=== PATIENT | male | born 1950 | race Caucasian/White ===

== ENCOUNTER → 2018-09-27 16:57 | Outpatient (CLI) | payer OTHER, MEDICARE, SELFPAY ==
--- NOTE | 2018-09-27 | DI.MRI.S_ITS ---
PROCEDURE: MR LUMBAR SPINE WO CON INDICATIONS: LOW BACK PAIN TECHNIQUE: Noncontrast sagittal T1 spin echo and T2 fast echo, sagittal STIR, axial T1 and T2 fast spin echo through the lumbar spine. In cases with scoliosis, additional coronal T2 fast spin echo may be performed. COMPARISON: [facility], CR, XR LUMBAR SPINE WITH OLBIQUES PLUS FLEXION EXTENSION, 07/25/2018, 13:30. FINDINGS: Image quality: Excellent. Alignment and Curvature: There is grade 2 anterolisthesis of L5 on S1. Bone Marrow: L4-L5-S1 are surgically fused. Marrow is of normal overall signal. No acute vertebral body compression fractures. Spinal Cord: Conus medullaris terminates at the T12-L1 level. Visualized cord demonstrates normal signal and size. Paraspinous Soft Tissues: No paravertebral masses. L1-L2: Mild loss of disc height and disc desiccation. There is diffuse posterior disc bulge. The central canal is is mildly narrowed. Mild bilateral foraminal stenosis. L2-L3: [id number] loss of disc height and disc desiccation. There is diffuse posterior disc bulge. Mild bilateral facet arthropathy. The central canal is [id number] narrowed. Moderate bilateral foraminal stenosis. L3-L4: ild-to-loss of disc height and disc desiccation. There is diffuse posterior disc bulge and disc osteophyte complex. Mild bilateral facet arthropathy. The central canal is is mildly narrowed. Severe bilateral foraminal stenosis. L4-L5: Surgically fused with posterior decompression. No central canal stenosis. Mild bilateral foraminal stenosis. L5-S1: Surgically fused with posterior decompression. No central canal stenosis. Moderate right and mild left foraminal stenosis. IMPRESSION: 1. Multilevel degenerative and postsurgical changes in the lumbar spine as described. 2. Lwjx-[id number]-fbdtszvu central canal stenosis at L2-L3. 3. Severe foraminal stenosis at L3-L4 bilaterally, and moderate foramina stenosis at L2-L3 bilaterally. 4. Grade 2 anterolisthesis of L5 on S1. Dictated by: Shaka Palma M.D. on 09/28/2018 at 8:19 Approved by: Shaka Palma M.D. on 09/28/2018 at 14:45
== END ==
PROVIDERS: Visit Provider Physical Medicine & Rehabilitation Pain Medicine
DX: M54.5 Low back pain (principal); M47.816 Spondylosis without myelopathy or radiculopathy, lumbar region; M48.061 Spinal stenosis, lumbar region without neurogenic claudication; M48.07 Spinal stenosis, lumbosacral region; M43.17 Spondylolisthesis, lumbosacral region; Z98.1 Arthrodesis status
CPT/HCPCS: 72148

== ENCOUNTER 2021-04-25 13:03 | Inpatient (IN) | payer OTHER, SELFPAY ==
[2021-04-25] VITALS (20 sets, daily range): BP systolic 120–150; BP diastolic 65–96; PULSE 95–122; RESP 18–42; TEMP 36.8–40; O2SAT 93–99; BMI 34.7
--- NOTE | 2021-04-25 13:22 | ED.GENADULT ---
HPI - General Adult General Chief complaint: Shortness of Breath/Dyspnea Stated complaint: ams Time Seen by Provider: 04/25/21 13:07 Source: patient Mode of arrival: EMS Limitations: no limitations History of Present Illness HPI narrative: 70-year-old gentleman lives at home with his , medics were called due to breathing abnormalities. Patient is tachypneic, tachycardic, confused and unable to answer many questions. His is not immediately available. Old records are not available at this time and patient does not know his past medical history. Medications listed in the medical record indicate depression, hyperlipidemia, chronic pain with opioid use. Related Data Home Medications Medication Instructions Recorded Confirmed gabapentin 300 mg capsule 300 mg PO TID #0 06/10/17 (Neurontin) omeprazole 20 mg capsule,delayed 20 mg PO QDAY #0 06/10/17 release prazosin 2 mg capsule (Minipress) 2 mg PO #0 06/10/17 quetiapine 400 mg tablet (Seroquel) 400 mg PO QDAY #0 06/10/17 sertraline 100 mg tablet 100 mg PO QDAY #0 06/10/17 simvastatin 20 mg tablet 20 mg PO QDAY #0 06/10/17 Previous Rx's Medication Instructions Recorded hydroxyzine pamoate 25 mg capsule 25 - 50 mg PO Q4HP PRN #60 cap 06/10/17 (Vistaril) oxycodone-acetaminophen 5 mg-325 1 - 2 tab PO Q4HP PRN #60 tab 06/10/17 mg tablet (Percocet) Allergies Allergy/AdvReac Type Severity Reaction Status Date / Time No Known Drug Allergies Allergy Verified 04/25/21 13:16 Review of Systems Review of Systems ROS Unobtainable: Unobtainable due to medical condition Exam Narrative Exam Narrative: General: Acutely ill-appearing, diaphoretic, very dry mucous membranes with confusion and distal mottling significant tachypnea HEENT: Very dry mucous membranes, normal sclera with reactive pupils, Neck: No JVD, supple Respiratory: Lungs with minor scattered wheezing but no rhonchi. Tachypneic with overall shallow air movement. No accessory muscle use Cardiac: Tachycardic with regular rhythm no murmurs no bruits Abdomen: Soft, obese, patient does complain of diffuse abdominal tenderness without rebound or guarding, hypoactive bowel tones no flank pain Skin: Pale, dry, mottling from mid thighs peripherally. Fingertips are cool. Neurologic: Confused with acute delirium and non focal findings Extremities: No trauma, no obvious cellulitis or other infection Psych: Acutely altered trying to be cooperative Initial Vital Signs Initial Vital Signs: Vital Signs Temperature 102.9 F H 04/25/21 13:00 Pulse Rate 122 H 04/25/21 13:00 Respiratory Rate 40 H 04/25/21 13:00 Blood Pressure 138/96 H 04/25/21 13:00 Pulse Oximetry 97 04/25/21 13:00 Course Orders Ordered: ED Orders 04/25/21 13:07 EKG-12 Lead Stat 04/25/21 13:10 Complete Blood Count AUTO DIFF Stat Comprehensive Metabolic Panel Stat Lactate (Lactic Acid) Stat Procalcitonin Stat Troponin & CK Cardiac Panel Stat 04/25/21 13:13 Respiratory Panel (Film Array) Stat 04/25/21 13:25 Blood Culture Stat 04/25/21 13:43 Urinalysis and Microscopic Stat Urine Culture Stat 04/25/21 14:03 XR chest 1V Stat 04/25/21 14:52 CT kidney ureter bladder (KUB) Stat 05/01/21 13:30 Vancomycin Trough Urgent Vancomycin HCl/Dextrose (Vancomycin) 2,000 mg in 400 mls @ 200 mls/hr IV Q48H SIMI Last Admin: 04/25/21 14:05 Dose: 200 mls/hr Documented by: NASREEN Lactated Ringer's (Lactated Ringers) 2,190 mls @ 730 mls/hr 30 ml/kg infuse over 3 hr (2190 ml) IV NOW ONE Stop: 04/25/21 17:01 Last Admin: 04/25/21 14:04 Dose: 730 mls/hr Documented by: NASREEN Discontinued Medications Acetaminophen (Acetaminophen 325 Mg Tablet) 975 mg PO NOW ONE Stop: 04/25/21 13:51 Last Admin: 04/25/21 13:59 Dose: Not Given Documented by: NASREEN Acetaminophen (Acetaminophen 650 Mg Supp) 650 mg MD NOW ONE Stop: 04/25/21 14:01 Last Admin: 04/25/21 14:04 Dose: 650 mg Documented by: NASREEN Acetaminophen (Acetaminophen 650 Mg Supp) 650 mg MD NOW ONE Stop: 04/25/21 14:01 Piperacillin Sod/Tazobactam (Sod 4.5 gm/ Sodium Chloride) 100 mls @ 200 mls/hr IV NOW ONE Stop: 04/25/21 13:08 Last Infusion: 04/25/21 13:59 Dose: 0 mls/hr Documented by: Admin: 04/25/21 13:26 Dose: 200 mls/hr Documented by: NASREEN Vancomycin HCl (Vancomycin Per Pharmacy) 1 request MISC NOW ONE Stop: 04/25/21 13:08 Last Admin: 04/25/21 14:13 Dose: Not Given Documented by: NASREEN Vital Signs Vital signs: Vital Signs - 8 hr 04/25/21 13:00 04/25/21 13:05 04/25/21 13:07 Temperature 102.9 F H Pulse Rate 122 H 121 H 120 H Respiratory Rate 40 H 39 H 37 H Blood Pressure 138/96 H 138/96 H Pulse Oximetry 97 97 97 04/25/21 13:15 04/25/21 13:30 04/25/21 13:45 Temperature 103.3 F H Pulse Rate 120 H 118 H 109 H Respiratory Rate 37 H 30 H 36 H Blood Pressure 150/86 H Pulse Oximetry 96 99 04/25/21 14:00 04/25/21 14:15 04/25/21 14:30 Temperature 103.8 F H 104.0 F H 103.8 F H Pulse Rate 107 H 106 H 109 H Respiratory Rate 32 H 33 H 42 H Blood Pressure 149/67 H 148/68 H Pulse Oximetry 98 99 98 04/25/21 14:31 04/25/21 14:45 04/25/21 15:11 Temperature 103.8 F H 102.9 F H 102.0 F H Pulse Rate 109 H 109 H Respiratory Rate 31 H 29 H Blood Pressure 123/67 135/73 Pulse Oximetry 99 98 04/25/21 15:13 04/25/21 15:15 Temperature 102.0 F H 101.8 F H Pulse Rate 101 H 102 H Respiratory Rate 18 34 H Blood Pressure 120/65 129/67 Pulse Oximetry 97 97 Medical Decision Making Lab Data Result diagrams: 04/25/21 13:10 04/25/21 13:10 Labs: Lab Results 04/25/21 04/25/21 04/25/21 Range/Units 13:10 13:10 13:10 WBC 18.4 H (4.5-11.0) X10^3/uL RBC 4.19 L (4.5-5.9) X10^6/uL Hgb 12.7 L (13.5-17.5) g/dL Hct 38.0 L (41-53) % MCV 90.8 (80-100) fL MCH 30.3 (26-34) PG MCHC 33.4 (30-36) % RDW 13.9 (11.6-14.8) % Plt Count 211 (150-400) X10^3/uL Neut % (Auto) 91.4 H (50-75) % Lymph % (Auto) 3.4 L (25-40) % Caswell % (Auto) 5.0 (3-14) % Eos % (Auto) 0.0 L (2-4) % Baso % (Auto) 0.2 (0-2) % Neut # (Auto) 23678 H (6022-3244) /uL Lymph # (Auto) 600 L (6131-5139) /uL [place] # (Auto) 900 (0-900) /uL Eos # (Auto) 0 (0-450) /uL Baso # (Auto) 0 (0-100) /uL Sodium 140 (137-145) mmol/L Potassium 3.7 (3.4-5.1) mmol/L Chloride 101 (98-107) mmol/L Carbon Dioxide 23 (22-32) mmol/L BUN 25 H (9-20) mg/dL Creatinine 2.25 H (0.66-1.25) mg/dL Estimated GFR 28.9 L (>60) mL/min BUN/Creatinine Ratio 11.1 (6-22) Glucose 200 H (80-110) mg/dL Lactate 3.1 H (0.7-2.1) mmol/L Calcium 8.7 (8.4-10.2) mg/dL Total Bilirubin 1.8 H (0.2-1.3) mg/dL AST 42 (17-59) IU/L ALT 28 (<50) IU/L Alkaline Phosphatase 101 (38-126) U/L Total Creatine Kinase 899 H (55-170) U/L CK-MB (CK-2) 1.70 (<2.37) ng/mL CK-MB (CK-2) Rel Index 0.2 L (1.5-5.0) % Troponin I < 0.012 (0.01-0.034) ng/mL Total Protein 8.0 (6.3-8.2) g/dL Albumin 4.3 (3.5-5.0) g/dL Globulin 3.7 (1.7-4.1) g/dL Albumin/Globulin Ratio 1.2 (1.0-2.8) Procalcitonin 8.09 H (<0.5) ng/mL Urine Color Urine Appearance Urine pH (4.5-8.0) Ur Specific Grover (1.000-1.035) Urine Protein (Negative) Urine Glucose (UA) (Negative) g/dL Urine Ketones (NEGATIVE) Urine Occult Blood (Negative) Urine Nitrate (Negative) Urine Bilirubin (NEGATIVE) Urine Urobilinogen (0.2) E.U./dL Ur Leukocyte Esterase (NEGATIVE) Urine RBC (0-5/HPF) Urine WBC (0-5/HPF) Ur Squamous Epith Cells (0-5/HPF) Ur Renal Epithelial Cell (0-1/HPF) Amorphous Sediment Urine Bacteria (None) Ur Culture Indicated? Chlamy pneumoniae PCR (Not Detect) Adenovirus (PCR) (Not Detect) B. pertussis DNA (PCR) (Not Detecte) B.parapertussis DNA PCR (Not Detecte) Coronavirus OC43 (PCR) (Not Detect) Coronavirus HKU1 (PCR) (Not Detect) Coronavirus 229E (PCR) (Not Detect) SARS-CoV-2 (PCR) (Not Detecte) Coronavirus NL63 (PCR) (Not Detect) Human Metapneumovir PCR (Not Detect) Influenza Type A (PCR) (Not Detect) Influenza Type B (PCR) (Not Detect) M. pneumoniae (PCR) (Not Detect) Parainfluenza 1 (PCR) (Not Detect) Parainfluenza 2 (PCR) (Not Detect) Parainfluenza 3 (PCR) (Not Detect) Parainfluenza 4 (PCR) (Not Detect) RSV (PCR) (Not Detect) Entero/Rhino (PCR) (Not Detect) 04/25/21 04/25/21 Range/Units 13:13 13:43 WBC (4.5-11.0) X10^3/uL RBC (4.5-5.9) X10^6/uL Hgb (13.5-17.5) g/dL Hct (41-53) % MCV (80-100) fL MCH (26-34) PG MCHC (30-36) % RDW (11.6-14.8) % Plt Count (150-400) X10^3/uL Neut % (Auto) (50-75) % Lymph % (Auto) (25-40) % Caswell % (Auto) (3-14) % Eos % (Auto) (2-4) % Baso % (Auto) (0-2) % Neut # (Auto) (1283-9290) /uL Lymph # (Auto) (9478-2668) /uL Caswell # (Auto) (0-900) /uL Eos # (Auto) (0-450) /uL Baso # (Auto) (0-100) /uL Sodium (137-145) mmol/L Potassium (3.4-5.1) mmol/L Chloride (98-107) mmol/L Carbon Dioxide (22-32) mmol/L BUN (9-20) mg/dL Creatinine (0.66-1.25) mg/dL Estimated GFR (>60) mL/min BUN/Creatinine Ratio (6-22) Glucose (80-110) mg/dL Lactate (0.7-2.1) mmol/L Calcium (8.4-10.2) mg/dL Total Bilirubin (0.2-1.3) mg/dL AST (17-59) IU/L ALT (<50) IU/L Alkaline Phosphatase (38-126) U/L Total Creatine Kinase (55-170) U/L CK-MB (CK-2) (<2.37) ng/mL CK-MB (CK-2) Rel Index (1.5-5.0) % Troponin I (0.01-0.034) ng/mL Total Protein (6.3-8.2) g/dL Albumin (3.5-5.0) g/dL Globulin (1.7-4.1) g/dL Albumin/Globulin Ratio (1.0-2.8) Procalcitonin (<0.5) ng/mL Urine Color Yellow Urine Appearance Cloudy Urine pH 6.0 (4.5-8.0) Ur Specific Grover 1.010 (1.000-1.035) Urine Protein 1+ H (Negative) Urine Glucose (UA) Negative (Negative) g/dL Urine Ketones Negative (NEGATIVE) Urine Occult Blood 2+ H (Negative) Urine Nitrate Positive H (Negative) Urine Bilirubin Negative (NEGATIVE) Urine Urobilinogen 0.2 (0.2) E.U./dL Ur Leukocyte Esterase 3+ H (NEGATIVE) Urine RBC 1-5/hpf (0-5/HPF) Urine WBC >100/hpf H (0-5/HPF) Ur Squamous Epith Cells 0-1 /hpf (0-5/HPF) Ur Renal Epithelial Cell 0-1/hpf (0-1/HPF) Amorphous Sediment 1+ Urine Bacteria Many (>30) H (None) Ur Culture Indicated? Specimen cultured Chlamy pneumoniae PCR Not detected (Not Detect) Adenovirus (PCR) Not detected (Not Detect) B. pertussis DNA (PCR) Not detected (Not Detecte) B.parapertussis DNA PCR Not detected (Not Detecte) Coronavirus OC43 (PCR) Not detected (Not Detect) Coronavirus HKU1 (PCR) Not detected (Not Detect) Coronavirus 229E (PCR) Not detected (Not Detect) SARS-CoV-2 (PCR) Not detected (Not Detecte) Coronavirus NL63 (PCR) Not detected (Not Detect) Human Metapneumovir PCR Not detected (Not Detect) Influenza Type A (PCR) Not detected (Not Detect) Influenza Type B (PCR) Not detected (Not Detect) M. pneumoniae (PCR) Not detected (Not Detect) Parainfluenza 1 (PCR) Not detected (Not Detect) Parainfluenza 2 (PCR) Not detected (Not Detect) Parainfluenza 3 (PCR) Not detected (Not Detect) Parainfluenza 4 (PCR) Not detected (Not Detect) RSV (PCR) Not detected (Not Detect) Entero/Rhino (PCR) Not detected (Not Detect) Imaging Data CT scan - abdomen/pelvis: Radiologist's Impression: IMPRESSION:? ? 1. Bilateral perinephric stranding is nonspecific and the differential includes pyelonephritis.? Evaluation is limited in the absence of intravenous contrast. ? 2. No nephrolithiasis or hydronephrosis.? No discrete perinephric fluid collections to suggest an abscess. ? 3. Mild fullness of the distal ureters bilaterally without a discrete obstructing stone. ? 4. Slightly hyperdense fluid within a partially distended urinary bladder.? Findings may reflect blood product or debris. ? 5. Colonic diverticulosis without acute diverticulitis.? ? ? Dictated by: Thomas Dyer M.D. on 04/25/2021 at 15:14? ?? Chest x-ray: Radiologist's Impression: FINDINGS:? ? Surgical changes and devices:? A surgical anchor projects over the right humeral head.? ? Lungs and pleura:? Low lung volumes with prominence of the bronchovascular markings.? Streaky bibasilar densities are seen.? No consolidation, pleural effusions or pneumothorax.? ? Mediastinum:? Prominence of the cardiomediastinal silhouette, partially is agitated by technique. ? Bones and chest wall:? No suspicious bony lesions.? Overlying soft tissues appear unremarkable.? ? IMPRESSION:? Streaky bibasilar densities, which may reflect atelectasis.? A superimposed infectious process cannot be excluded.? ? ? Dictated by: Elvis Leonard M.D. on 04/25/2021 at 14:16? ?? ECG Data Interpretation: Sinus tach at 118 Poor baseline Leftward axis No acute ischemic changes MDM Narrative Medical decision making narrative: 70-year-old gentleman brought from home with significant tachypnea, tachycardia, distal mottling, notes urinary incontinence over the last week. Internal temperature of a 102?. Currently acutely altered presumably due to his infection. No signs of stroke. Respiratory exam aside from the tachypnea is relatively benign. Significant leukocytosis significant urinary tract infection. Not currently hypotensive. Fluids at 30 ml/kg are initiated, Zosyn is started. At this time, based on clinical exam,I am not concerned for stroke. Probability of pulmonary or intra-abdominal source for infection are less likely. Labs and EKG do not suggest acute coronary syndrome. Temperature is increasing to 103 and Tylenol is administered rectum is his mouth is too dry to swallow pills After the 1 L of fluid and Zosyn heart rate is down to 103, oxygen saturations are 98% on room air. Respiratory rate is trending down he appears much more comfortable. Chest x-ray does not suggest pneumonia. Patient needs to be admitted for urinary tract infection with sepsis without evidence of significant hypotension. He is responding nicely to fluids. Antibiotics have been started cultures etc. have been obtained he is responding nicely to Tylenol in terms of temp. Initial reviewed with Dr. Waterman, he has requested abdominal imaging to make sure there isn't an acute urology intervention required prior to admission. CT scan of the abdomen is ordered. 330 CT of the abdomen does not have any specific findings that would alter plans for admission. Patient is safe for transfer to the floor Discharge Plan Departure Patient Disposition: Admitted As Inpatient Clinical Impression: Sepsis Qualifiers: Sepsis type: sepsis due to unspecified organism Sepsis acute organ dysfunction status: with acute organ dysfunction Severe sepsis acute organ dysfunction type: encephalopathy Severe sepsis shock status: without septic shock Qualified Code(s): A41.9 - Sepsis, unspecified organism Urinary tract infection Qualifiers: Urinary tract infection type: acute cystitis Hematuria presence: without hematuria Qualified Code(s): N30.00 - Acute cystitis without hematuria
[2021-04-25] MEDS: PIPERACILLIN/TAZO 4.5 GM in SODIUM CHLORIDE 0.9% 100 ML 200 ML IV (13:26)
[2021-04-25 13:28] LABS: Add Manual Diff / Slide Review NO; Basophils Absolute Auto 0 /uL (0-100); Basophils Percent Auto 0.2 % (0-2); Eosinophils Absolute Auto 0 /uL (0-450); Hemoglobin 12.7 g/dL (13.5-17.5); Lymphocytes Absolute Auto 600 /uL (1100-4500); Lymphocytes Percent Auto 3.4 % (25-40); Mean Corpuscular HGB Conc 33.4 % (30-36); Mean Corpuscular Hemoglobin 30.3 PG (26-34); Mean Corpuscular Volume 90.8 fL (80-100); Monocytes Absolute Auto 900 /uL (0-900); Neutrophils Absolute Auto 16800 /uL (1500-7000); Neutrophils Percent Auto 91.4 % (50-75); Platelet Count 211 X10^3/uL (150-400); Red Blood Cell Count 4.19 X10^6/uL (4.5-5.9); Red Cell Distribution Width 13.9 % (11.6-14.8); White Blood Cell Count 18.4 X10^3/uL (4.5-11.0)
[2021-04-25 13:42] LABS: Lactate (Lactic Acid) 3.1 mmol/L (0.7-2.1)
[2021-04-25 13:43] LABS: Alanine Aminotransferase 28 IU/L (<50); Albumin 4.3 g/dL (3.5-5.0); Albumin Globulin Ratio 1.2 (1.0-2.8); Alkaline Phosphatase 101 U/L (38-126); Aspartate Aminotransferase 42 IU/L (17-59); BUN Creatinine Ratio 11.1 (6-22); Bilirubin Total 1.8 mg/dL (0.2-1.3); Blood Urea Nitrogen 25 mg/dL (9-20); Calcium 8.7 mg/dL (8.4-10.2); Carbon Dioxide 23 mmol/L (22-32); Chloride 101 mmol/L (98-107); Creatine Kinase 899 U/L (55-170); Estimated Glomerular Filt Rate 28.9 mL/min (>60); Globulin 3.7 g/dL (1.7-4.1); Glucose 200 mg/dL (80-110); HEMOLYSIS < 15 (0-50); Potassium 3.7 mmol/L (3.4-5.1); Sodium 140 mmol/L (137-145)
[2021-04-25 13:52] LABS: Appearance Urine UA CLOUDY; Bilirubin Urine UA NEGATIVE (NEGATIVE); Color Urine UA YELLOW; Glucose Urine UA NEGATIVE (Negative); Ketones Urine UA NEGATIVE (NEGATIVE); Leukocyte Esterase Urine UA 3+ (NEGATIVE); Nitrite Urine UA POSITIVE (Negative); Occult Blood Urine UA 2+ (Negative); Protein Urine UA 1+ (Negative); Urobilinogen Urine UA 0.2 E.U./dL (0.2)
[2021-04-25 13:55] LABS: Troponin I < 0.012 ng/mL (0.01-0.034)
[2021-04-25 13:59] LABS: CKMB % Relative Index 0.2 % (1.5-5.0); Procalcitonin 8.09 ng/mL (<0.5)
[2021-04-25 14:01] LABS: Amorphous Sediment Urine 1+; Bacteria Urine Many (>30); RBC Urine 1-5/HPF (0-5/HPF); Renal Epithelial Cells Urine 0-1/HPF (0-1/HPF); Squamous Epithelial Cell Urine 0-1 /HPF (0-5/HPF); WBC Urine >100/HPF (0-5/HPF)
[2021-04-25 14:02] LABS: Culture Indicated Urine Specimen Cultured
--- NOTE | 2021-04-25 14:03 | DI.RAD.S_ITS ---
PROCEDURE: XR CHEST 1V INDICATIONS: Dyspnea TECHNIQUE: One view of the chest was acquired. COMPARISON: None. FINDINGS: Surgical changes and devices: A surgical anchor projects over the right humeral head. Lungs and pleura: Low lung volumes with prominence of the bronchovascular markings. Streaky bibasilar densities are seen. No consolidation, pleural effusions or pneumothorax. Mediastinum: Prominence of the cardiomediastinal silhouette, partially is agitated by technique. Bones and chest wall: No suspicious bony lesions. Overlying soft tissues appear unremarkable. IMPRESSION: Streaky bibasilar densities, which may reflect atelectasis. A superimposed infectious process cannot be excluded. Dictated by: Elvis Leonard M.D. on 04/25/2021 at 14:16 Approved by: Elvis Leonard M.D. on 04/25/2021 at 14:17
[2021-04-25] MEDS: ACETAMINOPHEN 650 MG SUPP PR (14:04)
[2021-04-25] MEDS: LACTATED RINGERS 2,190 ML 730 ML IV (14:04)
[2021-04-25] MEDS: VANCOMYCIN 2,000 MG/400 ML PIGGYBACK 200 MG IV (14:05)
[2021-04-25 14:41] LABS: Adenovirus Not Detected (Not Detect); B. parapertussis Not Detected (Not Detecte); Bordetella pertussis Not Detected (Not Detecte); Chlamydophila pneumoniae Not Detected (Not Detect); Coronavirus 229E Not Detected (Not Detect); Coronavirus HKU1 Not Detected (Not Detect); Coronavirus NL 63 Not Detected (Not Detect); Coronavirus OC43 Not Detected (Not Detect); Human Metapneumovirus Not Detected (Not Detect); Human Rhinovirus/Enterovirus Not Detected (Not Detect); Influenza A Not Detected (Not Detect); Influenza B Not Detected (Not Detect); Mycoplasma pneumoniae Not Detected (Not Detect); Parainfluenza Virus 1 Not Detected (Not Detect); Parainfluenza Virus 2 Not Detected (Not Detect); Parainfluenza Virus 3 Not Detected (Not Detect); Parainfluenza Virus 4 Not Detected (Not Detect); Respiratory Syncytial Virus Not Detected (Not Detect); SARS- CoV-2 Not Detected (Not Detecte)
--- NOTE | 2021-04-25 14:52 | DI.CT.S_ITS ---
PROCEDURE: CT KIDNEY URETER BLADDER (KUB) INDICATIONS: UTI, sepsis TECHNIQUE: Axial sections were acquired from the lung bases to the pubic symphysis. Coronal and sagittal reformats were performed. For radiation dose reduction, the following was used: automated exposure control, adjustment of mA and/or kV according to patient size. COMPARISON: None. FINDINGS: Image quality: There is motion artifact limiting evaluation. Metallic streak artifact is also present due to patient's surgical hardware in the lower lumbar spine. Lung bases: There is dependent atelectasis bilaterally. Heart: No significant findings. URINARY: Right Kidney: No stones or hydronephrosis. There is nonspecific perinephric stranding. Right Ureter: There is mild fullness of the mid and distal ureter without an obstructing stone visualized. Left Kidney: No stones or hydronephrosis. There is nonspecific perinephric stranding. Left Ureter: There is mild fullness of the distal ureter without an obstructing stone. Bladder: There is a Castillo catheter within a partially distended urinary bladder. There is slightly hyperdense fluid within the bladder lumen. ABDOMEN: Liver: Unremarkable. Gallbladder: No calcified gallstones. Evaluation is slightly limited by motion artifact. Biliary ducts: Unremarkable. Pancreas: Unremarkable. Spleen: Unremarkable. Adrenal Glands: Unremarkable. Stomach and Bowel: Stomach and small bowel loops are normal in caliber and wall thickness. No evidence of appendicitis. There is colonic diverticulosis without acute diverticulitis. Peritoneum: No abnormal intraperitoneal fluid. No free air. Ventral Wall: No hernia. Abdominal Nodes: No enlarged retroperitoneal or mesenteric lymph nodes. Vessels: Aorta and inferior vena cava are normal in size. PELVIS: Pelvic Organs: Unremarkable. Pelvic Nodes: Unremarkable. Miscellaneous: No inguinal hernias are seen. There is a penile prosthesis with a reservoir in the right inguinal region. Bones: Unremarkable. IMPRESSION: 1. Bilateral perinephric stranding is nonspecific and the differential includes pyelonephritis. Evaluation is limited in the absence of intravenous contrast. 2. No nephrolithiasis or hydronephrosis. No discrete perinephric fluid collections to suggest an abscess. 3. Mild fullness of the distal ureters bilaterally without a discrete obstructing stone. 4. Slightly hyperdense fluid within a partially distended urinary bladder. Findings may reflect blood product or debris. 5. Colonic diverticulosis without acute diverticulitis. Dictated by: Thomas Dyer M.D. on 04/25/2021 at 15:14 Approved by: Thomas Dyer M.D. on 04/25/2021 at 15:23
[2021-04-25 15:23] LABS: Reflexed Lactate in 2 Hours Y
[2021-04-25 15:49] LABS: Lactate 2HR (Lactic Acid Rflx) 1.6 mmol/L (0.7-2.1)
--- NOTE | 2021-04-25 17:04 | P.HP_ITS ---
History of Present Illness History of Present Illness Date Patient Seen: 04/25/21 Time Patient Seen: 17:17 Chief complaint: ams Narrative: This is a 70-year-old male with a past medical history of BPH, severe PTSD who to the emergency room today with confusion per his spouse. Patient is currently confused an has little history to offer at this time so much of the report is gained from his at bedside. Patient had a prostate biopsy approximately [address] [facility]. approximately 1 week ago he began to notice increasing urinary frequency, with the past couple of days developing abdominal and back pain and confusion today. He also endorses dysuria, and some testicular pain. Other than PTSD he has no known hypertension, heart disease, lung disease, or diabetes. Unable to obtain family history given patient's current mental status. In the emergency room the patient was febrile to 104, he was also tachycardic, tachypneic. His blood pressure did not fall below normal. He was saturating in the low to mid 90s on room air. Initial laboratory evaluation revealed leukocytosis with WBC of 18.4 with a left shift. Chemistries revealed a c reatinine of 2.25, with unknown baseline. His glucose was noted to be 200. Two bilirubin was elevated at 1.8 with no significant transaminase elevations. CK was mildly elevated at 899. Troponin was negative. Procalcitonin was elevated at 8.09. Urinalysis showed 2+ occult blood, positive nitrates and leuk esterase with greater than 100 cells per high-powered field. Specimen was sent for cult ure. Chest x-ray showed probable atelectasis but could not rule out possible infectious process. CT of his abdomen showed bilateral perinephric stranding consistent with bilateral pyelonephritis. Respiratory viral panel PCR was negative. Patient was admitted for further management of sepsis secondary to probable prostatitis after prostate biopsy. Patient History Medical History (Updated 04/25/21 @ 17:06 by Romero Waterman DO) BPH (benign prostatic hyperplasia) Post traumatic stress disorder (PTSD) Surgical History (Updated 04/25/21 @ 17:06 by Romero Waterman DO) H/O prostate biopsy H/O shoulder surgery History of lumbar fusion Family & Social History Social History: household members spouse Tobacco & Substance use: Smoking Status Former smoker alcohol intake former Substance Use Type occasional marijuana once per two weeks. Meds Home Medications and Allergies Home Medications Medication Instructions Recorded Confirmed Type gabapentin 300 mg capsule 300 mg PO TID #0 06/10/17 04/25/21 History (Neurontin) omeprazole 20 mg capsule,delayed 20 mg PO QDAY PRN #0 06/10/17 04/25/21 History release prazosin 2 mg capsule (Minipress) See Rx Instructions .ROUTE 06/10/17 04/25/21 History .COMPLEX #0 sertraline 100 mg tablet 100 mg PO QDAY #0 06/10/17 04/25/21 History aripiprazole 5 mg tablet 5 mg PO DAILY 04/25/21 04/25/21 History cholecalciferol (vitamin D3) 25 25 mcg PO DAILY 04/25/21 04/25/21 History mcg (1,000 unit) tablet (Vitamin D3) fluoxetine 40 mg capsule 40 mg PO DAILY 04/25/21 04/25/21 History tamsulosin 0.4 mg capsule 0.8 mg PO BEDTIME 04/25/21 04/25/21 History Allergies Allergy/AdvReac Type Severity Reaction Status Date / Time No Known Drug Allergies Allergy Verified 04/25/21 13:16 Review of Systems Review of Systems Narrative: All other systems reviewed with the patient and spouse and are negative unless otherwise stated. Exam Vital Signs (past 8 hours): - 04/25/21 13:00 04/25/21 13:05 04/25/21 13:07 Temperature 102.9 F H Pulse Rate 122 H 121 H 120 H Respiratory Rate 40 H 39 H 37 H Blood Pressure 138/96 H 138/96 H Pulse Oximetry 97 97 97 04/25/21 13:15 04/25/21 13:30 04/25/21 13:45 Temperature 103.3 F H Pulse Rate 120 H 118 H 109 H Respiratory Rate 37 H 30 H 36 H Blood Pressure 150/86 H Pulse Oximetry 96 99 04/25/21 14:00 04/25/21 14:15 04/25/21 14:30 Temperature 103.8 F H 104.0 F H 103.8 F H Pulse Rate 107 H 106 H 109 H Respiratory Rate 32 H 33 H 42 H Blood Pressure 149/67 H 148/68 H Pulse Oximetry 98 99 98 04/25/21 14:31 04/25/21 14:45 04/25/21 15:11 Temperature 103.8 F H 102.9 F H 102.0 F H Pulse Rate 109 H 109 H Respiratory Rate 31 H 29 H Blood Pressure 123/67 135/73 Pulse Oximetry 99 98 04/25/21 15:13 04/25/21 15:15 04/25/21 15:30 Temperature 102.0 F H 101.8 F H 101.3 F H Pulse Rate 101 H 102 H 101 H Respiratory Rate 18 34 H 37 H Blood Pressure 120/65 129/67 125/68 Pulse Oximetry 97 97 95 04/25/21 15:44 04/25/21 16:05 Temperature 100.9 F H 98.6 F Pulse Rate 95 H Respiratory Rate 20 Blood Pressure 122/76 Pulse Oximetry 93 Oxygen Delivery Method Room Air Oxygen Flow Rate 0 Narrative Exam Narrative: GENERAL APPEARANCE: Acutely ill-appearing elderly male, slightly tachypneic, appears uncomfortable. SKIN: Inspection of the skin reveals no rashes, ulcerations or petechiae. HEENT: Normocephalic atraumatic, extraocular muscles are intact, oropharynx is clear and mucous membranes are dry, neck is supple without adenopathy NECK: Supple and symmetric. There was no thyroid enlargement, and no tenderness, or masses were felt. CHEST: Normal AP diameter and normal contour without any kyphoscoliosis. LUNGS: Auscultation of the lungs revealed no wheezes, rhonchi, or rales. CARDIOVASCULAR: There was a regular rate and rhythm without any murmurs, gallops, rubs. Peripheral pulses were 2+ and symmetric. ABDOMEN: Soft, diffuse mild tenderness, bilateral CVA tenderness with right greater than left. : R testicular pain, difficult to fully examine given size, positioning. MUSCULOSKELETAL: There was no tenderness or effusions noted. Muscle strength and tone were normal. EXTREMITIES: No cyanosis, clubbing or edema. NEUROLOGIC: Alert and oriented currently to name only. Anxious. No focal deficits currently. Objective ECG Impression: Sinus tachycardia Minimal voltage criteria for LVH, may be normal variant ( R in aVL ) isolated non-specific ST / T wave changes. though there is significant artifact. Labs Result Diagrams: 04/25/21 13:10 04/25/21 13:10 Labs: Laboratory Results - last 24 hr 04/25/21 04/25/21 04/25/21 13:10 13:10 13:10 WBC 18.4 H RBC 4.19 L Hgb 12.7 L Hct 38.0 L MCV 90.8 MCH 30.3 MCHC 33.4 RDW 13.9 Plt Count 211 Neut % (Auto) 91.4 H Lymph % (Auto) 3.4 L [place] % (Auto) 5.0 Eos % (Auto) 0.0 L Baso % (Auto) 0.2 Neut # (Auto) 12767 H Lymph # (Auto) 600 L [place] # (Auto) 900 Eos # (Auto) 0 Baso # (Auto) 0 Sodium 140 Potassium 3.7 Chloride 101 Carbon Dioxide 23 BUN 25 H Creatinine 2.25 H Estimated GFR 28.9 L BUN/Creatinine Ratio 11.1 Glucose 200 H Lactate 3.1 H Calcium 8.7 Total Bilirubin 1.8 H AST 42 ALT 28 Alkaline Phosphatase 101 Total Creatine Kinase 899 H CK-MB (CK-2) 1.70 CK-MB (CK-2) Rel Index 0.2 L Troponin I < 0.012 Total Protein 8.0 Albumin 4.3 Globulin 3.7 Albumin/Globulin Ratio 1.2 Procalcitonin 8.09 H Urine Color Urine Appearance Urine pH Ur Specific [place] Urine Protein Urine Glucose (UA) Urine Ketones Urine Occult Blood Urine Nitrate Urine Bilirubin Urine Urobilinogen Ur Leukocyte Esterase Urine RBC Urine WBC Ur Squamous Epith Cells Ur Renal Epithelial Cell Amorphous Sediment Urine Bacteria Ur Culture Indicated? Chlamy pneumoniae PCR Adenovirus (PCR) B. pertussis DNA (PCR) B.parapertussis DNA PCR Coronavirus OC43 (PCR) Coronavirus HKU1 (PCR) Coronavirus 229E (PCR) SARS-CoV-2 (PCR) Coronavirus NL63 (PCR) Human Metapneumovir PCR Influenza Type A (PCR) Influenza Type B (PCR) M. pneumoniae (PCR) Parainfluenza 1 (PCR) Parainfluenza 2 (PCR) Parainfluenza 3 (PCR) Parainfluenza 4 (PCR) RSV (PCR) Entero/Rhino (PCR) 04/25/21 04/25/21 04/25/21 13:13 13:43 15:33 WBC RBC Hgb Hct MCV MCH MCHC RDW Plt Count Neut % (Auto) Lymph % (Auto) [place] % (Auto) Eos % (Auto) Baso % (Auto) Neut # (Auto) Lymph # (Auto) [place] # (Auto) Eos # (Auto) Baso # (Auto) Sodium Potassium Chloride Carbon Dioxide BUN Creatinine Estimated GFR BUN/Creatinine Ratio Glucose Lactate 1.6 Calcium Total Bilirubin AST ALT Alkaline Phosphatase Total Creatine Kinase CK-MB (CK-2) CK-MB (CK-2) Rel Index Troponin I Total Protein Albumin Globulin Albumin/Globulin Ratio Procalcitonin Urine Color Yellow Urine Appearance Cloudy Urine pH 6.0 Ur Specific [place] 1.010 Urine Protein 1+ H Urine Glucose (UA) Negative Urine Ketones Negative Urine Occult Blood 2+ H Urine Nitrate Positive H Urine Bilirubin Negative Urine Urobilinogen 0.2 Ur Leukocyte Esterase 3+ H Urine RBC 1-5/hpf Urine WBC >100/hpf H Ur Squamous Epith Cells 0-1 /hpf Ur Renal Epithelial Cell 0-1/hpf Amorphous Sediment 1+ Urine Bacteria Many (>30) H Ur Culture Indicated? Specimen cultured Chlamy pneumoniae PCR Not detected Adenovirus (PCR) Not detected B. pertussis DNA (PCR) Not detected B.parapertussis DNA PCR Not detected Coronavirus OC43 (PCR) Not detected Coronavirus HKU1 (PCR) Not detected Coronavirus 229E (PCR) Not detected SARS-CoV-2 (PCR) Not detected Coronavirus NL63 (PCR) Not detected Human Metapneumovir PCR Not detected Influenza Type A (PCR) Not detected Influenza Type B (PCR) Not detected M. pneumoniae (PCR) Not detected Parainfluenza 1 (PCR) Not detected Parainfluenza 2 (PCR) Not detected Parainfluenza 3 (PCR) Not detected Parainfluenza 4 (PCR) Not detected RSV (PCR) Not detected Entero/Rhino (PCR) Not detected Assessment & Plan Assessment & Plan narrative: 1. Sepsis without shock, acute, present on admission - source likely secondary to bilateral pyelonephritis, likely a complication of infection following prostate biopsy -given recent prostate biopsy concern for more drug resistant strains. Pending cultures will empirically treat broadly with meropenem and vancomycin. -sofa score is 4 - testicular pain on exam, not well seen on CT imaging. Check scrotal and renal ultrasound to evaluate for possible abscess. Consider urology consultation. - WBC 18.4, procalcitonin 8 on admission. Continue to follow. 2. Bilateral pyelonephritis, secondary to acute prostatitis as a complication of prostate biopsy - continue antibiotics as noted above. Once cultures return will narrow. Will likely need 6 weeks for prostatitis and follow up with his urologist at the [place]. 3. Acute renal failure more likely than chronic kidney disease - likely in setting of sepsis. Castillo placed in ER. Check ultrasound as noted above. - creatinine 2.25 on admission, unknown baseline. 4. Elevated glucose - glucose 200 on admission labs. Check A1c. Provide for sliding scale for now. 5. metabolic encephalopathy, acute - likely secondary to sepsis, continue treatment as in problem 1 above. No focal deficits on exam. GCS 14. 6. PTSD, chronic - continue home medications Code: Full as discussed with patient and surrogate decision maker, his spouse. Dispo: Admit as inpatient. DVT: Lovenox daily, renal dosing. I have utilized all available immediate resources to obtain, update, or review the patient's current medications. COVID-19 COVID-19 status: Negative Time Spent With Patient Critical Care time: I spent a total of [] minutes of critical care time on this patient's care today; this time is exclusive of procedural time. Scores GCS Deisy coma scale eye opening: Spontaneous Deisy coma scale verbal response: Confused Deisy coma scale motor response: Obey commands Deisy coma scale total score: 14 SOFA PaO2/FIO2: >=400 mmHg Platelets: >= 150 Bilirubin: 1.2-1.9 mg/dL Hypotension: MAP >= 70 mmHg Deisy Coma Scale: 13-14 Renal: Creatinine 2.0-3.4 mg/dL SOFA Score: 4
[2021-04-25] MEDS: MEROPENEM 1 GM in SODIUM CHLORIDE 0.9% 100 ML 200 ML IV (18:08)
[2021-04-25] MEDS: LACTATED RINGERS 1,000 ML 100 ML IV (18:13)
[2021-04-25] MEDS: PRAZOSIN 1 MG CAPSULE 4 MG PO (20:16)
[2021-04-25] MEDS: GABAPENTIN 300 MG CAPSULE PO (20:16)
[2021-04-25] MEDS: TAMSULOSIN 0.4 MG CAPSULE 0.8 MG PO (20:16)
[2021-04-25] MEDS: HYDROMORPHONE 1 MG INJ IV (20:17)
[2021-04-26] VITALS (11 sets, daily range): BP systolic 99–117; BP diastolic 43–68; PULSE 94–106; RESP 18–22; TEMP 36.3–36.9; O2SAT 92–99
[2021-04-26 01:54] LABS: Acinetobacter baumannii Not Detected (Not Detect); Candida albicans Not Detected (Not Detect); Candida glabrata Not Detected (Not Detect); Candida krusei Not Detected (Not Detect); Candida parapsilosis Not Detected (Not Detect); Candida tropicalis Not Detected (Not Detect); E. coli Detected (Not Detect); Enterobacter cloacae complex Not Detected (Not Detect); Enterobacteriaceae species Detected (Not Detect); Enterococcus species Not Detected (Not Detect); Haemophilus influenzae Not Detected (Not Detect); KPC (carbapenem-resist gene) Not Detected (Not Detect); Listeria monocytogenes Not Detected (Not Detect); Neisseria meningitidis Not Detected (Not Detect); Proteus species Not Detected (Not Detect); Pseudomonas aeruginosa Not Detected (Not Detect); Serratia marcescens Not Detected (Not Detect); Staphylococcus species Not Detected (Not Detect); Streptococcus agalactiae (Gr B Not Detected (Not Detect); Streptococcus pneumonia Not Detected (Not Detect); Streptococcus pyogenes (Gr A) Not Detected (Not Detect); Streptococcus species Not Detected (Not Detect)
[2021-04-26] MEDS: LACTATED RINGERS 1,000 ML 100 ML IV ×3 (03:59→22:49)
[2021-04-26] MEDS: HYDROMORPHONE 1 MG INJ IV (04:05)
[2021-04-26] MEDS: MEROPENEM 1 GM in SODIUM CHLORIDE 0.9% 100 ML 200 ML IV ×2 (05:22→17:38)
[2021-04-26 06:27] LABS: Add Manual Diff / Slide Review NO; Basophils Absolute Auto 0 /uL (0-100); Basophils Percent Auto 0.3 % (0-2); Eosinophils Absolute Auto 0 /uL (0-450); Eosinophils Percent Auto 0.1 % (2-4); Hematocrit 30.8 % (41-53); Hemoglobin 10.5 g/dL (13.5-17.5); Lymphocytes Absolute Auto 600 /uL (1100-4500); Lymphocytes Percent Auto 5.3 % (25-40); Mean Corpuscular Hemoglobin 30.9 PG (26-34); Monocytes Absolute Auto 600 /uL (0-900); Monocytes Percent Auto 5.1 % (3-14); Neutrophils Absolute Auto 9800 /uL (1500-7000); Neutrophils Percent Auto 89.2 % (50-75); Platelet Count 136 X10^3/uL (150-400); Red Blood Cell Count 3.38 X10^6/uL (4.5-5.9); White Blood Cell Count 10.9 X10^3/uL (4.5-11.0)
[2021-04-26 06:38] LABS: Alanine Aminotransferase 20 IU/L (<50); Albumin 3.1 g/dL (3.5-5.0); Alkaline Phosphatase 71 U/L (38-126); Aspartate Aminotransferase 34 IU/L (17-59); BUN Creatinine Ratio 12.8 (6-22); Bilirubin Total 0.8 mg/dL (0.2-1.3); Blood Urea Nitrogen 22 mg/dL (9-20); Calcium 7.7 mg/dL (8.4-10.2); Carbon Dioxide 26 mmol/L (22-32); Chloride 105 mmol/L (98-107); Estimated Glomerular Filt Rate 39.4 mL/min (>60); Glucose 111 mg/dL (80-110); HEMOLYSIS < 15 (0-50); Magnesium 1.7 mg/dL (1.6-2.3); Potassium 3.4 mmol/L (3.4-5.1); Sodium 138 mmol/L (137-145); Total Protein 6.1 g/dL (6.3-8.2)
[2021-04-26 06:56] LABS: Procalcitonin 11.5 ng/mL (<0.5)
[2021-04-26 07:12] LABS: Hemoglobin A1C% w Est Avg Glu 5.4 % (4.0-6.0)
--- NOTE | 2021-04-26 08:39 | PM.PN.1 ---
Subjective Subjective Date Patient Seen: 04/26/21 Time Patient Seen: 08:40 Interval history: Feels slightly improved, denies abdominal pain today. No back pain. States he is hungry and thirsty. Still confused but improved mentation compared to admission. Exam Vital Signs (past 8 hours): - 04/26/21 00:45 04/26/21 04:00 04/26/21 04:20 Temperature 98.5 F 98.5 F Pulse Rate 95 H 104 H Respiratory Rate 18 22 Blood Pressure 116/65 106/43 L Pulse Oximetry 94 95 95 04/26/21 08:00 Temperature 98.2 F Pulse Rate 98 H Respiratory Rate 21 Blood Pressure 113/60 Pulse Oximetry 92 Oxygen Delivery Method Nasal Cannula Oxygen Flow Rate 2 Narrative Exam Narrative: GENERAL APPEARANCE:? Acutely ill-appearing elderly male, wash cloth on forehead, but more comfortable appearing. SKIN: Inspection of the skin reveals no rashes, ulcerations or petechiae. HEENT:? Normocephalic atraumatic, extraocular muscles are intact, oropharynx is clear and mucous membranes are moist, neck is supple without adenopathy NECK: Supple and symmetric. There was no thyroid enlargement, and no tenderness, or masses were felt. CHEST: Normal AP diameter and normal contour without any kyphoscoliosis. LUNGS: Auscultation of the lungs revealed no wheezes, rhonchi, or rales. CARDIOVASCULAR: There was a regular rate and rhythm without any murmurs, gallops, rubs. Peripheral pulses were 2+ and symmetric. ABDOMEN:? Soft, NT, ND. MUSCULOSKELETAL: There was no tenderness or effusions noted. Muscle strength and tone were normal. EXTREMITIES: No cyanosis, clubbing or edema. NEUROLOGIC: Alert and oriented currently to name and hospital. Mildly Anxious. No focal deficits. Tremor more prominent on RUE, worse with movement. Objective Labs Result Diagrams: 04/26/21 06:07 04/26/21 06:07 Labs: Laboratory Results - last 24 hr 04/25/21 04/25/21 04/25/21 13:10 13:10 13:10 WBC 18.4 H RBC 4.19 L Hgb 12.7 L Hct 38.0 L MCV 90.8 MCH 30.3 MCHC 33.4 RDW 13.9 Plt Count 211 Neut % (Auto) 91.4 H Lymph % (Auto) 3.4 L [place] % (Auto) 5.0 Eos % (Auto) 0.0 L Baso % (Auto) 0.2 Neut # (Auto) 30375 H Lymph # (Auto) 600 L [place] # (Auto) 900 Eos # (Auto) 0 Baso # (Auto) 0 Sodium 140 Potassium 3.7 Chloride 101 Carbon Dioxide 23 BUN 25 H Creatinine 2.25 H Estimated GFR 28.9 L BUN/Creatinine Ratio 11.1 Glucose 200 H Hemoglobin A1c Lactate 3.1 H Calcium 8.7 Magnesium Total Bilirubin 1.8 H AST 42 ALT 28 Alkaline Phosphatase 101 Total Creatine Kinase 899 H CK-MB (CK-2) 1.70 CK-MB (CK-2) Rel Index 0.2 L Troponin I < 0.012 Total Protein 8.0 Albumin 4.3 Globulin 3.7 Albumin/Globulin Ratio 1.2 Procalcitonin 8.09 H Urine Color Urine Appearance Urine pH Ur Specific [place] Urine Protein Urine Glucose (UA) Urine Ketones Urine Occult Blood Urine Nitrate Urine Bilirubin Urine Urobilinogen Ur Leukocyte Esterase Urine RBC Urine WBC Ur Squamous Epith Cells Ur Renal Epithelial Cell Amorphous Sediment Urine Bacteria Ur Culture Indicated? A. baumannii (PCR) Chlamy pneumoniae PCR Adenovirus (PCR) B. pertussis DNA (PCR) B.parapertussis DNA PCR Jazmine albicans (PCR) C. glabrata (PCR) C. krusei (PCR) C. parapsilosis (PCR) C. tropicalis (PCR) Coronavirus OC43 (PCR) Coronavirus HKU1 (PCR) Coronavirus 229E (PCR) SARS-CoV-2 (PCR) Coronavirus NL63 (PCR) Enterobacteriac sp PCR E. cloacae complex PCR Enterococcus sp PCR E. coli (PCR) H. influenzae (PCR) Human Metapneumovir PCR Influenza Type A (PCR) Influenza Type B (PCR) Klebsiella oxytoca PCR Klebsiella pneumoniae List. monocytogenes PCR M. pneumoniae (PCR) N. meningitidis (PCR) Parainfluenza 1 (PCR) Parainfluenza 2 (PCR) Parainfluenza 3 (PCR) Parainfluenza 4 (PCR) Proteus species (PCR) RSV (PCR) Entero/Rhino (PCR) Serratia marcescens PCR Staphylococcus sp PCR Staph aureus (PCR) mecA-Methicil Res Gene Streptococcus sp PCR Group A Strep (PCR) Strep agalactiae (PCR) Strep pneumoniae (PCR) P. aeruginosa (PCR) Sue/B-Vanco Res Genes KPC-Carbap Res Gene PCR 04/25/21 04/25/21 04/25/21 13:13 13:43 15:33 WBC RBC Hgb Hct MCV MCH MCHC RDW Plt Count Neut % (Auto) Lymph % (Auto) [place] % (Auto) Eos % (Auto) Baso % (Auto) Neut # (Auto) Lymph # (Auto) [place] # (Auto) Eos # (Auto) Baso # (Auto) Sodium Potassium Chloride Carbon Dioxide BUN Creatinine Estimated GFR BUN/Creatinine Ratio Glucose Hemoglobin A1c Lactate 1.6 Calcium Magnesium Total Bilirubin AST ALT Alkaline Phosphatase Total Creatine Kinase CK-MB (CK-2) CK-MB (CK-2) Rel Index Troponin I Total Protein Albumin Globulin Albumin/Globulin Ratio Procalcitonin Urine Color Yellow Urine Appearance Cloudy Urine pH 6.0 Ur Specific [place] 1.010 Urine Protein 1+ H Urine Glucose (UA) Negative Urine Ketones Negative Urine Occult Blood 2+ H Urine Nitrate Positive H Urine Bilirubin Negative Urine Urobilinogen 0.2 Ur Leukocyte Esterase 3+ H Urine RBC 1-5/hpf Urine WBC >100/hpf H Ur Squamous Epith Cells 0-1 /hpf Ur Renal Epithelial Cell 0-1/hpf Amorphous Sediment 1+ Urine Bacteria Many (>30) H Ur Culture Indicated? Specimen cultured A. baumannii (PCR) Chlamy pneumoniae PCR Not detected Adenovirus (PCR) Not detected B. pertussis DNA (PCR) Not detected B.parapertussis DNA PCR Not detected Jazmine albicans (PCR) C. glabrata (PCR) C. krusei (PCR) C. parapsilosis (PCR) C. tropicalis (PCR) Coronavirus OC43 (PCR) Not detected Coronavirus HKU1 (PCR) Not detected Coronavirus 229E (PCR) Not detected SARS-CoV-2 (PCR) Not detected Coronavirus NL63 (PCR) Not detected Enterobacteriac sp PCR E. cloacae complex PCR Enterococcus sp PCR E. coli (PCR) H. influenzae (PCR) Human Metapneumovir PCR Not detected Influenza Type A (PCR) Not detected Influenza Type B (PCR) Not detected Klebsiella oxytoca PCR Klebsiella pneumoniae List. monocytogenes PCR M. pneumoniae (PCR) Not detected N. meningitidis (PCR) Parainfluenza 1 (PCR) Not detected Parainfluenza 2 (PCR) Not detected Parainfluenza 3 (PCR) Not detected Parainfluenza 4 (PCR) Not detected Proteus species (PCR) RSV (PCR) Not detected Entero/Rhino (PCR) Not detected Serratia marcescens PCR Staphylococcus sp PCR Staph aureus (PCR) mecA-Methicil Res Gene Streptococcus sp PCR Group A Strep (PCR) Strep agalactiae (PCR) Strep pneumoniae (PCR) P. aeruginosa (PCR) Sue/B-Vanco Res Genes KPC-Carbap Res Gene PCR 04/26/21 04/26/21 04/26/21 00:11 06:07 06:07 WBC 10.9 RBC 3.38 L Hgb 10.5 L Hct 30.8 L MCV 91.0 MCH 30.9 MCHC 34.0 RDW 14.0 Plt Count 136 L Neut % (Auto) 89.2 H Lymph % (Auto) 5.3 L [place] % (Auto) 5.1 Eos % (Auto) 0.1 L Baso % (Auto) 0.3 Neut # (Auto) 9800 H Lymph # (Auto) 600 L [place] # (Auto) 600 Eos # (Auto) 0 Baso # (Auto) 0 Sodium 138 Potassium 3.4 Chloride 105 Carbon Dioxide 26 BUN 22 H Creatinine 1.72 H Estimated GFR 39.4 L BUN/Creatinine Ratio 12.8 Glucose 111 H Hemoglobin A1c Lactate Calcium 7.7 L Magnesium 1.7 Total Bilirubin 0.8 AST 34 ALT 20 Alkaline Phosphatase 71 Total Creatine Kinase CK-MB (CK-2) CK-MB (CK-2) Rel Index Troponin I Total Protein 6.1 L Albumin 3.1 L Globulin 3.0 Albumin/Globulin Ratio 1.0 Procalcitonin 11.5 H Urine Color Urine Appearance Urine pH Ur Specific [place] Urine Protein Urine Glucose (UA) Urine Ketones Urine Occult Blood Urine Nitrate Urine Bilirubin Urine Urobilinogen Ur Leukocyte Esterase Urine RBC Urine WBC Ur Squamous Epith Cells Ur Renal Epithelial Cell Amorphous Sediment Urine Bacteria Ur Culture Indicated? A. baumannii (PCR) Not detected Chlamy pneumoniae PCR Adenovirus (PCR) B. pertussis DNA (PCR) B.parapertussis DNA PCR Jazmine albicans (PCR) Not detected C. glabrata (PCR) Not detected C. krusei (PCR) Not detected C. parapsilosis (PCR) Not detected C. tropicalis (PCR) Not detected Coronavirus OC43 (PCR) Coronavirus HKU1 (PCR) Coronavirus 229E (PCR) SARS-CoV-2 (PCR) Coronavirus NL63 (PCR) Enterobacteriac sp PCR Detected H E. cloacae complex PCR Not detected Enterococcus sp PCR Not detected E. coli (PCR) Detected H H. influenzae (PCR) Not detected Human Metapneumovir PCR Influenza Type A (PCR) Influenza Type B (PCR) Klebsiella oxytoca PCR Not detected Klebsiella pneumoniae Not detected List. monocytogenes PCR Not detected M. pneumoniae (PCR) N. meningitidis (PCR) Not detected Parainfluenza 1 (PCR) Parainfluenza 2 (PCR) Parainfluenza 3 (PCR) Parainfluenza 4 (PCR) Proteus species (PCR) Not detected RSV (PCR) Entero/Rhino (PCR) Serratia marcescens PCR Not detected Staphylococcus sp PCR Not detected Staph aureus (PCR) Not detected mecA-Methicil Res Gene Not Reportable Streptococcus sp PCR Not detected Group A Strep (PCR) Not detected Strep agalactiae (PCR) Not detected Strep pneumoniae (PCR) Not detected P. aeruginosa (PCR) Not detected Sue/B-Vanco Res Genes Not Reportable KPC-Carbap Res Gene PCR Not detected 04/26/21 06:07 WBC RBC Hgb Hct MCV MCH MCHC RDW Plt Count Neut % (Auto) Lymph % (Auto) [place] % (Auto) Eos % (Auto) Baso % (Auto) Neut # (Auto) Lymph # (Auto) [place] # (Auto) Eos # (Auto) Baso # (Auto) Sodium Potassium Chloride Carbon Dioxide BUN Creatinine Estimated GFR BUN/Creatinine Ratio Glucose Hemoglobin A1c 5.4 Lactate Calcium Magnesium Total Bilirubin AST ALT Alkaline Phosphatase Total Creatine Kinase CK-MB (CK-2) CK-MB (CK-2) Rel Index Troponin I Total Protein Albumin Globulin Albumin/Globulin Ratio Procalcitonin Urine Color Urine Appearance Urine pH Ur Specific [place] Urine Protein Urine Glucose (UA) Urine Ketones Urine Occult Blood Urine Nitrate Urine Bilirubin Urine Urobilinogen Ur Leukocyte Esterase Urine RBC Urine WBC Ur Squamous Epith Cells Ur Renal Epithelial Cell Amorphous Sediment Urine Bacteria Ur Culture Indicated? A. baumannii (PCR) Chlamy pneumoniae PCR Adenovirus (PCR) B. pertussis DNA (PCR) B.parapertussis DNA PCR Jazmine albicans (PCR) C. glabrata (PCR) C. krusei (PCR) C. parapsilosis (PCR) C. tropicalis (PCR) Coronavirus OC43 (PCR) Coronavirus HKU1 (PCR) Coronavirus 229E (PCR) SARS-CoV-2 (PCR) Coronavirus NL63 (PCR) Enterobacteriac sp PCR E. cloacae complex PCR Enterococcus sp PCR E. coli (PCR) H. influenzae (PCR) Human Metapneumovir PCR Influenza Type A (PCR) Influenza Type B (PCR) Klebsiella oxytoca PCR Klebsiella pneumoniae List. monocytogenes PCR M. pneumoniae (PCR) N. meningitidis (PCR) Parainfluenza 1 (PCR) Parainfluenza 2 (PCR) Parainfluenza 3 (PCR) Parainfluenza 4 (PCR) Proteus species (PCR) RSV (PCR) Entero/Rhino (PCR) Serratia marcescens PCR Staphylococcus sp PCR Staph aureus (PCR) mecA-Methicil Res Gene Streptococcus sp PCR Group A Strep (PCR) Strep agalactiae (PCR) Strep pneumoniae (PCR) P. aeruginosa (PCR) Sue/B-Vanco Res Genes KPC-Carbap Res Gene PCR [facility] Medical History (Updated 04/25/21 @ 17:06 by Romero Waterman DO) BPH (benign prostatic hyperplasia) Post traumatic stress disorder (PTSD) Surgical History (Updated 04/25/21 @ 17:06 by Romero Waterman DO) H/O prostate biopsy H/O shoulder surgery History of lumbar fusion Social History household members: spouse Smoking Status: Former smoker alcohol intake: former Assessment & Plan Assessment & Plan narrative: 1. Sepsis without shock, acute, present on admission, secondary to gram negative bacilli bacteremia ?- source likely secondary to bilateral pyelonephritis and corresponding bacteremia, likely a complication of infection following prostate biopsy ?-given recent prostate biopsy concern for more drug resistant strains.? Pending cultures will empirically treat broadly with meropenem and vancomycin. Currently with gram negative bacilli in the blood. Continue vanco until urine cultures result. ?-sofa score is 4 ?- testicular pain on exam, not well seen on CT imaging. Check scrotal and renal ultrasound to evaluate for possible abscess. Consider urology consultation. ?- WBC 18.4, procalcitonin 8 on admission. WBC improved to normal today but procalcitonin up to 11. Continue to follow. 2. Bilateral pyelonephritis, secondary to acute prostatitis as a complication of prostate biopsy ?- continue antibiotics as noted above. Once cultures return will narrow. Will likely need 6 weeks (oral if able based on sensitivities) for prostatitis and follow up with his urologist at the [facility]. 3. Acute renal failure ?- likely in setting of sepsis. Castillo placed in ER. Check ultrasound as noted above. ?- creatinine 2.25 on admission, unknown baseline. Improved to 1.72 today. 4. Elevated glucose, resolved ?- glucose 200 on admission labs. A1c 5.4%. No interventions needed, glucose improved on morning labs. 5. metabolic encephalopathy, acute ?- likely secondary to sepsis, continue treatment as in problem 1 above. No focal deficits on exam. GCS 14 on admission and still today. 6. PTSD, chronic ?- continue home medications Code: Full as discussed with patient and surrogate decision maker, his spouse. Dispo: Admit as inpatient. DVT: Lovenox daily, renal dosing. I have utilized all available immediate resources to obtain, update, or review the patient's current medications. Time Spent With Patient Critical Care time: I spent a total of [] minutes of critical care time on this patient's care today; this time is exclusive of procedural time.
[2021-04-26] MEDS: OXYCODONE IR 5 MG TABLET PO (09:05)
[2021-04-26] MEDS: FLUoxetine 20 MG CAPSULE 40 MG PO (09:06)
[2021-04-26] MEDS: ACETAMINOPHEN 325 MG TABLET 975 MG PO ×2 (09:06→17:25)
[2021-04-26] MEDS: SERTRALINE 50 MG TABLET 100 MG PO (09:07)
[2021-04-26] MEDS: GABAPENTIN 300 MG CAPSULE PO ×2 (09:07→21:09)
[2021-04-26] MEDS: PRAZOSIN 1 MG CAPSULE 2 MG PO (09:08)
[2021-04-26] MEDS: ENOXAPARIN 30 MG/0.3 ML SYRINGE SUBCUT (09:11)
[2021-04-26] MEDS: ARIPiprazole 10 MG TABLET 5 MG PO (09:11)
--- NOTE | 2021-04-26 11:00 | DI.US.S_ITS ---
PROCEDURE: US SCROTUM INDICATIONS: RIGHT TESTICLE PAIN. SEPESIS. RECENT PROSTATE BIOPSY. TECHNIQUE: Real-time scanning was performed of the scrotum and testicles, with image documentation. Color and pulse Doppler interrogation was performed of both testicles. COMPARISON: None. FINDINGS: Right: Testicle is normal in size at 4.8 x 3.4 x 1.7 cm, and homogenous in echotexture. Epididymis is normal in size with slight heterogeneous echotexture with slightly increased vasculature. Questionable septated cyst along the epididymal head measuring 0.6 x 0.5 x 0.3 cm. No hydrocele or varicoceles. Overlying scrotal skin is normal in thickness. Left: Testicle is normal in size at 4.3 x 2.0 x 2.3 cm, and homogeneous in echotexture. Epididymis is normal in size. There is heterogeneous echotexture with increased vascularity. Questionable septated cyst measuring 1.0 x 0.8 x 0.4 cm. Small hydrocele. No varicoceles. Overlying scrotal skin is normal in thickness. Doppler: Color and pulse Doppler demonstrate normal and symmetric arterial flow in both testicles. There is slightly increased color flow within the testicles and epididymis. IMPRESSION: Increased vascularity of the bilateral epididymi and testes may represent epididymal orchitis in the correct clinical setting. Septated epididymal head cysts. Small left-sided hydrocele. Dictated by: Jame Russell D.O. on 04/26/2021 at 11:40 Approved by: Jame Russell D.O. on 04/26/2021 at 11:45
--- NOTE | 2021-04-26 11:00 | DI.US.S_ITS ---
PROCEDURE: US RENAL COMPLETE INDICATIONS: ACUTE KIDNEY INJURY. RECENT PROSTATE BIOPSY. ASSESS PROSTATE. TECHNIQUE: Real-time scanning was performed of the kidneys and bladder, with image documentation. COMPARISON: [facility], CT, CT KIDNEY URETER BLADDER (KUB), 04/25/2021, 14:57. FINDINGS: Limited examination given patient body habitus and bowel gas. Kidneys: Kidneys are normal in size. Right kidney measures 10.4 cm long; left kidney measures 10.6 cm long. Right renal cortical thickness is 1.8 cm; left renal cortical thickness is 1.3 cm. Renal cortical echotexture is normal. No hydronephrosis or nephrolithiasis. No suspicious solid mass lesions. Bladder: Pre-void bladder volume is 49 mL partially decompressed by intraluminal Castillo. Pre-void images demonstrate no intraluminal masses or stones. On pre-void images, no ureteral jets are noted with color Doppler interrogation. (Of note, ureteral jets may not be detectable in up to 25% of cases due to insufficient differences in specific gravity between ureteral and bladder urine). Miscellaneous: No free pelvic fluid. Limited evaluation of the prostate demonstrates no focal abnormality. IMPRESSION: Unremarkable appearance of the kidneys without evidence of hydronephrosis. No focal abnormality of the prostate. Bladder partially decompressed by intraluminal Castillo. Dictated by: Jame Russell D.O. on 04/26/2021 at 11:36 Approved by: Jame Russell D.O. on 04/26/2021 at 11:40
[2021-04-26] MEDS: POTASSIUM CHLORIDE 20 MEQ TAB 40 MEQ PO (14:49)
[2021-04-26] MEDS: MAGNESIUM CHLORIDE 64 MG TABLET 128 MG PO (14:49)
--- NOTE | 2021-04-26 15:50 | CM.IDA ---
Initial DCP Assessment Note Pt is a 70 yo male, resident of [place], presents with 1. Sepsis without shock, acute, present on admission, secondary to gram negative bacilli bacteremia. Patient presents after recent prostate biopsy now w/bacteremia that has progressed. PCP: Not listed Payer: [facility] Reviewed chart, pt discussed w/ RN Jaqueline. Patient is a [place] vet w/PTSD. RN states patient is quite ill and has not been A+O. Attempted to contact spouse, had to LM. Needs unknown at this time. DCP team will follow closely and conduct assessment of need once patient more alert and/or contact can be made w/spouse Shraddha. CLAUDIO Lopes Discharge Planning/Care Management CM Discharge Assessment Start: 04/26/21 15:49 Freq: Status: Active Protocol: Document 04/26/21 15:49 PRAVEEN (Rec: 04/26/21 15:50 PRAVEEN [id number]) Discharge Planning Assessment Assigned Flight Radio Officer CLAUDIO Tovar DPOA/Assigned Designee Name Shraddha Ren spouse Contact Information [phone] Advance Directives? No History Provided By Medical Record Household Members spouse
[2021-04-26] MEDS: VANCOMYCIN 1,000 MG/200 ML PIGGYBACK 200 MG IV (16:20)
[2021-04-26] MEDS: ONDANSETRON 4 MG/2 ML INJ IV (17:33)
[2021-04-26] MEDS: TAMSULOSIN 0.4 MG CAPSULE 0.8 MG PO (21:09)
[2021-04-26] MEDS: PRAZOSIN 1 MG CAPSULE 4 MG PO (21:09)
[2021-04-27] VITALS (12 sets, daily range): BP systolic 113–138; BP diastolic 59–82; PULSE 80–115; RESP 18–20; TEMP 36.2–37.6; O2SAT 92–103
[2021-04-27] MEDS: MEROPENEM 1 GM in SODIUM CHLORIDE 0.9% 100 ML 200 ML IV (05:48)
[2021-04-27] MEDS: HYDROMORPHONE 1 MG INJ IV (05:51)
[2021-04-27 05:53] LABS: Add Manual Diff / Slide Review NO; Basophils Absolute Auto 0 /uL (0-100); Basophils Percent Auto 0.1 % (0-2); Eosinophils Absolute Auto 100 /uL (0-450); Eosinophils Percent Auto 1.3 % (2-4); Hematocrit 29.9 % (41-53); Lymphocytes Absolute Auto 700 /uL (1100-4500); Lymphocytes Percent Auto 8.7 % (25-40); Mean Corpuscular HGB Conc 33.5 % (30-36); Mean Corpuscular Hemoglobin 30.6 PG (26-34); Mean Corpuscular Volume 91.3 fL (80-100); Monocytes Absolute Auto 400 /uL (0-900); Monocytes Percent Auto 5.2 % (3-14); Neutrophils Absolute Auto 6500 /uL (1500-7000); Neutrophils Percent Auto 84.7 % (50-75); Platelet Count 122 X10^3/uL (150-400); Red Blood Cell Count 3.27 X10^6/uL (4.5-5.9); Red Cell Distribution Width 13.7 % (11.6-14.8); White Blood Cell Count 7.7 X10^3/uL (4.5-11.0)
[2021-04-27 06:04] LABS: Alanine Aminotransferase 28 IU/L (<50); Albumin Globulin Ratio 0.9 (1.0-2.8); Alkaline Phosphatase 84 U/L (38-126); Aspartate Aminotransferase 44 IU/L (17-59); BUN Creatinine Ratio 13.4 (6-22); Bilirubin Total 0.8 mg/dL (0.2-1.3); Blood Urea Nitrogen 21 mg/dL (9-20); Calcium 7.9 mg/dL (8.4-10.2); Carbon Dioxide 26 mmol/L (22-32); Chloride 103 mmol/L (98-107); Estimated Glomerular Filt Rate 43.8 mL/min (>60); Globulin 3.2 g/dL (1.7-4.1); Glucose 90 mg/dL (80-110); HEMOLYSIS < 15 (0-50); Magnesium 1.8 mg/dL (1.6-2.3); Potassium 3.5 mmol/L (3.4-5.1); Sodium 135 mmol/L (137-145); Total Protein 6.2 g/dL (6.3-8.2)
[2021-04-27 06:21] LABS: Procalcitonin 7.45 ng/mL (<0.5)
--- NOTE | 2021-04-27 08:40 | PC.NURSE ---
Assess- Patient is alert and oriented x3, he can be forgetful.. Patient states that he is feeling better this morning. He is aware that he is in [place] but forgot he was in the hospital. Denies pain, he is not shaky and eating some food. Yesterday all patient ate was 10 carrots, he states. He is pleasant and cooperative with care. Tolerating his antibiotics and ivf. IV patent. Eating breakfast now.
[2021-04-27] MEDS: FLUoxetine 20 MG CAPSULE 40 MG PO (09:01)
[2021-04-27] MEDS: ENOXAPARIN 40 MG/0.4 ML SYRINGE SUBCUT (09:01)
[2021-04-27] MEDS: PRAZOSIN 1 MG CAPSULE 2 MG PO (09:01)
[2021-04-27] MEDS: GABAPENTIN 300 MG CAPSULE PO ×2 (09:01→20:39)
[2021-04-27] MEDS: ARIPiprazole 10 MG TABLET 5 MG PO (09:01)
[2021-04-27] MEDS: SERTRALINE 50 MG TABLET 100 MG PO (09:02)
[2021-04-27] MEDS: LACTATED RINGERS 1,000 ML 100 ML IV ×2 (09:05→19:47)
--- NOTE | 2021-04-27 11:17 | CM.DPC ---
DCP Cont: Discussed patient during team rounds. He has bacteremia. He has not yet been up. Asked Dr. Waterman if P.T, and O.T. can be ordered, which he gave permission to order. Placed orders. Updated nurse, Jaqueline, that orders were placed. Patient resides in [place] with his spouse, Shraddha. According to [employer] note, patient is a [place] war , with history of PTSD. P: DCP to continue to follow. Will see how patient does with the therapy team. Ramila Mortensen RN/[employer]
[2021-04-27] MEDS: cefTRIAXone 2,000 MG in SODIUM CHLORIDE 0.9% 100 ML 200 ML IV (12:43)
--- NOTE | 2021-04-27 13:33 | PT.IIE ---
Current Diagnoses Sepsis, unspecified organism (04/25/21) Medical History (Last Updated 04/25/21 @ 17:06 by Romero Waterman DO) BPH (benign prostatic hyperplasia) Post traumatic stress disorder (PTSD) Physical Therapy Inpatient Evaluation/Re-Eval M1 PT/OT-IP Prior Functional Status Start: 04/27/21 11:22 Freq: NEEDED Status: Active Protocol: Document 04/27/21 13:33 AW (Rec: 04/27/21 14:22 AW [id number]) Medical Review Prior Functional Status Medical History Reviewed Yes Communication Pt is an effective verbal communicator. He is [place] and wears hearing aids but he does not have them here in the hospital. Mobility and Gait Pt states he is independent without assistive device and is able to supervise his dog while walking on his property. Pt denies falls in the last one year and his agrees. Activities of Daily Living and IADL's Independent. 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 He manages his own medications. Prior Functional Level (Other details) Pt had prostate biopsy within the past month. His states he has had worsening lethargy since that time and his mobility has decreased. Social History Household Members spouse Living Arrangements House Number of Floors (Floors) One Floor Number of Stairs To Enter/Railing? 2 steps to enter. No rail. Home Environment High Toilet,Tub/Shower Home Equipment Straight Cane,Hand Held Shower ,Hospital Monitor Employment Status Retired Additional Social History Comment Pt is a [place]-era vetaran with PTSD. He lives with his supportive spouse, Shraddha, in [place]. M2 PT-IP Current Condition Start: 04/27/21 11:22 Freq: NEEDED Status: Active Protocol: Document 04/27/21 13:33 AW (Rec: 04/27/21 14:22 AW [id number]) Physical Therapy Current Condition Current Condition Evaluation Date 04/27/21 Treatment Diagnosis sepsis, generalized weakness, impaired mobility. Onset Date 04/25/21 M3 PT-IP Subjective Start: 04/27/21 11:22 Freq: NEEDED Status: Active Protocol: Document 04/27/21 13:33 AW (Rec: 04/27/21 14:22 AW [id number]) Subjective Physical Therapy Visit Type Type Initial Evaluation Visit Start Time 12:56 Visit Stop Time 13:33 Total Visit Minutes 37 Notes Pt's spouse was present for history-taking and she did contribute. Number of TOPOGRAPHICAL DRAFTER Visits 0 Physical Therapy Visit Comments Patient Comments Pt is willing to participate with PT Therapy Pain Assessment Pain When Pain Assessed At Rest Pain Present Pain Present Pain Reported Location headache Intensity 7 Scale Used Numeric (0 - 10) Pain Behaviors Facial Grimacing Pain Management Techniques Apply Cold,Distraction M4 PT-IP Mobility and Gait Start: 04/27/21 11:22 Freq: NEEDED Status: Active Protocol: Document 04/27/21 13:33 AW (Rec: 04/27/21 14:22 AW [id number]) PT-Bed Mobility Assessment Supine to Sit Supine to Sit Standby Assistance Scooting Scooting to Edge of Bed Standby Assistance PT-Transfer Assessment Sit to and From Stand Sit to and from Stand Contact Guard Assistance,Use of Upper Extremities Equipment Transfer Assistive Device Gait Belt,Front Wheeled Walker Orthotic/Prosthetic Devices or Brace: No Transfers Transfer Destination Chair,Toilet Transfer Technique pt ambulated with FWW Transfer Ability Level of Assist Contact Guard Assistance,Use of Upper Extremities Comments Mobility Comments Pt was lying in bed as PT arrived. BP was 119/77 HR 100. He agreed to get up, sitting on left side EOB SBA. PT assisted with line management as pt used FWW to ambulate to the toilet, transferring CGA due to slight unsteadiness. Pt completed all pericare without assist and stood from the toilet CGA as he began to complain of dizziness. With FWW, he walked to the bedside chair CGA, stopping and closing his eyes along the way . PT instructed pt to sit down . BP was 113/82 HR 115. Pt had slight left-beating nystagmus and continued to report dizziness and nausea. Pt was provided with cool cloth and water sips. Reported pt's symptoms and VS to RN. Left pt in chair with call light in hand. Gait Assessment Gait Gait Assistance Required: Contact Guard Assist Distance (Feet) 15 Assistive Devices Assistive Device Gait Belt,Front Wheeled Walker Orthotic/Prosthetic Devices or Brace: No Gait Deviations General Gait Pattern Decreased Stride Length, Decreased Feet Clearance,Wide Based Gait Factors Limiting Gait Function Factors Limiting Gait Function Decreased Activity Tolerance, Decreased Strength,Poor Balance Comments Gait Comments Pt ambulated with FWW SBA/CGA due to mild unsteadiness and reported dizziness. Unable to assess gait without AD due to pt's symptoms. Stair Climbing Assessment Comments Stair Climbing Comments Not assessed. PT-Balance Assessment Sitting Balance and Reactions Static Sitting Balance Ability Normal Dynamic Sitting Balance Ability Normal Standing Balance and Reactions Static Standing Balance Ability Good Dynamic Standing Balance Ability Good Device Used FWW M5 PT-IP Objective Assessments Start: 04/27/21 11:22 Freq: NEEDED Status: Active Protocol: Document 04/27/21 13:33 AW (Rec: 04/27/21 14:22 AW [id number]) Orientation Orientation/Cognition Level of Alertness Confusional State Orientation Name,Place,Situation Language Function Ability Hard of Hearing Safety Awareness Decreased Safety Awareness Comments Pt is oriented but confused. Gross Range of Motion Upper Extremity ROM Assessment Within Functional Limits Lower Extremity ROM Assessment Within Functional Limits Strength Lower Extremity Strength Assessment Bilaterally Impaired Hip 4-/5 Knee 4/5 Sensation Assessment Sensation Gross Sensation WNL Muscle Tone Muscle Tone WNL Yes Other Assessments Other Other Assessments Pt noted to have mild left- beating nystagmus during reported dizziness but was not associated with change in position. VS were stable. M6 PT-IP Treatment Start: 04/27/21 11:22 Freq: NEEDED Status: Active Protocol: Document 04/27/21 13:33 AW (Rec: 04/27/21 14:22 AW [id number]) Physical Therapy Treatment Education Education Provided Safety M7 PT-IP Assessment and Plan Start: 04/27/21 11:22 Freq: NEEDED Status: Active Protocol: Document 04/27/21 13:33 AW (Rec: 04/27/21 14:22 AW [id number]) PT Summary Assessment and Plan Potential Rehabilitation Potential Good Status of Condition at Evaluation Evolving Summary Impairments Pain,Strength,Balance, Transfers,Gait,Activity Tolerance Assessment Summary Gordon is a 70 yo man seen for PT evaluation with admitting diagnosis of sepsis. He had prostate biopsy within the last month and worsening lethargy over the past few weeks. He is independent in all regards at baseline. He presents with decreased lower extremity strength, dizziness, and nausea which are affecting his mobility independence. PT anticipates he will improve during his hospital stay and ultimately be safe to discharge home with spouse assist and home health services. Will continue to assess for safe discharge plan . Goals Bed Mobility Goal Independent Transfer Goal Independent,Cane,Front Wheeled Walker Gait Goal Independent,Cane,Front Wheel Walker Gait Distance 200 Other Goals - up/down 2 steps without railing SBA - improve transfers and gait to independent without AD Days to Meet Goals 8 Frequency of Treatment Frequency Of Treatment Once a Day Treatment Plan Physical Therapy Treatment Plan Bed Mobility Training,Transfer Training,Gait Training, Therapeutic Exercise,Balance Retraining,Discharge Planning, Hot or Cold Pack Other Recommendations and Next Treatment monitor VS; assess gait with Focus FWW vs SPC; stairs when able Recommendations To Nursing Amount of Assist Needed 1 Person Assist Discharge Recommendations PT Discharge Recommendations Home with Assistance,Home Health Equipment Needed for Home Before FWW if unsafe with SPC Discharge Transportation Needs at Discharge Private Vehicle
--- NOTE | 2021-04-27 14:07 | P.PN_ITS ---
Subjective Subjective Date Patient Seen: 04/27/21 Time Patient Seen: 14:07 Interval history: Feels slightly improved, denies abdominal pain today. No back pain. States he is hungry and thirsty. Still confused but improved mentation compared to admission. Exam Vital Signs (past 8 hours): - 04/27/21 06:40 04/27/21 08:45 04/27/21 13:50 Temperature 97.9 F 98 F Pulse Rate 103 H 115 H Respiratory Rate 20 20 Blood Pressure 118/59 L 113/82 Pulse Oximetry 92 103 H 95 Oxygen Delivery Method Room Air Oxygen Flow Rate 2 Narrative Exam Narrative: GENERAL APPEARANCE:? Acutely ill-appearing elderly male, comfortable appearing. SKIN: Inspection of the skin reveals no rashes, ulcerations or petechiae. HEENT:? Normocephalic atraumatic, extraocular muscles are intact, oropharynx is clear and mucous membranes are moist, neck is supple without adenopathy NECK: Supple and symmetric. There was no thyroid enlargement, and no tenderness, or masses were felt. CHEST: Normal AP diameter and normal contour without any kyphoscoliosis. LUNGS: Auscultation of the lungs revealed no wheezes, rhonchi, or rales. CARDIOVASCULAR: There was a regular rate and rhythm without any murmurs, gallops, rubs. Peripheral pulses were 2+ and symmetric. ABDOMEN:? Soft, NT, ND. MUSCULOSKELETAL: There was no tenderness or effusions noted. Muscle strength and tone were normal. EXTREMITIES: No cyanosis, clubbing or edema. NEUROLOGIC: Alert and oriented currently to name and hospital. Mildly Anxious. No focal deficits. Tremor more prominent on RUE, worse with movement. Objective Labs Result Diagrams: 04/27/21 05:41 04/27/21 05:41 Labs: Laboratory Results - last 24 hr 04/27/21 04/27/21 04/27/21 05:41 05:41 05:41 WBC 7.7 RBC 3.27 L Hgb 10.0 L Hct 29.9 L MCV 91.3 MCH 30.6 MCHC 33.5 RDW 13.7 Plt Count 122 L Neut % (Auto) 84.7 H Lymph % (Auto) 8.7 L [place] % (Auto) 5.2 Eos % (Auto) 1.3 L Baso % (Auto) 0.1 Neut # (Auto) 6500 Lymph # (Auto) 700 L [place] # (Auto) 400 Eos # (Auto) 100 Baso # (Auto) 0 Sodium 135 L Potassium 3.5 Chloride 103 Carbon Dioxide 26 BUN 21 H Creatinine 1.57 H Estimated GFR 43.8 L BUN/Creatinine Ratio 13.4 Glucose 90 Calcium 7.9 L Magnesium 1.8 Total Bilirubin 0.8 AST 44 ALT 28 Alkaline Phosphatase 84 Total Protein 6.2 L Albumin 3.0 L Globulin 3.2 Albumin/Globulin Ratio 0.9 L Procalcitonin 7.45 H [facility] Medical History (Updated 04/25/21 @ 17:06 by Romero Waterman DO) BPH (benign prostatic hyperplasia) Post traumatic stress disorder (PTSD) Surgical History (Updated 04/25/21 @ 17:06 by Romero Waterman DO) H/O prostate biopsy H/O shoulder surgery History of lumbar fusion Social History household members: spouse Smoking Status: Former smoker alcohol intake: former Assessment & Plan Assessment & Plan narrative: 1. Sepsis without shock, acute, present on admission, secondary to E. coli bacteremia ?- source likely secondary to bilateral pyelonephritis and corresponding bacteremia, likely a complication of infection following prostate biopsy ?-given recent prostate biopsy concern for more drug resistant strains. Initially on rosalee and vanco. Discontinued vanco on HD#1, will narrow today as cultures with mckeon sensitive E. coli to ceftriaxone. Likely discharge on fluoroquinolone for acute prostatitis. ?-sofa score is 4 on admission ?- Ultrasound with orchitis and epididymitis without evidence of abscess. ?- WBC 18.4, procalcitonin 8 on admission. WBC improved to normal, procalcitonin now improving. 2. Bilateral pyelonephritis, secondary to acute prostatitis as a complication of prostate biopsy ?- continue antibiotics as noted above. Plan for 4 weeks of fluoroquinolone at follow up with his urologist [facility] the [facility]. 3. Acute renal failure ?- likely in setting of sepsis. Castillo placed in ER. Check ultrasound as noted above. ?- creatinine 2.25 on admission, unknown baseline. Improved to 1.57 today. 4. Elevated glucose, resolved ?- glucose 200 on admission labs. A1c 5.4%. No interventions needed, glucose improved on morning labs. 5. metabolic encephalopathy, acute, improving ?- likely secondary to sepsis, continue treatment as in problem 1 above. No focal deficits on exam. 6. PTSD, chronic ?- continue home medications Code: Full as discussed with patient and surrogate decision maker, his spouse. Dispo: Admit as inpatient. Discharge home in 1-2 days most likely, pending PT/OT. DVT: Lovenox daily, renal dosing. I have utilized all available immediate resources to obtain, update, or review the patient's current medications. Time Spent With Patient Critical Care time: I spent a total of [] minutes of critical care time on this patient's care today; this time is exclusive of procedural time.
[2021-04-27] MEDS: ACETAMINOPHEN 325 MG TABLET 975 MG PO (15:35)
[2021-04-27] MEDS: TAMSULOSIN 0.4 MG CAPSULE 0.8 MG PO (20:39)
[2021-04-27] MEDS: PRAZOSIN 1 MG CAPSULE 4 MG PO (20:40)
[2021-04-28] VITALS (9 sets, daily range): BP systolic 133–141; BP diastolic 68–87; PULSE 80–110; RESP 16; TEMP 36.3–37.3; O2SAT 94–97
[2021-04-28] MEDS: LACTATED RINGERS 1,000 ML 100 ML IV (05:26)
[2021-04-28 06:07] LABS: Add Manual Diff / Slide Review NO; Basophils Absolute Auto 0 /uL (0-100); Basophils Percent Auto 0.2 % (0-2); Eosinophils Absolute Auto 100 /uL (0-450); Eosinophils Percent Auto 1.3 % (2-4); Hematocrit 30.9 % (41-53); Hemoglobin 10.3 g/dL (13.5-17.5); Lymphocytes Absolute Auto 600 /uL (1100-4500); Lymphocytes Percent Auto 8.1 % (25-40); Mean Corpuscular HGB Conc 33.3 % (30-36); Mean Corpuscular Hemoglobin 30.2 PG (26-34); Mean Corpuscular Volume 90.7 fL (80-100); Monocytes Absolute Auto 400 /uL (0-900); Monocytes Percent Auto 5.7 % (3-14); Neutrophils Absolute Auto 5900 /uL (1500-7000); Neutrophils Percent Auto 84.7 % (50-75); Platelet Count 141 X10^3/uL (150-400); Red Blood Cell Count 3.41 X10^6/uL (4.5-5.9); Red Cell Distribution Width 13.8 % (11.6-14.8)
[2021-04-28 06:20] LABS: Alanine Aminotransferase 48 IU/L (<50); Albumin 3.1 g/dL (3.5-5.0); Alkaline Phosphatase 98 U/L (38-126); Aspartate Aminotransferase 58 IU/L (17-59); BUN Creatinine Ratio 13.4 (6-22); Bilirubin Total 0.6 mg/dL (0.2-1.3); Blood Urea Nitrogen 16 mg/dL (9-20); Calcium 8.2 mg/dL (8.4-10.2); Carbon Dioxide 30 mmol/L (22-32); Chloride 102 mmol/L (98-107); Estimated Glomerular Filt Rate > 60.0 mL/min (>60); Globulin 3.2 g/dL (1.7-4.1); Glucose 94 mg/dL (80-110); HEMOLYSIS < 15 (0-50); Magnesium 1.7 mg/dL (1.6-2.3); Sodium 138 mmol/L (137-145); Total Protein 6.3 g/dL (6.3-8.2)
[2021-04-28] MEDS: ACETAMINOPHEN 325 MG TABLET 975 MG PO (06:47)
[2021-04-28] MEDS: FLUoxetine 20 MG CAPSULE 40 MG PO (08:05)
[2021-04-28] MEDS: SERTRALINE 50 MG TABLET 100 MG PO (08:05)
[2021-04-28] MEDS: GABAPENTIN 300 MG CAPSULE PO (08:05)
[2021-04-28] MEDS: ARIPiprazole 10 MG TABLET 5 MG PO (08:06)
[2021-04-28] MEDS: PRAZOSIN 1 MG CAPSULE 2 MG PO (08:06)
[2021-04-28] MEDS: ENOXAPARIN 40 MG/0.4 ML SYRINGE SUBCUT (08:07)
--- NOTE | 2021-04-28 08:25 | P.DS_ITS ---
History of Present Illness History of Present Illness Date Patient Seen: 04/28/21 Time Patient Seen: 08:25 Chief complaint: ams Narrative: This is a 70-year-old male with a past medical history of BPH, severe PTSD who to the emergency room today with confusion per his spouse. Patient is currently confused an has little history to offer at this time so much of the report is gained from his at bedside. Patient had a prostate biopsy approximately 2 weeks ago at the [facility]. approximately 1 week ago he began to notice increasing urinary frequency, with the past couple of days developing abdominal and back pain and confusion today. He also endorses dysuria, and some testicular pain. Other than PTSD he has no known hypertension, heart disease, lung disease, or diabetes. Unable to obtain family history given patient's current mental status. In the emergency room the patient was febrile to 104, he was also tachycardic, tachypneic. His blood pressure did not fall below normal. He was saturating in the low to mid 90s on room air. Initial laboratory evaluation revealed leukocytosis with WBC of 18.4 with a left shift. Chemistries revealed a c reatinine of 2.25, with unknown baseline. His glucose was noted to be 200. Two bilirubin was elevated at 1.8 with no significant transaminase elevations. CK was mildly elevated at 899. Troponin was negative. Procalcitonin was elevated at 8.09. Urinalysis showed 2+ occult blood, positive nitrates and leuk esterase with greater than 100 cells per high-powered field. Specimen was sent for cult ure. Chest x-ray showed probable atelectasis but could not rule out possible infectious process. CT of his abdomen showed bilateral perinephric stranding consistent with bilateral pyelonephritis. Respiratory viral panel PCR was negative. Patient was admitted for further management of sepsis secondary to probable prostatitis after prostate biopsy. Discharge Providers Provider Date of admission: 04/25/21 15:42 Discharge Date: 04/28/21 Consults: 04/27/21 10:37 Consult to Occupational Therapy Evaluate & Treat Comment: Physician Instructions: Evaluate and treat Consult to Physical Therapy Evaluate & Treat Comment: Physician Instructions: Evaluate and Treat Discharge provider: Romero Waterman DO Summary Hospital Course Discharge Diagnosis: Please see hospital course by problem list noted below Hospital Course: 1. Sepsis without shock, acute, present on admission, secondary to E. coli bacteremia due to acute cystitis, orchitis, epididymitis, bilateral pyelonephritis, and probable prostatitis. ?- source likely secondary to bilateral pyelonephritis and corresponding bacteremia, likely a complication of infection following prostate biopsy ?-given recent prostate biopsy concern for more drug resistant strains. Initially on rosalee and vanco. Discontinued vanco on HD#1, narrowed further on HD# 2 as cultures with mckeon sensitive E. coli to ceftriaxone. Discharged on oral fluoroquinolone given susceptibilities and plan for 4 weeks treatment as outpatient for presumed prostatitis given recent biopsy. ?-sofa score is 4 on admission ?- Ultrasound with orchitis and epididymitis without evidence of abscess. ?- WBC 18.4, procalcitonin 8 on admission. WBC improved to normal, procalcitonin improved as well. 2. Bilateral pyelonephritis, secondary to acute prostatitis as a complication of prostate biopsy ?- continued antibiotics as noted above. Plan for 4 weeks of fluoroquinolone at follow up with his urologist [facility] the [facility]. 3. Acute renal failure ?- likely in setting of sepsis. Castillo placed in ER and discontinued on day of discharge. ?- creatinine 2.25 on admission, unknown baseline. Improved to normal at 1.19 on day of discharge. 4. Elevated glucose, resolved ?- glucose 200 on admission labs. A1c 5.4%. No interventions needed, glucose improved on morning labs. 5. metabolic encephalopathy, acute, improving ?- likely secondary to sepsis, continue treatment as in problem 1 above. No foc al deficits on exam. 6. PTSD, chronic ?- continued home medications Status at Discharge Cognitive/behavioral status at discharge: oriented Functional status at discharge: independent ambulation Overall status at discharge: patient is progressing back to baseline Time Spent with Patient Time spent: Greater than 30 minutes Exam Vital Signs (past 8 hours): - 04/28/21 00:31 04/28/21 04:00 04/28/21 05:00 Temperature 97.4 F L 99.2 F Pulse Rate 80 110 H Respiratory Rate 16 16 Blood Pressure 133/68 141/87 H Pulse Oximetry 97 96 96 Oxygen Delivery Method Nasal Cannula Oxygen Flow Rate 1.5 Narrative Exam Narrative: GENERAL APPEARANCE:? elderly male, comfortable appearing. no acute distress. SKIN: Inspection of the skin reveals no rashes, ulcerations or petechiae. HEENT:? Normocephalic atraumatic, extraocular muscles are intact, oropharynx is clear and mucous membranes are moist, neck is supple without adenopathy NECK: Supple and symmetric. There was no thyroid enlargement, and no tenderness, or masses were felt. CHEST: Normal AP diameter and normal contour without any kyphoscoliosis. LUNGS: Auscultation of the lungs revealed no wheezes, rhonchi, or rales. CARDIOVASCULAR: There was a regular rate and rhythm without any murmurs, gallops, rubs. Peripheral pulses were 2+ and symmetric. ABDOMEN:? Soft, NT, ND. MUSCULOSKELETAL: There was no tenderness or effusions noted. Muscle strength and tone were normal. EXTREMITIES: No cyanosis, clubbing or edema. NEUROLOGIC: Alert and oriented x3. No focal deficits. Tremor more prominent on RUE, worse with movement. Objective Labs Result Diagrams: 04/28/21 05:52 04/28/21 05:52 Labs: Laboratory Results - last 24 hr 04/28/21 04/28/21 05:52 05:52 WBC 7.0 RBC 3.41 L Hgb 10.3 L Hct 30.9 L MCV 90.7 MCH 30.2 MCHC 33.3 RDW 13.8 Plt Count 141 L Neut % (Auto) 84.7 H Lymph % (Auto) 8.1 L [place] % (Auto) 5.7 Eos % (Auto) 1.3 L Baso % (Auto) 0.2 Neut # (Auto) 5900 Lymph # (Auto) 600 L [place] # (Auto) 400 Eos # (Auto) 100 Baso # (Auto) 0 Sodium 138 Potassium 4.0 Chloride 102 Carbon Dioxide 30 BUN 16 Creatinine 1.19 Estimated GFR > 60.0 BUN/Creatinine Ratio 13.4 Glucose 94 Calcium 8.2 L Magnesium 1.7 Total Bilirubin 0.6 AST 58 ALT 48 Alkaline Phosphatase 98 Total Protein 6.3 Albumin 3.1 L Globulin 3.2 Albumin/Globulin Ratio 1.0 [facility] Medical History (Updated 04/25/21 @ 17:06 by Romero Waterman DO) BPH (benign prostatic hyperplasia) Post traumatic stress disorder (PTSD) Surgical History (Updated 04/25/21 @ 17:06 by Romero Waterman DO) H/O prostate biopsy H/O shoulder surgery History of lumbar fusion Social History household members: spouse Smoking Status: Former smoker alcohol intake: former Discharge Plan Discharge Plan Patient Disposition: Home Provider Discharge Comment: You were admitted to the hospital with a bacterial infection in your urine and blood stream. This is likely a result of your prostate biopsy. Treatment is with 4 weeks of antibiotics. Please follow up with your PCP in the next 1-2 weeks and your urologist if able. No other medication changes are recommended. Discharge orders & Medications Prescriptions: New ciprofloxacin HCl 500 mg tablet 500 mg PO BID 28 Days Qty: 56 RF: 0 Continued gabapentin [Neurontin] 300 MG capsule 300 mg PO TID Qty: 0 RF: 0 omeprazole 20 MG capsule,delayed release(DR/EC) 20 mg PO QDAY PRN (Reason: Acid Reflux) Qty: 0 RF: 0 prazosin [Minipress] 2 MG capsule See Rx Instructions .ROUTE .COMPLEX Qty: 0 RF: 0 sertraline 100 MG tablet 100 mg PO QDAY Qty: 0 RF: 0 fluoxetine 40 mg Capsule 40 mg PO DAILY RF: 0 tamsulosin 0.4 mg Capsule 0.8 mg PO BEDTIME RF: 0 aripiprazole 5 mg Tablet 5 mg PO DAILY RF: 0 cholecalciferol (vitamin D3) [Vitamin D3] 25 mcg (1,000 unit) Tablet 25 mcg PO DAILY RF: 0 Medication counseling provided by Pharmacist: Yes Diet/Activity/Treatments Diet: Diet as Tolerated Activity: As tolerated Visit Report/Discharge Packet Instructions: Sepsis, How to Prevent Falls, DI for Sepsis -- Adult, Encephalopathy, Ciprofloxacin
[2021-04-28] MEDS: CIPROFLOXACIN 250 MG TABLET 500 MG PO (08:53)
--- NOTE | 2021-04-28 09:08 | OT.IP.EVAL ---
Current Diagnoses Sepsis, unspecified organism (04/25/21) Past Medical History (Last Updated 04/25/21 @ 17:06 by Romero Waterman DO) BPH (benign prostatic hyperplasia) H/O prostate biopsy H/O shoulder surgery History of lumbar fusion Post traumatic stress disorder (PTSD) Surgical History (Last Updated 04/25/21 @ 17:06 by Romero Waterman DO) H/O prostate biopsy H/O shoulder surgery History of lumbar fusion Occupational Therapy Inpatient Evaluation/Re-Eval M1 PT/OT-IP Prior Functional Status Start: 04/27/21 11:22 Freq: NEEDED Status: Active Protocol: Document 04/28/21 08:30 [facility] (Rec: 04/28/21 10:31 [facility] [id number]) Medical Review Prior Functional Status Medical History Reviewed Yes Communication Pt is an effective verbal communicator. He is [place] and wears hearing aids but he does not have them here in the hospital. Mobility and Gait Pt states he is independent without assistive device and is able to supervise his dog while walking on his property. Pt denies falls in the last one year and his agrees. Activities of Daily Living and IADL's Independent. 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 He manages his own medications, during OT eval pt states his does all the bills and medications for him. Prior Functional Level (Other details) Pt had prostate biopsy within the past month. His states he has had worsening lethargy since that time and his mobility has decreased. Social History Household Members spouse Living Arrangements House Number of Floors (Floors) One Floor Number of Stairs To Enter/Railing? 2 steps to enter. No rail. Home Environment High Toilet,Tub/Shower Home Equipment Straight Cane,Hand Held Shower ,Leather Tooler Employment Status Retired Additional Social History Comment Pt is a [place]-era vetaran with PTSD. He lives with his supportive spouse, Shraddha, in [place]. M2 OT-IP Current Condition Start: 04/28/21 10:11 Freq: Status: Active Protocol: Document 04/28/21 08:30 [facility] (Rec: 04/28/21 10:31 [facility] [id number]) Occupational Therapy Current Condition Current Condition Evaluation Date 04/28/21 Treatment Diagnosis Sepsis Diagnosis Onset Date 04/25/21 M3 OT- IP Subjective and Pain Start: 04/28/21 10:11 Freq: Status: Active Protocol: Document 04/28/21 08:30 [facility] (Rec: 04/28/21 10:31 [facility] [id number]) OT- Subjective Occupational Therapy Visit Type Type Initial Evaluation Visit Start Time 08:30 Visit Stop Time 09:08 Total Visit Minutes 38 Occupational Therapy Visit Comments Patient Comments Pt agreed to work with OT. Patient/Caregiver Goals TO go home. OT Pain Assessment Pain When Pain Assessed At Rest Pain Present Pain Present Denied Pain M4 OT- IP ADL's Start: 04/28/21 10:11 Freq: Status: Active Protocol: Document 04/28/21 08:30 [facility] (Rec: 04/28/21 10:31 [facility] [id number]) OT PUR-[id number] General Evaluation Self-Feeding Ability Independent OT ADL-Grooming General Evaluation Grooming Ability Independent Areas Needing Assistance Retrieving/Set-up of Grooming Items Comments OT Grooming Comments Able to instrument sterilizer front of the sink for grooming needs. OT ADL-Oral Care General Eval Oral Care Ability Independent OT ADL-Dressing General Eval Lower Body Dressing Ability Standby Assistance Comments OT Dressing Comments Pt able to travis/doff socks with increased time while seated. OT ADL-Toileting Comments OT Toileting Comments Castillo just taken out. OT ADL-Bathing Comments OT Bathing Comments Pt wanting to shower at home. Suggested pt to have a shower chair in case he gets dizzy while showering and to have a place to sit if needed, in addition for his to provide supervision initially. M5 OT- IP IADL's Start: 04/28/21 10:11 Freq: Status: Active Protocol: Document 04/28/21 08:30 [facility] (Rec: 04/28/21 10:31 [facility] [id number]) OT-Instrumental Activities of Daily Living Home Safety Awareness Awareness of Need for Assistance at Home Decreased Awareness Home Safety Comments Pt a little forgetful, feels dizzy, and has blurred vision when up and would be best to have his provide supervision as needed for especially ADL needs. Medication Management Medication Management Caregiver Administers Money Management Money Management Caregiver Provides Assistance Meal Preparation Meal Preparation Caregiver Provides Assist Youth Director Youth Director Caregiver Provides Assist Driving Driving Concerns Identified Regarding Safety Driving Comments Pt complaining of blurred vision at time and has been waiting to get an eye appointment from the [place] for the past year without any success. M6 OT- IP Functional Cognition Start: 10/18/21 10:11 Freq: Status: Active Protocol: Document 04/28/21 08:30 [facility] (Rec: 04/28/21 10:31 [facility] [id number]) Cognitive Factors Limiting Selfcare Function Cognitive Ability Level of Alertness Alert Patient Orientation Name,Age,Birthday,Month,Date, Year,Day of Week,Place, Situation Attention Span Ability Capable of Focused Attention, Capable of Sustained Attention Ability to Follow Commands Able to Follow One Step Commands Memory Description Short Term Impaired Safety Awareness No Deficits Noted Cognitive Tests SLUMS Pt scored 25/30 which implies mild neurocognitive disorders and main issues are decreased short term memory, able to recall 1/5 objects after time passed and unable to state 4 digit number backwards. Pt states at home has to write things down often. Cognitive Comments Cognitive Assessment Comments Pt has good awareness that he will not be driving due to his blurred vision. OT- Vision and Hearing OT- Hearing Assessment OT- Hearing Assessment Hearing Impaired,Use of Hearing Aids OT- Vision Assessment Vision Assessment Comments Hearing aids not present in the hospital. Pt states has reading and other glasses but needs a new prescription but [facility] Pt states his vision is blurry off and on. M7 OT- IP Mobility and Balance Start: 04/28/21 10:11 Freq: Status: Active Protocol: Document 04/28/21 08:30 [facility] (Rec: 04/28/21 10:31 [facility] [id number]) OT-Transfer Assessment Sit to and From Stand Sit to and from Stand Standby Assistance Transfers Transfer Ability Standby Assistance Technique Transfer Destination Bed,Chair Transfer Technique Stand Step Pivot Devices Transfer Assistive Devices None,Gait Belt Comments Mobility Comments SBA and pt able to ambulate in the room on his own with steady balance. Pt aware to take his time. OT- Gait Assessment Comments Gait Ability Comments SBA with level surfaces. OT- Balance Assessment Sitting Balance and Reactions Static Sitting Balance Ability Normal Dynamic Sitting Balance Ability Normal Standing Balance and Reactions Static Standing Balance Ability Normal Dynamic Standing Balance Ability Good M8 OT- IP Objective Assessments Start: 04/28/21 10:11 Freq: Status: Active Protocol: Document 04/28/21 08:30 [facility] (Rec: 04/28/21 10:31 [facility] [id number]) OT Gross Range of Motion Upper Extremity Range of Motion Assessment Within Functional Limits OT Strength Upper Extremity Strength Assessment Within Functional Limits OT-Muscle Tone Assessment Muscle Tone WNL Yes M9 OT- IP Assessment and Plan Start: 04/28/21 10:11 Freq: Status: Active Protocol: Document 04/28/21 08:30 [facility] (Rec: 04/28/21 10:31 [facility] [id number]) OT Summary Assessment and Plan Potential Rehabilitation Potential Excellent Analytic Complexity at Evaluation Low Summary OT Impairments Functional Cognition,Bathing, Shower Transfers Progress Towards Goals Progressing Toward Goals Assessment Summary Pt here due to sepsis and main barriers are steps, decreased dynamic balance, blurred vision, and decreased short term memory however per pt has has had issues with his memory and just writes things down. Pt feel he is close to his baseline and wanting to go home. Pt to go home with to assist when medically stable. Goals Toileting Goal Independent Bathing Goal Independent Shower Transfer Goal Independent Days to Meet Goals 1 Frequency of Treatment Frequency Of Treatment Once a Day Treatment Plan OT Treatment Plan ADL Training,Functional Mobility,Patient/Family Education,Discharge Planning Other Treatment Recommendations and Next Showr if still here. Treatment Focus Discharge Recommendations OT Discharge Recommendations Home with Assistance Home Equipment Needs Shower chair Transportation Needs at Discharge Private Vehicle
[2021-04-28] MEDS: OXYCODONE IR 5 MG TABLET PO (11:09)
--- NOTE | 2021-04-28 11:18 | PT.IPTN ---
Current Diagnoses Sepsis, unspecified organism (04/25/21) Physical Therapy Treatment Note M2 PT-IP Current Condition Start: 04/27/21 11:22 Freq: NEEDED Status: Active Protocol: Document 04/27/21 13:33 [facility] (Rec: 04/27/21 14:22 [facility] [id number]) Physical Therapy Current Condition Current Condition Evaluation Date 04/27/21 Treatment Diagnosis sepsis, generalized weakness, impaired mobility. Onset Date 04/25/21 M3 PT-IP Subjective Start: 04/27/21 11:22 Freq: NEEDED Status: Active Protocol: Document 04/28/21 10:54 [facility] (Rec: 04/28/21 12:17 [facility] [id number]) Subjective Physical Therapy Visit Type Type Treatment Note Visit Start Time 10:54 Visit Stop Time 11:18 Total Visit Minutes 24 Number of INFORMATION ASSOC Visits 1 Physical Therapy Visit Comments Patient Comments Pt is willing to participate with PT Therapy Pain Assessment Pain When Pain Assessed At Rest Pain Present Pain Present Pain Reported Location headache Intensity 6 Scale Used Numeric (0 - 10) Pain Behaviors Facial Grimacing Pain Management Techniques Distraction,Timing of Activity with Medications M4 PT-IP Mobility and Gait Start: 04/27/21 11:22 Freq: NEEDED Status: Active Protocol: Document 04/28/21 10:54 [facility] (Rec: 04/28/21 12:17 [facility] [id number]) PT-Bed Mobility Assessment Supine to Sit Supine to Sit Standby Assistance Sit to Supine Sit to Supine Standby Assistance Scooting Scooting to Edge of Bed Standby Assistance PT-Transfer Assessment Sit to and From Stand Sit to and from Stand Contact Guard Assistance,Use of Upper Extremities Equipment Transfer Assistive Device Gait Belt,Front Wheeled Walker Orthotic/Prosthetic Devices or Brace: No Transfers Transfer Destination Chair Transfer Technique pt ambulated w/o AD Transfer Ability Level of Assist Contact Guard Assistance,Use of Upper Extremities Comments Mobility Comments Pt in bed upon arrival from therapy and agreeable to stair training. Pt SBA for sup<>sit and scooting to EOB. Pts BP in sitting 113/71, pt c/o headache and slight dizziness. Pt CGA for sit<>stand w/ FWW. Pts BP in standing 105/64, no increase in dizziness. Pt then ambulated ~25 ft to hallway w/o AD and CGA. Pt then ascended/descended 1 platform x2 w/ CGA, no cues necessary and ambulated addtional ~25 ft back to room and bed. SBA for stand<>sit and sit<>sup. Discussed safety at home w/ pt who says he does not usually use a AD, but will use cane if feeling unstable. Encouraged pt to wait and assess dizziness following change in position. Pt states he feels safe to return home w/ wifes support as needed. Gait Assessment Gait Gait Assistance Required: Contact Guard Assist Distance (Feet) 50 Assistive Devices Assistive Device Gait Belt,Front Wheeled Walker Orthotic/Prosthetic Devices or Brace: No Gait Deviations General Gait Pattern Decreased Stride Length, Decreased Feet Clearance,Wide Based Gait Factors Limiting Gait Function Factors Limiting Gait Function Decreased Activity Tolerance, Decreased Strength,Poor Balance Comments Gait Comments Pt ambulated ~50 ft total w/ FWW and CGA w/o AD. Decreased stride and foot clearance, however no instability noticed . Stair Climbing Assessment Evaluation Level of Assist On Stairs Contact Guard Assistance,1 Person Assistance Devices Stair Climbing Assistive Devices None Technique/Endurance Stair Climbing Direction Ascend and Descend Stair Climbing Technique Step to Step Number of Steps Climbed 1 Stair Climbing Set # Repetitions (reps) 2 Comments Stair Climbing Comments Pt ascended/descended 1 platform step x2 w/ CGA and no AD. Pt completed safely w/o need for cues. Pt states he feels safe to complete 2 platform steps to enter home. PT-Balance Assessment Sitting Balance and Reactions Static Sitting Balance Ability Normal Dynamic Sitting Balance Ability Normal Standing Balance and Reactions Static Standing Balance Ability Good Dynamic Standing Balance Ability Fair Device Used none M5 PT-IP Objective Assessments Start: 04/27/21 11:22 Freq: NEEDED Status: Active Protocol: Document 04/27/21 13:33 [facility] (Rec: 04/27/21 14:22 [facility] [id number]) Orientation Orientation/Cognition Level of Alertness Confusional State Orientation Name,Place,Situation Language Function Ability Hard of Hearing Safety Awareness Decreased Safety Awareness Comments Pt is oriented but confused. Gross Range of Motion Upper Extremity ROM Assessment Within Functional Limits Lower Extremity ROM Assessment Within Functional Limits Strength Lower Extremity Strength Assessment Bilaterally Impaired Hip 4-/5 Knee 4/5 Sensation Assessment Sensation Gross Sensation WNL Muscle Tone Muscle Tone WNL Yes Other Assessments Other Other Assessments Pt noted to have mild left- beating nystagmus during reported dizziness but was not associated with change in position. VS were stable. M6 PT-IP Treatment Start: 04/27/21 11:22 Freq: NEEDED Status: Active Protocol: Document 04/28/21 10:54 [facility] (Rec: 04/28/21 12:17 [facility] [id number]) Physical Therapy Treatment Education Education Provided Safety M7 PT-IP Assessment and Plan Start: 04/27/21 11:22 Freq: NEEDED Status: Active Protocol: Document 04/28/21 10:54 [facility] (Rec: 04/28/21 12:17 [facility] [id number]) PT Summary Assessment and Plan Potential Rehabilitation Potential Good Status of Condition at Evaluation Evolving Summary Impairments Pain,Strength,Balance, Transfers,Gait,Activity Tolerance Assessment Summary Pt is SBA for all bed mobility , CGA for transfers, ambulation, and stair training . Pts BP stable, 113/71 sitting and 105/64 standing. Pt reports slight dizziness and headache. Able to ambulate ~50 ft CGA w/o AD and ascend/ descend 2x platform steps CGA no cues safely w/o LOB. Encouraged pt to self assess dizziness when changing positions at home to avoid falls, pt stated will use cane if feeling off balance but does not typically require AD. Pt will benefit from HH to improve balance, strength, and tolerance for acitivity. Goals Bed Mobility Goal Independent Transfer Goal Independent,Cane,Front Wheeled Walker Gait Goal Independent,Cane,Front Wheel Walker Gait Distance 200 Other Goals - up/down 2 steps without railing SBA - increase gait distance SBA no AD Days to Meet Goals 8 Frequency of Treatment Frequency Of Treatment Once a Day Treatment Plan Physical Therapy Treatment Plan Bed Mobility Training,Transfer Training,Gait Training, Therapeutic Exercise,Balance Retraining,Discharge Planning, Hot or Cold Pack Other Recommendations and Next Treatment monitor VS; assess gait and Focus stairs with SPC, increase gait distance Recommendations To Nursing Amount of Assist Needed 1 Person Assist Discharge Recommendations PT Discharge Recommendations Home with Assistance,Home Health Equipment Needed for Home Before FWW if unsafe with SPC Discharge Transportation Needs at Discharge Private Vehicle
--- NOTE | 2021-04-28 11:18 | PT.IPTN ---
Current Diagnoses Sepsis, unspecified organism (04/25/21) Physical Therapy Treatment Note M2 PT-IP Current Condition Start: 04/27/21 11:22 Freq: NEEDED Status: Active Protocol: Document 04/27/21 13:33 [facility] (Rec: 04/27/21 14:22 AW [id number]) Physical Therapy Current Condition Current Condition Evaluation Date 04/27/21 Treatment Diagnosis sepsis, generalized weakness, impaired mobility. Onset Date 04/25/21 M3 PT-IP Subjective Start: 04/27/21 11:22 Freq: NEEDED Status: Active Protocol: Document 04/28/21 10:54 [facility] (Rec: 04/28/21 12:17 [facility] [id number]) Subjective Physical Therapy Visit Type Type Treatment Note Visit Start Time 10:54 Visit Stop Time 11:18 Total Visit Minutes 24 Number of SUBSTATION OPERATOR APPRENTICE Visits 1 Physical Therapy Visit Comments Patient Comments Pt is willing to participate with PT Therapy Pain Assessment Pain When Pain Assessed At Rest Pain Present Pain Present Pain Reported Location headache Intensity 6 Scale Used Numeric (0 - 10) Pain Behaviors Facial Grimacing Pain Management Techniques Distraction,Timing of Activity with Medications M4 PT-IP Mobility and Gait Start: 04/27/21 11:22 Freq: NEEDED Status: Active Protocol: Document 04/28/21 10:54 [facility] (Rec: 04/28/21 12:17 [facility] [id number]) PT-Bed Mobility Assessment Supine to Sit Supine to Sit Standby Assistance Sit to Supine Sit to Supine Standby Assistance Scooting Scooting to Edge of Bed Standby Assistance PT-Transfer Assessment Sit to and From Stand Sit to and from Stand Contact Guard Assistance,Use of Upper Extremities Equipment Transfer Assistive Device Gait Belt,Front Wheeled Walker Orthotic/Prosthetic Devices or Brace: No Transfers Transfer Destination Chair Transfer Technique pt ambulated w/o AD Transfer Ability Level of Assist Contact Guard Assistance,Use of Upper Extremities Comments Mobility Comments Pt in bed upon arrival from therapy and agreeable to stair training. Pt SBA for sup<>sit and scooting to EOB. Pts BP in sitting 113/71, pt c/o headache and slight dizziness. Pt CGA for sit<>stand w/ FWW. Pts BP in standing 105/64, no increase in dizziness. Pt then ambulated ~25 ft to hallway w/o AD and CGA. Pt then ascended/descended 1 platform x2 w/ CGA, no cues necessary and ambulated additional ~25 ft back to room and bed. SBA for stand<>sit and sit<>sup. Discussed safety at home w/ pt who says he does not usually use a AD, but will use cane if feeling unstable. Encouraged pt to wait and assess dizziness following change in position. Pt states he feels safe to return home w/ wifes support as needed. Gait Assessment Gait Gait Assistance Required: Contact Guard Assist Distance (Feet) 50 Assistive Devices Assistive Device Gait Belt,Front Wheeled Walker Orthotic/Prosthetic Devices or Brace: No Gait Deviations General Gait Pattern Decreased Stride Length, Decreased Feet Clearance,Wide Based Gait Factors Limiting Gait Function Factors Limiting Gait Function Decreased Activity Tolerance, Decreased Strength,Poor Balance Comments Gait Comments Pt ambulated ~50 ft total w/ FWW and CGA w/o AD. Decreased stride and foot clearance, however no instability noticed . Stair Climbing Assessment Evaluation Level of Assist On Stairs Contact Guard Assistance,1 Person Assistance Devices Stair Climbing Assistive Devices None Technique/Endurance Stair Climbing Direction Ascend and Descend Stair Climbing Technique Step to Step Number of Steps Climbed 1 Stair Climbing Set # Repetitions (reps) 2 Comments Stair Climbing Comments Pt ascended/descended 1 platform step x2 w/ CGA and no AD. Pt completed safely w/o need for cues. Pt states he feels safe to complete 2 platform steps to enter home. PT-Balance Assessment Sitting Balance and Reactions Static Sitting Balance Ability Normal Dynamic Sitting Balance Ability Normal Standing Balance and Reactions Static Standing Balance Ability Good Dynamic Standing Balance Ability Fair Device Used none M5 PT-IP Objective Assessments Start: 04/27/21 11:22 Freq: NEEDED Status: Active Protocol: Document 04/27/21 13:33 [facility] (Rec: 04/27/21 14:22 [facility] [id number]) Orientation Orientation/Cognition Level of Alertness Confusional State Orientation Name,Place,Situation Language Function Ability Hard of Hearing Safety Awareness Decreased Safety Awareness Comments Pt is oriented but confused. Gross Range of Motion Upper Extremity ROM Assessment Within Functional Limits Lower Extremity ROM Assessment Within Functional Limits Strength Lower Extremity Strength Assessment Bilaterally Impaired Hip 4-/5 Knee 4/5 Sensation Assessment Sensation Gross Sensation WNL Muscle Tone Muscle Tone WNL Yes Other Assessments Other Other Assessments Pt noted to have mild left- beating nystagmus during reported dizziness but was not associated with change in position. VS were stable. M6 PT-IP Treatment Start: 04/27/21 11:22 Freq: NEEDED Status: Active Protocol: Document 04/28/21 10:54 [facility] (Rec: 04/28/21 12:17 [facility] [id number]) Physical Therapy Treatment Education Education Provided Safety M7 PT-IP Assessment and Plan Start: 04/27/21 11:22 Freq: NEEDED Status: Active Protocol: Document 04/28/21 10:54 [facility] (Rec: 04/28/21 12:17 [facility] [id number]) PT Summary Assessment and Plan Potential Rehabilitation Potential Good Status of Condition at Evaluation Evolving Summary Impairments Pain,Strength,Balance, Transfers,Gait,Activity Tolerance Assessment Summary Pt is SBA for all bed mobility , CGA for transfers, ambulation, and stair training . Pts BP stable, 113/71 sitting and 105/64 standing. Pt reports slight dizziness and headache. Able to ambulate ~50 ft CGA w/o AD and ascend/ descend 2x platform steps CGA no cues safely w/o LOB. Encouraged pt to self assess dizziness when changing positions at home to avoid falls, pt stated will use cane if feeling off balance but does not typically require AD. Pt will benefit from HH to improve balance, strength, and tolerance for activity. Goals Bed Mobility Goal Independent Transfer Goal Independent,Cane,Front Wheeled Walker Gait Goal Independent,Cane,Front Wheel Walker Gait Distance 200 Other Goals - up/down 2 steps without railing SBA - increase gait distance SBA no AD Days to Meet Goals 8 Frequency of Treatment Frequency Of Treatment Once a Day Treatment Plan Physical Therapy Treatment Plan Bed Mobility Training,Transfer Training,Gait Training, Therapeutic Exercise,Balance Retraining,Discharge Planning, Hot or Cold Pack Other Recommendations and Next Treatment monitor VS; assess gait and Focus stairs with SPC, increase gait distance Recommendations To Nursing Amount of Assist Needed 1 Person Assist Discharge Recommendations PT Discharge Recommendations Home with Assistance,Home Health Equipment Needed for Home Before FWW if unsafe with SPC Discharge Transportation Needs at Discharge Private Vehicle
--- NOTE | 2021-04-28 13:15 | PC.NURSE ---
Day shift: Paperwork signed and all questions answered. Pt has all personal belongings. MD scripts sent electronic to Pt's pharmacy. Pt encouraged to take all of his antibiotics until they are gone. Also encouraged to make f/u with his MD and Urologist grady. HE remains A&Ox4. No pain. Castillo d/c'd this AM and Pt has not voided yet but he did use the BR and stated that he thinks he voided. Taken to car in by MAYKEL Marin. Pt's spouse was in room for d/c teachings and Pt wanted her to sign d/c paperwork. The spouse is also driving the Pt home today.
== END 2021-04-28 13:20 | disposition home or self-care (01) | DRG 862 ==
LOC: ED 14:26 → AC 15:43
PROVIDERS: Admitting Provider Internal Medicine; Emergency Provider Emergency Medicine; Referring Provider Emergency Medicine; Visit Provider Internal Medicine
DX: T81.40XA Infection following a procedure, unspecified, initial encounter (principal); A41.51 Sepsis due to Escherichia coli [E. coli]; G93.41 Metabolic encephalopathy; R65.20 Severe sepsis without septic shock; N10 Acute pyelonephritis; N41.0 Acute prostatitis; N17.9 Acute kidney failure, unspecified; T81.44XA Sepsis following a procedure, initial encounter; F43.10 Post-traumatic stress disorder, unspecified; N40.1 Benign prostatic hyperplasia with lower urinary tract symptoms; R35.0 Frequency of micturition; Z87.891 Personal history of nicotine dependence; Z20.822 Contact with and (suspected) exposure to COVID-19
CPT/HCPCS: 36415; 71045; 74176; 76770; 76870; 80053; 81001; 82550; 82553; 83036; 83605; 83735; 84145; 84484; 85025; 87040; 87077; 87086; 87150; 87186; 87205; 87633; 93005; 93010; 94760; 96365; 96366; 96367; 97116; 97162; 97165; 97530; 97535; 99285; 99291; 99292; J0696; J1170; J1650; J2185; J2405; J2543

== ENCOUNTER → 2021-08-11 07:31 | Outpatient (CLI) | payer OTHER, SELFPAY ==
[2021-04-25 16:16] VITALS: BMI 34.7
--- NOTE | 2021-08-11 | DI.NM.S_ITS ---
PROCEDURE: NM BONE SCAN WHOLE BODY RADIOPHARMACEUTICAL: 21.4 mCi Tc-99m MDP IV. INDICATIONS: Unilateral primary osteoarthritis, right hip TECHNIQUE: Delayed whole-body scintigrams were obtained approximately 3-4 hours after intravenous injection of radiotracer. Anterior and posterior views were acquired from vertex to feet. Additional left and right oblique views of the pelvis and hips were obtained. COMPARISON: [facility], CR, XR CHEST 1 VIEW, 05/08/2021, 15:01. [facility], CR, XR PELVIS WITH BILATERAL LATERAL HIPS, 06/04/2021, 13:39. FINDINGS: There is bilateral periarticular uptake along the hips within the acetabulum as well as the femoral heads. Findings are consistent with sequela severe osteoarthritic changes as seen on the prior x-ray. There is also bilateral uptake along the sternoclavicular joints and at the costosternal junctions of the 1st ribs, right greater than left. Findings also suggest sequelae of degenerative changes. There is bilateral mild periarticular uptake around the shoulders, knees, and left foot also compatible with degenerative changes. IMPRESSION: 1. Periarticular uptake around the hips bilaterally consistent with sequela severe osteoarthritic changes as seen on the prior x-ray. 2. Bilateral uptake along the sternoclavicular and 1st costosternal articulations also consistent with sequelae of degenerative changes. Dictated by: Thomas Dyer M.D. on 08/11/2021 at 17:03 Approved by: Thomas Dyer M.D. on 08/11/2021 at 17:06
== END ==
PROVIDERS: PCP Nurse Practitioner; Referring Provider Orthopaedic Surgery; Visit Provider Orthopaedic Surgery
DX: M16.11 Unilateral primary osteoarthritis, right hip (principal)
CPT/HCPCS: 78306; A9503

== ENCOUNTER 2021-09-09 12:00 | Emergency (ER) | payer OTHER, SELFPAY ==
[2021-04-25 16:16] VITALS: BMI 34.7
[2021-09-09 12:49] VITALS: BP 138/65; PULSE 85; RESP 20; TEMP 36.6; O2SAT 97; BMI 34.5
[2021-09-09 13:17] LABS: Appearance Urine UA CLOUDY; Bilirubin Urine UA NEGATIVE (NEGATIVE); Color Urine UA YELLOW; Glucose Urine UA NEGATIVE (Negative); Ketones Urine UA NEGATIVE (NEGATIVE); Leukocyte Esterase Urine UA 2+ (NEGATIVE); Nitrite Urine UA POSITIVE (Negative); Occult Blood Urine UA 3+ (Negative); Protein Urine UA TRACE (Negative); Specific Gravity Urine UA 1.015 (1.000-1.035); Urobilinogen Urine UA 0.2 E.U./dL (0.2)
[2021-09-09 13:37] LABS: Bacteria Urine Many (>30); Culture Indicated Urine Specimen Cultured; RBC Urine 5-10/HPF (0-5/HPF); WBC Urine >100/HPF (0-5/HPF)
--- NOTE | 2021-09-09 14:15 | ED_ITS ---
HPI - Male Genitourinary <Jalil Mixon PA-C - Last Filed: 09/09/21 15:16> General Chief complaint: Urogenital-Male Stated complaint: catheter plugged Time Seen by Provider: 09/09/21 13:17 Source: patient Mode of arrival: Ambulatory History of Present Illness HPI Narrative: 70-year-old male with past medical history prostate cancer, indwelling catheter presents to the ED for a blocked urinary catheter. Patient states that he has had an indwelling catheter that gets changed out every month since April 2021 after he had a UTI and sepsis. Patient states he is unsure of the exact reason that he has to have an indwelling catheter other than the fact that he has prostate cancer. Patient states that this morning he noticed that his catheter was blocked and his bag was not draining. He also noted suprapubic pressure in his bladder. Patient denies any hematuria or cloudy urine. Patient denies fever, chills, nausea, vomiting, flank pain. Patient denies chest pain, abdominal pain, shortness of breath, lightheadedness, dizziness, syncope. Related Data Home Medications Medication Instructions Recorded Confirmed gabapentin 300 mg capsule 300 mg PO TID #0 06/10/17 04/25/21 (Neurontin) omeprazole 20 mg capsule,delayed 20 mg PO QDAY PRN #0 06/10/17 04/25/21 release prazosin 2 mg capsule (Minipress) See Rx Instructions .ROUTE 06/10/17 04/25/21 .COMPLEX #0 sertraline 100 mg tablet 100 mg PO QDAY #0 06/10/17 04/25/21 aripiprazole 5 mg tablet 5 mg PO DAILY 04/25/21 04/25/21 cholecalciferol (vitamin D3) 25 25 mcg PO DAILY 04/25/21 04/25/21 mcg (1,000 unit) tablet (Vitamin D3) fluoxetine 40 mg capsule 40 mg PO DAILY 04/25/21 04/25/21 tamsulosin 0.4 mg capsule 0.8 mg PO BEDTIME 04/25/21 04/25/21 Previous Rx's Medication Instructions Recorded ciprofloxacin HCl 500 mg tablet 500 mg PO BID 10 Days #20 tab 09/09/21 Allergies Allergy/AdvReac Type Severity Reaction Status Date / Time No Known Drug Allergies Allergy Verified 09/09/21 12:52 Review of Systems <Jalil Mixon PA-C - Last Filed: 09/09/21 15:16> Review of Systems ROS Unobtainable: All systems reviewed & are unremarkable except as noted in HPI and below Constitutional Constitutional: Denies chills, Denies fatigue, Denies fever(s), Denies frequent falls, Denies lethargy and Denies weakness Eyes Eyes: Denies change in vision, Denies eye discharge, Denies irritation and Denies loss of vision ENT Ears, Nose, Mouth, and Throat: Denies change in voice, Denies dizziness, Denies neck pain, Denies sore throat and Denies throat swelling Cardiovascular Cardiovascular: Denies chest pain, Denies irregular heart rhythm, Denies lightheadedness, Denies palpitations, Denies dyspnea, Denies dyspnea on exertion and Denies orthopnea Respiratory Respiratory: Denies cough, Denies dyspnea, Denies dyspnea on exertion and Denies wheezing Gastrointestinal Gastrointestinal: Denies abdominal pain, Denies change in bowel habits, Denies diarrhea, Denies nausea and Denies vomiting Genitourinary Genitourinary: Denies hematuria, Denies flank pain, Denies urinary incontinence and Denies urinary urgency Comments: Blocked urinary catheter, bag not draining any urine. Suprapubic pressure. Musculoskeletal Musculoskeletal: Denies back pain, Denies muscle weakness, Denies neck pain, Denies numbness and Denies tingling Integumentary/Breasts Skin/Breast: Denies pruritus, Denies erythema, Denies rash and Denies wounds Neurologic Neurologic: Denies behavioral changes, Denies confusion, Denies dizziness, Denies frequent falls, Denies loss of vision, Denies numbness, Denies tingling and Denies weakness Psychiatric Psychiatric: Denies anxiety, Denies behavioral changes, Denies confusion, Denies depression, Denies homicidal ideation and Denies suicidal ideation Endocrine Endocrine: Denies fatigue, Denies flushing and Denies palpitations Hematologic/Lymphatic Hematologic/Lymphatic: Denies easy bruising Allergic/Immunologic Allergic/Immunologic: Denies urticaria, Denies throat swelling and Denies wheezing Patient History <Jalil Mixon PA-C - Last Filed: 09/09/21 15:16> Medical History BPH (benign prostatic hyperplasia) Post traumatic stress disorder (PTSD) Surgical History H/O prostate biopsy H/O shoulder surgery History of lumbar fusion Social History household members: spouse Smoking Status: Former smoker alcohol intake: former Smoking Status: Former smoker alcohol intake frequency: other Substance Use Type: does not use Exam <Jalil Mixon PA-C - Last Filed: 09/09/21 15:16> Initial Vital Signs Initial Vital Signs: Vital Signs Temperature 97.9 F 09/09/21 12:49 Pulse Rate 85 09/09/21 12:49 Respiratory Rate 20 09/09/21 12:49 Blood Pressure 138/65 09/09/21 12:49 Pulse Oximetry 97 09/09/21 12:49 Const General: cooperative, healthy appearing and comfortable HENMT Head: normal to inspection Eyes General: appearance normal, both eyes and all related structures Neck Neck: normal visual inspection Chest Chest: normal inspection of the chest Resp Effort & Inspection: normal respiratory effort Auscultation: clear to auscultation bilaterally Cardio Rate: regular rate Rhythm: regular rhythm GI Other: Abdomen is soft, nondistended, nontender to palpation. No CVA tenderness. General: No CVA tenderness Skin General: no rashes or lesions noted Neuro General: patient alert, patient awake and patient oriented x3 Psych Appearance: grossly normal Mental Status: mental status grossly normal <Katiana Cole DO - Last Filed: 09/10/21 07:31> Initial Vital Signs Initial Vital Signs: Vital Signs Temperature 97.9 F 09/09/21 12:49 Pulse Rate 85 09/09/21 12:49 Respiratory Rate 20 09/09/21 12:49 Blood Pressure 138/65 09/09/21 12:49 Pulse Oximetry 97 09/09/21 12:49 Course <Jalil Mixon PA-C - Last Filed: 09/09/21 15:16> Orders Ordered: Discontinued Medications Ceftriaxone Sodium 1,000 mg/ (Sodium Chloride) 100 mls @ 200 mls/hr IV NOW ONE Stop: 09/09/21 14:58 Last Infusion: 09/09/21 15:29 Dose: 0 mls/hr Documented by: Admin: 09/09/21 15:03 Dose: 200 mls/hr Documented by: NAFISA Vital Signs Vital signs: Vital Signs - 8 hr 09/09/21 12:49 Temperature 97.9 F Pulse Rate 85 Respiratory Rate 20 Blood Pressure 138/65 Pulse Oximetry 97 <Katiana Cole DO - Last Filed: 09/10/21 07:31> Orders Ordered: Discontinued Medications Ceftriaxone Sodium 1,000 mg/ (Sodium Chloride) 100 mls @ 200 mls/hr IV NOW ONE Stop: 09/09/21 14:58 Last Infusion: 09/09/21 15:29 Dose: 0 mls/hr Documented by: Admin: 09/09/21 15:03 Dose: 200 mls/hr Documented by: NAFISA Vital Signs Vital signs: Vital Signs - 8 hr 09/09/21 12:49 Temperature 97.9 F Pulse Rate 85 Respiratory Rate 20 Blood Pressure 138/65 Pulse Oximetry 97 MDM - Male Genitourinary <Jalil Mixon PA-C - Last Filed: 09/09/21 15:16> Lab Data Lab results narrative: UA positive for UTI. Result diagrams: 09/09/21 14:20 09/09/21 14:20 Labs: Lab Results 09/09/21 09/09/21 09/09/21 Range/Units 13:07 14:20 14:20 WBC 4.9 (4.5-11.0) X10^3/uL RBC 4.15 L (4.5-5.9) X10^6/uL Hgb 12.7 L (13.5-17.5) g/dL Hct 37.6 L (41-53) % MCV 90.6 (80-100) fL MCH 30.7 (26-34) PG MCHC 33.9 (30-36) % RDW 13.5 (11.6-14.8) % Plt Count 202 (150-400) X10^3/uL Neut % (Auto) 56.4 (50-75) % Lymph % (Auto) 33.6 (25-40) % [place] % (Auto) 5.7 (3-14) % Eos % (Auto) 3.5 (2-4) % Baso % (Auto) 0.8 (0-2) % Neut # (Auto) 2800 (6312-1477) /uL Lymph # (Auto) 1600 (0762-1694) /uL [place] # (Auto) 300 (0-900) /uL Eos # (Auto) 200 (0-450) /uL Baso # (Auto) 0 (0-100) /uL Sodium 139 (137-145) mmol/L Potassium 4.4 (3.4-5.1) mmol/L Chloride 108 H (98-107) mmol/L Carbon Dioxide 24 (22-32) mmol/L BUN 13 (9-20) mg/dL Creatinine 1.08 (0.66-1.25) mg/dL Estimated GFR > 60.0 (>60) mL/min BUN/Creatinine Ratio 12.0 (6-22) Glucose 98 (80-110) mg/dL Lactate (0.7-2.1) mmol/L Calcium 8.5 (8.4-10.2) mg/dL Total Bilirubin 0.4 (0.2-1.3) mg/dL AST 26 (17-59) IU/L ALT 21 (<50) IU/L Alkaline Phosphatase 91 (38-126) U/L Total Protein 7.5 (6.3-8.2) g/dL Albumin 4.1 (3.5-5.0) g/dL Globulin 3.4 (1.7-4.1) g/dL Albumin/Globulin Ratio 1.2 (1.0-2.8) Lipase 64 (23-300) U/L Urine Color Yellow Urine Appearance Cloudy Urine pH 7.0 (4.5-8.0) Ur Specific [place] 1.015 (1.000-1.035) Urine Protein Trace H (Negative) Urine Glucose (UA) Negative (Negative) g/dL Urine Ketones Negative (NEGATIVE) Urine Occult Blood 3+ H (Negative) Urine Nitrate Positive H (Negative) Urine Bilirubin Negative (NEGATIVE) Urine Urobilinogen 0.2 (0.2) E.U./dL Ur Leukocyte Esterase 2+ H (NEGATIVE) Urine RBC 5-10/hpf H (0-5/HPF) Urine WBC >100/hpf H (0-5/HPF) Urine Bacteria Many (>30) H (None) Ur Culture Indicated? Specimen cultured 09/09/21 Range/Units 14:20 WBC (4.5-11.0) X10^3/uL RBC (4.5-5.9) X10^6/uL Hgb (13.5-17.5) g/dL Hct (41-53) % MCV (80-100) fL MCH (26-34) PG MCHC (30-36) % RDW (11.6-14.8) % Plt Count (150-400) X10^3/uL Neut % (Auto) (50-75) % Lymph % (Auto) (25-40) % [place] % (Auto) (3-14) % Eos % (Auto) (2-4) % Baso % (Auto) (0-2) % Neut # (Auto) (3843-7046) /uL Lymph # (Auto) (8498-5386) /uL [place] # (Auto) (0-900) /uL Eos # (Auto) (0-450) /uL Baso # (Auto) (0-100) /uL Sodium (137-145) mmol/L Potassium (3.4-5.1) mmol/L Chloride (98-107) mmol/L Carbon Dioxide (22-32) mmol/L BUN (9-20) mg/dL Creatinine (0.66-1.25) mg/dL Estimated GFR (>60) mL/min BUN/Creatinine Ratio (6-22) Glucose (80-110) mg/dL Lactate 1.2 (0.7-2.1) mmol/L Calcium (8.4-10.2) mg/dL Total Bilirubin (0.2-1.3) mg/dL AST (17-59) IU/L ALT (<50) IU/L Alkaline Phosphatase (38-126) U/L Total Protein (6.3-8.2) g/dL Albumin (3.5-5.0) g/dL Globulin (1.7-4.1) g/dL Albumin/Globulin Ratio (1.0-2.8) Lipase (23-300) U/L Urine Color Urine Appearance Urine pH (4.5-8.0) Ur Specific [place] (1.000-1.035) Urine Protein (Negative) Urine Glucose (UA) (Negative) g/dL Urine Ketones (NEGATIVE) Urine Occult Blood (Negative) Urine Nitrate (Negative) Urine Bilirubin (NEGATIVE) Urine Urobilinogen (0.2) E.U./dL Ur Leukocyte Esterase (NEGATIVE) Urine RBC (0-5/HPF) Urine WBC (0-5/HPF) Urine Bacteria (None) Ur Culture Indicated? MDM Narrative Medical decision making narrative: 70-year-old male with past medical history prostate cancer, indwelling catheter presents to the ED for a blocked urinary catheter. Concern for UTI versus pyelonephritis versus sepsis versus urinary retention. Will order labs, UA, lactate. Urinary catheter was changed out, following which the bag is draining well. Will reassess. UA positive for UTI. Ceftriaxone 1 g IV given. Patient discharged home with prescription for ciprofloxacin. ED return precautions discussed. Patient verbalized understanding. <Katiana Cole, - Last Filed: 09/10/21 07:31> Lab Data Labs: Lab Results 09/09/21 09/09/21 09/09/21 Range/Units 13:07 14:20 14:20 WBC 4.9 (4.5-11.0) X10^3/uL RBC 4.15 L (4.5-5.9) X10^6/uL Hgb 12.7 L (13.5-17.5) g/dL Hct 37.6 L (41-53) % MCV 90.6 (80-100) fL MCH 30.7 (26-34) PG MCHC 33.9 (30-36) % RDW 13.5 (11.6-14.8) % Plt Count 202 (150-400) X10^3/uL Neut % (Auto) 56.4 (50-75) % Lymph % (Auto) 33.6 (25-40) % [place] % (Auto) 5.7 (3-14) % Eos % (Auto) 3.5 (2-4) % Baso % (Auto) 0.8 (0-2) % Neut # (Auto) 2800 (1496-7409) /uL Lymph # (Auto) 1600 (7954-9074) /uL [place] # (Auto) 300 (0-900) /uL Eos # (Auto) 200 (0-450) /uL Baso # (Auto) 0 (0-100) /uL Sodium 139 (137-145) mmol/L Potassium 4.4 (3.4-5.1) mmol/L Chloride 108 H (98-107) mmol/L Carbon Dioxide 24 (22-32) mmol/L BUN 13 (9-20) mg/dL Creatinine 1.08 (0.66-1.25) mg/dL Estimated GFR > 60.0 (>60) mL/min BUN/Creatinine Ratio 12.0 (6-22) Glucose 98 (80-110) mg/dL Lactate (0.7-2.1) mmol/L Calcium 8.5 (8.4-10.2) mg/dL Total Bilirubin 0.4 (0.2-1.3) mg/dL AST 26 (17-59) IU/L ALT 21 (<50) IU/L Alkaline Phosphatase 91 (38-126) U/L Total Protein 7.5 (6.3-8.2) g/dL Albumin 4.1 (3.5-5.0) g/dL Globulin 3.4 (1.7-4.1) g/dL Albumin/Globulin Ratio 1.2 (1.0-2.8) Lipase 64 (23-300) U/L Urine Color Yellow Urine Appearance Cloudy Urine pH 7.0 (4.5-8.0) Ur Specific [place] 1.015 (1.000-1.035) Urine Protein Trace H (Negative) Urine Glucose (UA) Negative (Negative) g/dL Urine Ketones Negative (NEGATIVE) Urine Occult Blood 3+ H (Negative) Urine Nitrate Positive H (Negative) Urine Bilirubin Negative (NEGATIVE) Urine Urobilinogen 0.2 (0.2) E.U./dL Ur Leukocyte Esterase 2+ H (NEGATIVE) Urine RBC 5-10/hpf H (0-5/HPF) Urine WBC >100/hpf H (0-5/HPF) Urine Bacteria Many (>30) H (None) Ur Culture Indicated? Specimen cultured 09/09/21 Range/Units 14:20 WBC (4.5-11.0) X10^3/uL RBC (4.5-5.9) X10^6/uL Hgb (13.5-17.5) g/dL Hct (41-53) % MCV (80-100) fL MCH (26-34) PG MCHC (30-36) % RDW (11.6-14.8) % Plt Count (150-400) X10^3/uL Neut % (Auto) (50-75) % Lymph % (Auto) (25-40) % [place] % (Auto) (3-14) % Eos % (Auto) (2-4) % Baso % (Auto) (0-2) % Neut # (Auto) (2222-3399) /uL Lymph # (Auto) (0413-0864) /uL [place] # (Auto) (0-900) /uL Eos # (Auto) (0-450) /uL Baso # (Auto) (0-100) /uL Sodium (137-145) mmol/L Potassium (3.4-5.1) mmol/L Chloride (98-107) mmol/L Carbon Dioxide (22-32) mmol/L BUN (9-20) mg/dL Creatinine (0.66-1.25) mg/dL Estimated GFR (>60) mL/min BUN/Creatinine Ratio (6-22) Glucose (80-110) mg/dL Lactate 1.2 (0.7-2.1) mmol/L Calcium (8.4-10.2) mg/dL Total Bilirubin (0.2-1.3) mg/dL AST (17-59) IU/L ALT (<50) IU/L Alkaline Phosphatase (38-126) U/L Total Protein (6.3-8.2) g/dL Albumin (3.5-5.0) g/dL Globulin (1.7-4.1) g/dL Albumin/Globulin Ratio (1.0-2.8) Lipase (23-300) U/L Urine Color Urine Appearance Urine pH (4.5-8.0) Ur Specific [place] (1.000-1.035) Urine Protein (Negative) Urine Glucose (UA) (Negative) g/dL Urine Ketones (NEGATIVE) Urine Occult Blood (Negative) Urine Nitrate (Negative) Urine Bilirubin (NEGATIVE) Urine Urobilinogen (0.2) E.U./dL Ur Leukocyte Esterase (NEGATIVE) Urine RBC (0-5/HPF) Urine WBC (0-5/HPF) Urine Bacteria (None) Ur Culture Indicated? Discharge Plan Departure Patient Disposition: Home Clinical Impression: Urinary tract infection Instructions: DI for Urinary Tract Infection (UTI) Activity Restrictions/Additional Instructions: You were evaluated in the ED today for a blocked urinary catheter. Your catheter was changed out after which the bag was draining normally. Your urine did show a urinary tract infection. You were given a 1st dose of antibiotics in the ED. you are being sent home with a prescription for antibiotics. Please complete the full dose of antibiotics. Return to the ED if you have worsening symptoms, flank pain, fever, chills, nausea, vomiting, problems with the urinary catheter. Prescriptions: New ciprofloxacin HCl 500 mg tablet 500 mg PO BID 10 Days Qty: 20 0RF No Action gabapentin [Neurontin] 300 MG capsule 300 mg PO TID Qty: 0 0RF omeprazole 20 MG capsule,delayed release(DR/EC) 20 mg PO QDAY PRN (Reason: Acid Reflux) Qty: 0 0RF prazosin [Minipress] 2 MG capsule See Rx Instructions .ROUTE .COMPLEX Qty: 0 0RF Rx Instructions: Take one capsule in the morning and 2 capsules at night. sertraline 100 MG tablet 100 mg PO QDAY Qty: 0 0RF fluoxetine 40 mg Capsule 40 mg PO DAILY 0RF tamsulosin 0.4 mg Capsule 0.8 mg PO BEDTIME 0RF aripiprazole 5 mg Tablet 5 mg PO DAILY 0RF cholecalciferol (vitamin D3) [Vitamin D3] 25 mcg (1,000 unit) Tablet 25 mcg PO DAILY 0RF Referrals: Meggan Garcia ARNP [Primary Care Provider] - <Katiana Cole DO - Last Filed: 09/10/21 07:31> Cosign ED Attending Macoature Attestation: I was immediately available in the department for consultation. Documentation has been reviewed. I agree with assessment and plan.
[2021-09-09 14:30] LABS: Add Manual Diff / Slide Review NO; Basophils Absolute Auto 0 /uL (0-100); Basophils Percent Auto 0.8 % (0-2); Eosinophils Absolute Auto 200 /uL (0-450); Eosinophils Percent Auto 3.5 % (2-4); Hematocrit 37.6 % (41-53); Hemoglobin 12.7 g/dL (13.5-17.5); Lymphocytes Absolute Auto 1600 /uL (1100-4500); Lymphocytes Percent Auto 33.6 % (25-40); Mean Corpuscular HGB Conc 33.9 % (30-36); Mean Corpuscular Hemoglobin 30.7 PG (26-34); Mean Corpuscular Volume 90.6 fL (80-100); Monocytes Absolute Auto 300 /uL (0-900); Monocytes Percent Auto 5.7 % (3-14); Neutrophils Absolute Auto 2800 /uL (1500-7000); Neutrophils Percent Auto 56.4 % (50-75); Platelet Count 202 X10^3/uL (150-400); Red Blood Cell Count 4.15 X10^6/uL (4.5-5.9); Red Cell Distribution Width 13.5 % (11.6-14.8); White Blood Cell Count 4.9 X10^3/uL (4.5-11.0)
[2021-09-09 14:45] LABS: Lactate (Lactic Acid) 1.2 mmol/L (0.7-2.1)
[2021-09-09 14:53] LABS: Alanine Aminotransferase 21 IU/L (<50); Albumin 4.1 g/dL (3.5-5.0); Albumin Globulin Ratio 1.2 (1.0-2.8); Alkaline Phosphatase 91 U/L (38-126); Aspartate Aminotransferase 26 IU/L (17-59); Bilirubin Total 0.4 mg/dL (0.2-1.3); Blood Urea Nitrogen 13 mg/dL (9-20); Calcium 8.5 mg/dL (8.4-10.2); Carbon Dioxide 24 mmol/L (22-32); Chloride 108 mmol/L (98-107); Estimated Glomerular Filt Rate > 60.0 mL/min (>60); Globulin 3.4 g/dL (1.7-4.1); Glucose 98 mg/dL (80-110); HEMOLYSIS < 15 (0-50); Lipase 64 U/L (23-300); Potassium 4.4 mmol/L (3.4-5.1); Sodium 139 mmol/L (137-145); Total Protein 7.5 g/dL (6.3-8.2)
[2021-09-09] MEDS: cefTRIAXone 1,000 MG in SODIUM CHLORIDE 0.9% 100 ML 200 ML IV (15:03)
[2021-09-09 15:27] VITALS: BP 141/87; PULSE 92; O2SAT 95
== END 2021-09-09 15:30 | disposition home or self-care (01) ==
PROVIDERS: Emergency Medicine; Emergency Provider Student in an Organized Health Care Education/Training Program; PCP Nurse Practitioner
DX: T83.098A Other mechanical complication of other urinary catheter, initial encounter (principal); N39.0 Urinary tract infection, site not specified
CPT/HCPCS: 36415; 51702; 80053; 81001; 83605; 83690; 85025; 87077; 87086; 87186; 96365; 99284; J0696

== ENCOUNTER → 2022-02-09 10:40 | Outpatient (CLI) | payer OTHER, SELFPAY ==
[2021-04-25 16:16] VITALS: BMI 34.7
[2022-02-09 12:10] LABS: COVID19 -Nasal RAPID Negative (Negative)
== END ==
PROVIDERS: PCP Nurse Practitioner; Referring Provider Orthopaedic Surgery; Visit Provider Orthopaedic Surgery
DX: Z20.822 Contact with and (suspected) exposure to COVID-19 (principal)
CPT/HCPCS: 87635; C9803

== ENCOUNTER 2022-02-10 06:06 | Day surgery (SDC) | payer OTHER, SELFPAY ==
[2021-04-25 16:16] VITALS: BMI 34.7
[2022-01-23 09:47] VITALS: BMI 34.2
[2022-02-10] VITALS (14 sets, daily range): BP systolic 96–149; BP diastolic 60–83; PULSE 67–82; RESP 14–18; TEMP 35.6–36.4; O2SAT 92–98; BMI 34.2; BMI 32.9
--- NOTE | 2022-02-10 07:38 | PM.PREOP ---
Pre-operative Note COVID-19 COVID-19 status: Negative Interval Note History & Physical reviewed/Exam performed by Physician: Yes Changes to H&P: No
--- NOTE | 2022-02-10 07:41 | DI.RAD.S_ITS ---
PROCEDURE: XR HIP W PEL IF DONE RT 2V INDICATIONS: hip surgery TECHNIQUE: AP pelvis with lateral view(s) of the right hip(s). COMPARISON: [facility], CR, XR PELVIS WITH BILATERAL LATERAL HIPS, 01/14/2022, 14:32. [facility], CR, XR PELVIS 1-2V, 02/10/2022, 9:18. FINDINGS: Postoperative changes reflecting right hip arthroplasty are present. Hardware is intact without evidence of hardware fracture or periprosthetic loosening. Severe arthritic narrowing is present within the left hip. Periarticular osteophytes are present. No erosions. Partially visualized lower lumbar/sacral fixation screws are present. IMPRESSION: Postsurgical changes as above. Dictated by: Yessica Dave M.D. on 02/10/2022 at 17:47 Approved by: Yessica Dave M.D. on 02/10/2022 at 17:48
[2022-02-10] MEDS: CELECOXIB 200 MG CAPSULE PO (07:42)
[2022-02-10] MEDS: ACETAMINOPHEN 325 MG TABLET 975 MG PO (07:42)
[2022-02-10] MEDS: LACTATED RINGERS 1,000 ML 42 ML IV ×2 (07:42→10:29)
[2022-02-10] MEDS: VANCOMYCIN 1,000 MG/200 ML PIGGYBACK 200 MG IV (07:47)
[2022-02-10] MEDS: CEFAZOLIN 2 GM IN 0.9 % NACL 100 ML IV ×2 (07:56→15:23)
[2022-02-10] MEDS: TRANEXAMIC ACID 1,000 MG VIAL 2000 MG INJ ×2 (08:23→10:10)
--- NOTE | 2022-02-10 08:48 | SUR.OPER ---
Lateral on padded OR bed. Gel axillary roll. Arms secured on padded armboard with pillow supporting top arm. Padded hip positioner braces x4 - anterior and posterior chest and pelvis. Additional gel pad used anterior pelvis. Gel pad under bottom leg from knee to foot and secured with tape over sheet.
[2022-02-10] MEDS: SODIUM CHLORIDE IRRIG SOLUTION 250 ML, EPINEPHrine 1 MG IRR (09:06)
[2022-02-10] MEDS: SODIUM CHLORIDE IRRIG SOLUTION 250 ML, POVIDONE-IODINE SPONGE STICKS 1 APPLIC IRR (09:50)
[2022-02-10] MEDS: BUPIVACAINE 0.5% W/ EPI (PF) 30 ML VIAL INJ (09:58)
[2022-02-10] MEDS: BUPIVACAINE LIPOSOME 266 MG/20 ML VIAL INJ (09:59)
--- NOTE | 2022-02-10 10:44 | P.OP_ITS ---
Operative Date/Time/Diagnoses Date of procedure: 02/10/22 Time of procedure: 11:20 Pre-op diagnosis: Severe right hip osteoarthritis Post-op diagnosis: same Procedure & Clinicians Procedure: Right total hip arthroplasty posterior approach Same procedure as scheduled: Yes Indications: The patient has had progressively worsening right hip pain with radiographic changes consistent with arthritis. Non-operative management has failed and the patient has requested total hip replacement. The risks, benefits and alternatives to surgery were discussed with the patient prior to proceeding. Risks discussed included, but were not limited to, failure to relieve pain, leg length discrepancy, dislocation, stiffness, infection, nerve damage, deep venous thrombosis, pulmonary embolism, stroke, coma, heart attack, permanent paralysis and , as well as the potential need for eventual revision of the prosthetic. Surgeon: Marli Trevizo [employer] Camera Person: Arielle Rodriguez Anesthesia Type: General Operative Notes Findings: Severe right hip osteoarthritis, good stability, adequate bone Closure Type: primary Specimen(s): none sent Prosthetic devices, grafts, tissues, transplants, or devices: Trevizo [employer]hew high offset anthology size 11, 60 mm R3 cup, neutral 40 mm liner, 40 +4 cobalt chrome head,one 6.5 mm screw Estimated Blood Loss (mL): 250 Blood products transfused: none Procedure in detail: The patient was seen in the pre-operative area, where the patient identified the right hip as the operative site and this was marked with my initials. The patient received pre-operative antibiotics and was taken to the operating room and placed on the operative table in the left lateral decubitus position after satisfactory anesthesia. A director multimedia out was performed. The right leg was prepared from the ankle to the iliac crest with ChloroPrep in the usual fashion and draped through sterile drapes. The hip was approached through an approximately 20 cm incision centered over the greater trochanter and curving gently posteriorly as it went proximally. This was carried sharply to the fascia nuzhat, which was divided and retracted with a self retaining retractor. The trochanteric bursa was excised with care being taken to avoid the sciatic nerve, which was identified and protected throughout the case. The short external rotators were incised and the capsulomuscular flap was raised and tagged for later repair. The hip was dislocated, and a femoral neck osteotomy performed approximately 15 mm above the lesser trochanter. Retractors were placed around the femur. The canal was opened with a box cutt ing osteotome, followed by a T handled reamer and a lateralizing reamer. The chili pepper broach was then used, followed by sequential broaching until there was good stability of the broach in the femur. Retractors were placed to expose the acetabulum. The labrum and central soft tissues were removed. Reaming was performed initially going up in 2 mm increments, then 1 mm increments until good bite was obtained with an odd sized reamer. The cup 1 mm larger than the last reamer was then inserted using the appropriate anteversion guides. It was further stabilized with a single screw. A trial neutral liner was placed. The broach was placed in the canal. A trial head and neck were then placed and the hip relocated and checked for leg length and stability. An intraoperative film confirmed the component position and no evidence of fracture. The patient was stable in the position of sleep, of squatting, and could be put through a range of motion with 45 degrees internal rotation without dislocation. At 90 degrees flexion, internal rotation to 70 ? was possible before dislocation. This was felt to be satisfactory and the appropriate components were opened, and the trials were removed. The acetabular liner was impacted into position. The final stem was then impacted into the prepared femoral canal. A brief Betadine soak was performed while trialing with head options. The hip was meticulously irrigated with normal saline. Finally the femoral head was impacted onto the stem. The acetabulum was cleared of all material and the hip relocated one final time. The capsulomuscular flap was then repaired to the greater trochanter though an awl hole using the tag sutures. The short external rotators were repaired with a nonabsorbable suture. The fascia nuzhat was closed with Vicryl. The subcutaneous layer was closed with barbed sutures and SteriStrips. An Aquacel Ag dressing was applied and the patient was taken to recovery having tolerated the procedure well. Complications: none Post-operative Condition: stable Disposition: Acute Care Plan for aftercare: The patient will be maintained on a standard total hip replacement protocol with weight bearing as tolerated and posterior hip precautions. The patient will receive Aspirin and sequential compression devices for DVT prophylaxis. The patient will be discharged home when safe for the home environment.
--- NOTE | 2022-02-10 10:59 | SUR.PHASEI ---
1039: Pt arrived to PACU A&Ox4, moving all extremities, denies any pain. 1043: Called Xray 1045: Verified with Dr. Trevizo does not want post op lab draws. 1100: Xray complete, pt denies pain.
--- NOTE | 2022-02-10 11:18 | SUR.PHASEI ---
Pt A&Ox4, denies any distress, dressing C/D/I, and ready to transfer to room. Report given to MAYKEL Thapa using SBAR with time allowed for questions. Pt to transfer to room 218.
[2022-02-10] MEDS: ACETAMINOPHEN 325 MG TABLET 650 MG PO ×2 (12:00→17:29)
[2022-02-10] MEDS: OXYCODONE IR 10 MG TABLET PO ×3 (12:01→21:30)
[2022-02-10] MEDS: IBUPROFEN 400 MG TABLET PO ×2 (12:04→17:29)
[2022-02-10] MEDS: LACTATED RINGERS 1,000 ML 125 ML IV ×2 (12:04→21:35)
[2022-02-10] MEDS: PRAZOSIN 1 MG CAPSULE PO (12:12)
[2022-02-10] MEDS: HYDROMORPHONE 2 MG TABLET PO ×2 (12:52→17:29)
--- NOTE | 2022-02-10 14:00 | DI.RAD.S_ITS ---
PROCEDURE: XR PELVIS 1-2V INDICATIONS: INNER OP RIGHT HIP TECHNIQUE: Intra-operative view of the pelvis and hip acquired. COMPARISON: None. FINDINGS: Bones: Intraoperative devices prior to placement of arthroplasty prostheses are in expected positions. No fractures or suspicious bony lesions. Soft tissues: Overlying surgical retractors are present, along with other intraoperative changes. IMPRESSION: Expected intraoperative changes for right hip arthroplasty. Dictated by: Sofía Palacio MD, PhD on 02/10/2022 at 14:28 Approved by: Sofía Palacio MD, PhD on 02/10/2022 at 14:28
--- NOTE | 2022-02-10 14:10 | PT.IIE ---
Current Diagnoses Unilateral primary osteoarthritis, right hip (02/10/22) Surgery Performed Operation Date: 02/10/22 07:45 Actual Procedures p Total Hip Arthroplasty(Right) - Marli Trevizo MD Surgical History (Last Updated 02/10/22 @ 07:13 by Carly Montoya, RN) H/O brain surgery H/O prostate biopsy H/O shoulder surgery History of bilateral carpal tunnel release History of lumbar fusion History of surgery Hx of brain surgery (2011) Hx of elbow surgery (2004) Hx of foot surgery Hx of foot surgery Hx of prostatectomy (~12/25/21) Medical History (Last Updated 02/10/22 @ 07:13 by Carly Montoya, MAYKEL) Anxiety BCC (basal cell carcinoma) (2020) BPH (benign prostatic hyperplasia) Brain tumor Depression GERD (gastroesophageal reflux disease) Hearing impaired DIONI on CPAP Osteoarthritis Post traumatic stress disorder (PTSD) Prostate cancer Physical Therapy Inpatient Evaluation/Re-Eval M1 PT/OT-IP Prior Functional Status Start: 02/10/22 15:44 Freq: NEEDED Status: Active Protocol: Document 02/10/22 14:10 AB (Rec: 02/10/22 15:56 [facility] Medical Review Prior Functional Status Medical History Reviewed Yes Communication able to make needs known Mobility and Gait pt stated that he is independent with all mobilities and ambulation without AD Social History Household Members spouse Living Arrangements House Number of Floors (Floors) One Floor Number of Stairs To Enter/Railing? 2 steps without rails Home Environment High Toilet,Tub/Shower Home Equipment Front Wheel Walker,Straight Cane,Shower Seat with Backrest ,Hand Held Shower,Grab Bars In Shower M2 PT-IP Current Condition Start: 02/10/22 15:44 Freq: NEEDED Status: Active Protocol: Document 02/10/22 14:10 AB (Rec: 02/10/22 15:56 AB [id number]) Physical Therapy Current Condition Current Condition Evaluation Date 02/10/22 Treatment Diagnosis s/p R SHAQUILLE posterior approach; difficulty in walking Onset Date 02/10/22 M3 PT-IP Subjective Start: 02/10/22 15:44 Freq: NEEDED Status: Active Protocol: Document 02/10/22 14:10 AB (Rec: 02/10/22 15:56 AB [email or web address]) Subjective Physical Therapy Visit Type Type Initial Evaluation Visit Start Time 14:10 Visit Stop Time 15:00 Total Visit Minutes 50 Number of MERCHANDISE PRESENTATION MANAGER Visits 0 Physical Therapy Visit Comments Patient Comments pt is agreeable to do PT M4 PT-IP Mobility and Gait Start: 02/10/22 15:44 Freq: NEEDED Status: Active Protocol: Document 02/10/22 14:10 AB (Rec: 02/10/22 15:56 AB [email or web address]) PT-Bed Mobility Assessment Supine to Sit Supine to Sit Standby Assistance Sit to Supine Sit to Supine Standby Assistance PT-Transfer Assessment Sit to and From Stand Sit to and from Stand Contact Guard Assistance,1 Person Assistance,Use of Upper Extremities Equipment Transfer Assistive Device Front Wheeled Walker Orthotic/Prosthetic Devices or Brace: No Comments Mobility Comments educated pt on posterior hip precautions and requires cues to recall. BP in supine: 106/ 68. completed supine to sit SBA. able to sit on EOB SBA. c/o dizziness, nausea, lightheadedness. BP checked: 126/70. continues to c/o lightheadedness but agreed to stand and position closer to HOB. completed sit to stand CGA and cues for hip precautions. able to take side steps towards HOB ~ 2 ft CGA. completed sit to supine SBA. positioned in bed. call light and table placed within reach. Bp checked: 117/80. set up caregiver training and pt will call his spouse : 9 am tomorrow. Gait Assessment Gait Gait Assistance Required: Contact Guard Assist Distance (Feet) 2 Able to Maintain Weight Bearing Status Yes During Gait Assistive Devices Assistive Device Gait Belt,Front Wheeled Walker Orthotic/Prosthetic Devices or Brace: No Gait Deviations General Gait Pattern Antalgic,Decreased Stride Length,Decreased Feet Clearance Factors Limiting Gait Function Factors Limiting Gait Function Decreased Activity Tolerance, Decreased Strength,Limited Range of Motion,Pain,Poor Balance,Poor Safety Awareness PT-Balance Assessment Sitting Balance and Reactions Static Sitting Balance Ability Good Dynamic Sitting Balance Ability Good Standing Balance and Reactions Static Standing Balance Ability Fair Dynamic Standing Balance Ability Fair Device Used FWW M5 PT-IP Objective Assessments Start: 02/10/22 15:44 Freq: NEEDED Status: Active Protocol: Document 02/10/22 14:10 AB (Rec: 02/10/22 15:56 AB [id number]) Orientation Orientation/Cognition Level of Alertness Alert Orientation Name,Place,Situation Language Function Ability No Deficits Noted Safety Awareness Decreased Safety Awareness Memory Description Short Term Impaired Gross Range of Motion Lower Extremity ROM Assessment Within Functional Limits Strength Lower Extremity Strength Hip 4-/5 Knee 4-/5 Ankle 4-/5 Coordination Assessment Gross Coordination Gross Coordination WNL Sensation Assessment Sensation Gross Sensation WNL Muscle Tone Muscle Tone WNL Yes M6 PT-IP Treatment Start: 02/10/22 15:44 Freq: NEEDED Status: Active Protocol: Document 02/10/22 14:10 AB (Rec: 02/10/22 15:56 AB [email or web address]) Physical Therapy Treatment Education Education Provided Precautions,Weight Bearing Status,Post-Op Packet,Safety M7 PT-IP Assessment and Plan Start: 02/10/22 15:44 Freq: NEEDED Status: Active Protocol: Document 02/10/22 14:10 AB (Rec: 02/10/22 15:56 AB [email or web address]) PT Summary Assessment and Plan Potential Rehabilitation Potential Fair Status of Condition at Evaluation Evolving Summary Impairments Pain,ROM,Strength,Balance, Coordination,Sensation,Tone, Cognition,Bed Mobility, Transfers,Gait,Activity Tolerance Assessment Summary pt requiring CGA with mobility but unable to tolerate much activity with c/o dizziness/ lightheaded/nausea. pt just had surgery this morning and will likely progress with mobility during hospital stay. pt plans to go home and spouse to assist and caregiver training set up for tomorrow at 9 am. pt also needs to complete stair climbing training prior to d/c. will continue to assess progress. Goals Bed Mobility Goal Independent Transfer Goal Independent,Front Wheeled Walker Gait Goal Independent,Front Wheel Walker Gait Distance 250 Other Goals up/down 2 steps using SPC/DOUGH MAKER CGA Days to Meet Goals 5 Frequency of Treatment Frequency Of Treatment Twice a Day Treatment Plan Physical Therapy Treatment Plan Bed Mobility Training,Transfer Training,Gait Training, Therapeutic Exercise,Balance Retraining,Post Op Education, Discharge Planning,Hot or Cold Pack,Neuromuscular Re-ed, Coordination Retraining,Manual Therapy Precautions Posterior Hip Precautions No Hip Flexion > 90 degrees,No Hip Internal Rotation,No Hip Adduction Weight Bearing Status Weight Bearing Status Weight Bear as Tolerated Allowed Weight Bearing Amount (enter % RLE WBAT or #) (%) Recommendations To Nursing Amount of Assist Needed 1 Person Assist Discharge Recommendations PT Discharge Recommendations Home with Assistance, Outpatient PT Transportation Needs at Discharge Private Vehicle
[2022-02-10] MEDS: DOCUSATE 100 MG CAPSULE PO (21:29)
[2022-02-10] MEDS: ASPIRIN EC 81 MG TABLET PO (21:29)
[2022-02-10] MEDS: PRAZOSIN 1 MG CAPSULE 2 MG PO (21:29)
[2022-02-11] VITALS: BP 107/64; PULSE 69; RESP 14; TEMP 36.1; O2SAT 92
[2022-02-11] MEDS: ACETAMINOPHEN 325 MG TABLET 650 MG PO ×3 (00:05→11:14)
[2022-02-11] MEDS: IBUPROFEN 400 MG TABLET PO ×3 (00:06→11:14)
[2022-02-11] MEDS: CEFAZOLIN 2 GM IN 0.9 % NACL 100 ML IV (00:07)
[2022-02-11 04:07] VITALS: BP 100/60; PULSE 65; RESP 12; TEMP 36.1; O2SAT 94
[2022-02-11] MEDS: OXYCODONE IR 10 MG TABLET PO ×4 (04:11→14:12)
[2022-02-11] MEDS: LACTATED RINGERS 1,000 ML 125 ML IV (05:34)
[2022-02-11 05:35] LABS: Hematocrit 30.1 % (41-53); Hemoglobin 10.3 g/dL (13.5-17.5)
[2022-02-11 07:45] VITALS: BP 102/57; PULSE 61; RESP 17; TEMP 36.3; O2SAT 95
[2022-02-11] MEDS: CHOLECALCIFEROL (VITAMIN D3) 1,000 UNIT TABLET 1000 UNIT PO (08:23)
[2022-02-11] MEDS: ARIPiprazole 10 MG TABLET 5 MG PO (08:23)
[2022-02-11] MEDS: DOCUSATE 100 MG CAPSULE PO (08:23)
[2022-02-11] MEDS: FLUoxetine 20 MG CAPSULE 40 MG PO (08:24)
[2022-02-11] MEDS: ASPIRIN EC 81 MG TABLET PO (08:24)
--- NOTE | 2022-02-11 09:21 | PT.IPTN ---
Current Diagnoses Unilateral primary osteoarthritis, right hip (02/10/22) Surgery Performed Operation Date: 02/10/22 07:45 Actual Procedures p Total Hip Arthroplasty(Right) - Marli Trevizo MD Physical Therapy Treatment Note M2 PT-IP Current Condition Start: 02/10/22 15:44 Freq: NEEDED Status: Active Protocol: Document 02/10/22 14:10 AB (Rec: 02/10/22 15:56 AB [id number]) Physical Therapy Current Condition Current Condition Evaluation Date 02/10/22 Treatment Diagnosis s/p R SHAQUILLE posterior approach; difficulty in walking Onset Date 02/10/22 M3 PT-IP Subjective Start: 02/10/22 15:44 Freq: NEEDED Status: Active Protocol: Document 02/11/22 09:00 KS (Rec: 02/11/22 11:11 KS [id number]) Subjective Physical Therapy Visit Type Type Treatment Note Visit Start Time 09:00 Visit Stop Time 09:21 Total Visit Minutes 21 Number of TECHNOLOGY EDUCATION INSTRUCTOR Visits 1 Physical Therapy Visit Comments Patient Comments pt is agreeable to do PT, present for caregiver training. M4 PT-IP Mobility and Gait Start: 02/10/22 15:44 Freq: NEEDED Status: Active Protocol: Document 02/11/22 09:00 KS (Rec: 02/11/22 11:11 KS [id number]) PT-Transfer Assessment Sit to and From Stand Sit to and from Stand Contact Guard Assistance,1 Person Assistance,Use of Upper Extremities Equipment Transfer Assistive Device Front Wheeled Walker Orthotic/Prosthetic Devices or Brace: No Transfers Transfer Destination Chair Transfer Technique sit<>stand Transfer Ability Level of Assist Contact Guard Assistance,Use of Upper Extremities Comments Mobility Comments Pt in chair w/ in room upon arrival. BP 107/67 sitting. Demonstrated gait belt application to pts and reviewed hip precautions. Pt sit<>stand w/ FWW CGA and performed ~[address] and reported increased dizziness. Pts BP 89 /61 w/ dizziness and slight nausea. Pt sat back down and BP 104/65. Reveiwed ther ex and left pt in chair w/ all needs in reach. Gait Assessment Comments Gait Comments Unable to assess d/t low BP and dizziness. Stair Climbing Assessment Comments Stair Climbing Comments Unable to assess d/t low BP and dizziness. Pt has 2 platform steps to enter home that he will need to perform prior to d/c home. PT-Balance Assessment Sitting Balance and Reactions Static Sitting Balance Ability Good Dynamic Sitting Balance Ability Good Standing Balance and Reactions Static Standing Balance Ability Good Dynamic Standing Balance Ability Fair Device Used FWW M5 PT-IP Objective Assessments Start: 02/10/22 15:44 Freq: NEEDED Status: Active Protocol: Document 02/10/22 14:10 AB (Rec: 02/10/22 15:56 AB [email or web address]) Orientation Orientation/Cognition Level of Alertness Alert Orientation Name,Place,Situation Language Function Ability No Deficits Noted Safety Awareness Decreased Safety Awareness Memory Description Short Term Impaired Gross Range of Motion Lower Extremity ROM Assessment Within Functional Limits Strength Lower Extremity Strength Hip 4-/5 Knee 4-/5 Ankle 4-/5 Coordination Assessment Gross Coordination Gross Coordination WNL Sensation Assessment Sensation Gross Sensation WNL Muscle Tone Muscle Tone WNL Yes M6 PT-IP Treatment Start: 02/10/22 15:44 Freq: NEEDED Status: Active Protocol: Document 02/11/22 09:00 KS (Rec: 02/11/22 11:11 KS [id number]) Physical Therapy Treatment Exercises Exercises Ankle Pumps,Gluteal Sets,Quad Sets,Heel Slides,Supine Hip Abduction Education Education Provided Precautions,Weight Bearing Status,Post-Op Packet,Safety M7 PT-IP Assessment and Plan Start: 02/10/22 15:44 Freq: NEEDED Status: Active Protocol: Document 02/11/22 09:00 KS (Rec: 02/11/22 11:11 KS [id number]) PT Summary Assessment and Plan Potential Rehabilitation Potential Fair Status of Condition at Evaluation Evolving Summary Impairments Pain,ROM,Strength,Balance, Coordination,Sensation,Tone, Cognition,Bed Mobility, Transfers,Gait,Activity Tolerance Assessment Summary Pt limited by symptomatic low BP, 89/61 standing w/ dizziness and nausea. CGA for sit<>stand. Will need to complete stair training and caregiver training prior to d/ c home. Will continue to assess progress. Goals Bed Mobility Goal Independent Transfer Goal Independent,Front Wheeled Walker Gait Goal Independent,Front Wheel Walker Gait Distance 250 Other Goals up/down 2 steps using SPC/RUBBER CHEMIST CGA Days to Meet Goals 5 Frequency of Treatment Frequency Of Treatment Twice a Day Treatment Plan Physical Therapy Treatment Plan Bed Mobility Training,Transfer Training,Gait Training, Therapeutic Exercise,Balance Retraining,Post Op Education, Discharge Planning,Hot or Cold Pack,Neuromuscular Re-ed, Coordination Retraining,Manual Therapy Precautions Posterior Hip Precautions No Hip Flexion > 90 degrees,No Hip Internal Rotation,No Hip Adduction Weight Bearing Status Weight Bearing Status Weight Bear as Tolerated Allowed Weight Bearing Amount (enter % RLE WBAT or #) (%) Recommendations To Nursing Amount of Assist Needed 1 Person Assist Discharge Recommendations PT Discharge Recommendations Home with Assistance, Outpatient PT Transportation Needs at Discharge Private Vehicle
--- NOTE | 2022-02-11 10:34 | PM.DS.1 ---
History of Present Illness History of Present Illness Date Patient Seen: 02/11/22 Time Patient Seen: 10:35 Chief complaint: Hip pain Narrative: Patient's pain is mild this morning. Denies fever chills. No nausea vomiting. Patient states he has assistance at home. Discharge Providers Provider Discharge Date: 02/11/22 Primary care physician: BETH Crockett Consults: 02/10/22 07:39 Consult to Discharge Planning Routine Comment: Consult to Physical Therapy Evaluate & Treat Comment: Physician Instructions: post op SHAQUILLE protocol Consult to Respiratory Therapy Evaluate & Treat Comment: Physician Instructions: Evaluate and treat 02/10/22 07:40 Consult to Anesthesiology Routine Comment: Consulting Provider: Anesthesiologist Reason for consultation: Regional block for post operative pain control 02/10/22 11:49 Consult to Discharge Planning Routine Comment: Consult to Physical Therapy Evaluate & Treat Comment: Physician Instructions: post op SHAQUILLE protocol Consult to Respiratory Therapy Evaluate & Treat Comment: Physician Instructions: Evaluate and treat Discharge provider: Gordon Ledezma PA-C Summary Hospital Course Discharge Diagnosis: Severe right hip osteoarthritis Hospital Course: Right total hip arthroplasty posterior approach Same procedure as scheduled: Yes Indications: The patient has had progressively worsening right hip pain with radiographic changes consistent with arthritis. Non-operative management has failed and the patient has requested total hip replacement. The risks, benefits and alternatives to surgery were discussed with the patient prior to proceeding. Risks discussed included, but were not limited to, failure to relieve pain, leg length discrepancy, dislocation, stiffness, infection, nerve damage, deep venous thrombosis, pulmonary embolism, stroke, coma, heart attack, permanent paralysis and , as well as the potential need for eventual revision of the prosthetic. Surgeon: Marli Trevizo It Security Architect: Arielle Rodriguez Anesthesia Type: General Operative Notes Findings: Severe right hip osteoarthritis, good stability, adequate bone Closure Type: primary Specimen(s): none sent Prosthetic devices, grafts, tissues, transplants, or devices: Trevizo and Nephew high offset anthology size 11, 60 mm R3 cup, neutral 40 mm liner, 40 +4 cobalt chrome head,one 6.5 mm screw Estimated Blood Loss (mL): 250 Blood products transfused: none Patient admitted to the hospital for right total hip arthroplasty, posterior approach. Patient underwent surgery on February 10, 2022. Patient back in his room recovering well as in stable condition. Patient will be discharged home after physical therapy if safe for home environment. Status at Discharge Cognitive/behavioral status at discharge: at baseline, oriented Functional status at discharge: uses cane/walker Overall status at discharge: patient is progressing back to baseline Exam Vital Signs (past 8 hours): - 02/11/22 04:07 02/11/22 07:45 Temperature 96.9 F L 97.4 F L Pulse Rate 65 61 Respiratory Rate 12 17 Blood Pressure 100/60 102/57 L Pulse Oximetry 94 95 Oxygen Flow Rate 0 0 Oxygen Delivery Method Nasal Cannula Oxygen Flow Rate 0 Narrative Exam Narrative: 71-year-old male resting comfortably in bedside chair no apparent distress. Nayeli dressing is on and functioning. Motor functions intact bilateral lower extremities. Sensation grossly intact to light touch bilateral lower extremities. Const General: cooperative and comfortable Orientation: alert Chest Chest: normal inspection of the chest Resp Effort & Inspection: normal respiratory effort and able to speak in complete sentences Objective Labs Result Diagrams: 02/11/22 05:15 Labs: Laboratory Results - last 24 hr 02/11/22 05:15 Hgb 10.3 L Hct 30.1 L PFSH Medical History Anxiety BCC (basal cell carcinoma) (2020) BPH (benign prostatic hyperplasia) Brain tumor Depression GERD (gastroesophageal reflux disease) Hearing impaired DIONI on CPAP Osteoarthritis Post traumatic stress disorder (PTSD) Prostate cancer Surgical History H/O brain surgery H/O prostate biopsy H/O shoulder surgery History of bilateral carpal tunnel release History of lumbar fusion History of surgery Hx of brain surgery (2011) Hx of elbow surgery (2004) Hx of foot surgery Hx of foot surgery Hx of prostatectomy (~12/25/21) Social History household members: spouse Smoking Status: Former smoker alcohol intake: current Discharge Assessment & Plan Assessment and Plan Assessment: Patient progressing as expected status post right total hip arthroplasty, posterior approach Plan of Treatment: Mobilize with physical therapy, weight-bearing as tolerated, posterior hip precautions Multimodal pain management Aspirin for DVT prophylaxis Disposition, discharge home after physical therapy if safe for home environment Discharge Plan Discharge Plan Patient Disposition: Home Discharge orders & Medications Discharge Orders: Discharge (Order); Ordered 02/11/22 Ordered By: Gordon Ledezma Prescriptions: New acetaminophen 325 mg Tablet 650 mg PO Q6HR Qty: 60 0RF polyethylene glycol 3350 17 gram Powder In Packet 17 gm PO DAILY PRN (Reason: Constipation) Qty: 20 0RF aspirin 81 mg Tablet,Delayed Release (Dr/Ec) 81 mg PO BID Qty: 60 0RF ibuprofen 400 mg Tablet 400 mg PO Q6HR Qty: 60 0RF oxycodone 5 mg Tablet 5 mg PO Q3HR PRN (Reason: Pain, Moderate (4-6)) Qty: 60 0RF Continued gabapentin [Neurontin] 300 MG capsule 300 mg PO SEEINSTR Qty: 0 Rx Instructions: 600mg qam, 300mg qnoon, 600mg bedtime omeprazole 20 MG capsule,delayed release(DR/EC) 20 mg PO QDAY PRN (Reason: Acid Reflux) Qty: 0 prazosin [Minipress] 2 MG capsule See Rx Instructions .ROUTE .COMPLEX Qty: 0 Label Comments: Pt states he takes 2 in am, 1 at noon, 2 at bedtime Rx Instructions: Take one capsule in the morning and 2 capsules at night. fluoxetine 40 mg Capsule 40 mg PO DAILY aripiprazole 5 mg Tablet 5 mg PO DAILY Rx Instructions: depression cholecalciferol (vitamin D3) [Vitamin D3] 25 mcg (1,000 unit) Tablet 25 mcg PO DAILY Follow up/Referrals: Meggan Garcia ARNP [Primary Care Provider] - Marli Trevizo MD [Physician] - (Two weeks) Diet/Activity/Treatments Diet: Diet as Tolerated Activity: Weight-bearing as tolerated, posterior hip precautions Cold/Heat Therapy: Apply ice as needed Skin/Wound/Dressing Care Report to your healthcare provider any signs of infection, such as:: chills, fever, increased pain, unusual drainage and unusual redness Dressing: Keep dressing clean and dry, refer to nayeli dressing instructions Visit Report/Discharge Packet Instructions: DI for Hip Replacement Stand Alone Forms: Surgery Discharge Discharge Data Primary Care Provider: Meggan Garcia Attending Provider: Marli Trevizo Quality VTE Deep Vein Thrombosis/Pulmonary Embolism Present on Admission: No
[2022-02-11 11:00] VITALS: BP 100/60; PULSE 67; RESP 18; TEMP 36.1; O2SAT 95
--- NOTE | 2022-02-11 12:36 | PT.IPTN ---
Current Diagnoses Unilateral primary osteoarthritis, right hip (02/10/22) Surgery Performed Operation Date: 02/10/22 07:45 Actual Procedures p Total Hip Arthroplasty(Right) - Marli Trevizo MD Physical Therapy Treatment Note M2 PT-IP Current Condition Start: 02/10/22 15:44 Freq: NEEDED Status: Active Protocol: Document 02/10/22 14:10 AB (Rec: 02/10/22 15:56 AB [id number]) Physical Therapy Current Condition Current Condition Evaluation Date 02/10/22 Treatment Diagnosis s/p R SHAQUILLE posterior approach; difficulty in walking Onset Date 02/10/22 M3 PT-IP Subjective Start: 02/10/22 15:44 Freq: NEEDED Status: Active Protocol: Document 02/11/22 12:10 KS (Rec: 02/11/22 12:57 KS [id number]) Subjective Physical Therapy Visit Type Type Treatment Note Visit Start Time 12:10 Visit Stop Time 12:36 Total Visit Minutes 26 Number of ACCOUNT DEVELOPMENT ASSOCIATE Visits 2 Physical Therapy Visit Comments Patient Comments pt is agreeable to do PT, present for caregiver training. M4 PT-IP Mobility and Gait Start: 02/10/22 15:44 Freq: NEEDED Status: Active Protocol: Document 02/11/22 12:10 KS (Rec: 02/11/22 12:57 KS [id number]) PT-Bed Mobility Assessment Supine to Sit Supine to Sit Standby Assistance Sit to Supine Sit to Supine Standby Assistance Scooting Scooting to Edge of Bed Standby Assistance PT-Transfer Assessment Sit to and From Stand Sit to and from Stand Standby Assistance,1 Person Assistance,Use of Upper Extremities Equipment Transfer Assistive Device Front Wheeled Walker Orthotic/Prosthetic Devices or Brace: No Transfers Transfer Destination Bed Transfer Technique pt ambulated w/ FWW Transfer Ability Level of Assist Contact Guard Assistance,Use of Upper Extremities Comments Mobility Comments Pt in bed upon arrival w/ in room. Pts BP: 118/71 supine. Pt SBA for sup<>sit and scooting EOB. Pt reports slight dizziness upon sittinf upright but states this is his baseline and it subsides. BP: 103/68 sitting EOB. Pt sit<> Stand w/ FWW SBA and BP 111/65 following 2 min standing. Pt cont to report slight dizziness but was able to ambulate ~80 ft and ascend/ descend 2 platform steps w/ FWW CGA and cues provided by his . Pt returned to bed and BP 96/61. Reveiwed ther ex and at home safety and pt left in bed w/ all needs in reach. Gait Assessment Gait Gait Assistance Required: Contact Guard Assist,1 Person Assist Distance (Feet) 80 Able to Maintain Weight Bearing Status Yes During Gait Assistive Devices Assistive Device Gait Belt,Front Wheeled Walker Orthotic/Prosthetic Devices or Brace: No Gait Deviations General Gait Pattern Antalgic,Decreased Stride Length,Decreased Feet Clearance Factors Limiting Gait Function Factors Limiting Gait Function Decreased Activity Tolerance, Decreased Strength,Limited Range of Motion,Pain Comments Gait Comments Pt able to ambulate safely w/ FWW CGA provided by . Decreased stride and foot clearance. Stair Climbing Assessment Evaluation Level of Assist On Stairs Contact Guard Assistance,1 Person Assistance Devices Stair Climbing Assistive Devices Front Wheel Walker Technique/Endurance Stair Climbing Direction Ascend and Descend Stair Climbing Technique Step to Step Number of Steps Climbed 1 Stair Climbing Set # Repetitions (reps) 2 Comments Stair Climbing Comments Pt ascended/descended pltofrm step twice w/ FWW and CGA by pts w/ cues for step sequencing. Pt and feel safe to complete steps at home . PT-Balance Assessment Sitting Balance and Reactions Static Sitting Balance Ability Good Dynamic Sitting Balance Ability Good Standing Balance and Reactions Static Standing Balance Ability Good Dynamic Standing Balance Ability Good Device Used FWW M5 PT-IP Objective Assessments Start: 02/10/22 15:44 Freq: NEEDED Status: Active Protocol: Document 02/10/22 14:10 AB (Rec: 02/10/22 15:56 AB [id number]) Orientation Orientation/Cognition Level of Alertness Alert Orientation Name,Place,Situation Language Function Ability No Deficits Noted Safety Awareness Decreased Safety Awareness Memory Description Short Term Impaired Gross Range of Motion Lower Extremity ROM Assessment Within Functional Limits Strength Lower Extremity Strength Hip 4-/5 Knee 4-/5 Ankle 4-/5 Coordination Assessment Gross Coordination Gross Coordination WNL Sensation Assessment Sensation Gross Sensation WNL Muscle Tone Muscle Tone WNL Yes M6 PT-IP Treatment Start: 02/10/22 15:44 Freq: NEEDED Status: Active Protocol: Document 02/11/22 12:10 KS (Rec: 02/11/22 12:57 KS [id number]) Physical Therapy Treatment Exercises Exercises Ankle Pumps,Gluteal Sets,Quad Sets,Heel Slides,Supine Hip Abduction Education Education Provided Precautions,Weight Bearing Status,Post-Op Packet,Safety M7 PT-IP Assessment and Plan Start: 02/10/22 15:44 Freq: NEEDED Status: Active Protocol: Document 02/11/22 12:10 KS (Rec: 02/11/22 12:57 KS [id number]) PT Summary Assessment and Plan Potential Rehabilitation Potential Fair Status of Condition at Evaluation Evolving Summary Impairments Pain,ROM,Strength,Balance, Coordination,Sensation,Tone, Cognition,Bed Mobility, Transfers,Gait,Activity Tolerance Assessment Summary Pt continues to have slight dizziness w/ positional changes but reports this is normal for him prior to surgery. He requires SBA to CGA throughout treatment and was able to successfully complete caregvier training w/ his who provided appropriate cues and assist for gait belt, transfers, precaution adherence, ambulation, and stairs. Pt will benefit from OPPT to improve strength, stability, ROM, and gait. Goals Bed Mobility Goal Independent Transfer Goal Independent,Front Wheeled Walker Gait Goal Independent,Front Wheel Walker Gait Distance 250 Other Goals up/down 2 steps using SPC/TIRE MAINTENANCE TECHNICIAN CGA Days to Meet Goals 5 Treatment Plan Physical Therapy Treatment Plan Bed Mobility Training,Transfer Training,Gait Training, Therapeutic Exercise,Balance Retraining,Post Op Education, Discharge Planning,Hot or Cold Pack,Neuromuscular Re-ed, Coordination Retraining,Manual Therapy Precautions Posterior Hip Precautions No Hip Flexion > 90 degrees,No Hip Internal Rotation,No Hip Adduction Weight Bearing Status Weight Bearing Status Weight Bear as Tolerated Allowed Weight Bearing Amount (enter % RLE WBAT or #) (%) Recommendations To Nursing Amount of Assist Needed 1 Person Assist Discharge Recommendations PT Discharge Recommendations Home with Assistance, Outpatient PT Transportation Needs at Discharge Private Vehicle
--- NOTE | 2022-02-11 12:39 | CM.DPNOTE ---
Discharge Planning Note: Patient worked with PT early afternoon, BP stabilized and he is safe to return home to care of . Spouse to transport. Seen by ortho PA and discharge summary written. Gloria Burnett RN/DCP
== END 2022-02-11 14:31 | disposition home or self-care (01) ==
LOC: OR 06:08 → AC 06:08
PROVIDERS: PCP Nurse Practitioner; Referring Provider Nurse Practitioner; Visit Provider Orthopaedic Surgery
PROC: 0SR90JZ Replacement of Right Hip Joint with Synthetic Substitute, Open Approach (ICD-10-PCS; CPT 27130; principal; 2022-02-10 07:45)
DX: M16.11 Unilateral primary osteoarthritis, right hip (principal); G47.33 Obstructive sleep apnea (adult) (pediatric); K21.9 Gastro-esophageal reflux disease without esophagitis; F43.10 Post-traumatic stress disorder, unspecified; F41.9 Anxiety disorder, unspecified; F32.A Depression, unspecified
CPT/HCPCS: 27130; 36415; 72170; 73502; 85014; 85018; 97116; 97162; 97530; C1776; C9290; J0171; J0690; J1100; J2250; J2405; J2704; J3010

== ENCOUNTER 2022-02-16 13:54 | Emergency (ER) | payer OTHER, SELFPAY ==
[2022-02-10 11:49] VITALS: BMI 32.9
[2022-02-16] VITALS (8 sets, daily range): BP systolic 101–122; BP diastolic 50–61; PULSE 60–109; RESP 16–22; TEMP 36.1; O2SAT 94–98
--- NOTE | 2022-02-16 14:02 | DI.RAD.S_ITS ---
PROCEDURE: XR CHEST 1V INDICATIONS: suspected sepsis TECHNIQUE: One view of the chest was acquired. COMPARISON: [facility], CR, XR CHEST 1V, 04/25/2021, 14:11. FINDINGS: Surgical changes and devices: None. Lungs and pleura: Lungs are clear. No pleural effusions or pneumothorax. Mediastinum: Mediastinal contours appear normal. Heart size is normal. Bones and chest wall: No suspicious bony lesions. Overlying soft tissues appear unremarkable. IMPRESSION: No acute cardiopulmonary findings. Dictated by: Tata De La Paz M.D. on 02/16/2022 at 14:46 Approved by: Tata De La Paz M.D. on 02/16/2022 at 14:46
[2022-02-16] MEDS: SODIUM CHLORIDE 0.9% 1,000 ML 1000 ML IV (14:20)
--- NOTE | 2022-02-16 14:36 | DI.CT.S_ITS ---
PROCEDURE: CT ANGIO CHEST PE PROTOCOL INDICATIONS: hip sx, sob, low 2 TECHNIQUE: After the administration of intravenous contrast, 2 mm thick sections acquired from the pulmonary apices to the posterior costophrenic angles. 3-dimensional maximum intensity projection (MIP) coronal and sagittal reformats were then acquired through the thorax. For radiation dose reduction, the following was used: automated exposure control, adjustment of mA and/or kV according to patient size. COMPARISON: None. FINDINGS: Image quality: Excellent. Pulmonary arteries: Pulmonary arteries are normal in size, and demonstrate no intraluminal filling defects to suggest central pulmonary embolism. Lungs and pleura: Lung volumes are low. There are trace bilateral low-density pleural effusions and compressive atelectasis. There is mild interlobular septal thickening suggesting mild edema. A 1.8 cm in diameter focus of ground-glass radiopacities are present at the right apex. No pneumothorax. Mediastinum: Heart size is enlarged, without pericardial effusion. No mediastinal or hilar adenopathy. The ascending thoracic aorta measures 1.3 cm in diameter. The descending thoracic aorta is unremarkable. Esophagus is normal in caliber, without hiatal hernia. Bones and chest wall: No suspicious bony lesions. Ribs and thoracic spine appear intact throughout. Thyroid gland is unremarkable. No axillary or supraclavicular adenopathy. Abdomen: Visualized upper abdominal solid organs appear normal in the early arterial phase of enhancement. IMPRESSION: 1. No acute pulmonary embolus. 2. Annuloaortic ectasia. Annual surveillance recommended. 3. Small pleural effusions and compressive atelectasis, and interlobular septal thickening suggesting mild fluid overload. 4. 1.8 cm ground-glass nodule at the right apex. Please see follow-up guidelines below. Follow-up CT in 3-6 months recommended. Fleischner Society criteria for SOLID lung nodule followup. Nodule size (mm)Low-risk patientHigh-risk patient<6 (single or multiple)No routine followup.Optional CT at 12 months. 6-8 (single or multiple)CT at 6-12 months, then optional CT at 18-24 mo.CT at 6-12 months, then CT at 18-24 months. >8 (single)CT at 3 months, PET-CT, or biopsy. Same as for low-risk pts. >8 (multiple)CT at 3-6 months, then optional CT at 18-24 mo.CT at 3-6 months, then CT at 18-24 months. Fleischner Society criteria for SUB-SOLID lung nodule followup. Solitary pure ground-glass nodules<6 mm (ground glass or part solid)No followup needed. 6 mm or larger (ground glass)CT at 6-12 months to confirm persistence, then CT every 2 years until 5 years.6 mm or larger (part solid)CT at 3-6 months to confirm persistence, then annual CT until 5 years if unchanged and solid component remains <6 mm. Multiple sub-solid nodules<6 mmCT at 3-6 months, then CT consider at 2 & 4 years for high risk patients. [address] at 3-6 months. Subsequent management based on most suspicious lesions. Recommendations do not apply to lung cancer screening, patients with immunosuppression, or patients with known primary cancer. Dictated by: Tata De La Paz M.D. on 02/16/2022 at 15:24 Approved by: Tata De La Paz M.D. on 02/16/2022 at 15:34
--- NOTE | 2022-02-16 14:38 | ED.CHESTPAIN ---
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 Patient presents with some chest pain yesterday, some shortness of breath in the last 24 hours, patient had unprovoked diaphoresis starting today. No syncope, patient denies any nausea or vomiting, no diarrhea constipation. States he has been stooling regularly since surgery. No abdominal, back or flank pain. Patient does not appreciate increasing pain, redness or discomfort in his lower extremity. No new numbness or tingling. He is on 2 tablets 81 mg aspirin daily post surgically but no daily anticoagulants normally. Patient's denies cardiac, hypertension, dyslipidemia or diabetes. Patient states he is had prior prostatectomy, also states surgical excision remotely for a large tumor intracranial. Patient states he did not have any deficits afterwards. No known drug allergies. No regular tobacco, alcohol, does use THC but no other illicit. Related Data Home Medications Medication Instructions Recorded Confirmed gabapentin 300 mg capsule 300 mg PO SEEINSTR ##0 06/10/17 02/10/22 (Neurontin) omeprazole 20 mg capsule,delayed 20 mg PO QDAY PRN Acid Reflux ##0 06/10/17 02/10/22 release prazosin 2 mg capsule (Minipress) See Rx Instructions .Route 06/10/17 02/10/22 .COMPLEX ##0 aripiprazole 5 mg tablet 5 mg PO DAILY 04/25/21 02/10/22 cholecalciferol (vitamin D3) 25 25 mcg PO DAILY 04/25/21 02/10/22 mcg (1,000 unit) tablet (Vitamin D3) fluoxetine 40 mg capsule 40 mg PO DAILY 04/25/21 02/10/22 Previous Rx's Medication Instructions Recorded acetaminophen 325 mg tablet 650 mg PO Q6HR #60 tabs 02/11/22 aspirin 81 mg tablet,delayed 81 mg PO BID #60 tabs 02/11/22 release ibuprofen 400 mg tablet 400 mg PO Q6HR #60 tabs 02/11/22 oxycodone 5 mg tablet 5 mg PO Q3HR PRN Pain, Moderate 02/11/22 (4-6) #60 tabs polyethylene glycol 3350 17 gram 17 gm PO DAILY PRN Constipation 02/11/22 oral powder packet #20 ea furosemide 40 mg tablet (Lasix) 40 mg PO DAILY #5 tabs 02/16/22 Allergies Allergy/AdvReac Type Severity Reaction Status Date / Time No Known Drug Allergies Allergy Verified 02/10/22 07:15 Review of Systems Review of Systems ROS Unobtainable: All systems reviewed & are unremarkable except as noted in HPI and below Patient History Medical History Anxiety BCC (basal cell carcinoma) (2020) BPH (benign prostatic hyperplasia) Brain tumor Depression GERD (gastroesophageal reflux disease) Hearing impaired DIONI on CPAP Osteoarthritis Post traumatic stress disorder (PTSD) Prostate cancer Surgical History H/O brain surgery H/O prostate biopsy H/O shoulder surgery History of bilateral carpal tunnel release History of lumbar fusion History of surgery Hx of brain surgery (2011) Hx of elbow surgery (2004) Hx of foot surgery Hx of foot surgery Hx of prostatectomy (~12/25/21) Family History (Updated 02/16/22 @ 20:05 by Romero Waterman DO) Mother No pertinent past medical history Father No pertinent past medical history Social History household members: spouse Smoking Status: Former smoker alcohol intake: current Smoking Status: Former smoker alcohol intake frequency: holidays/special occasions only Substance Use Type: does not use Exam Narrative Exam Narrative: GENERAL: Alert and oriented x three, mild distress. Patient is slightly diaphoretic. HEENT: Head normocephalic, atraumatic, EOMI, pupils reactive, face symmetric, moist mucous membranes NECK: Supple, full range of motion CARDIOVASCULAR: Slightly tachycardic but Regular rate and rhythm without murmurs, rubs or gallops. No JVD trace edema bilateral lower extremities. RESPIRATORY: Breath sounds equal bilaterally, no wheezes rales or rhonchi. No tachypnea or accessory muscle use. ABDOMEN: Soft, nontender. Normoactive bowel sounds all 4 quadrants. No guarding or rebound, rigidity, no mass : No CVA tenderness EXTREMITIES: Normal range of motion, no clubbing or edema. Neurovascularly intact. Patient's incision is clean dry and intact without any erythema, drainage and does not tender. 2+ pulses bilateral lower extremities. NEUROLOGICAL: Cranial nerves II through XII grossly intact. Moving all extremities SKIN: Warm, dry, no petechiae, no rashes or lesions. Initial Vital Signs Initial Vital Signs: Vital Signs Temperature 96.9 F L 02/16/22 14:00 Pulse Rate 109 H 02/16/22 14:00 Respiratory Rate 22 02/16/22 14:00 Blood Pressure 104/57 L 02/16/22 14:00 Pulse Oximetry 95 02/16/22 14:00 Oxygen Delivery Method 02/16/22 14:00 Course Orders Ordered: ED Orders 02/16/22 14:02 XR chest 1V Stat RT Consult Eval and Treat NOW 02/16/22 14:17 BNP [NT-proBNP (BNP-Adult 18+)] Stat Complete Blood Count AUTO DIFF Stat Comprehensive Metabolic Panel Stat Lactate (Lactic Acid) Stat Lipase Stat Procalcitonin Stat Troponin & CK Cardiac Panel Stat 02/16/22 14:25 Blood Culture Stat EKG-12 Lead Stat 02/16/22 14:36 CT angio chest PE protocol Stat 02/16/22 16:37 ABG [Arterial Blood Gas] Stat 02/16/22 16:49 COVID19 -Nasal RAPID/Pre-Proc Stat Discontinued Medications Sodium Chloride (Normal Saline 0.9%) 1,000 mls @ 1,000 mls/hr IV BOLUS ONE Stop: 02/16/22 15:01 Last Infusion: 02/16/22 16:05 Dose: 0 mls/hr Documented By: Admin: 02/16/22 14:20 Dose: 1,000 mls/hr Documented By: DONNIE Sodium Chloride (Normal Saline 0.9%) 3,265.86 mls @ 1,088.62 mls/hr 30 ml/kg infuse over 3 hr (3265.86 ml) IV NOW ONE Stop: 02/16/22 18:20 Last Infusion: 02/16/22 16:18 Dose: 0 mls/hr Documented By: Admin: 02/16/22 15:37 Dose: 1,088.62 mls/hr Documented By: SHELLIE Piperacillin Sod/Tazobactam (Sod 4.5 gm/ Sodium Chloride) 100 mls @ 200 mls/hr IV NOW ONE Stop: 02/16/22 15:22 Last Infusion: 02/16/22 16:05 Dose: 0 mls/hr Documented By: Admin: 02/16/22 15:25 Dose: 200 mls/hr Documented By: DONNIE Consultations Consultation #1: Dr. Waterman, hospitalist discussed patient had hypoxic initially with good +but only did sound intermittently, his CT angio does not show pulmonary emboli, does show some pulmonary atelectasis possible pulmonary edema although labs are not a supportive of CHF. Patient been afebrile, he was hypotensive and tachycardic which improved with fluids did not seem to worsen his oxygenation but labs also did not reflect a clear infectious cause. Dr. Waterman saw and evaluated patient here in the department suspect some of this may be related to narcotic use in his use of CPAP. Patient did have an ABG on room air which does not show any decrease in PA O2 and is otherwise normal. Plan to decrease narcotics and discharge home which patient is quite comfortable with. Vital Signs Vital signs: Vital Signs - 8 hr 02/16/22 14:00 02/16/22 15:14 02/16/22 15:30 Temperature 96.9 F L Pulse Rate 109 H 75 Respiratory Rate 22 Blood Pressure 104/57 L 102/53 L Pulse Oximetry 95 97 Oxygen Delivery Method Room Air 02/16/22 15:30 02/16/22 16:00 02/16/22 16:00 Temperature Pulse Rate 76 60 Respiratory Rate Blood Pressure 115/53 L Pulse Oximetry 96 96 Oxygen Delivery Method 02/16/22 16:30 02/16/22 16:30 02/16/22 17:00 Temperature Pulse Rate 70 Respiratory Rate Blood Pressure 106/61 122/58 L Pulse Oximetry 94 Oxygen Delivery Method 02/16/22 17:00 02/16/22 17:30 02/16/22 17:31 Temperature Pulse Rate 78 65 67 Respiratory Rate Blood Pressure Pulse Oximetry 98 95 96 Oxygen Delivery Method 02/16/22 17:31 Temperature Pulse Rate Respiratory Rate 16 Blood Pressure 101/50 L Pulse Oximetry Oxygen Delivery Method MDM - Chest Pain Lab Data Result diagrams: 02/16/22 14:17 02/16/22 14:17 Labs: Lab Results 02/16/22 02/16/22 02/16/22 Range/Units 14:17 14:17 14:17 WBC 5.9 (4.5-11.0) X10^3/uL RBC 3.57 L (4.5-5.9) X10^6/uL Hgb 11.3 L (13.5-17.5) g/dL Hct 33.0 L (41-53) % MCV 92.3 (80-100) fL MCH 31.7 (26-34) PG MCHC 34.4 (30-36) % RDW 15.0 H (11.6-14.8) % Plt Count 272 (150-400) X10^3/uL Neut % (Auto) 63.0 (50-75) % Lymph % (Auto) 24.9 L (25-40) % Overton % (Auto) 4.4 (3-14) % Eos % (Auto) 6.9 H (2-4) % Baso % (Auto) 0.8 (0-2) % Neut # (Auto) 3700 (1429-7471) /uL Lymph # (Auto) 1500 (2216-6903) /uL Overton # (Auto) 300 (0-900) /uL Eos # (Auto) 400 (0-450) /uL Baso # (Auto) 0 (0-100) /uL ABG pH (7.35-7.45) ABG pCO2 (35-45) mmHg ABG pO2 (80-100) mmHg ABG HCO3 (22-26) mmol/L ABG Total CO2 (21-31) mmol/L ABG O2 Saturation (95-100) % ABG Base Excess (-2-2) mmol/L FiO2 Sodium 137 (137-145) mmol/L Potassium 4.0 (3.4-5.1) mmol/L Chloride 103 (98-107) mmol/L Carbon Dioxide 26 (22-32) mmol/L BUN 14 (9-20) mg/dL Creatinine 1.14 (0.66-1.25) mg/dL Estimated GFR > 60 (>60) mL/min BUN/Creatinine Ratio 12.3 (6-22) Glucose 123 H (80-110) mg/dL Lactate 1.8 (0.7-2.1) mmol/L Calcium 8.7 (8.4-10.2) mg/dL Total Bilirubin 0.6 (0.2-1.3) mg/dL AST 31 (17-59) IU/L ALT 19 (<50) IU/L Alkaline Phosphatase 118 (38-126) U/L Total Creatine Kinase (55-170) U/L CK-MB (CK-2) (<2.37) ng/mL CK-MB (CK-2) Rel Index (1.5-5.0) % Troponin I (0.01-0.034) ng/mL NT-Pro-B Natriuret Pep (<125) pg/mL Total Protein 7.6 (6.3-8.2) g/dL Albumin 3.9 (3.5-5.0) g/dL Globulin 3.7 (1.7-4.1) g/dL Albumin/Globulin Ratio 1.1 (1.0-2.8) Lipase 46 (23-300) U/L Procalcitonin 0.06 (<0.5) ng/mL SARS-CoV-2 (PCR) (Negative) 02/16/22 02/16/22 02/16/22 Range/Units 14:17 16:37 16:49 WBC (4.5-11.0) X10^3/uL RBC (4.5-5.9) X10^6/uL Hgb (13.5-17.5) g/dL Hct (41-53) % MCV (80-100) fL MCH (26-34) PG MCHC (30-36) % RDW (11.6-14.8) % Plt Count (150-400) X10^3/uL Neut % (Auto) (50-75) % Lymph % (Auto) (25-40) % Overton % (Auto) (3-14) % Eos % (Auto) (2-4) % Baso % (Auto) (0-2) % Neut # (Auto) (1146-0290) /uL Lymph # (Auto) (8293-7224) /uL Overton # (Auto) (0-900) /uL Eos # (Auto) (0-450) /uL Baso # (Auto) (0-100) /uL ABG pH 7.37 (7.35-7.45) ABG pCO2 41.8 (35-45) mmHg ABG pO2 68 L (80-100) mmHg ABG HCO3 24 (22-26) mmol/L ABG Total CO2 25 (21-31) mmol/L ABG O2 Saturation 93 L (95-100) % ABG Base Excess -1.0 (-2-2) mmol/L FiO2 28 Sodium (137-145) mmol/L Potassium (3.4-5.1) mmol/L Chloride (98-107) mmol/L Carbon Dioxide (22-32) mmol/L BUN (9-20) mg/dL Creatinine (0.66-1.25) mg/dL Estimated GFR (>60) mL/min BUN/Creatinine Ratio (6-22) Glucose (80-110) mg/dL Lactate (0.7-2.1) mmol/L Calcium (8.4-10.2) mg/dL Total Bilirubin (0.2-1.3) mg/dL AST (17-59) IU/L ALT (<50) IU/L Alkaline Phosphatase (38-126) U/L Total Creatine Kinase 109 (55-170) U/L CK-MB (CK-2) 0.58 (<2.37) ng/mL CK-MB (CK-2) Rel Index 0.5 L (1.5-5.0) % Troponin I < 0.012 (0.01-0.034) ng/mL NT-Pro-B Natriuret Pep 162 H (<125) pg/mL Total Protein (6.3-8.2) g/dL Albumin (3.5-5.0) g/dL Globulin (1.7-4.1) g/dL Albumin/Globulin Ratio (1.0-2.8) Lipase (23-300) U/L Procalcitonin (<0.5) ng/mL SARS-CoV-2 (PCR) Negative (Negative) Imaging Data CT scan - chest: Radiologist's Impression: Gordon Ren??71??M??1950 ? Allergy/Adv: No Known Drug Allergies Close Chest CTA (Signed) Tata De La Paz - 02/16/22 Chest X-Ray (Signed) Tata De La Paz - 02/16/22 Pelvis X-Ray (Signed) Sofía Palacio - 02/10/22 Hip X-Ray (Signed) Yessica Dave - 02/10/22 Outside EKG 09/25/21 Bone Scan Nuclear Medicine (Signed) Thomas Dyer - 08/11/21 Scrotum Ultrasound (Signed) Russell,Jame - 04/26/21 Renal Ultrasound (Signed) Russell,Jame - 04/26/21 Renal Ultrasound (Cancelled) 04/25/21 Scrotum Ultrasound (Cancelled) 04/25/21 Telemetry Strips 04/25/21 Abdomen/Pelvis CT (Signed) Thomas Dyer - 04/25/21 Chest X-Ray (Signed) HoracioJack hutsonddie - 04/25/21 Lumbar Spine MRI (Signed) Charlie Palma - 09/27/18 [place] [address] CT Scan Report Signed Patient: Gordon Ren MR#: [id number] : 1950 Acct:[id number] Age/Sex: 71 / M Date of Service: 02/16/22 Loc: ED Accession Number: [id number] ?? Procedure: CT angio chest PE protocol Ordering Provider: Bertha Richardson D.O. PROCEDURE:? CT ANGIO CHEST PE PROTOCOL ? INDICATIONS:? hip sx, sob, low 2 ? TECHNIQUE:? After the administration of intravenous contrast, 2 mm thick sections acquired from the pulmonary apices to the posterior costophrenic angles.? 3-dimensional maximum intensity projection (MIP) coronal and sagittal reformats were then acquired through the thorax.? For radiation dose reduction, the following was used:? automated exposure control, adjustment of mA and/or kV according to patient size.? ? COMPARISON:? None. ? FINDINGS:? Image quality:? Excellent.? ? Pulmonary arteries:? Pulmonary arteries are normal in size, and demonstrate no intraluminal filling defects to suggest central pulmonary embolism.? ? Lungs and pleura:? Lung volumes are low.? There are trace bilateral low-density pleural effusions and compressive atelectasis.? There is mild interlobular septal thickening suggesting mild edema.? A 1.8 cm in diameter focus of ground-glass radiopacities are present at the right apex.? No pneumothorax. ? Mediastinum:? Heart size is enlarged, without pericardial effusion.? No mediastinal or hilar adenopathy.? The ascending thoracic aorta measures 1.3 cm in diameter.? The descending thoracic aorta is unremarkable.? Esophagus is normal in caliber, without hiatal hernia.? ? Bones and chest wall:? No suspicious bony lesions.? Ribs and thoracic spine appear intact throughout.? Thyroid gland is unremarkable.? No axillary or supraclavicular adenopathy.? ? Abdomen:? Visualized upper abdominal solid organs appear normal in the early arterial phase of enhancement.? ? IMPRESSION:? ? 1. No acute pulmonary embolus. ? 2. Annuloaortic ectasia.? Annual surveillance recommended. ? 3. Small pleural effusions and compressive atelectasis, and interlobular septal thickening suggesting mild fluid overload.? ? 4. 1.8 cm ground-glass nodule at the right apex.? Please see follow-up guidelines below.? Follow-up CT in 3-6 months recommended. ? Fleischner Society criteria for SOLID lung nodule followup.? Nodule size (mm)Low-risk patientHigh-risk patient<6 (single or multiple)No routine followup.Optional CT at 12 months. 6-8 (single or multiple)CT at 6-12 months, then optional CT at 18-24 mo.CT at 6-12 months, then CT at 18-24 months.? >8 (single)CT at 3 months, PET-CT, or biopsy. Same as for low-risk pts.? >8 (multiple)CT at 3-6 months, then optional CT at 18-24 mo.CT at 3-6 months, then CT at 18-24 months.? Fleischner Society criteria for SUB-SOLID lung nodule followup.? Solitary pure ground-glass nodules<6 mm (ground glass or part solid)No followup needed.? 6 mm or larger (ground glass)CT at 6-12 months to confirm persistence, then CT every 2 years until 5 years.6 mm or larger (part solid)CT at 3-6 months to confirm persistence, then annual CT until 5 years if unchanged and solid component remains <6 mm.? Multiple sub-solid nodules<6 mmCT at 3-6 months, then CT consider at 2 & 4 years for high risk patients. 6 [address] or [address].? [address] at 3-6 months. Subsequent management based on most suspicious lesions. Recommendations do not apply to lung cancer screening, patients with immunosuppression, or patients with known primary cancer. ? Dictated by: Tata De La Paz M.D. on 02/16/2022 at 15:24 ? ? Approved by: Tata De La Paz M.D. on 02/16/2022 at 15:34?? ECG Data Attestation: I personally reviewed and interpreted this ECG as follows: Interpretation: Sinus rhythm premature atrial complex, rate 83 ND 186 QRS is 76 and QTC 498. No acute ST depression or elevation. Patient has prior from 04/25/2021 which appears similar. MDM Narrative Medical decision making narrative: This is a 71-year-old male who presents with tachycardia, hypotension, patient is 95% initially on room air but does intermittently dipped down to the upper 80s as low as 87 while I am in the room. With patient's recent hospitalization for hip replacement pulmonary emboli, pull effusion, pneumonia, sepsis are all part of the differential. Patient's heart rate and blood pressure improved fluids, his labs do not show clear infectious, cardiac pulmonary cause and CT angio was obtained to rule out pulmonary emboli which is negative, shows some changes consistent with pulmonary edema although patient's labs and findings otherwise do not really reflect this and patient feels improved with fluids and not any worse. Hospitalist was consulted for possible observation a ask for ABG which was obtained and is normal on room air. They did come down and see and evaluate the patient and at this time suspected to be a combination of patient's struck to sleep apnea, narcotic use secondary to his recent surgery and plan to decrease his narcotic usage which patient is comfortable with. Discussed will give a short course of Lasix patient is to continue to monitor and return as needed. Patient does have follow-up tomorrow with his orthopedic surgeon. 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 Discharge Plan Departure Patient Disposition: Home Clinical Impression: Atelectasis, Annuloaortic ectasia, Pleural effusion, Pulmonary nodule Activity Restrictions/Additional Instructions: Follow-up with Dr. Trevizo tomorrow at your scheduled appointment. Some of your symptoms may be related to the narcotics or taking postoperatively. You can continue your Tylenol as needed but try using your narcotics less frequently as you continue to heal. Make sure to use your CPAP at home. You do have an enlarged aorta, continue with annual surveillance. You have some small pleural effusions continue to use her incentive spirometer and a short course of Lasix is included. Prescription sent to [facility] in [place]. You do have some nodules on imaging the largest being 1.8 cm on the right, please follow-up for repeat CT at 3 months. Share this information with your oncologist. Please return for new or worsening symptoms increasing chest pain, shortness of breath, lightheadedness or passing out or other new or concerning symptoms. Prescriptions: New furosemide [Lasix] 40 mg tablet 40 mg PO DAILY Qty: 5 0RF No Action gabapentin [Neurontin] 300 MG capsule 300 mg PO SEEINSTR Qty: 0 Rx Instructions: 600mg qam, 300mg qnoon, 600mg bedtime omeprazole 20 MG capsule,delayed release(DR/EC) 20 mg PO QDAY PRN (Reason: Acid Reflux) Qty: 0 prazosin [Minipress] 2 MG capsule See Rx Instructions .ROUTE .COMPLEX Qty: 0 Label Comments: Pt states he takes 2 in am, 1 at noon, 2 at bedtime Rx Instructions: Take one capsule in the morning and 2 capsules at night. acetaminophen 325 mg Tablet 650 mg PO Q6HR Qty: 60 0RF polyethylene glycol 3350 17 gram Powder In Packet 17 gm PO DAILY PRN (Reason: Constipation) Qty: 20 0RF aspirin 81 mg Tablet,Delayed Release (Dr/Ec) 81 mg PO BID Qty: 60 0RF ibuprofen 400 mg Tablet 400 mg PO Q6HR Qty: 60 0RF oxycodone 5 mg Tablet 5 mg PO Q3HR PRN (Reason: Pain, Moderate (4-6)) Qty: 60 0RF fluoxetine 40 mg Capsule 40 mg PO DAILY aripiprazole 5 mg Tablet 5 mg PO DAILY Rx Instructions: depression cholecalciferol (vitamin D3) [Vitamin D3] 25 mcg (1,000 unit) Tablet 25 mcg PO DAILY Referrals: Meggan Garcia ARNP [Primary Care Provider] - Visit Report Forms: Patient Portal/API
[2022-02-16 14:46] LABS: Add Manual Diff / Slide Review NO; Basophils Absolute Auto 0 /uL (0-100); Basophils Percent Auto 0.8 % (0-2); Eosinophils Absolute Auto 400 /uL (0-450); Eosinophils Percent Auto 6.9 % (2-4); Hemoglobin 11.3 g/dL (13.5-17.5); Lymphocytes Absolute Auto 1500 /uL (1100-4500); Lymphocytes Percent Auto 24.9 % (25-40); Mean Corpuscular HGB Conc 34.4 % (30-36); Mean Corpuscular Hemoglobin 31.7 PG (26-34); Mean Corpuscular Volume 92.3 fL (80-100); Monocytes Absolute Auto 300 /uL (0-900); Monocytes Percent Auto 4.4 % (3-14); Neutrophils Absolute Auto 3700 /uL (1500-7000); Platelet Count 272 X10^3/uL (150-400); Red Blood Cell Count 3.57 X10^6/uL (4.5-5.9); White Blood Cell Count 5.9 X10^3/uL (4.5-11.0)
[2022-02-16 14:56] LABS: Creatine Kinase 109 U/L (55-170); Lactate (Lactic Acid) 1.8 mmol/L (0.7-2.1)
[2022-02-16 14:58] LABS: Alanine Aminotransferase 19 IU/L (<50); Albumin 3.9 g/dL (3.5-5.0); Albumin Globulin Ratio 1.1 (1.0-2.8); Alkaline Phosphatase 118 U/L (38-126); Aspartate Aminotransferase 31 IU/L (17-59); BUN Creatinine Ratio 12.3 (6-22); Bilirubin Total 0.6 mg/dL (0.2-1.3); Blood Urea Nitrogen 14 mg/dL (9-20); Calcium 8.7 mg/dL (8.4-10.2); Carbon Dioxide 26 mmol/L (22-32); Chloride 103 mmol/L (98-107); Estimated Glomerular Filt Rate > 60 mL/min (>60); Globulin 3.7 g/dL (1.7-4.1); Glucose 123 mg/dL (80-110); HEMOLYSIS < 15 (0-50); Lipase 46 U/L (23-300); Sodium 137 mmol/L (137-145); Total Protein 7.6 g/dL (6.3-8.2)
[2022-02-16 15:08] LABS: NT-proBNP (BNP-Adult 18+) 162 pg/mL (<125); Troponin I < 0.012 ng/mL (0.01-0.034)
[2022-02-16 15:12] LABS: CKMB % Relative Index 0.5 % (1.5-5.0); Creatine Kinase MB 0.58 ng/mL (<2.37)
[2022-02-16 15:14] LABS: Procalcitonin 0.06 ng/mL (<0.5)
[2022-02-16] MEDS: PIPERACILLIN/TAZO 4.5 GM in SODIUM CHLORIDE 0.9% 100 ML IV (15:25)
[2022-02-16] MEDS: SODIUM CHLORIDE 0.9% 3,265.86 ML 1088.62 ML IV (15:37)
[2022-02-16 16:45] LABS: HCO3 ABG 24 mmol/L (22-26); PCO2 ABG 41.8 mmHg (35-45); PO2 ABG 68 mmHg (80-100); TCO2 ABG 25 mmol/L (21-31); pH ABG 7.37 (7.35-7.45)
[2022-02-16 16:46] LABS: Fractionated Inspired Oxygen 28; Oxygen Saturation ABG 93 % (95-100)
--- NOTE | 2022-02-16 17:11 | P.CONS_ITS ---
History of Present Illness Consult details Date Patient Seen: 02/16/22 Time Patient Seen: 17:11 Chief complaint: Low BP 83/59, Temp 73.5 Narrative: This is a 70-year-old male with a past medical history of BPH, severe PTSD, recent SHAQUILLE 6 days ago who to the emergency room today with low blood pressure, chills, and mild shortness of breath. Episode started around 2 pm, when he began to feel slightly dizzy and mildly short of breath. He denied any chest pain, nausea, vomiting, palpitations, lower extremity swelling, or abdominal pain. He has been taking oxycodone at home for pain relief. He has DIONI and does not use his CPAP machine. He denied any fever but did feel some mild chills. In the emergency room, he was never documented as hypoxic but the ER provider reported that he dropped to the upper 80s on room air. After some time the patient improved, and upon my evaluation he was in the mid mid 90s on room air and able to ambulate with his oxygen saturation in the mid to upper 90s. ABG was performed which showed no hypercarbia with a pCO2 of 41. Laboratory evaluation was unremarkable except for a chronic stable anemia. CTA of his chest was performed which showed small pleural effusions and atelectasis, there were no definitive infiltrates. Medicine was asked to evaluate for possible admission, but given the clinical scenario this likely represents atelectasis and opiate use in the setting of known DIONI without CPAP use. Patient was able to maintain oxygen saturations later on in the emergency room, patient was counseled on opiate use and its effects on respiratory drive as well as the need for continued CPAP use at home, especially with need for opiates after his recent hip fracture. Discussed risks and benefits of admission vs discharge home, questions were answered, and the patient elected for discharge home after discussion. Meds Home Medications and Allergies Home Medications Medication Instructions Recorded Confirmed Type gabapentin 300 mg capsule 300 mg PO SEEINSTR ##0 06/10/17 02/10/22 History (Neurontin) omeprazole 20 mg capsule,delayed 20 mg PO QDAY PRN Acid Reflux ##0 06/10/17 02/10/22 History release prazosin 2 mg capsule (Minipress) See Rx Instructions .Route 06/10/17 02/10/22 History .COMPLEX ##0 aripiprazole 5 mg tablet 5 mg PO DAILY 04/25/21 02/10/22 History cholecalciferol (vitamin D3) 25 25 mcg PO DAILY 04/25/21 02/10/22 History mcg (1,000 unit) tablet (Vitamin D3) fluoxetine 40 mg capsule 40 mg PO DAILY 04/25/21 02/10/22 History acetaminophen 325 mg tablet 650 mg PO Q6HR #60 tabs 02/11/22 Rx aspirin 81 mg tablet,delayed 81 mg PO BID #60 tabs 02/11/22 Rx release ibuprofen 400 mg tablet 400 mg PO Q6HR #60 tabs 02/11/22 Rx oxycodone 5 mg tablet 5 mg PO Q3HR PRN Pain, Moderate 02/11/22 Rx (4-6) #60 tabs polyethylene glycol 3350 17 gram 17 gm PO DAILY PRN Constipation 02/11/22 Rx oral powder packet #20 ea furosemide 40 mg tablet (Lasix) 40 mg PO DAILY #5 tabs 02/16/22 Rx Allergies Allergy/AdvReac Type Severity Reaction Status Date / Time No Known Drug Allergies Allergy Verified 02/10/22 07:15 Review of Systems Review of Systems Narrative: All other systems reviewed with the patient and are negative unless otherwise stated. Exam Vital Signs (past 8 hours): - 02/16/22 14:00 02/16/22 15:14 02/16/22 15:30 Temperature 96.9 F L Pulse Rate 109 H 75 Respiratory Rate 22 Blood Pressure 104/57 L 102/53 L Pulse Oximetry 95 97 Oxygen Delivery Method Room Air 02/16/22 15:30 02/16/22 16:00 02/16/22 16:00 Temperature Pulse Rate 76 60 Respiratory Rate Blood Pressure 115/53 L Pulse Oximetry 96 96 Oxygen Delivery Method 02/16/22 16:30 02/16/22 16:30 Temperature Pulse Rate 70 Respiratory Rate Blood Pressure 106/61 Pulse Oximetry 94 Oxygen Delivery Method Oxygen Delivery Method Room Air Narrative Exam Narrative: General:? Patient is well developed and well nourished, in no distress at this time. HEENT:? Normocephalic, atraumatic, extraocular muscles intact, oral pharynx is clear and mucous membranes are moist. Neck: supple and symmetric, trachea is midline, no cervical adenopathy. Negative for JVD Chest:? Normal AP diameter and contour without kyphoscoliosis, no tachypnea, equal chest rise bilaterally. Lungs:? CTA b/l no wheezing rhonchi or rales. Cardio:?RRR no m/r/g. Abdomen: S NT ND. No CVA tenderness. Musculoskeletal:? Muscle strength and tone are equal within normal limits, no deformity. Extremities: No edema or joint effusions. No cyanosis or clubbing. Skin:? Pale,? Warm to touch,dry and intact without rashes, ulcerations or petechiae.? Neuro:? Alert and orientated x3,? sensation to touch intact in all extremities, no gross deficits noted of cranial nerves. Psych:? Patient has a well-kept appearance, appropriate affect, mental status at titude thought context and judgment are appropriate for age. Objective ECG Impression: Sinus rhythm with premature atrial complexes in a pattern of bigeminy and premature ventricular complexes or fusion complexes Minimal voltage criteria for LVH, may be normal variant ( R in aVL ) as interpreted by me. Labs Result Diagrams: 02/16/22 14:17 02/16/22 14:17 Labs: Laboratory Results - last 24 hr 02/16/22 02/16/22 02/16/22 14:17 14:17 14:17 WBC 5.9 RBC 3.57 L Hgb 11.3 L Hct 33.0 L MCV 92.3 MCH 31.7 MCHC 34.4 RDW 15.0 H Plt Count 272 Neut % (Auto) 63.0 Lymph % (Auto) 24.9 L [place] % (Auto) 4.4 Eos % (Auto) 6.9 H Baso % (Auto) 0.8 Neut # (Auto) 3700 Lymph # (Auto) 1500 [place] # (Auto) 300 Eos # (Auto) 400 Baso # (Auto) 0 ABG pH ABG pCO2 ABG pO2 ABG HCO3 ABG Total CO2 ABG O2 Saturation ABG Base Excess FiO2 Sodium 137 Potassium 4.0 Chloride 103 Carbon Dioxide 26 BUN 14 Creatinine 1.14 Estimated GFR > 60 BUN/Creatinine Ratio 12.3 Glucose 123 H Lactate 1.8 Calcium 8.7 Total Bilirubin 0.6 AST 31 ALT 19 Alkaline Phosphatase 118 Total Creatine Kinase CK-MB (CK-2) CK-MB (CK-2) Rel Index Troponin I NT-Pro-B Natriuret Pep Total Protein 7.6 Albumin 3.9 Globulin 3.7 Albumin/Globulin Ratio 1.1 Lipase 46 Procalcitonin 0.06 02/16/22 02/16/22 14:17 16:37 WBC RBC Hgb Hct MCV MCH MCHC RDW Plt Count Neut % (Auto) Lymph % (Auto) [place] % (Auto) Eos % (Auto) Baso % (Auto) Neut # (Auto) Lymph # (Auto) [place] # (Auto) Eos # (Auto) Baso # (Auto) ABG pH 7.37 ABG pCO2 41.8 ABG pO2 68 L ABG HCO3 24 ABG Total CO2 25 ABG O2 Saturation 93 L ABG Base Excess -1.0 FiO2 28 Sodium Potassium Chloride Carbon Dioxide BUN Creatinine Estimated GFR BUN/Creatinine Ratio Glucose Lactate Calcium Total Bilirubin AST ALT Alkaline Phosphatase Total Creatine Kinase 109 CK-MB (CK-2) 0.58 CK-MB (CK-2) Rel Index 0.5 L Troponin I < 0.012 NT-Pro-B Natriuret Pep 162 H Total Protein Albumin Globulin Albumin/Globulin Ratio Lipase Procalcitonin PFSH Medical History Anxiety BCC (basal cell carcinoma) (2020) BPH (benign prostatic hyperplasia) Brain tumor Depression GERD (gastroesophageal reflux disease) Hearing impaired DIONI on CPAP Osteoarthritis Post traumatic stress disorder (PTSD) Prostate cancer Surgical History H/O brain surgery H/O prostate biopsy H/O shoulder surgery History of bilateral carpal tunnel release History of lumbar fusion History of surgery Hx of brain surgery (2011) Hx of elbow surgery (2004) Hx of foot surgery Hx of foot surgery Hx of prostatectomy (~12/25/21) Family History (Updated 02/16/22 @ 20:05 by Romero Waterman DO) Mother No pertinent past medical history Father No pertinent past medical history Social History household members: spouse Tobacco & Substance Use Smoking Status: Former smoker alcohol intake: current Assessment & Plan Assessment & Plan narrative: Problem list 1. Acute respiratory failure with hypoxia, resolved 2. DIONI, chronic not using CPAP therapy 3. S/p SHAQUILLE 4. BPH I suspect the patient has atelectasis from opiate use in the setting of known DIONI without CPAP use at home. Discussed that he will try and cut down on opiate use. He has no evidence for pneumonia or other infectious process at this time and his respiratory failure was resolved by my evaluation. CTA was further negative for PE. Discussed risks and benefits of admission vs discharge home with the patient. Patient elected for discharge home. Return precautions were provided. Discussed recommendation for discharge home with ER provider. I have utilized all available immediate resources to obtain, update, or review the patient's current medications. Code: Full, surrogate decision maker is his spouse. Time Spent With Patient Critical Care time: I spent a total of [] minutes of critical care time on this patient's care today; this time is exclusive of procedural time.
[2022-02-16 17:17] LABS: COVID19 -Nasal RAPID Negative (Negative)
== END 2022-02-16 17:59 | disposition home or self-care (01) ==
PROVIDERS: Emergency Provider Emergency Medicine; PCP Nurse Practitioner
DX: J98.11 Atelectasis (principal); I35.8 Other nonrheumatic aortic valve disorders; J90 Pleural effusion, not elsewhere classified; R91.1 Solitary pulmonary nodule; Z20.822 Contact with and (suspected) exposure to COVID-19
CPT/HCPCS: 36415; 36600; 71045; 71275; 80053; 82550; 82553; 82805; 83605; 83690; 83880; 84145; 84484; 85025; 87040; 87635; 93005; 93010; 96365; 99284; C9803; J2543; Q9967

== ENCOUNTER → 2022-06-01 08:45 | Outpatient (CLI) | payer OTHER, SELFPAY ==
[2022-02-10 11:49] VITALS: BMI 32.9
--- NOTE | 2022-06-01 | DI.CT.S_ITS ---
PROCEDURE: CT CHEST WO CON INDICATIONS: SOLITARY PULMONARY NODULE TECHNIQUE: Noncontrast 2.0-2.5 mm thick sections acquired from the pulmonary apices to the posterior costophrenic angles. 7 mm thick axial MIP and 5 mm coronal and sagittal reformats were then acquired. A low radiation dose technique was utilized. COMPARISON: [facility], CT, CT ANGIO CHEST PE PROTOCOL, 02/16/2022, 14:54. FINDINGS: Image quality: Diagnostic, given the low radiation dose technique. Lungs and pleura: There is mild centrilobular emphysema with an apical predominance. The previously visualized ground-glass nodule at the right apex on the comparison CT dated February 16, 2022 has resolved. No acute airspace opacities. No pulmonary nodules. No pleural effusion or pneumothorax. Mediastinum: Heart size is normal. No pericardial effusion. No mediastinal adenopathy by size criteria. Thoracic aorta and central pulmonary arteries are normal in size. Esophagus is normal in caliber. No hiatal hernia. Bones and chest wall: No suspicious bony lesions. No vertebral body compression fractures. No axillary or supraclavicular adenopathy by size criteria. Thyroid gland is unremarkable . Abdomen: Visualized upper abdomen solid organs and bowel loops appear normal in the absence of contrast. IMPRESSION: 1. Resolution of the ground-glass right upper lobe nodule when compared with the prior study. No acute airspace opacities, pulmonary nodules, or suspicious lesions. Fleischner Society criteria for SOLID lung nodule followup. Nodule size (mm)Low-risk patientHigh-risk patient<6 (single or multiple)No routine followup.Optional CT at 12 months. 6-8 (single or multiple)CT at 6-12 months, then optional CT at 18-24 mo.CT at 6-12 months, then CT at 18-24 months. >8 (single)CT at 3 months, PET-CT, or biopsy. Same as for low-risk pts. >8 (multiple)CT at 3-6 months, then optional CT at 18-24 mo.CT at 3-6 months, then CT at 18-24 months. Fleischner Society criteria for SUB-SOLID lung nodule followup. Solitary pure ground-glass nodules<6 mm (ground glass or part solid)No followup needed. 6 mm or larger (ground glass)CT at 6-12 months to confirm persistence, then CT every 2 years until 5 years.6 mm or larger (part solid)CT at 3-6 months to confirm persistence, then annual CT until 5 years if unchanged and solid component remains <6 mm. Multiple sub-solid nodules<6 mmCT at 3-6 months, then CT consider at 2 & 4 years for high risk patients. [address] at 3-6 months. Subsequent management based on most suspicious lesions. Recommendations do not apply to lung cancer screening, patients with immunosuppression, or patients with known primary cancer. Dictated by: Tata De La Paz M.D. on 06/01/2022 at 9:59 Approved by: Tata De La Paz M.D. on 06/01/2022 at 10:02
== END ==
PROVIDERS: PCP Nurse Practitioner; Referring Provider Physician Assistant; Visit Provider Physician Assistant
DX: R91.1 Solitary pulmonary nodule (principal)
CPT/HCPCS: 71250

== ENCOUNTER 2022-08-13 09:08 | Day surgery (SDC) | payer OTHER, SELFPAY ==
[2022-02-10 11:49] VITALS: BMI 32.9
[2022-08-04 13:28] VITALS: BMI 32.5
[2022-08-13] VITALS (15 sets, daily range): BP systolic 103–145; BP diastolic 48–79; PULSE 73–97; RESP 11–20; TEMP 36.1–36.4; O2SAT 80–98; BMI 32.5; BMI 33.2
--- NOTE | 2022-08-13 06:00 | DI.RAD.S_ITS ---
PROCEDURE: XR PELVIS 1-2V INDICATIONS: SHAQUILLE TECHNIQUE: Intra-operative view of the pelvis and hip acquired. COMPARISON: [facility], CR, XR PELVIS WITH LATERAL HIP LEFT, 07/31/2022, 11:30. [facility], CR, XR PELVIS 1-2V, 02/10/2022, 9:18. FINDINGS: Bones: Intraoperative devices prior to placement of arthroplasty prostheses are in expected positions. No fractures or suspicious bony lesions. Soft tissues: Overlying surgical retractors are present, along with other intraoperative changes. IMPRESSION: Left hip intraoperative devices prior to placement of arthroplasty in expected positions. Dictated by: Titi ROSENTHAL Interpreted: Omero Christine MD on 08/13/2022 at 13:37 Transcribed by: MODESTA on 08/13/2022 at 13:38 Approved by: Omero Christine M.D. on 08/14/2022 at 8:44
[2022-08-13] MEDS: VANCOMYCIN 1,000 MG/200 ML PIGGYBACK 200 MG IV (09:56)
[2022-08-13] MEDS: LACTATED RINGERS 1,000 ML 42 ML IV ×3 (09:57→13:45)
[2022-08-13] MEDS: ACETAMINOPHEN 325 MG TABLET 975 MG PO (09:57)
[2022-08-13] MEDS: CELECOXIB 200 MG CAPSULE PO (09:57)
--- NOTE | 2022-08-13 10:10 | PM.PREOP ---
Pre-operative Note COVID-19 COVID-19 status: Negative Interval Note History & Physical reviewed/Exam performed by Physician: Yes Changes to H&P: No
--- NOTE | 2022-08-13 10:10 | PM.OP.1 ---
Operative Date/Time/Diagnoses Date of procedure: 08/13/22 Time of procedure: 11:10 Pre-op diagnosis: left hip OA Post-op diagnosis: same Procedure & Clinicians Procedure: Left total hip arthroplasty posterior approach Same procedure as scheduled: Yes Indications: The patient has had progressively worsening left hip pain with radiographic changes consistent with arthritis. Non-operative management has failed and the patient has requested total hip replacement. The risks, benefits and alternatives to surgery were discussed with the patient prior to proceeding. Risks discussed included, but were not limited to, failure to relieve pain, leg length discrepancy, dislocation, stiffness, infection, nerve damage, deep venous thrombosis, pulmonary embolism, stroke, coma, heart attack, permanent paralysis and , as well as the potential need for eventual revision of the prosthetic. Surgeon: Marli Trevizo Underground Production Foreperson: Gordon Ledezma Anesthesia Type: General Operative Notes Findings: Severe left hip osteoarthritis, adequate stability, soft bone Closure Type: primary Specimen(s): none sent Prosthetic devices, grafts, tissues, transplants, or devices: Left hip size 11 high offset anthology, 58 mm R3 cup, neutral poly liner, size 40 +4 cobalt chrome head Estimated Blood Loss (mL): 250 Blood products transfused: none Procedure in detail: The patient was seen in the pre-operative area, where the patient identified the left hip as the operative site and this was marked with my initials. The patient received pre-operative antibiotics and was taken to the operating room and placed on the operative table in the right lateral decubitus position after satisfactory anesthesia. A maritime pilot out was performed. The left leg was prepared from the ankle to the iliac crest with ChloroPrep in the usual fashion and draped through sterile drapes. The hip was approached through an approximately 20 cm incision centered over the greater trochanter and curving gently posteriorly as it went proximally. This was carried sharply to the fascia nuzhat, which was divided and retracted with a self retaining retractor. The trochanteric bursa was excised with care being taken to avoid the sciatic nerve, which was identified and protected throughout the case. The short external rotators were incised and the capsulomuscular flap was raised and tagged for later repair. The hip was dislocated, and a femoral neck osteotomy performed approximately 15 mm above the lesser trochanter. Retractors were placed around the femur. The canal was opened with a box cutting osteotome, followed by a T handled reamer and a lateralizing reamer. The chili pepper broach was then used, followed by sequential broaching until there was good stability of the broach in the femur. Retractors were placed to expose the acetabulum. The labrum and central soft tissues were removed. Reaming was performed initially going up in 2 mm increments, then 1 mm increments until good bite was obtained with an odd sized reamer. The cup 1 mm larger than the last reamer was then inserted using the appropriate anteversion guides. A trial neutral liner was placed. The broach was placed in the canal. A trial head and neck were then placed and the hip relocated and checked for leg length and stability. An intraoperative film confirmed the component position and no evidence of fracture. The patient was stable in the position of sleep, of squatting, and could be put through a range of motion with 45 degrees internal rotation without dislocation. At 90 degrees flexion, internal rotation to 70 ? was possible before dislocation. This was felt to be satisfactory and the appropriate components were opened, and the trials were removed. The acetabular liner was impacted into position. The final stem was then impacted into the prepared femoral canal. A brief Betadine soak was performed while trialing with head options. The hip was meticulously irrigated with normal saline. Finally the femoral head was impacted onto the stem. The acetabulum was cleared of all material and the hip relocated one final time. The capsulomuscular flap was then repaired to the greater trochanter though an awl hole using the tag sutures. The short external rotators were repaired with a nonabsorbable suture. A deep drain was placed and brought out anteriorly. The fascia nuzhat was closed with Vicryl. The subcutaneous layer was closed with barbed sutures and SteriStrips. An Aquacel Ag dressing was applied and the patient was taken to recovery having tolerated the procedure well. Complications: none Post-operative Condition: stable Disposition: Acute Care Plan for aftercare: The patient will be maintained on a standard total hip replacement protocol with weight bearing as tolerated and posterior hip precautions. The patient will receive Aspirin and sequential compression devices for DVT prophylaxis. The patient will be discharged home when safe for the home environment.
[2022-08-13 10:46] LABS: COVID19 -Nasal RAPID Negative (Negative)
[2022-08-13] MEDS: CEFAZOLIN 2 GM/100 ML PREMIX 100 ML IV ×2 (11:00→18:13)
[2022-08-13] MEDS: TRANEXAMIC ACID 1,000 MG VIAL 2000 MG INJ ×2 (11:11→12:42)
[2022-08-13] MEDS: BUPIVACAINE 0.5% W/ EPI (PF) 30 ML VIAL INJ (11:40)
[2022-08-13] MEDS: BUPIVACAINE LIPOSOME 266 MG/20 ML VIAL INJ (11:41)
[2022-08-13] MEDS: BUPIVACAINE 0.25% (PF) 60 ML, EPINEPHrine 0.3 MG INJ (11:43)
--- NOTE | 2022-08-13 13:30 | DI.RAD.S_ITS ---
PROCEDURE: XR HIP W PEL IF DONE LT 2V INDICATIONS: LEFT TOTAL HIP TECHNIQUE: AP pelvis with lateral view(s) of the left hip(s). COMPARISON: [facility], CR, XR PELVIS 1-2V, 08/13/2022, 12:09. [facility], CR, XR HIP W PEL IF DONE RT 2V, 02/10/2022, 10:47. FINDINGS: Bones: Expected appearance of the left total hip arthroplasty. No periprosthetic lucency to suggest loosening or infection. No fractures or dislocations. Pelvic ring appears intact. No suspicious bony lesions. Stable right hip arthroplasty. Lumbar spine pedicle screw fixation. Soft tissues: The visualized bowel gas pattern is normal. No suspicious soft tissue calcifications. Penile prosthesis. IMPRESSION: Expected appearance of the left total hip arthroplasty. Dictated by: Misha Anna M.D. on 08/13/2022 at 14:47 Approved by: Misha Anna M.D. on 08/13/2022 at 14:51
[2022-08-13] MEDS: HYDROMORPHONE 2 MG INJ IV ×2 (13:37→13:59)
--- NOTE | 2022-08-13 14:26 | SUR.PHASEI ---
to 217 with belongings and his CPAP. Pain tolerable. verbilizes understanding the surgery will be painful w/o spinal. good spirits, informed of room #
[2022-08-13] MEDS: LACTATED RINGERS 1,000 ML 125 ML IV (14:47)
[2022-08-13] MEDS: OXYCODONE IR 5 MG TABLET PO (15:00)
[2022-08-13] MEDS: ACETAMINOPHEN 325 MG TABLET 650 MG PO ×2 (17:12→23:56)
[2022-08-13] MEDS: IBUPROFEN 400 MG TABLET PO ×2 (17:13→23:56)
[2022-08-13] MEDS: OXYCODONE IR 10 MG TABLET PO ×3 (17:18→23:56)
[2022-08-13] MEDS: DOCUSATE 100 MG CAPSULE PO (20:47)
[2022-08-13] MEDS: GABAPENTIN 300 MG CAPSULE 600 MG PO (20:47)
[2022-08-13] MEDS: ASPIRIN EC 81 MG TABLET PO (20:47)
[2022-08-13] MEDS: hydrOXYzine pamoate 25 MG CAPSULE PO (23:56)
[2022-08-14] VITALS: BP 128/60; PULSE 83; RESP 18; TEMP 36.3; O2SAT 96
[2022-08-14] MEDS: CEFAZOLIN 2 GM/100 ML PREMIX 100 ML IV (03:01)
[2022-08-14] MEDS: OXYCODONE IR 10 MG TABLET PO ×2 (03:02→05:51)
[2022-08-14] MEDS: LACTATED RINGERS 1,000 ML 125 ML IV (03:02)
[2022-08-14 03:30] VITALS: BP 108/67; PULSE 84; RESP 19; TEMP 36.7; O2SAT 95
[2022-08-14] MEDS: IBUPROFEN 400 MG TABLET PO ×2 (05:50→12:03)
[2022-08-14] MEDS: PANTOPRAZOLE DR 20 MG TABLET PO (05:51)
[2022-08-14] MEDS: ACETAMINOPHEN 325 MG TABLET 650 MG PO ×2 (05:51→12:02)
[2022-08-14 05:55] LABS: Hematocrit 29.5 % (41-53)
--- NOTE | 2022-08-14 08:25 | CM.DANOTE ---
Initial DCP Assessment Note Pt is a 71 yo male, resident of [place], now POD#1 from left hip surgery by Dr Trevizo PCP: Meggan Garcia Payer: [facility] Reviewed chart, pt has planned for DC home with family today, awaiting therapy recommendations No barriers identified from chart review to patient's safe discharge home w/family to assist; likely close outpatient f/u recommended. 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 Yes Advance Directives on File No History Provided By Patient,Medical Record Prior Living Arrangements House Household Members spouse Type of transporation used prior to Drives own vehicle admit Independent with ADL's Yes: Poor activity tolerance Is patient alert and oriented? Yes Barriers to Discharge No Comment No barriers identified from chart review Discharge Plan Home Transportation Arrangement Family Referrals Initiated None needed Additional Comment CM team will plan to follow closely for any DC needs that may arise
[2022-08-14] MEDS: FLUoxetine 20 MG CAPSULE 40 MG PO (09:31)
[2022-08-14] MEDS: ASPIRIN EC 81 MG TABLET PO (09:32)
[2022-08-14] MEDS: CHOLECALCIFEROL (VITAMIN D3) 1,000 UNIT TABLET 1000 UNIT PO (09:33)
[2022-08-14] MEDS: DOCUSATE 100 MG CAPSULE PO (09:33)
[2022-08-14] MEDS: GABAPENTIN 300 MG CAPSULE 600 MG PO (09:34)
[2022-08-14] MEDS: ARIPiprazole 10 MG TABLET PO (09:35)
[2022-08-14] MEDS: HYDROMORPHONE 2 MG TABLET PO ×2 (09:47→12:17)
[2022-08-14] MEDS: hydrOXYzine pamoate 25 MG CAPSULE PO (09:48)
--- NOTE | 2022-08-14 10:45 | P.DS_ITS ---
History of Present Illness History of Present Illness Date Patient Seen: 08/14/22 Time Patient Seen: 10:46 Chief complaint: Left SHAQUILLE posterior approach Narrative: Patient is up walking with physical therapy this morning. He states he is feeling well, though oxycodone has not been working well for him. He was just given Dilaudid to see how the change in medication works for his pain. He plans to discharge home with his when able, and is hoping that will be today as long as physical therapy goes well. Discharge Providers Provider Discharge Date: 08/14/22 Primary care physician: BETH Crockett Consults: 08/13/22 06:00 Consult to Anesthesiology Routine Comment: Consulting Provider: Anesthesiologist Reason for consultation: Regional block for post operative pain control 08/13/22 14:11 Consult to Discharge Planning Routine Comment: Consult to Physical Therapy Evaluate & Treat Comment: Physician Instructions: post op SHAQUILLE protocol Discharge provider: Chiquita Humphries PA-C Summary Hospital Course Discharge Diagnosis: Left total hip arthroplasty, posterior approach Hospital Course: Operative Date/Time/Diagnoses Date of procedure: 08/13/22 Time of procedure: 11:10 Pre-op diagnosis: left hip OA Post-op diagnosis: same Procedure & Clinicians Procedure: Left total hip arthroplasty posterior approach Same procedure as scheduled: Yes Indications: The patient has had progressively worsening left hip pain with radiographic changes consistent with arthritis. Non-operative management has failed and the patient has requested total hip replacement. The risks, benefits and alternatives to surgery were discussed with the patient prior to proceeding. Risks discussed included, but were not limited to, failure to relieve pain, leg length discrepancy, dislocation, stiffness, infection, nerve damage, deep venous thrombosis, pulmonary embolism, stroke, coma, heart attack, permanent paralysis and , as well as the potential need for eventual revision of the prosthetic. Surgeon: Marli Trevizo Otolaryngology Surgeon: Gordon Ledezma Anesthesia Type: General Operative Notes Findings: Severe left hip osteoarthritis, adequate stability, soft bone Closure Type: primary Specimen(s): none sent Prosthetic devices, grafts, tissues, transplants, or devices: Left hip size 11 high offset anthology, 58 mm R3 cup, neutral poly liner, size 40 +4 cobalt chrome head Estimated Blood Loss (mL): 250 Blood products transfused: none Status at Discharge Cognitive/behavioral status at discharge: oriented Functional status at discharge: uses cane/walker Overall status at discharge: patient is progressing back to baseline Exam Vital Signs (past 8 hours): - 08/14/22 03:30 Temperature 98.1 F Pulse Rate 84 Respiratory Rate 19 Blood Pressure 108/67 Pulse Oximetry 95 Oxygen Flow Rate 0 Oxygen Delivery Method Room Air Oxygen Flow Rate 0 Narrative Exam Narrative: Patient up walking with physical therapy using a walker. Intraoperative dressing clean, dry, and intact. No significant swelling or bruising noted. Slight numbness to left great toe, all other strength and sensation to bilateral lower extremities intact. Bilateral calves soft, compressible, nontender with no palpable cords or masses. Objective Labs 08/14/22 05:26 Labs: Laboratory Results - last 24 hr 08/13/22 08/14/22 09:05 05:26 Hgb 10.0 L Hct 29.5 L SARS-CoV-2 (PCR) Negative PFSH Medical History Anxiety BCC (basal cell carcinoma) (2020) BPH (benign prostatic hyperplasia) Brain tumor Depression GERD (gastroesophageal reflux disease) Hearing impaired DIONI on CPAP Osteoarthritis Post traumatic stress disorder (PTSD) Prostate cancer Surgical History H/O brain surgery H/O prostate biopsy H/O shoulder surgery History of bilateral carpal tunnel release History of lumbar fusion History of surgery History of total right hip replacement (02/10/22) Hx of brain surgery (2011) Hx of elbow surgery (2004) Hx of foot surgery Hx of foot surgery Hx of prostatectomy (~12/25/21) Family History Mother No pertinent past medical history Father No pertinent past medical history Social History household members: spouse Smoking Status: Former smoker alcohol intake: current Discharge Assessment & Plan Assessment and Plan Assessment: Patient is progressing well after left total hip arthroplasty, posterior approach. Plan of Treatment: Discharge when safe and cleared by physical therapy. Patient will continue with physical therapy as outpatient. We will dispense narcotic pain medication for him at discharge. Follow-up as scheduled with Orthopedics 2 weeks postop. Continue with posterior hip precautions. Keep Aquacel bandage clean, dry, and intact until follow-up. Discharge Plan Discharge Plan Patient Disposition: Home Provider Discharge Comment: Discharge when safe and cleared by Physical therapy Discharge orders & Medications Discharge Orders: Discharge (Order); Ordered 08/14/22 Ordered By: Chiquita Humphries Prescriptions: New oxycodone 5 mg Tablet 5 mg PO Q4-6H PRN (Reason: Pain, Moderate (4-6)) Qty: 40 0RF Continued gabapentin [Neurontin] 300 MG capsule 300 mg PO SEEINSTR Qty: 0 Rx Instructions: 600mg qam, 300mg qnoon, 600mg bedtime omeprazole 20 MG capsule,delayed release(DR/EC) 20 mg PO QDAY Qty: 0 prazosin [Minipress] 2 MG capsule See Rx Instructions .ROUTE .COMPLEX Qty: 0 Label Comments: Pt states he takes 2 in am, 1 at noon, 2 at bedtime Rx Instructions: Take one capsule in the morning and 2 capsules at night. naproxen sodium 220 mg Tablet 440 mg PO BID PRN (Reason: Pain) acetaminophen 325 mg tablet 650 mg PO Q6HR PRN (Reason: Pain) ibuprofen 400 mg tablet 400 mg PO Q6HR PRN (Reason: Pain) fluoxetine 40 mg Capsule 40 mg PO DAILY aripiprazole 5 mg Tablet 10 mg PO DAILY Rx Instructions: depression cholecalciferol (vitamin D3) [Vitamin D3] 25 mcg (1,000 unit) Tablet 25 mcg PO DAILY Follow up/Referrals: Meggan Garcia ARNP [Primary Care Provider] - Marli Trevizo MD [Physician] - As previously scheduled (Follow up w/ Dr Trevizo on 08/28/2022 @ 1:30 pm at [facility] office in [place].) Diet/Activity/Treatments Diet: Diet as Tolerated Activity: Weight bearing as tolerated to left leg. Posterior hip precautions. Cold/Heat Therapy: Ice to hip as needed for pain. Skin/Wound/Dressing Care Report to your healthcare provider any signs of infection, such as:: chills, fever, night sweats, unusual drainage and unusual redness Visit Report/Discharge Packet Instructions: DI for Hip Replacement Stand Alone Forms: Patient Portal/API, Stroke Signs & Symptoms, Surgery Discharge Discharge Data Primary Care Provider: Meggan Garcia Attending Provider: Marli Trevizo Quality VTE Deep Vein Thrombosis/Pulmonary Embolism Present on Admission: No
--- NOTE | 2022-08-14 10:57 | PT.IIE ---
Current Diagnoses Unilateral primary osteoarthritis, left hip (08/13/22) Surgery Performed Operation Date: 08/13/22 11:15 Actual Procedures p Total Hip Arthroplasty(Left) - Marli Trevizo MD Surgical History (Last Reviewed 08/14/22 @ 10:51 by Chiquita Humphries PA-C) H/O brain surgery H/O prostate biopsy H/O shoulder surgery History of bilateral carpal tunnel release History of lumbar fusion History of surgery History of total right hip replacement (02/10/22) Hx of brain surgery (2011) Hx of elbow surgery (2004) Hx of foot surgery Hx of foot surgery Hx of prostatectomy (~12/25/21) Medical History (Last Reviewed 08/14/22 @ 10:51 by Chiquita Humphries PA-C) Anxiety BCC (basal cell carcinoma) (2020) BPH (benign prostatic hyperplasia) Brain tumor Depression GERD (gastroesophageal reflux disease) Hearing impaired DIONI on CPAP Osteoarthritis Post traumatic stress disorder (PTSD) Prostate cancer Physical Therapy Inpatient Evaluation/Re-Eval M1 PT/OT-IP Prior Functional Status Start: 08/14/22 10:37 Freq: Status: Active Protocol: Document 08/14/22 10:38 BC (Rec: 08/14/22 10:56 [id number]) Medical Review Prior Functional Status Medical History Reviewed Yes Communication WNL Mobility and Gait Ambulated Independently. Walks his dog. Does not use assistive device Activities of Daily Living and IADL's Independent with self care ADLs. Resides in an [facility]. Assist for meals/medication. Prior Functional Level (Other details) Pt and dtr report he was independent and active prior to patellar fx on 08/04/22. After this fracture he was using a FWW and knee immobilizer at his [facility]. He did sustain another fall on . Social History Household Members spouse Living Arrangements House Number of Floors (Floors) One Floor Number of Stairs To Enter/Railing? 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 Pt recently lost his spouse. M2 PT-IP Current Condition Start: 08/14/22 10:37 Freq: Status: Active Protocol: Document 08/14/22 10:38 BC (Rec: 08/14/22 10:56 [id number]) Physical Therapy Current Condition Current Condition Evaluation Date 08/14/22 Treatment Diagnosis L patellar fx s/p ORIF, Difficulty with ambulation Onset Date 08/13/22 M3 PT-IP Subjective Start: 08/14/22 10:37 Freq: Status: Active Protocol: Document 08/14/22 10:38 BC (Rec: 08/14/22 10:56 [id number]) Subjective Physical Therapy Visit Type Type Initial Evaluation Visit Start Time 09:00 Visit Stop Time 09:45 Total Visit Minutes 39 Physical Therapy Visit Comments Patient Comments Pt and dtr reporting concerns about pain medication mgmt and overall care provided during scene shifter. They wish to speak with charge nurse. Patient Goals To determine safest discharge plan Therapy Pain Assessment Pain When Pain Assessed During Mobility Pain Present Pain Present Pain Reported Location Left Hip Intensity 6 Scale Used Numeric (0 - 10) Description Sharp Pain Behaviors Facial Grimacing Pain Management Techniques Re-positioning M4 PT-IP Mobility and Gait Start: 08/14/22 10:37 Freq: Status: Active Protocol: Document 08/14/22 10:38 BC (Rec: 08/14/22 10:56 [id number]) PT-Bed Mobility Assessment Supine to Sit Supine to Sit Minimal Assistance Sit to Supine Sit to Supine Minimal Assistance Scooting Scooting to Edge of Bed Standby Assistance Scooting Up and Down in Bed Standby Assistance PT-Transfer Assessment Sit to and From Stand Sit to and from Stand Contact Guard Assistance Equipment Transfer Assistive Device Gait Belt,Standard Walker Transfers Transfer Destination Bed Transfer Technique Stand Pivot Transfer Ability Level of Assist Contact Guard Assistance Comments Mobility Comments Pt receptive to demonstration and education on NWB transfers . He completed sit<>stand and stand pivot with 1 episode of touch down on LLE which he immediately corrected. CGA for balance and safety. Cues for proper walker distance. Gait Assessment Gait Gait Assistance Required: Minimum Assistance Distance (Feet) 10 Able to Maintain Weight Bearing Status Yes During Gait Assistive Devices Assistive Device Gait Belt,Standard Walker Orthotic/Prosthetic Devices or Brace: Yes Gait Deviations General Gait Pattern Decreased Stride Length,Flexed Trunk Factors Limiting Gait Function Factors Limiting Gait Function Decreased Strength,Limited Range of Motion,Pain,Poor Balance Comments Gait Comments Swing to gait pattern with cues for smaller steps due to pushing too far forward on standard walker. Use of standard walker vs FWW due to Pt falling with FWW several days ago (pre-surgery) and now with NWB feeling more secure with walker without wheels. Gait is slow and labored while maintaining NWB. One near LOB needing min A to prevent fall . Pt maintained NWB. Stair Climbing Assessment Comments Stair Climbing Comments Not required PT-Balance Assessment Sitting Balance and Reactions Static Sitting Balance Ability Normal Dynamic Sitting Balance Ability Normal Standing Balance and Reactions Static Standing Balance Ability Fair Dynamic Standing Balance Ability Poor Device Used Standard Walker M5 PT-IP Objective Assessments Start: 08/14/22 10:37 Freq: Status: Active Protocol: Document 08/14/22 10:38 (Rec: 08/14/22 10:56 [id number]) Orientation Orientation/Cognition Level of Alertness Alert Orientation Name,Date,Place,Situation Language Function Ability No Deficits Noted Safety Awareness Understands Safety Issues Memory Description No Deficits Noted Gross Range of Motion Upper Extremity ROM Assessment Within Functional Limits Lower Extremity ROM Assessment Left Impaired Impairments L knee in immobilizer. All other joints on LLE appear WFL during mobility assessment. Strength Upper Extremity Strength Assessment Within Functional Limits Lower Extremity Strength Assessment Within Functional Limits Comments Strength Comments Hx of R shoulder pain that was exacerbated with this recent fall on 08/04/22. Imaging in ED completed and no acute processes. Pt states the pain has subsided and he is back to his baseline. Coordination Assessment Gross Coordination Gross Coordination WNL M6 PT-IP Treatment Start: 08/14/22 10:37 Freq: Status: Active Protocol: Document 08/14/22 10:38 BC (Rec: 08/14/22 10:56 [id number]) Physical Therapy Treatment Education Education Provided Precautions,Weight Bearing Status,Safety M7 PT-IP Assessment and Plan Start: 08/14/22 10:37 Freq: Status: Active Protocol: Document 08/14/22 10:38 BC (Rec: 08/14/22 10:56 [id number]) PT Summary Assessment and Plan Potential Rehabilitation Potential Excellent Status of Condition at Evaluation Stable Summary Impairments Pain,ROM,Strength,Balance,Bed Mobility,Transfers,Gait, Activity Tolerance Progress Towards Goals Progressing Toward Goals Assessment Summary Pt admitted following surgery for LLE patellar fx that occurred on 08/04/22. Pt is s/p ORIF and is to be NWB for 2 weeks on LLE. He went home from ED following initial fx with knee immobilizer and a FWW. Surgery was performed later due to anticoagulation treatment. During his time back at his [facility] apartment his dtr reports he did sustain another fall. Pt's PLOF is typically fully indpenedent with ADLs, self cath, gait and caring for his dog. CLOF: Pt is requiring min to CGA for bed mobility, sit to stand transfer and ambulation of ~10 '. He was unable to walk further due to fatigue reported in BUEs and increasing LLE pain. He is requiring additional assistance for basic mobility. He has multiple fall risk factors. Recommending SNF for daily therapy to progress independence with transfers, ambulation, don/doff knee immobilizer, and self care ADLs. Goals Bed Mobility Goal Independent Transfer Goal Standby Assistance Gait Goal Standby Assistance Gait Distance 30 Other Goals Pt will don/doff knee immobilizer with min A and ability to verbalize directions to caregivers at [facility]. Days to Meet Goals 4 Frequency of Treatment Frequency Of Treatment Once a Day Treatment Plan Physical Therapy Treatment Plan Bed Mobility Training,Transfer Training,Gait Training, Therapeutic Exercise,Balance Retraining,Post Op Education, Neuromuscular Re-ed Precautions Brace LLE knee immobilizer Weight Bearing Status Weight Bearing Status Non-Weight Bearing Recommendations To Nursing Amount of Assist Needed 1 Person Assist Discharge Recommendations PT Discharge Recommendations SNF Rehab Transportation Needs at Discharge Wheelchair/Cabulance
--- NOTE | 2022-08-14 11:57 | PT.IIE ---
Current Diagnoses Unilateral primary osteoarthritis, left hip (08/13/22) Surgery Performed Operation Date: 08/13/22 11:15 Actual Procedures p Total Hip Arthroplasty(Left) - Marli Trevizo MD Surgical History (Last Reviewed 08/14/22 @ 10:51 by Chiquita Humphries PA-C) H/O brain surgery H/O prostate biopsy H/O shoulder surgery History of bilateral carpal tunnel release History of lumbar fusion History of surgery History of total right hip replacement (02/10/22) Hx of brain surgery (2011) Hx of elbow surgery (2004) Hx of foot surgery Hx of foot surgery Hx of prostatectomy (~12/25/21) Medical History (Last Reviewed 08/14/22 @ 10:51 by Chiquita Humphries PA-C) Anxiety BCC (basal cell carcinoma) (2020) BPH (benign prostatic hyperplasia) Brain tumor Depression GERD (gastroesophageal reflux disease) Hearing impaired DIONI on CPAP Osteoarthritis Post traumatic stress disorder (PTSD) Prostate cancer Physical Therapy Inpatient Evaluation/Re-Eval M1 PT/OT-IP Prior Functional Status Start: 08/14/22 10:37 Freq: Status: Active Protocol: Document 08/14/22 11:47 BC (Rec: 08/14/22 11:57 BC [id number]) Medical Review Prior Functional Status Medical History Reviewed Yes Communication WNL Mobility and Gait Ambulated Independently. Does not use assistive device Activities of Daily Living and IADL's Independent with self care ADLs. Prior Functional Level (Other details) Enjoys carving wood canes to donate to [place]. Social History Household Members spouse Living Arrangements House Number of Floors (Floors) One Floor Number of Stairs To Enter/Railing? 3 steps to enter with bilateral railing Home Environment High Toilet,Walk in Shower Home Equipment Front Wheel Walker,Grab Bars Near Toilet,Grab Bars In Shower Employment Status Retired Additional Social History Comment Lives with spouse. Has 2 dogs. M2 PT-IP Current Condition Start: 08/14/22 10:37 Freq: Status: Active Protocol: Document 08/14/22 11:47 BC (Rec: 08/14/22 11:57 BC [id number]) Physical Therapy Current Condition Current Condition Evaluation Date 08/14/22 Treatment Diagnosis L SHAQUILLE; difficulty with ambulation Onset Date 08/13/22 M3 PT-IP Subjective Start: 08/14/22 10:37 Freq: Status: Active Protocol: Document 08/14/22 11:47 BC (Rec: 08/14/22 11:57 BC [id number]) Subjective Physical Therapy Visit Type Type Initial Evaluation Visit Start Time 09:50 Visit Stop Time 10:30 Total Visit Minutes 400 Physical Therapy Visit Comments Patient Comments Pt eager to discharge home. States he had his R hip completed a few months ago. Patient Goals Discharge home today. Therapy Pain Assessment Pain When Pain Assessed During Mobility Location Left Hip Intensity 3 Description Acute M4 PT-IP Mobility and Gait Start: 08/14/22 10:37 Freq: Status: Active Protocol: Document 08/14/22 11:47 BC (Rec: 08/14/22 11:57 BC [id number]) PT-Bed Mobility Assessment Supine to Sit Supine to Sit Independent Sit to Supine Sit to Supine Independent Scooting Scooting to Edge of Bed Independent Scooting Up and Down in Bed Independent PT-Transfer Assessment Sit to and From Stand Sit to and from Stand Independent Equipment Transfer Assistive Device Gait Belt,Front Wheeled Walker Transfers Transfer Destination Bed,Chair Transfer Technique Stand Pivot Transfer Ability Level of Assist Independent Comments Mobility Comments Use of FWW for all transfers. Pt compliant with posterior THPs during transfers. Gait Assessment Gait Gait Assistance Required: Independent Distance (Feet) 250 Assistive Devices Assistive Device Gait Belt,Front Wheeled Walker Gait Deviations General Gait Pattern Antalgic,Decreased Stride Length Factors Limiting Gait Function Factors Limiting Gait Function Limited Range of Motion,Pain Comments Gait Comments Initially with a slightly antalgic gait but after ~50' his gait was equal stride and weight bearing. Stair Climbing Assessment Evaluation Level of Assist On Stairs Standby Assistance Devices Stair Climbing Assistive Devices Left Railing,Right Railing Technique/Endurance Stair Climbing Direction Ascend and Descend Stair Climbing Technique Step to Step Number of Steps Climbed 3 Query Text: Comments Stair Climbing Comments Pt verbally recalled proper technique before he completed steps. SBA just for safety. No overt LOB or difficulty PT-Balance Assessment Sitting Balance and Reactions Static Sitting Balance Ability Normal Dynamic Sitting Balance Ability Normal Standing Balance and Reactions Static Standing Balance Ability Good Dynamic Standing Balance Ability Good Device Used FWW M5 PT-IP Objective Assessments Start: 08/14/22 10:37 Freq: Status: Active Protocol: Document 08/14/22 11:47 BC (Rec: 08/14/22 11:57 [id number]) Orientation Orientation/Cognition Level of Alertness Alert Orientation Name,Date,Place,Situation Language Function Ability No Deficits Noted Safety Awareness Understands Safety Issues Gross Range of Motion Upper Extremity ROM Assessment Within Functional Limits Lower Extremity ROM Assessment Right Impaired Impairments R THPs Strength Upper Extremity Strength Assessment Within Functional Limits Lower Extremity Strength Assessment Right Impaired Hip grossly 3+ due to hip precautions and pain Knee 5/5 Ankle 5/5 Coordination Assessment Gross Coordination Gross Coordination WNL Sensation Assessment Sensation Gross Sensation Right LE Impaired Light Touch Impaired Comments Sensation Comments Reduced sensation R great toe. Muscle Tone Muscle Tone WNL Yes M6 PT-IP Treatment Start: 08/14/22 10:37 Freq: Status: Active Protocol: Document 08/14/22 11:47 BC (Rec: 08/14/22 11:57 [id number]) Physical Therapy Treatment Exercises Exercises Ankle Pumps,Gluteal Sets,Quad Sets Education Education Provided Weight Bearing Status,Post-Op Packet,Safety M7 PT-IP Assessment and Plan Start: 08/14/22 10:37 Freq: Status: Active Protocol: Document 08/14/22 11:47 BC (Rec: 08/14/22 11:57 [id number]) PT Summary Assessment and Plan Potential Rehabilitation Potential Excellent Status of Condition at Evaluation Stable Summary Impairments Sensation Progress Towards Goals Safe For Discharge,Goals Met Assessment Summary Pt admitted for R posterior SHAQUILLE due to OA. He recently underwent L SHAQUILLE several months ago. Pt has all needed DME still from his first SHAQUILLE. Both surgeries were posterior approach. Prior to PT education packet he was able to recall hip precautions and stair mgmt. Pt's BP seated 111 /74 and standing (after gait) 124/75. Pt was able to demonstrate modif Ind level of mobility and transfers with FWW. He was able to safely navigate 3 steps to enter his home. He is transferring with adequate awareness of THPs from various height surfaces. Recommend d/c home when medically appropriate. No further skilled PT needs. Frequency of Treatment Frequency Of Treatment Discharge Precautions Posterior Hip Precautions No Hip Flexion > 90 degrees,No Hip Internal Rotation,No Hip Adduction Weight Bearing Status Weight Bearing Status Weight Bear as Tolerated Recommendations To Nursing Amount of Assist Needed Independent,Standby Assistance Discharge Recommendations PT Discharge Recommendations Home Transportation Needs at Discharge Private Vehicle
[2022-08-14] MEDS: GABAPENTIN 300 MG CAPSULE PO (12:04)
--- NOTE | 2022-08-14 12:26 | PC.NURSE ---
Pt is A&OX3, VSS, afebrile on RA. He tolerates breakfast well and denies n/v. IVF saline locked, and he is able to participate with therapy. Aquacmaru to L hip c/d/i. He verbalizes pain controlled with prn oxycodone po and dilaudid this a.m. as well as scheduled tylenol and ibuprofen. He is cleared for discharge home this a.m. after therapy. He verbalizes understanding of hip precautions, site care, s/sx of complications and actions, as well as medications and follow up appointment. MD Trevizo confirmed baby aspirin BID upon discharge today. Clarified to take naproxen or ibuprofen and not both. He is escorted via w/ch to private vehicle at entrance by PACKAGING MACHINE OPERATOR with all belongings at approximately 12:20 pm.
== END 2022-08-14 12:20 | disposition home or self-care (01) ==
LOC: OR 09:09 → AC 09:09
PROVIDERS: Anesthesiology; PCP Nurse Practitioner; Referring Provider Orthopaedic Surgery; Visit Provider Orthopaedic Surgery
PROC: 0SRB0JZ Replacement of Left Hip Joint with Synthetic Substitute, Open Approach (ICD-10-PCS; CPT 27130; principal; 2022-08-13 11:15)
DX: M16.12 Unilateral primary osteoarthritis, left hip (principal); Z20.822 Contact with and (suspected) exposure to COVID-19
CPT/HCPCS: 27130; 36415; 72170; 73502; 85014; 85018; 87635; 97161; 97162; 97530; C1776; C9803; C9290; J0171; J0690; J1100; J1170; J2250; J2405; J2704; J3010

== ENCOUNTER 2022-08-30 22:32 | Inpatient (IN) | payer OTHER, SELFPAY ==
[2022-08-13 14:35] VITALS: BMI 33.2
--- NOTE | 2022-08-30 22:59 | DI.RAD.S_ITS ---
PROCEDURE: XR CHEST 1V INDICATIONS: chest pain TECHNIQUE: One view of the chest was acquired. COMPARISON: [facility], CR, XR CHEST 1V, 02/16/2022, 14:09. [facility], CR, XR CHEST 1V, 04/25/2021, 14:11. FINDINGS: Surgical changes and devices: None. Lungs and pleura: Lungs are clear. No pleural effusions or pneumothorax. Mediastinum: Mediastinal contours appear normal. Heart size is normal. Bones and chest wall: No suspicious bony lesions. Overlying soft tissues appear unremarkable. IMPRESSION: Reduced inspiratory volume bilaterally, mild left lung base atelectasis or mild pneumonia just above the diaphragm. Dictated by: Abdirizak St M.D. on 08/30/2022 at 23:35 Approved by: Abdirizak St M.D. on 08/30/2022 at 23:36
[2022-08-30 23:10] VITALS: PULSE 104; O2SAT 100
[2022-08-30 23:13] VITALS: BP 111/56; PULSE 109; RESP 12; O2SAT 99
[2022-08-30 23:18] VITALS: BP 95/47; PULSE 123; RESP 27; TEMP 36.2; O2SAT 97; BMI 32.5
[2022-08-30 23:25] LABS: INR 1.1 (0.9-1.3); Prothrombin Time 12.8 SECONDS (10.1-12.7)
[2022-08-30] MEDS: fentaNYL 100 MCG/2 ML INJ 50 MCG IV (23:25)
[2022-08-30 23:27] LABS: PTT Partial Thromboplastin Tim 30 SECONDS (26-36)
[2022-08-30 23:28] LABS: Add Manual Diff / Slide Review NO; Basophils Absolute Auto 100 /uL (0-100); Basophils Percent Auto 0.6 % (0-2); Eosinophils Absolute Auto 100 /uL (0-450); Eosinophils Percent Auto 1.5 % (2-4); Hematocrit 37.3 % (41-53); Hemoglobin 12.5 g/dL (13.5-17.5); Lymphocytes Absolute Auto 1300 /uL (1100-4500); Lymphocytes Percent Auto 13.3 % (25-40); Mean Corpuscular HGB Conc 33.5 % (30-36); Mean Corpuscular Hemoglobin 29.2 PG (26-34); Monocytes Absolute Auto 400 /uL (0-900); Monocytes Percent Auto 4.2 % (3-14); Neutrophils Absolute Auto 8000 /uL (1500-7000); Neutrophils Percent Auto 80.4 % (50-75); Platelet Count 373 X10^3/uL (150-400); Red Blood Cell Count 4.29 X10^6/uL (4.5-5.9); Red Cell Distribution Width 15.6 % (11.6-14.8)
[2022-08-30 23:29] LABS: Alanine Aminotransferase 23 IU/L (<50); Albumin 4.5 g/dL (3.5-5.0); Albumin Globulin Ratio 1.1 (1.0-2.8); Alkaline Phosphatase 160 U/L (38-126); Aspartate Aminotransferase 24 IU/L (17-59); BUN Creatinine Ratio 11.5 (6-22); Bilirubin Total 0.6 mg/dL (0.2-1.3); Blood Urea Nitrogen 18 mg/dL (9-20); Calcium 9.5 mg/dL (8.4-10.2); Carbon Dioxide 20 mmol/L (22-32); Chloride 105 mmol/L (98-107); Creatine Kinase 72 U/L (55-170); Estimated Glomerular Filt Rate 47 mL/min (>60); Glucose 120 mg/dL (80-110); HEMOLYSIS < 15 (0-50); Lipase 80 U/L (23-300); Magnesium 1.9 mg/dL (1.6-2.3); Sodium 142 mmol/L (137-145); Total Protein 8.5 g/dL (6.3-8.2)
[2022-08-30 23:30] VITALS: BP 116/60; PULSE 100; RESP 39; O2SAT 99
--- NOTE | 2022-08-30 23:33 | DI.CT.S_ITS ---
PROCEDURE: CT ANGIO CHEST ABDOMEN PELVIS INDICATIONS: pe vs dissection, chest/abd pain, hx hip repalcement TECHNIQUE: Precontrast 5 mm thick sections acquired from the lung apices to the iliac crests. After the administration of intravenous contrast, 2.5 mm thick sections again acquired from the lung apices to the iliac crests. Maximum intensity projection (MIP) oblique sagittal and coronal reformats were then acquired. For radiation dose reduction, the following was used: automated exposure control. COMPARISON: [facility], CR, XR CHEST 1V, 08/30/2022, 23:04. FINDINGS: Image quality: Excellent. AORTA: Intramural hematoma: Absent Maximum hematoma thickness: Not applicable Focal contrast enhancement: Intramural blood pool (< 2 mm neck or imperceptible communication with aortic lumen): Absent . Ulcer-like projection (broad communication with aortic lumen > 3 mm): Absent . Dissection: Absent [place] classification: Not applicable Maximum aortic diameter: The aortic caliber is normal throughout, without evidence of aneurysm. Periaortic hematoma: Absent . CHEST: Lungs and pleura: No acute airspace opacities. No pleural effusions or pneumothorax. Central and peripheral airways are patent and normal in caliber. Mediastinum: Heart size is normal. No pericardial effusion. No mediastinal or hilar adenopathy by size criteria. Central pulmonary arteries are normal in size. Esophagus is normal in caliber. No hiatal hernias. Bones and chest wall: No axillary adenopathy by size criteria. Thyroid gland appears normal where well seen . No suspicious bony lesions. No vertebral body compression fractures. ABDOMEN: Vasculature: Celiac trunk and mesenteric arteries are patent. Renal arteries are also patent. Solid organs: Liver is normal in size and enhancement. Gallbladder normal . Biliary system is non dilated. Pancreas enhances normally. Spleen is normal in size and enhancement. No adrenal nodules. Both kidneys are normal in size and enhancement, without hydronephrosis. Peritoneum and bowel: No free fluid or air. Bowel loops are normal in caliber and wall thickness. Nodes and vessels: No retroperitoneal or mesenteric adenopathy by size criteria. Inferior vena cava is normal in morphology. Miscellaneous: No ventral hernias. PELVIS: Genitourinary: Bladder wall thickness is normal. Miscellaneous: No inguinal hernias or adenopathy. No ventral hernias. Bones: No suspicious bony lesions. No vertebral body compression fractures. IMPRESSION: No sign of aneurysm or dissection. Source of current symptoms is not found. No acute disease. Dictated by: Abdirizak St M.D. on 08/31/2022 at 0:23 Approved by: Abdirizak St M.D. on 08/31/2022 at 0:26
--- NOTE | 2022-08-30 23:34 | ED_ITS ---
HPI - SOB/Dyspnea General Chief Complaint: Shortness of Breath/Dyspnea Stated Complaint: trouble breathing Time Seen by Provider: 08/30/22 23:22 Source: patient and family Mode of arrival: Wheelchair Limitations: no limitations History of Present Illness HPI Narrative: This is a 71-year-old male who comes with complaint of gradual onset and increasing chest pain and shortness of breath today he describes it as [place]amilla bsternal, epigastric upper abdomen. Been increasing he has been coming increasingly short of breath feels lightheaded feel like he might pass out. No fevers. He is had nausea no vomiting. No radiation to his back. Pain does not radiate down towards his legs. Patient has not had any constipation. He is had some loose stools today but no black or bloody stools. No urinary changes. He states that his left leg has felt a little bit more swollen today. Patient had a left hip surgery on August 12, patient did have an episode of acute hypoxic respiratory failure thought to be secondary for atelectasis and opiate use in February of 2022. Patient takes medication for PTSD, GERD, and mood. Patient does not have any history of hypertension, dyslipidemia, cholesterol, no prior MIs or strokes. No chronic kidney disease. He had prostate removed for prostate cancer remotely. He would left hip surgery a month ago. No tobacco, no alcohol, no illicit. No known drug allergies. Dr. Marli Trevizo performed his hip surgery. Patient did have annual [address] angio 02/16/2022. Related Data Home Medications Medication Instructions Recorded Confirmed gabapentin 300 mg capsule 300 mg PO SEEINSTR ##0 06/10/17 08/13/22 (Neurontin) omeprazole 20 mg capsule,delayed 20 mg PO QDAY ##0 06/10/17 08/13/22 release prazosin 2 mg capsule (Minipress) See Rx Instructions .Route 06/10/17 08/13/22 .COMPLEX ##0 aripiprazole 5 mg tablet 10 mg PO DAILY 04/25/21 08/13/22 cholecalciferol (vitamin D3) 25 25 mcg PO DAILY 04/25/21 08/13/22 mcg (1,000 unit) tablet (Vitamin D3) fluoxetine 40 mg capsule 40 mg PO DAILY 04/25/21 08/13/22 acetaminophen 325 mg tablet 650 mg PO Q6HR PRN Pain 08/04/22 08/13/22 ibuprofen 400 mg tablet 400 mg PO Q6HR PRN Pain 08/04/22 08/13/22 naproxen sodium 220 mg tablet 440 mg PO BID PRN Pain 08/04/22 08/13/22 Previous Rx's Medication Instructions Recorded oxycodone 5 mg tablet 5 mg PO Q4-6H PRN Pain, Moderate 08/14/22 (4-6) #40 tabs Allergies Allergy/AdvReac Type Severity Reaction Status Date / Time No Known Drug Allergies Allergy Verified 02/10/22 07:15 Review of Systems Review of Systems ROS Unobtainable: All systems reviewed & are unremarkable except as noted in HPI and below Patient History Medical History Anxiety BCC (basal cell carcinoma) (2020) BPH (benign prostatic hyperplasia) Brain tumor Depression GERD (gastroesophageal reflux disease) Hearing impaired DIONI on CPAP Osteoarthritis Post traumatic stress disorder (PTSD) Prostate cancer Surgical History H/O brain surgery H/O prostate biopsy H/O shoulder surgery History of bilateral carpal tunnel release History of lumbar fusion History of surgery History of total right hip replacement (02/10/22) Hx of brain surgery (2011) Hx of elbow surgery (2004) Hx of foot surgery Hx of foot surgery Hx of prostatectomy (~12/25/21) Family History Mother Pancreatic cancer Father No pertinent past medical history Social History household members: spouse Smoking Status: Former smoker alcohol intake: former Smoking Status: Former smoker alcohol intake frequency: holidays/special occasions only Substance Use Type: marijuana Exam Narrative Exam Narrative: GENERAL: Alert and oriented x three, elderly male in moderate distress. Patient appears quite uncomfortable HEENT: Head normocephalic, atraumatic, EOMI, pupils reactive, face symmetric, moist mucous membranes NECK: Supple, full range of motion CARDIOVASCULAR: Tachycardic Regular rate and rhythm without murmurs, rubs or gallops. Mild JVD. No swelling bilateral lower extremities. Not significantly left compared to right on exam. Pulses present bilaterally. RESPIRATORY: Breath sounds equal bilaterally, no wheezes rales or rhonchi. Positive tachypnea. No accessory muscle use. ABDOMEN: Soft, nontender. Normoactive bowel sounds all 4 quadrants. No guarding or rebound, rigidity, no mass, no bruit or pulsatile mass : No CVA tenderness EXTREMITIES: Normal range of motion, no clubbing or edema. Neurovascularly intact NEUROLOGICAL: Cranial nerves II through XII grossly intact. Moving all extremities SKIN: Warm, dry, no petechiae, no rashes or lesions. Initial Vital Signs Initial Vital Signs: Vital Signs Pulse Rate 104 H 08/30/22 23:10 Pulse Oximetry 100 08/30/22 23:10 Course Orders Ordered: ED Orders 08/31/22 01:00 Procalcitonin Stat Trop I [Troponin I] Stat 08/31/22 03:11 Education, smoking cessation ONGOING 08/31/22 03:25 Lactate (Lactic Acid) Stat 08/31/22 03:30 Blood Culture Stat 08/31/22 11:30 Partial Thromboplastin Time Q6H 08/31/22 17:30 Partial Thromboplastin Time Q6H Acetaminophen (Acetaminophen 325 Mg Tablet) 650 mg PO Q6H PRN PRN Reason: Fever/Mild Pain (1-3) Last Admin: 08/31/22 08:45 Dose: 650 mg Documented By: ROSINA Aripiprazole (Aripiprazole 10 Mg Tablet) 10 mg PO DAILY [facility] Last Admin: 08/31/22 08:29 Dose: 10 mg Documented By: ROSINA Aspirin (Aspirin Ec 81 Mg Tablet) 81 mg PO DAILY [facility] Last Admin: 08/31/22 08:29 Dose: 81 mg Documented By: ROSINA Fentanyl (Fentanyl 100 Mcg/2 Ml Inj) 50 mcg IV Q1H PRN PRN Reason: Pain, Severe (7-10) Last Admin: 08/31/22 03:30 Dose: 50 mcg Documented By: Admin: 08/31/22 00:22 Dose: 50 mcg Documented By: MINA Fluoxetine HCl (Fluoxetine 20 Mg Capsule) 40 mg PO DAILY [facility] Last Admin: 08/31/22 08:29 Dose: 40 mg Documented By: ROSINA Heparin Sodium (Porcine) (Heparin 5,000 Unit/Ml Vial) 5,000 unit SUBCUT BID [facility] Last Admin: 08/31/22 08:29 Dose: 5,000 unit Documented By: ROSINA Hydromorphone HCl (Hydromorphone 0.5 Mg Inj) 0.5 mg IV Q2H PRN PRN Reason: Pain, Moderate (4-6) Last Admin: 08/31/22 06:50 Dose: 0.5 mg Documented By: Admin: 08/31/22 05:16 Dose: 0.5 mg Documented By: AM Hydromorphone HCl (Hydromorphone 1 Mg Inj) 1 mg IV Q3H PRN PRN Reason: Pain, Severe (7-10) Sodium Chloride (Normal Saline 0.9%) 1,000 mls @ 100 mls/hr IV CONT [facility] Last Admin: 08/31/22 05:20 Dose: 100 mls/hr Documented By: AM Doxycycline Hyclate 100 mg/ (Sodium Chloride) 100 mls @ 100 mls/hr IV Q12H [facility] Last Admin: 08/31/22 06:13 Dose: 100 mls/hr Documented By: AM Morphine Sulfate (Morphine 2 Mg/Ml Inj) 2 mg IV Q5MIN PRN PRN Reason: Chest Pain Last Admin: 08/31/22 03:10 Dose: 2 mg Documented By: BS Naloxone HCl (Naloxone 0.4 Mg/Ml Vial) 0.2 mg IV Q2MIN PRN PRN Reason: Opiate Reversal Nitroglycerin (Nitroglycerin 0.4 Mg Sl Tab) 0.4 mg SL [id number] PRN PRN Reason: Chest Pain Ondansetron HCl (Ondansetron 4 Mg/2 Ml Inj) 4 mg IV Q6HR PRN PRN Reason: Nausea And Vomiting Prazosin HCl (Prazosin 1 Mg Capsule) 1 mg PO DAILY [facility] Last Admin: 08/31/22 08:29 Dose: 1 mg Documented By: CLL Prazosin HCl (Prazosin 1 Mg Capsule) 2 mg PO BEDTIME [facility] Discontinued Medications Aspirin (Aspirin 81 Mg Chew Tab) 324 mg PO NOW ONE Stop: 08/30/22 23:00 Last Admin: 08/30/22 23:54 Dose: 324 mg Documented By: MADELINE Fentanyl (Fentanyl 100 Mcg/2 Ml Inj) 50 mcg IV NOW ONE Stop: 08/30/22 23:25 Last Admin: 08/30/22 23:25 Dose: 50 mcg Documented By: BS Heparin Sodium (Porcine) (Heparin 5,000 Unit/Ml Vial) 7,500 unit IV NOW ONE Stop: 08/30/22 23:29 Last Admin: 08/30/22 23:44 Dose: 7,500 unit Documented By: MADELINE Hydromorphone HCl (Hydromorphone 0.5 Mg Inj) 0.5 mg IV Q4H PRN PRN Reason: Pain, Severe (7-10) Hydromorphone HCl (Hydromorphone 1 Mg Inj) 1 mg IV Q4H PRN PRN Reason: Breakthrough Pain Heparin Sodium/Dextrose (Heparin Drip) 25,000 unit in 500 mls @ 20 mls/hr IV CONT SIMI; Protocol Last Titration: 08/31/22 00:31 Dose: 1,000 units/hr, 20 mls/hr Documented By: Titration: 08/31/22 00:28 Dose: 0 units/hr, 0 mls/hr Documented By: Admin: 08/30/22 23:45 Dose: 1,000 units/hr, 20 mls/hr Documented By: MADELINE Sodium Chloride (Normal Saline 0.9%) 1,000 mls @ 150 mls/hr IV CONT SIMI Last Admin: 08/31/22 06:18 Dose: Not Given Documented By: AM Sodium Chloride (Normal Saline 0.9%) 1,000 mls @ 100 mls/hr IV CONT SIMI Last Admin: 08/31/22 06:22 Dose: Not Given Documented By: AM Morphine Sulfate (Morphine 4 Mg/Ml Inj) 4 mg IV NOW ONE Stop: 08/31/22 00:27 Last Admin: 08/31/22 00:33 Dose: 4 mg Documented By: MINA Ondansetron HCl (Ondansetron 4 Mg/2 Ml Inj) 4 mg IV NOW ONE Stop: 08/30/22 23:29 Last Admin: 08/30/22 23:50 Dose: 4 mg Documented By: MADELINE Vital Signs Vital signs: Vital Signs - 8 hr 08/31/22 01:15 08/31/22 01:15 08/31/22 01:30 Pulse Rate 104 H Respiratory Rate 22 Blood Pressure 130/80 141/85 H Pulse Oximetry 95 08/31/22 01:30 08/31/22 01:46 08/31/22 01:46 Pulse Rate 109 H 109 H Respiratory Rate 14 15 Blood Pressure 175/86 H Pulse Oximetry 95 94 08/31/22 02:00 08/31/22 02:00 08/31/22 02:15 Pulse Rate 128 H 109 H Respiratory Rate 25 H 20 Blood Pressure 143/70 H Pulse Oximetry 94 97 08/31/22 02:15 08/31/22 02:30 08/31/22 02:30 Pulse Rate 116 H Respiratory Rate Blood Pressure 143/65 H 135/71 Pulse Oximetry 96 08/31/22 02:45 08/31/22 02:45 08/31/22 03:00 Pulse Rate 107 H Respiratory Rate Blood Pressure 135/81 129/80 Pulse Oximetry 96 08/31/22 03:00 08/31/22 03:16 08/31/22 03:16 Pulse Rate 101 H 108 H Respiratory Rate 42 H Blood Pressure 128/86 Pulse Oximetry 96 99 MDM - SOB/Dyspnea Lab Data 08/30/22 23:02 08/30/22 23:02 Labs: Lab Results 08/30/22 08/30/22 08/30/22 Range/Units 23:02 23:02 23:02 WBC 10.0 (4.5-11.0) X10^3/uL RBC 4.29 L (4.5-5.9) X10^6/uL Hgb 12.5 L (13.5-17.5) g/dL Hct 37.3 L (41-53) % MCV 87.0 (80-100) fL MCH 29.2 (26-34) PG MCHC 33.5 (30-36) % RDW 15.6 H (11.6-14.8) % Plt Count 373 (150-400) X10^3/uL Neut % (Auto) 80.4 H (50-75) % Lymph % (Auto) 13.3 L (25-40) % [place] % (Auto) 4.2 (3-14) % Eos % (Auto) 1.5 L (2-4) % Baso % (Auto) 0.6 (0-2) % Neut # (Auto) 8000 H (1589-6167) /uL Lymph # (Auto) 1300 (4056-6679) /uL [place] # (Auto) 400 (0-900) /uL Eos # (Auto) 100 (0-450) /uL Baso # (Auto) 100 (0-100) /uL PT 12.8 H (10.1-12.7) SECONDS INR 1.1 (0.9-1.3) APTT 30 (26-36) SECONDS Sodium 142 (137-145) mmol/L Potassium 4.0 (3.4-5.1) mmol/L Chloride 105 (98-107) mmol/L Carbon Dioxide 20 L (22-32) mmol/L BUN 18 (9-20) mg/dL Creatinine 1.57 H (0.66-1.25) mg/dL Estimated GFR 47 L (>60) mL/min BUN/Creatinine Ratio 11.5 (6-22) Glucose 120 H (80-110) mg/dL Calcium 9.5 (8.4-10.2) mg/dL Magnesium 1.9 (1.6-2.3) mg/dL Total Bilirubin 0.6 (0.2-1.3) mg/dL AST 24 (17-59) IU/L ALT 23 (<50) IU/L Alkaline Phosphatase 160 H (38-126) U/L Total Creatine Kinase 72 (55-170) U/L CK-MB (CK-2) TNP CK-MB (CK-2) Rel Index TNP Troponin I < 0.012 (0.01-0.034) ng/mL NT-Pro-B Natriuret Pep (<125) pg/mL Total Protein 8.5 H (6.3-8.2) g/dL Albumin 4.5 (3.5-5.0) g/dL Globulin 4.0 (1.7-4.1) g/dL Albumin/Globulin Ratio 1.1 (1.0-2.8) Lipase 80 (23-300) U/L Procalcitonin (<0.5) ng/mL SARS-CoV-2 (PCR) (Negative) 08/30/22 08/30/22 08/31/22 Range/Units 23:02 23:02 01:00 WBC (4.5-11.0) X10^3/uL RBC (4.5-5.9) X10^6/uL Hgb (13.5-17.5) g/dL Hct (41-53) % MCV (80-100) fL MCH (26-34) PG MCHC (30-36) % RDW (11.6-14.8) % Plt Count (150-400) X10^3/uL Neut % (Auto) (50-75) % Lymph % (Auto) (25-40) % [place] % (Auto) (3-14) % Eos % (Auto) (2-4) % Baso % (Auto) (0-2) % Neut # (Auto) (4539-5109) /uL Lymph # (Auto) (8789-7952) /uL [place] # (Auto) (0-900) /uL Eos # (Auto) (0-450) /uL Baso # (Auto) (0-100) /uL PT (10.1-12.7) SECONDS INR (0.9-1.3) APTT (26-36) SECONDS Sodium (137-145) mmol/L Potassium (3.4-5.1) mmol/L Chloride (98-107) mmol/L Carbon Dioxide (22-32) mmol/L BUN (9-20) mg/dL Creatinine (0.66-1.25) mg/dL Estimated GFR (>60) mL/min BUN/Creatinine Ratio (6-22) Glucose (80-110) mg/dL Calcium (8.4-10.2) mg/dL Magnesium (1.6-2.3) mg/dL Total Bilirubin (0.2-1.3) mg/dL AST (17-59) IU/L ALT (<50) IU/L Alkaline Phosphatase (38-126) U/L Total Creatine Kinase (55-170) U/L CK-MB (CK-2) CK-MB (CK-2) Rel Index Troponin I < 0.012 (0.01-0.034) ng/mL NT-Pro-B Natriuret Pep 77 (<125) pg/mL Total Protein (6.3-8.2) g/dL Albumin (3.5-5.0) g/dL Globulin (1.7-4.1) g/dL Albumin/Globulin Ratio (1.0-2.8) Lipase (23-300) U/L Procalcitonin (<0.5) ng/mL SARS-CoV-2 (PCR) Negative (Negative) 08/31/22 Range/Units 01:00 WBC (4.5-11.0) X10^3/uL RBC (4.5-5.9) X10^6/uL Hgb (13.5-17.5) g/dL Hct (41-53) % MCV (80-100) fL MCH (26-34) PG MCHC (30-36) % RDW (11.6-14.8) % Plt Count (150-400) X10^3/uL Neut % (Auto) (50-75) % Lymph % (Auto) (25-40) % [place] % (Auto) (3-14) % Eos % (Auto) (2-4) % Baso % (Auto) (0-2) % Neut # (Auto) (4152-1252) /uL Lymph # (Auto) (8485-4724) /uL [place] # (Auto) (0-900) /uL Eos # (Auto) (0-450) /uL Baso # (Auto) (0-100) /uL PT (10.1-12.7) SECONDS INR (0.9-1.3) APTT (26-36) SECONDS Sodium (137-145) mmol/L Potassium (3.4-5.1) mmol/L Chloride (98-107) mmol/L Carbon Dioxide (22-32) mmol/L BUN (9-20) mg/dL Creatinine (0.66-1.25) mg/dL Estimated GFR (>60) mL/min BUN/Creatinine Ratio (6-22) Glucose (80-110) mg/dL Calcium (8.4-10.2) mg/dL Magnesium (1.6-2.3) mg/dL Total Bilirubin (0.2-1.3) mg/dL AST (17-59) IU/L ALT (<50) IU/L Alkaline Phosphatase (38-126) U/L Total Creatine Kinase (55-170) U/L CK-MB (CK-2) CK-MB (CK-2) Rel Index Troponin I (0.01-0.034) ng/mL NT-Pro-B Natriuret Pep (<125) pg/mL Total Protein (6.3-8.2) g/dL Albumin (3.5-5.0) g/dL Globulin (1.7-4.1) g/dL Albumin/Globulin Ratio (1.0-2.8) Lipase (23-300) U/L Procalcitonin 0.06 (<0.5) ng/mL SARS-CoV-2 (PCR) (Negative) Imaging Data Chest x-ray: Radiologist's Impression: [address] [address] XRay Report Signed Patient: Gordon Ren MR#: [id number] : 1950 Acct:[id number] Age/Sex: 71 / M Date of Service: 08/30/22 Loc: ED Accession Number: [id number] ?? Procedure: XR chest 1V Ordering Provider: Bertha Richardson D.O. PROCEDURE:? XR CHEST 1V ? INDICATIONS:? chest pain ? TECHNIQUE:? One view of the chest was acquired.? ? COMPARISON:? [facility], CR, XR CHEST 1V, 02/16/2022, 14:09.? [facility], CR, XR CHEST 1V, 04/25/2021, 14:11. ? FINDINGS:? ? Surgical changes and devices:? None.? ? Lungs and pleura:? Lungs are clear.? No pleural effusions or pneumothorax.? ? Mediastinum:? Mediastinal contours appear normal.? Heart size is normal.? ? Bones and chest wall:? No suspicious bony lesions.? Overlying soft tissues appear unremarkable.? ? IMPRESSION:? Reduced inspiratory volume bilaterally, mild left lung base atelectasis or mild pneumonia just above the diaphragm. ? ? Dictated by: Abdirizak St M.D. on 08/30/2022 at 23:35 ? ? Approved by: Abdirizak St M.D. on 08/30/2022 at 23:36?? ECG Data Attestation: I personally reviewed and interpreted this ECG as follows: Prior ECG tracings: available for review Interpretation: Sinus tachycardia rate of 109 appears 172 QRS is 74 QTC of 471. No acute ST elevation noted. Patient has prior from 02/16/2022 does not appear sig nificantly changes in terms of STs EKG 2., sinus tachycardia 104 NM 184 QRS is 78 QTC [address]. No acute ST elevation or depression noted. Patient's EKG does appear similar to prior there is a little bit of motion artifact. I do not appreciate new ST elevation compared to prior today or 02/16/2022. No new depression. MDM Narrative Medical decision making narrative: 71-year-old male presents with complaint of chest pain/abdominal pain. Patient has had gradual onset today with increasing shortness of breath and dizziness. A month ago patient had hip surgery. He is not on any thinners. He is tachycardic was hypotensive initially on arrival has improved somewhat in terms of his pressure. He is quite uncomfortable in the room. Lungs are clear on examination, chest x-ray shows possible pneumonia. Concern for pulmonary emboli is high in my differential, no obvious STEMI, labs show baseline anemia that is stable. Creatinine is 1.57 bumped up from prior in February, CO2 is 20, electrolytes otherwise normal, troponins negative. BNP 77, initial troponin is negative. 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 So [address] dissection protocol was obtained as he complained of abdominal and chest pain. This is negative on read with no other clear cause of his pain today. I did speak with Dr. Kamara in the radiologist as they did not comment on pulmonary emboli. He states he did look for any pulmonary emboli he does not see any on the imaging he does not recommend sending patient back for CT angio PE protocol. Patient had several doses of pain medication in his much more comfortable he is still very slightly tachycardic. Heparin had been initiated as there was concern with his tachycardia, hypotension and recent hip surgery a month ago this is being held after initial imaging is negative. Repeat troponin showed is negative. No acute changes. Patient pain was improved after pain medications. Discussed with BETH Desai who accepts for observation for chest pain. Discharge Plan Departure Patient Disposition: Admitted As Inpatient Clinical Impression: Chest pain Admit Date/Time: 08/31/22 03:19 Admit Provider: Nika Desai
[2022-08-30 23:38] LABS: COVID19 -Nasal RAPID Negative (Negative)
[2022-08-30 23:40] LABS: Troponin I < 0.012 ng/mL (0.01-0.034)
[2022-08-30] MEDS: HEPARIN 5,000 UNIT/ML VIAL 7500 UNIT IV (23:44)
[2022-08-30] MEDS: HEPARIN DRIP 25,000 UNIT/500 ML IV.SOLN 20 UNIT IV (23:45)
[2022-08-30] MEDS: ONDANSETRON 4 MG/2 ML INJ IV (23:50)
[2022-08-30] MEDS: ASPIRIN 81 MG CHEW TAB 324 MG PO (23:54)
[2022-08-31] VITALS (22 sets, daily range): BP systolic 107–175; BP diastolic 61–87; PULSE 68–128; RESP 14–48; TEMP 36–36.9; O2SAT 94–100; BMI 32.5
--- NOTE | 2022-08-31 | DI.ECHO.S_ITS ---
[facility] +---------+ : : [address] : [address] : : : : [id number] : : : : Phone: [phone]+ Echocardiogram Report + + :Name: LYSSA HAIR Study Date: 08/31/2022 Height: 72 in : :[facility] ReadingLocation: Weight: 240 lb : : Gender: Male BSA: 2.3 m2 : :: 1950 Age: 71 yrs BP: 144/87 mmHg: :Reason For Study: CHEST PAIN : :Ordering Physician: Marisel SARAVIAformed By: Colleen Moreno : :Referring: LONNIE SARAVIA : + + Interpretation Summary 1) Normal left ventricular size, wall motion, and systolic function (EF 55- 60%). 2) Normal right ventricular size and function. 3) No significant valvular abnormalities. 4) The ascending aorta is mild-moderately enlarged at 4.4cm. 5) No prior Echo available for comparison. Procedure: A two-dimensional transthoracic echocardiogram with color flow and Doppler was performed. The study quality was technically adequate. There is no prior echocardiogram noted for this patient. The patient was in sinus rhythm with heart rates between 83-89 bpm during the exam. Left Ventricle: The left ventricle is normal in size. There is mild concentric left ventricular hypertrophy. The ejection fraction is estimated to be 55-60%. Left ventricular systolic function appears normal without focal wall motion abnormalities. Diastolic parameters suggest a relaxation abnormality of the left ventricle, consistent with probable normal filling pressures. Right Ventricle: The right ventricle is normal in size and function. Atria: The left atrial size is normal. Right atrial size is normal. There is no Doppler evidence for an interatrial shunt. Mitral Valve: The mitral valve leaflets are mildly calcified. There is mild mitral annular calcification. There is no mitral regurgitation noted. Aortic Valve: The aortic valve is trileaflet. The aortic valve opens well. The aortic valve is slightly calcified. There is no aortic valve stenosis. There is trace aortic regurgitation. Tricuspid Valve: The tricuspid valve is normal in structure and function. There is trace tricuspid regurgitation. Right ventricular systolic pressure is estimated to be 21 mmHg plus the clinically estimated CVP which cannot be estimated on this exam. Pulmonic Valve: The pulmonic valve is not well seen, but is grossly normal. There is a trace or physiologic amount of pulmonic regurgitation. Great Vessels: The aortic root is normal size. The ascending aorta is mild- moderately enlarged. The inferior vena cava was not visualized. Pericardium/ Pleura There is no pericardial effusion. There is no pleural effusion. MMode/2D Measurements & Calculations LVIDd: 5.1 cm LVOT diam: 2.2 cm LVIDs: 3.2 cm Ao root diam: 3.0 cm FS: 37.3 % asc Aorta Diam: 4.4 cm IVSd: 1.1 cm Ao Arch Diam (Prox Trans): 4.0 cm LVPWd: 1.1 cm LV dhillon. diameter/BSA (cm/m^2): 2.2 LV sys. diameter/BSA (cm/m^2): 1.4 LA A2 area: 18.7 cm2 RA long axis: 4.7 cm LA A4 area: 18.1 cm2 RA area: 16.1 cm2 LA length (vol): 5.4 cm RA vol: 47.0 ml LA vol: 53.2 ml RA : 20.4 ml/m2 LA vol index: 23.1 ml/m2 RVD1 (basal): 3.0 cm RVD2 (mid): 2.4 cm TAPSE: 2.5 cm Doppler Measurements & Calculations Ao V2 max: 176.7 cm/sec LVOT Max Dwight: 102.4 cm/sec Ao V2 mean: 130.2 cm/sec LV V1 max P.2 mmHg Ao max P.5 mmHg LV V1 VTI: 21.1 cm Ao mean P.4 mmHg KENNEDI(I,D): 2.3 cm2 Ao V2 VTI: 34.6 cm KENNEDI(V,D): 2.2 cm2 sev ratio: 0.61 KENNEDI indexed to BSA (cm^2/m^2): 1.0 MV E max dwight: 61.2 cm/sec TR max dwight: 237.6 cm/sec MV A max dwight: 106.9 cm/sec TR max P.6 mmHg MV E/A: 0.57 PA V2 max: 236.8 cm/sec Med Peak E' Dwight: 8.8 cm/sec PA V2 mean: 164.4 cm/sec E/E' med: 6.9 PA mean P.3 mmHg Lat Peak E' Dwight: 12.7 cm/sec E/E' lat: 4.8 E/e' average: 5.9 MV dec time: 0.28 sec SVLVOT): 80.2 ml Reading Physician:03:16 PM
[2022-08-31 00:09] LABS: NT-proBNP (BNP-Adult 18+) 77 pg/mL (<125)
[2022-08-31] MEDS: fentaNYL 100 MCG/2 ML INJ 50 MCG IV ×2 (00:22→03:30)
[2022-08-31] MEDS: MORPHINE 4 MG/ML INJ IV (00:33)
[2022-08-31 01:28] LABS: Troponin I < 0.012 ng/mL (0.01-0.034)
[2022-08-31] MEDS: MORPHINE 2 MG/ML INJ IV ×2 (03:10→19:46)
--- NOTE | 2022-08-31 03:26 | DI.NM.S_ITS ---
PROCEDURE: NM ROX PERF SPECT R&S PHARM Rest and pharmacological stress myocardial perfusion SPECT with gated imaging and ejection fraction RADIOPHARMACEUTICAL: 27.5 mCi Tc-99m tetrafosmin IV at rest and 27.1 mCi Tc-99m tetrafosmin IV at peak effect of pharmacological stress. [id number] was performed. INDICATIONS: Chest pain TECHNIQUE: Radiopharmaceutical was injected at peak stress test, and also at rest. SPECT images were obtained. SPECT myocardial perfusion images were displayed in short axis, horizontal long axis, and vertical long axis views. Gated images were reviewed using Kimbia software. COMPARISON: None. CARDIAC STRESS: A pharmacologic stress test was performed under the supervision of an attending staff, using an infusion of regadenoson 0.4 mg IV. Hemodynamic data: There is normal blood pressure and heart rate response to pharmacologic stress. Symptoms: The patient denied anginal chest pain. EKG: No diagnostic changes of ischemia; no ectopy. FINDINGS: Raw data: There is good myocardial uptake of radiotracer. No significant motion artifacts. Qgzi-[id number] ratio is 0.46 (normal is less than 0.38 for tetrafosmin tracer). Left ventricle function: Gated images demonstrate hypokinesis of the basal to mid inferior wall. No segmental wall motion abnormalities. No transient ischemic dilation; TID is 0.71 (normal less than 1.3). Left ventricle resting end diastolic volume is 104 mL. Left ventricle stress ejection fraction is 74%; normal range is above 45%. Myocardial perfusion: There is a medium size, mild to moderate intensity basal to mid inferior wall defect that is mostly reversible. SDS 4. IMPRESSION: Abnormal study. The basal to mid inferior wall defect is mostly reversible and has associated hypokinesis on gated imaging making this most concerning for inducible ischemia. Overall normal LV ejection fraction. Result discussed with Dr. Kinsey. Dictated by: Juliana Leavitt D.O. on 09/01/2022 at 16:19 Approved by: Juliana Leavitt D.O. on 09/01/2022 at 16:24
[2022-08-31 03:36] LABS: Procalcitonin 0.06 ng/mL (<0.5)
[2022-08-31 03:54] LABS: Lactate (Lactic Acid) 2.6 mmol/L (0.7-2.1)
--- NOTE | 2022-08-31 04:43 | P.HP_ITS ---
History of Present Illness History of Present Illness Date Patient Seen: 08/31/22 Time Patient Seen: 04:44 Chief complaint: Chest and abdominal pain, rule out cardiac cause Narrative: Gordon Ren is a 71-year-old male with multiple orthopedic surgeries, PTSD/bipo lar, and surgery last week to replace his left hip presented complaint of feeling crummy, gradual onset and worsening chest and upper abdominal pain and shortness of breath today. Been increasingly short of breath, feels lightheaded feel like he might pass out.? Denies fevers but states he is always hot to the point his sleeps separately.? He does endorse nausea without vomiting.? No radiation to his neck, back or shoulder.? Pain does not radiate down towards his legs.? He continues to have postoperative left hip pain. Patient has not had any diarrhea or constipation.? He is had some soft stools today but no black or bloody stools.? No dysurea, but recently had his prostate removed due to prostate cancer.? He states that his left leg has felt a little bit more swollen today.?Patient does not have any history of hypertension, dyslipidemia, cholesterol, no prior MIs or strokes.? No chronic kidney disease.? Patient states he is had approximately 40 lb intentional weight loss over the past few months. He has persistent upper and lower extremity peripheral neuropathy for which he takes gabapentin. He had left hip surgery a month ago by Dr. Marli Trevizo.? Denies tobacco, no alcohol, no illicit.? No known drug allergies.?CT angio 02/16/2022 reported annualoaortic ectasia.?Today's chest xray suggests mild pneumonia superior to the diaphragm. Chest abdomen and pelvis CTA reported negative for PE or aortic dissection. Patient is afebrile, blood pressure 127/76 heart rate 88 respiratory rate 25 oxygen saturation of 96% on room air he weighs 108 kg with a BMI of 33.2. He is mildly anemic with a hemoglobin and hematocrit of 12.5 and 37.3 white count is within normal limits but he does have a mild left shift creatinine is 1.57 with an EGFR 47 which is not his normal baseline glucose is 120 lactate 2.6 alk-phos is 160 troponin x2 are both negative proBNP is within normal limits lipase is within normal limits and procalcitonin was negative COVID-19 PCR is negative. Patient History Medical History Anxiety BCC (basal cell carcinoma) (2020) BPH (benign prostatic hyperplasia) Brain tumor Depression GERD (gastroesophageal reflux disease) Hearing impaired DIONI on CPAP Osteoarthritis Post traumatic stress disorder (PTSD) Prostate cancer Surgical History H/O brain surgery H/O prostate biopsy H/O shoulder surgery History of bilateral carpal tunnel release History of lumbar fusion History of surgery History of total right hip replacement (02/10/22) Hx of brain surgery (2011) Hx of elbow surgery (2004) Hx of foot surgery Hx of foot surgery Hx of prostatectomy (~12/25/21) Family & Social History Family History Mother Pancreatic cancer Father No pertinent past medical history Social History: household members spouse Safety & Behavioral: Feels Safe in Current Yes Environment Tobacco & Substance use: Tobacco type cigarettes Smoking Status Former smoker alcohol intake current alcohol intake frequency holiday/special occasion Substance Use Type marijuana Meds Home Medications and Allergies Home Medications Medication Instructions Recorded Confirmed Type gabapentin 300 mg capsule 300 mg PO SEEINSTR ##0 06/10/17 08/13/22 History (Neurontin) omeprazole 20 mg capsule,delayed 20 mg PO QDAY ##0 06/10/17 08/13/22 History release prazosin 2 mg capsule (Minipress) See Rx Instructions .Route 06/10/17 08/13/22 History .COMPLEX ##0 aripiprazole 5 mg tablet 10 mg PO DAILY 04/25/21 08/13/22 History cholecalciferol (vitamin D3) 25 25 mcg PO DAILY 04/25/21 08/13/22 History mcg (1,000 unit) tablet (Vitamin D3) fluoxetine 40 mg capsule 40 mg PO DAILY 04/25/21 08/13/22 History acetaminophen 325 mg tablet 650 mg PO Q6HR PRN Pain 08/04/22 08/13/22 History ibuprofen 400 mg tablet 400 mg PO Q6HR PRN Pain 08/04/22 08/13/22 History naproxen sodium 220 mg tablet 440 mg PO BID PRN Pain 08/04/22 08/13/22 History oxycodone 5 mg tablet 5 mg PO Q4-6H PRN Pain, Moderate 08/14/22 Rx (4-6) #40 tabs Allergies Allergy/AdvReac Type Severity Reaction Status Date / Time No Known Drug Allergies Allergy Verified 02/10/22 07:15 Review of Systems Review of Systems ROS: Yes All systems reviewed with the patient and are negative except as otherwise documented Exam Vital Signs (past 8 hours): - 08/30/22 23:18 08/30/22 23:10 08/30/22 23:13 Temperature 97.2 F L Pulse Rate 123 H 104 H 109 H Respiratory Rate 27 H 12 Blood Pressure 95/47 L Pulse Oximetry 97 100 99 Oxygen Delivery Method Room Air 08/30/22 23:13 08/30/22 23:30 08/30/22 23:30 Temperature Pulse Rate 100 H Respiratory Rate 39 H Blood Pressure 111/56 L 116/60 Pulse Oximetry 99 Oxygen Delivery Method 08/31/22 00:00 08/31/22 00:28 08/31/22 00:28 Temperature Pulse Rate 104 H 103 H Respiratory Rate 44 H 18 Blood Pressure 107/82 Pulse Oximetry 100 100 Oxygen Delivery Method 08/31/22 00:30 08/31/22 00:30 08/31/22 00:46 Temperature Pulse Rate 100 H 108 H Respiratory Rate 20 21 Blood Pressure 113/76 Pulse Oximetry 99 98 Oxygen Delivery Method 08/31/22 00:46 08/31/22 01:00 08/31/22 01:00 Temperature Pulse Rate 103 H Respiratory Rate 16 Blood Pressure 144/86 H 130/75 Pulse Oximetry 94 Oxygen Delivery Method 08/31/22 01:15 08/31/22 01:15 08/31/22 01:30 Temperature Pulse Rate 104 H Respiratory Rate 22 Blood Pressure 130/80 141/85 H Pulse Oximetry 95 Oxygen Delivery Method 08/31/22 01:30 08/31/22 01:46 08/31/22 01:46 Temperature Pulse Rate 109 H 109 H Respiratory Rate 14 15 Blood Pressure 175/86 H Pulse Oximetry 95 94 Oxygen Delivery Method 08/31/22 02:00 08/31/22 02:00 08/31/22 02:15 Temperature Pulse Rate 128 H 109 H Respiratory Rate 25 H 20 Blood Pressure 143/70 H Pulse Oximetry 94 97 Oxygen Delivery Method 08/31/22 02:15 08/31/22 02:30 08/31/22 02:30 Temperature Pulse Rate 116 H Respiratory Rate Blood Pressure 143/65 H 135/71 Pulse Oximetry 96 Oxygen Delivery Method 08/31/22 02:45 08/31/22 02:45 08/31/22 03:00 Temperature Pulse Rate 107 H Respiratory Rate Blood Pressure 135/81 129/80 Pulse Oximetry 96 Oxygen Delivery Method 08/31/22 03:00 08/31/22 03:16 08/31/22 03:16 Temperature Pulse Rate 101 H 108 H Respiratory Rate 42 H Blood Pressure 128/86 Pulse Oximetry 96 99 Oxygen Delivery Method 08/31/22 03:30 08/31/22 03:30 08/31/22 03:45 Temperature Pulse Rate 104 H Respiratory Rate 35 H Blood Pressure 123/62 112/61 Pulse Oximetry 99 Oxygen Delivery Method 08/31/22 03:45 08/31/22 04:00 08/31/22 04:00 Temperature Pulse Rate 99 H 88 Respiratory Rate 48 H 25 H Blood Pressure 127/76 Pulse Oximetry 98 96 Oxygen Delivery Method Oxygen Delivery Method Room Air Narrative Exam Narrative: Gen: Alert, oriented, overweight 71 y.o. male, pale and appears uncomfortable HEENT: normocephalic, atraumatic, conjunctiva clear, sclera non-icteric, oral mucosa pink and moist Neck: supple, full ROM, no JVD, trachea is midline Resp: Lungs CTA, non-labored breathing CV: RRR, no murmur or rubs Abd: soft, diffusely tender, normoactive BTs Skin: no lesions or rashes, dry and intact Neuro: Alert and oriented X 4 w/no focal deficits. Speech clear and coherent. Extremities: moves all 4 extremities, is ambulatory, negative Lacie?s sign Psyche: normal mood and affect. Objective Labs 08/30/22 23:02 08/30/22 23:02 Labs: Laboratory Results - last 24 hr 08/30/22 08/30/22 08/30/22 23:02 23:02 23:02 WBC 10.0 RBC 4.29 L Hgb 12.5 L Hct 37.3 L MCV 87.0 MCH 29.2 MCHC 33.5 RDW 15.6 H Plt Count 373 Neut % (Auto) 80.4 H Lymph % (Auto) 13.3 L Freestone % (Auto) 4.2 Eos % (Auto) 1.5 L Baso % (Auto) 0.6 Neut # (Auto) 8000 H Lymph # (Auto) 1300 Freestone # (Auto) 400 Eos # (Auto) 100 Baso # (Auto) 100 PT 12.8 H INR 1.1 APTT 30 Sodium 142 Potassium 4.0 Chloride 105 Carbon Dioxide 20 L BUN 18 Creatinine 1.57 H Estimated GFR 47 L BUN/Creatinine Ratio 11.5 Glucose 120 H Lactate Calcium 9.5 Magnesium 1.9 Total Bilirubin 0.6 AST 24 ALT 23 Alkaline Phosphatase 160 H Total Creatine Kinase 72 CK-MB (CK-2) TNP CK-MB (CK-2) Rel Index TNP Troponin I < 0.012 NT-Pro-B Natriuret Pep Total Protein 8.5 H Albumin 4.5 Globulin 4.0 Albumin/Globulin Ratio 1.1 Lipase 80 Procalcitonin SARS-CoV-2 (PCR) 08/30/22 08/30/22 08/31/22 23:02 23:02 01:00 WBC RBC Hgb Hct MCV MCH MCHC RDW Plt Count Neut % (Auto) Lymph % (Auto) Freestone % (Auto) Eos % (Auto) Baso % (Auto) Neut # (Auto) Lymph # (Auto) Freestone # (Auto) Eos # (Auto) Baso # (Auto) PT INR APTT Sodium Potassium Chloride Carbon Dioxide BUN Creatinine Estimated GFR BUN/Creatinine Ratio Glucose Lactate Calcium Magnesium Total Bilirubin AST ALT Alkaline Phosphatase Total Creatine Kinase CK-MB (CK-2) CK-MB (CK-2) Rel Index Troponin I < 0.012 NT-Pro-B Natriuret Pep 77 Total Protein Albumin Globulin Albumin/Globulin Ratio Lipase Procalcitonin SARS-CoV-2 (PCR) Negative 08/31/22 08/31/22 01:00 03:25 WBC RBC Hgb Hct MCV MCH MCHC RDW Plt Count Neut % (Auto) Lymph % (Auto) Freestone % (Auto) Eos % (Auto) Baso % (Auto) Neut # (Auto) Lymph # (Auto) Freestone # (Auto) Eos # (Auto) Baso # (Auto) PT INR APTT Sodium Potassium Chloride Carbon Dioxide BUN Creatinine Estimated GFR BUN/Creatinine Ratio Glucose Lactate 2.6 H Calcium Magnesium Total Bilirubin AST ALT Alkaline Phosphatase Total Creatine Kinase CK-MB (CK-2) CK-MB (CK-2) Rel Index Troponin I NT-Pro-B Natriuret Pep Total Protein Albumin Globulin Albumin/Globulin Ratio Lipase Procalcitonin 0.06 SARS-CoV-2 (PCR) Assessment & Plan Assessment & Plan narrative: Gordon Ren is placed into observation further evaluation and workup of chest pain Chest pain r/o ACS, acute, present on admission ? Echo in am ? Pharmacological stress test ? Start ASA 81 mg ? Received fentanyl and morphine in the ED ? EKG shows no ischemic changes ? Trend troponin X 1 at 0700 BP trend ? Patient has ranged from hypotensive since presenting to the ED to normotensive, with peaks, likely due to pain HLD ? Lipid panel, pending ? Start/continue atorvastatin 40 mg po at bedtime Risk stratification ? Fasting lipid panel scheduled for 0500 labs ? A1c pending Upper abdominal pain, appears to be acute ? Lipase is normal, have requested a stool culture and H. Pylori test Other independent historians: None Discussion of results, plan of care with independent HCP/other: ED provider Reviewed outside records: Ortho records VTE Prophylaxis: Wells risk score 10, though CTA negative for a PE Heparin 5000 units subQ twice daily Bilateral SCDs Patient is placed into observation as his stay is not expected to exceed 2 midnights. FEN: IV fluids: NS at 100 ml/hour, diet: NPO until stressed, then heart healthy, labs: CBC, C/BMP, liver enzymes, Mag, PT/INR Consultants None Social determinants of health: unknown Dispo: probable d/c to home Code status: Full code as discussed with the patient who identifies his as his surrogate and POA. [X] I have utilized all available immediate resources to obtain, update, or review of the patient's current medications VTE Deep Vein Thrombosis/Pulmonary Embolism Present on Admission: No MIPS - Admit I confirm the patient?s Advance Care Plan is present, Code status is documented, Surrogate decision maker is in patient?s record: Yes MIPS - DC The patient has current or prior documentation of left ventricular ejection fraction (LVEF) less than 40%, or moderate or severely depressed left ventricular systolic function.: No COVID-19 COVID-19 status: Negative Result date/Date tested (Pos, Neg/Pending): 08/31/22 Scores Wells' Criteria for PE Clinical signs and symptoms of DVT: Yes PE is #1 Dx or equally likely: Yes Heart rate > 100: Yes Immobilization at least 3 days or surg in previous 4 weeks: Yes History of PE or DVT: No Hemoptysis: No Malignancy w/Treatment within 6 months or palliative: Yes Wells' PE Score total: 10.0
[2022-08-31] MEDS: HYDROMORPHONE 0.5 MG INJ IV ×2 (05:16→06:50)
[2022-08-31] MEDS: SODIUM CHLORIDE 0.9% 1,000 ML 100 ML IV ×2 (05:20→16:58)
[2022-08-31 05:40] LABS: Reflexed Lactate in 2 Hours Y
[2022-08-31] MEDS: DOXYCYCLINE 100 MG in SODIUM CHLORIDE 0.9% 100 ML IV ×2 (06:13→18:06)
[2022-08-31 06:48] LABS: Lactate 2HR (Lactic Acid Rflx) 0.9 mmol/L (0.7-2.1)
[2022-08-31 07:17] LABS: Alanine Aminotransferase 18 IU/L (<50); Albumin Globulin Ratio 1.1 (1.0-2.8); Alkaline Phosphatase 135 U/L (38-126); Aspartate Aminotransferase 39 IU/L (17-59); BUN Creatinine Ratio 14.2 (6-22); Bilirubin Total 0.6 mg/dL (0.2-1.3); Blood Urea Nitrogen 20 mg/dL (9-20); Calcium 8.8 mg/dL (8.4-10.2); Carbon Dioxide 23 mmol/L (22-32); Chloride 105 mmol/L (98-107); Cholesterol 200 mg/dL (140-199); Estimated Glomerular Filt Rate 53 mL/min (>60); Globulin 3.5 g/dL (1.7-4.1); Glucose 109 mg/dL (80-110); HDL Cholesterol 42 mg/dL (40-60); HEMOLYSIS < 15 (0-50); LDL Cholesterol Calculated 129 mg/dL (<100); Potassium 3.9 mmol/L (3.4-5.1); Sodium 140 mmol/L (137-145); Total Protein 7.5 g/dL (6.3-8.2); Triglycerides 143 mg/dL (35-150)
[2022-08-31 07:25] LABS: NT-proBNP (BNP-Adult 18+) 66 pg/mL (<125)
[2022-08-31 07:30] LABS: Troponin I < 0.012 ng/mL (0.01-0.034)
[2022-08-31 08:04] LABS: Hemoglobin A1C% w Est Avg Glu 5.4 % (4.0-6.0)
--- NOTE | 2022-08-31 08:19 | PC.NURSE ---
Addendum entered by Jaqueline Lund R.N. 08/31/22 12:31: Patient back from stress test. He complains of being nauseous, patient asked for water. He is sipping it slowly, if his nausea worsens will give him something for this. Original Note: Assess- Patient is a pleasant man who was admitted for chest pain. He states that he does have slight chest pain but it is better. His main complaint is that he has a headache. Will give patient some tylenol. His breath sounds are wnl, and vital signs. Patient is up with a one person assist, he will have a stress test today at 1100. He is to remain NPO, expect for water.
[2022-08-31] MEDS: PRAZOSIN 1 MG CAPSULE PO (08:29)
[2022-08-31] MEDS: ASPIRIN EC 81 MG TABLET PO (08:29)
[2022-08-31] MEDS: HEPARIN 5,000 UNIT/ML VIAL 5000 UNIT SUBCUT ×2 (08:29→20:21)
[2022-08-31] MEDS: ARIPiprazole 10 MG TABLET PO (08:29)
[2022-08-31] MEDS: FLUoxetine 20 MG CAPSULE 40 MG PO (08:29)
[2022-08-31 08:45] LABS: Add Manual Diff / Slide Review NO; Basophils Absolute Auto 0 /uL (0-100); Basophils Percent Auto 0.6 % (0-2); Eosinophils Absolute Auto 100 /uL (0-450); Eosinophils Percent Auto 1.3 % (2-4); Hematocrit 34.4 % (41-53); Hemoglobin 11.4 g/dL (13.5-17.5); Lymphocytes Absolute Auto 1700 /uL (1100-4500); Lymphocytes Percent Auto 21.5 % (25-40); Mean Corpuscular HGB Conc 33.3 % (30-36); Mean Corpuscular Hemoglobin 29.1 PG (26-34); Mean Corpuscular Volume 87.5 fL (80-100); Monocytes Absolute Auto 500 /uL (0-900); Monocytes Percent Auto 6.7 % (3-14); Neutrophils Absolute Auto 5300 /uL (1500-7000); Neutrophils Percent Auto 69.9 % (50-75); Platelet Count 327 X10^3/uL (150-400); Red Blood Cell Count 3.93 X10^6/uL (4.5-5.9); Red Cell Distribution Width 15.2 % (11.6-14.8); White Blood Cell Count 7.7 X10^3/uL (4.5-11.0)
[2022-08-31] MEDS: ACETAMINOPHEN 325 MG TABLET 650 MG PO ×2 (08:45→14:43)
[2022-08-31 12:47] LABS: PTT Partial Thromboplastin Tim 28 SECONDS (26-36)
--- NOTE | 2022-08-31 13:01 | CM.DANOTE ---
Patient is a 71 yo male who was admitted on 08/31/22 today for Chest Pain r/o. Pt has [place] [employer] for insurance and his PCP is Meggan Garcia. EMR was reviewed. Per , pt with a recent hip replacement a couple weeks ago and now admitted with SOB and chest pain and to have stress test to determine if pt stable for d/c home and possible pneumonia. SW met bedside with pt and explained role and he confirms that he still lives in [place] with his and is independent with ADL's at baseline and denies any hx of HH or SNF. Pt states he was cleared by PT after hip replacement to d/c home with spouse assist and outpt PT. Pt has walker at home from his other hip surgery 6 months ago. Pt hopeful to have stress test completed soon as he has been NPO since last night and he is really thirsty. Pt does not anticipate any needs at d/c and hopeful for d/c to home via spouse POV when medically stable. Plan: SW to follow for stress test results towards confirming safe d/c plan home with spouse and any further identified discharge planning needs. CLAUDIO Wilson Discharge Planning/Care Management CM Discharge Assessment Start: 08/31/22 12:57 Freq: Status: Active Protocol: Document 08/31/22 12:57 BF (Rec: 08/31/22 13:01 [id number]) Discharge Planning Assessment Assigned Clinical Scientist CLAUDIO Javier DPOA/Assigned Designee Name spouse Shraddha Contact Information [phone] Advance Directives? Yes Advance Directives on File No History Provided By Patient,Medical Record Has Patient been admitted in last 30 Yes days? Comment last admitted Aug 14, 2022 for hip replacement and discharged home Prior Living Arrangements House Household Members spouse Type of transporation used prior to Drives own vehicle admit Independent with ADL's Yes Is patient alert and oriented? Yes Caregiver for Another No DME Already Rented / Owned FWW / Walker Comment R/O possible HH needs Barriers to Discharge No Comment No barriers identified from chart review Discharge Plan Home Transportation Arrangement Family Referrals Initiated None needed Additional Comment CM team will plan to follow closely for any DC needs that may arise Whiteboard Updated in Patient Room with Yes name and ext. # of Clinical Scientist Review Status In Process Please Provide Date Initial DC 08/31/22 Assessment Was Performed Next Review Type Continued Stay Review
--- NOTE | 2022-08-31 17:02 | P.PN_ITS ---
Subjective Subjective Date Patient Seen: 08/31/22 Interval history: Gordon Ren is a 71-year-old male with multiple orthopedic surgeries, PTSD/bipolar, and surgery last week to replace his left hip presented complaint of feeling crummy, gradual onset and worsening chest and upper abdominal pain and shortness of breath today. Been increasingly short of breath, feels lightheaded feel like he might pass out.? Denies fevers but states he is always hot to the point his sleeps separately.? He does endorse nausea without vomiting.? No radiation to his neck, back or shoulder.? Pain does not radiate down towards his legs.? He continues to have postoperative left hip pain. Patient has not had any diarrhea or constipation.? He is had some soft stools today but no black or bloody stools.? No dysurea, but recently had his prostate removed due to prostate cancer.? He states that his left leg has felt a little bit more swollen today.?Patient does not have any history of hypertension, dyslipidemia, cholesterol, no prior MIs or strokes.? No chronic kidney disease.? Patient states he is had approximately 40 lb intentional weight loss over the past few months.? He has persistent upper and lower extremity peripheral neuropathy for which he takes gabapentin. Currently not feeling chest pain, just tired due to lack of sleep last night. Has had Echo. Exam Vital Signs (past 8 hours): - 08/31/22 09:28 08/31/22 14:00 08/31/22 17:01 Temperature 98.4 F 97.4 F L 96.8 F L Pulse Rate 68 96 H 94 H Respiratory Rate 16 18 18 Blood Pressure 115/70 144/66 H 154/78 H Pulse Oximetry 98 94 97 Oxygen Flow Rate 0 0 0 Oxygen Delivery Method Room Air Oxygen Flow Rate 0 Narrative Exam Narrative: Gen: Alert, oriented, overweight male, pale and appears comfortable HEENT: normocephalic, atraumatic, conjunctiva clear, sclera non-icteric, oral mucosa pink and moist Neck: supple, full ROM, no JVD, trachea is midline Resp: Lungs CTA, non-labored breathing CV: RRR, no murmur or rubs Abd: soft, diffusely tender, normoactive BTs Skin: no lesions or rashes, dry and intact Neuro: Alert and oriented X 4 w/no focal deficits. Speech clear and coherent. Extremities: moves all 4 extremities, is ambulatory, negative Lacie?s sign Psyche: normal mood and affect. Objective Labs 08/31/22 06:17 08/31/22 06:17 Labs: Laboratory Results - last 24 hr 08/30/22 08/30/22 08/30/22 23:02 23:02 23:02 WBC 10.0 RBC 4.29 L Hgb 12.5 L Hct 37.3 L MCV 87.0 MCH 29.2 MCHC 33.5 RDW 15.6 H Plt Count 373 Neut % (Auto) 80.4 H Lymph % (Auto) 13.3 L [place] % (Auto) 4.2 Eos % (Auto) 1.5 L Baso % (Auto) 0.6 Neut # (Auto) 8000 H Lymph # (Auto) 1300 [place] # (Auto) 400 Eos # (Auto) 100 Baso # (Auto) 100 PT 12.8 H INR 1.1 APTT 30 Sodium 142 Potassium 4.0 Chloride 105 Carbon Dioxide 20 L BUN 18 Creatinine 1.57 H Estimated GFR 47 L BUN/Creatinine Ratio 11.5 Glucose 120 H Hemoglobin A1c Lactate Calcium 9.5 Magnesium 1.9 Total Bilirubin 0.6 AST 24 ALT 23 Alkaline Phosphatase 160 H Total Creatine Kinase 72 CK-MB (CK-2) TNP CK-MB (CK-2) Rel Index TNP Troponin I < 0.012 NT-Pro-B Natriuret Pep Total Protein 8.5 H Albumin 4.5 Globulin 4.0 Albumin/Globulin Ratio 1.1 Triglycerides Cholesterol LDL Cholesterol, Calc HDL Cholesterol Lipase 80 Procalcitonin SARS-CoV-2 (PCR) 08/30/22 08/30/22 08/31/22 23:02 23:02 01:00 WBC RBC Hgb Hct MCV MCH MCHC RDW Plt Count Neut % (Auto) Lymph % (Auto) [place] % (Auto) Eos % (Auto) Baso % (Auto) Neut # (Auto) Lymph # (Auto) [place] # (Auto) Eos # (Auto) Baso # (Auto) PT INR APTT Sodium Potassium Chloride Carbon Dioxide BUN Creatinine Estimated GFR BUN/Creatinine Ratio Glucose Hemoglobin A1c Lactate Calcium Magnesium Total Bilirubin AST ALT Alkaline Phosphatase Total Creatine Kinase CK-MB (CK-2) CK-MB (CK-2) Rel Index Troponin I < 0.012 NT-Pro-B Natriuret Pep 77 Total Protein Albumin Globulin Albumin/Globulin Ratio Triglycerides Cholesterol LDL Cholesterol, Calc HDL Cholesterol Lipase Procalcitonin SARS-CoV-2 (PCR) Negative 08/31/22 08/31/22 08/31/22 01:00 03:25 06:17 WBC RBC Hgb Hct MCV MCH MCHC RDW Plt Count Neut % (Auto) Lymph % (Auto) [place] % (Auto) Eos % (Auto) Baso % (Auto) Neut # (Auto) Lymph # (Auto) [place] # (Auto) Eos # (Auto) Baso # (Auto) PT INR APTT Sodium Potassium Chloride Carbon Dioxide BUN Creatinine Estimated GFR BUN/Creatinine Ratio Glucose Hemoglobin A1c Lactate 2.6 H Calcium Magnesium Total Bilirubin AST ALT Alkaline Phosphatase Total Creatine Kinase CK-MB (CK-2) CK-MB (CK-2) Rel Index Troponin I NT-Pro-B Natriuret Pep 66 Total Protein Albumin Globulin Albumin/Globulin Ratio Triglycerides Cholesterol LDL Cholesterol, Calc HDL Cholesterol Lipase Procalcitonin 0.06 SARS-CoV-2 (PCR) 08/31/22 08/31/22 08/31/22 06:17 06:17 06:17 WBC 7.7 RBC 3.93 L Hgb 11.4 L Hct 34.4 L MCV 87.5 MCH 29.1 MCHC 33.3 RDW 15.2 H Plt Count 327 Neut % (Auto) 69.9 Lymph % (Auto) 21.5 L [place] % (Auto) 6.7 Eos % (Auto) 1.3 L Baso % (Auto) 0.6 Neut # (Auto) 5300 Lymph # (Auto) 1700 [place] # (Auto) 500 Eos # (Auto) 100 Baso # (Auto) 0 PT INR APTT Sodium 140 Potassium 3.9 Chloride 105 Carbon Dioxide 23 BUN 20 Creatinine 1.41 H Estimated GFR 53 L BUN/Creatinine Ratio 14.2 Glucose 109 Hemoglobin A1c Lactate Calcium 8.8 Magnesium 2.0 Total Bilirubin 0.6 AST 39 ALT 18 Alkaline Phosphatase 135 H Total Creatine Kinase CK-MB (CK-2) CK-MB (CK-2) Rel Index Troponin I < 0.012 NT-Pro-B Natriuret Pep Total Protein 7.5 Albumin 4.0 Globulin 3.5 Albumin/Globulin Ratio 1.1 Triglycerides 143 Cholesterol 200 H LDL Cholesterol, Calc 129 H HDL Cholesterol 42 Lipase Procalcitonin SARS-CoV-2 (PCR) 08/31/22 08/31/22 08/31/22 06:17 06:17 12:25 WBC RBC Hgb Hct MCV MCH MCHC RDW Plt Count Neut % (Auto) Lymph % (Auto) [place] % (Auto) Eos % (Auto) Baso % (Auto) Neut # (Auto) Lymph # (Auto) [place] # (Auto) Eos # (Auto) Baso # (Auto) PT INR APTT 28 Sodium Potassium Chloride Carbon Dioxide BUN Creatinine Estimated GFR BUN/Creatinine Ratio Glucose Hemoglobin A1c 5.4 Lactate 0.9 Calcium Magnesium Total Bilirubin AST ALT Alkaline Phosphatase Total Creatine Kinase CK-MB (CK-2) CK-MB (CK-2) Rel Index Troponin I NT-Pro-B Natriuret Pep Total Protein Albumin Globulin Albumin/Globulin Ratio Triglycerides Cholesterol LDL Cholesterol, Calc HDL Cholesterol Lipase Procalcitonin SARS-CoV-2 (PCR) PFSH Medical History Anxiety BCC (basal cell carcinoma) (2020) BPH (benign prostatic hyperplasia) Brain tumor Depression GERD (gastroesophageal reflux disease) Hearing impaired DIONI on CPAP Osteoarthritis Post traumatic stress disorder (PTSD) Prostate cancer Surgical History H/O brain surgery H/O prostate biopsy H/O shoulder surgery History of bilateral carpal tunnel release History of lumbar fusion History of surgery History of total right hip replacement (02/10/22) Hx of brain surgery (2011) Hx of elbow surgery (2004) Hx of foot surgery Hx of foot surgery Hx of prostatectomy (~12/25/21) Family History Mother Pancreatic cancer Father No pertinent past medical history Social History household members: spouse Smoking Status: Former smoker alcohol intake: former Assessment & Plan Assessment & Plan narrative: 1. Chest pain r/o ACS, acute, present on admission ? Echo shows 55-60% EF and moderately enlarge ascending arota of 4.4 cm ? Pharmacological stress test - pending results ? Start ASA 81 mg ? Received fentanyl and morphine in the ED ? EKG shows no ischemic changes ? Trend troponin X 1 at 0700 remains less than 0.012 2. BP trend ? Patient has ranged from hypotensive since presenting to the ED to normotensive, with peaks, likely due to pain. Now elevated need to consider med ication 3. HLD ? Lipid panel, total cholesterol 200 with current treatment ? Start/continue atorvastatin 40 mg po at bedtime 4. Risk stratification ? Fasting lipid panel scheduled for 0500 labs ? A1c - need to order 5. Upper abdominal pain, appears to be acute ? Lipase is normal, a stool culture and H. Pylori test pending VTE Prophylaxis: Wells risk score? 10, though CTA negative for a PE? Heparin 5000 units subQ twice daily? Bilateral SCDs Dispo: probable d/c to home Code status: Full code as previous provider discussed with the patient who identifies his as? his surrogate and POA. VTE Deep Vein Thrombosis/Pulmonary Embolism Present on Admission: No MIPS - Admit Advance Care Plan is present, Code status is documented, Surrogate decision maker is in patient?s record: Yes MIPS - DC The patient has current or prior documentation of left ventricular ejection fraction (LVEF) less than 40%, or moderate or severely depressed left ventricular systolic function.: No COVID-19 COVID-19 status: Negative Result date/Date tested (Pos, Neg/Pending): 08/31/22 Time Spent With Patient Critical Care time: I spent a total of [] minutes of critical care time on this patient's care today; this time is exclusive of procedural time.
[2022-08-31] MEDS: PRAZOSIN 1 MG CAPSULE 2 MG PO (20:11)
[2022-08-31] MEDS: QUETIAPINE 25 MG TABLET PO (20:11)
[2022-08-31] MEDS: MELATONIN 3 MG TABLET 6 MG PO (21:10)
[2022-09-01] VITALS: BP 135/72; PULSE 94; RESP 21; TEMP 36.1; O2SAT 97
[2022-09-01] MEDS: QUETIAPINE 25 MG TABLET PO (00:31)
[2022-09-01 00:37] LABS: Acinetobacter baumannii Not Detected (Not Detect); Candida albicans Not Detected (Not Detect); Candida glabrata Not Detected (Not Detect); Candida krusei Not Detected (Not Detect); Candida parapsilosis Not Detected (Not Detect); Candida tropicalis Not Detected (Not Detect); E. coli Not Detected (Not Detect); Enterobacter cloacae complex Not Detected (Not Detect); Enterobacteriaceae species Not Detected (Not Detect); Enterococcus species Not Detected (Not Detect); Haemophilus influenzae Not Detected (Not Detect); Listeria monocytogenes Not Detected (Not Detect); Methicillin-resistant gene Detected (Not Detect); Neisseria meningitidis Not Detected (Not Detect); Proteus species Not Detected (Not Detect); Pseudomonas aeruginosa Not Detected (Not Detect); Serratia marcescens Not Detected (Not Detect); Staphylococcus species Detected (Not Detect); Streptococcus agalactiae (Gr B Not Detected (Not Detect); Streptococcus pneumonia Not Detected (Not Detect); Streptococcus pyogenes (Gr A) Not Detected (Not Detect); Streptococcus species Not Detected (Not Detect)
[2022-09-01] MEDS: VANCOMYCIN 2,000 MG/400 ML PIGGYBACK 200 MG IV (02:50)
[2022-09-01] MEDS: ACETAMINOPHEN 325 MG TABLET 650 MG PO (03:12)
[2022-09-01] MEDS: LORazepam 1 MG TABLET PO (04:28)
[2022-09-01 04:35] LABS: Add Manual Diff / Slide Review NO; Basophils Absolute Auto 0 /uL (0-100); Basophils Percent Auto 0.5 % (0-2); Eosinophils Absolute Auto 100 /uL (0-450); Hematocrit 30.7 % (41-53); Hemoglobin 10.5 g/dL (13.5-17.5); Lymphocytes Absolute Auto 1300 /uL (1100-4500); Lymphocytes Percent Auto 28.3 % (25-40); Mean Corpuscular HGB Conc 34.2 % (30-36); Mean Corpuscular Hemoglobin 29.6 PG (26-34); Mean Corpuscular Volume 86.5 fL (80-100); Monocytes Absolute Auto 300 /uL (0-900); Monocytes Percent Auto 6.7 % (3-14); Neutrophils Absolute Auto 2800 /uL (1500-7000); Neutrophils Percent Auto 61.5 % (50-75); Platelet Count 265 X10^3/uL (150-400); Red Blood Cell Count 3.55 X10^6/uL (4.5-5.9); Red Cell Distribution Width 15.3 % (11.6-14.8); White Blood Cell Count 4.6 X10^3/uL (4.5-11.0)
[2022-09-01] MEDS: DOXYCYCLINE 100 MG in SODIUM CHLORIDE 0.9% 100 ML IV ×2 (04:36→17:24)
[2022-09-01 04:44] LABS: Alanine Aminotransferase 16 IU/L (<50); Albumin 3.7 g/dL (3.5-5.0); Albumin Globulin Ratio 1.2 (1.0-2.8); Alkaline Phosphatase 130 U/L (38-126); Aspartate Aminotransferase 21 IU/L (17-59); BUN Creatinine Ratio 12.5 (6-22); Bilirubin Total 0.5 mg/dL (0.2-1.3); Blood Urea Nitrogen 13 mg/dL (9-20); Calcium 8.5 mg/dL (8.4-10.2); Carbon Dioxide 21 mmol/L (22-32); Chloride 105 mmol/L (98-107); Estimated Glomerular Filt Rate > 60 mL/min (>60); Globulin 3.2 g/dL (1.7-4.1); Glucose 104 mg/dL (80-110); HEMOLYSIS < 15 (0-50); Hemoglobin A1C% w Est Avg Glu 5.3 % (4.0-6.0); Magnesium 1.8 mg/dL (1.6-2.3); Potassium 3.5 mmol/L (3.4-5.1); Sodium 136 mmol/L (137-145); Total Protein 6.9 g/dL (6.3-8.2)
[2022-09-01 05:27] LABS: Bacteria Urine Moderate (10-30); RBC Urine 0-1/HPF (0-5/HPF); Squamous Epithelial Cell Urine 0-1 /HPF (0-5/HPF); WBC Urine 0-1/HPF (0-5/HPF)
[2022-09-01 05:28] LABS: Culture Indicated Urine Cult Not Indicated
[2022-09-01] MEDS: HEPARIN 5,000 UNIT/ML VIAL 5000 UNIT SUBCUT ×2 (09:17→21:23)
[2022-09-01] MEDS: ASPIRIN EC 81 MG TABLET PO (09:17)
[2022-09-01] MEDS: ARIPiprazole 10 MG TABLET PO (09:18)
[2022-09-01] MEDS: PRAZOSIN 1 MG CAPSULE PO (09:18)
[2022-09-01] MEDS: FLUoxetine 20 MG CAPSULE 40 MG PO (09:18)
[2022-09-01 09:24] VITALS: BP 136/70; PULSE 96; RESP 16; TEMP 36.2; O2SAT 96
[2022-09-01] MEDS: POTASSIUM CHLORIDE 20 MEQ TAB 40 MEQ PO (12:34)
--- NOTE | 2022-09-01 13:18 | P.PN_ITS ---
Subjective Subjective Date Patient Seen: 09/01/22 Interval history: Gordon Ren is a 71-year-old male with multiple orthopedic surgeries, PTSD/bipolar, and surgery last week to replace his left hip presented complaint of feeling crummy, gradual onset and worsening chest and upper abdominal pain and shortness of breath today. Been increasingly short of breath, feels lightheaded feel like he might pass out.? Denies fevers but states he is always hot to the point his sleeps separately.? He does endorse nausea without vomiting.? No radiation to his neck, back or shoulder.? Pain does not radiate down towards his legs.? He continues to have postoperative left hip pain. Patient has not had any diarrhea or constipation.? He is had some soft stools today but no black or bloody stools.? No dysurea, but recently had his prostate removed due to prostate cancer.? He states that his left leg has felt a little bit more swollen today.?Patient does not have any history of hypertension, dyslipidemia, cholesterol, no prior MIs or strokes.? No chronic kidney disease.? Patient states he is had approximately 40 lb intentional weight loss over the past few months.? He has persistent upper and lower extremity peripheral neuropathy for which he takes gabapentin. Of note blood cultures are positive. 2 sites for gram pos cocci, one showing staphyloccocus. Patient continues to feel 'Off generally in his body. Exam Vital Signs (past 8 hours): - 09/01/22 09:24 09/01/22 07:00 Temperature 97.2 F L Pulse Rate 96 H Respiratory Rate 16 Blood Pressure 136/70 Pulse Oximetry 96 Oxygen Delivery Method Room Air Oxygen Flow Rate 0 Oxygen Delivery Method Room Air Oxygen Flow Rate 0 Narrative Exam Narrative: Gen: Alert, oriented, overweight male, pale and appears comfortable HEENT: normocephalic, atraumatic, conjunctiva clear, sclera non-icteric, oral mucosa pink and moist Neck: supple, full ROM, no JVD, trachea is midline Resp: Lungs CTA, non-labored breathing CV: RRR, no murmur or rubs Abd: soft, diffusely tender, normoactive BTs Skin: no lesions or rashes, dry and intact Neuro: Alert and oriented X 4 w/no focal deficits. Speech clear and coherent. Extremities: moves all 4 extremities, is ambulatory, negative Lacie?s sign Psyche: normal mood and affect. Objective Labs 09/01/22 03:45 09/01/22 03:45 Labs: Laboratory Results - last 24 hr 08/31/22 09/01/22 09/01/22 03:25 03:45 03:45 WBC 4.6 RBC 3.55 L Hgb 10.5 L Hct 30.7 L MCV 86.5 MCH 29.6 MCHC 34.2 RDW 15.3 H Plt Count 265 Neut % (Auto) 61.5 Lymph % (Auto) 28.3 [place] % (Auto) 6.7 Eos % (Auto) 3.0 Baso % (Auto) 0.5 Neut # (Auto) 2800 Lymph # (Auto) 1300 [place] # (Auto) 300 Eos # (Auto) 100 Baso # (Auto) 0 Sodium 136 L Potassium 3.5 Chloride 105 Carbon Dioxide 21 L BUN 13 Creatinine 1.04 Estimated GFR > 60 BUN/Creatinine Ratio 12.5 Glucose 104 Hemoglobin A1c Calcium 8.5 Magnesium 1.8 Total Bilirubin 0.5 AST 21 ALT 16 Alkaline Phosphatase 130 H Total Protein 6.9 Albumin 3.7 Globulin 3.2 Albumin/Globulin Ratio 1.2 Urine RBC Urine WBC Ur Squamous Epith Cells Urine Bacteria Ur Culture Indicated? A. baumannii (PCR) Not detected Jazmine albicans (PCR) Not detected C. glabrata (PCR) Not detected C. krusei (PCR) Not detected C. parapsilosis (PCR) Not detected C. tropicalis (PCR) Not detected Enterobacteriac sp PCR Not detected E. cloacae complex PCR Not detected Enterococcus sp PCR Not detected E. coli (PCR) Not detected H. influenzae (PCR) Not detected Klebsiella oxytoca PCR Not detected Klebsiella pneumoniae Not detected List. monocytogenes PCR Not detected N. meningitidis (PCR) Not detected Proteus species (PCR) Not detected Serratia marcescens PCR Not detected Staphylococcus sp PCR Detected H Staph aureus (PCR) Not detected mecA-Methicil Res Gene Detected H Streptococcus sp PCR Not detected Group A Strep (PCR) Not detected Strep agalactiae (PCR) Not detected Strep pneumoniae (PCR) Not detected P. aeruginosa (PCR) Not detected KPC-Carbap Res Gene PCR Not Reportable 09/01/22 09/01/22 03:45 05:14 WBC RBC Hgb Hct MCV MCH MCHC RDW Plt Count Neut % (Auto) Lymph % (Auto) [place] % (Auto) Eos % (Auto) Baso % (Auto) Neut # (Auto) Lymph # (Auto) [place] # (Auto) Eos # (Auto) Baso # (Auto) Sodium Potassium Chloride Carbon Dioxide BUN Creatinine Estimated GFR BUN/Creatinine Ratio Glucose Hemoglobin A1c 5.3 Calcium Magnesium Total Bilirubin AST ALT Alkaline Phosphatase Total Protein Albumin Globulin Albumin/Globulin Ratio Urine RBC 0-1/hpf Urine WBC 0-1/hpf Ur Squamous Epith Cells 0-1 /hpf Urine Bacteria Moderate (10-30) H Ur Culture Indicated? Cult not indicated A. baumannii (PCR) Jazmine albicans (PCR) C. glabrata (PCR) C. krusei (PCR) C. parapsilosis (PCR) C. tropicalis (PCR) Enterobacteriac sp PCR E. cloacae complex PCR Enterococcus sp PCR E. coli (PCR) H. influenzae (PCR) Klebsiella oxytoca PCR Klebsiella pneumoniae List. monocytogenes PCR N. meningitidis (PCR) Proteus species (PCR) Serratia marcescens PCR Staphylococcus sp PCR Staph aureus (PCR) mecA-Methicil Res Gene Streptococcus sp PCR Group A Strep (PCR) Strep agalactiae (PCR) Strep pneumoniae (PCR) P. aeruginosa (PCR) KPC-Carbap Res Gene PCR PFSH Medical History Anxiety BCC (basal cell carcinoma) (2020) BPH (benign prostatic hyperplasia) Brain tumor Depression GERD (gastroesophageal reflux disease) Hearing impaired DIONI on CPAP Osteoarthritis Post traumatic stress disorder (PTSD) Prostate cancer Surgical History H/O brain surgery H/O prostate biopsy H/O shoulder surgery History of bilateral carpal tunnel release History of lumbar fusion History of surgery History of total right hip replacement (02/10/22) Hx of brain surgery (2011) Hx of elbow surgery (2004) Hx of foot surgery Hx of foot surgery Hx of prostatectomy (~12/25/21) Family History Mother Pancreatic cancer Father No pertinent past medical history Social History household members: spouse Smoking Status: Former smoker alcohol intake: former Assessment & Plan Assessment & Plan narrative: 1. Chest pain r/o ACS, acute, present on admission ? Echo is normal or than mild ascending aorta enlargement ? Pharmacological stress test - results pending on Harry and David ? Start ASA 81 mg ? Received fentanyl and morphine in the ED ? EKG shows no ischemic changes ? Troponin neg x2 2. BP trend ? Patient has ranged from hypotensive since presenting to the ED to normotensive, with peaks, likely due to pain, concerning now for early sepsis 3. HLD ? Lipid panel, pending ? Start/continue atorvastatin 40 mg po at bedtime Risk stratification ? Fasting lipid panel scheduled for 0500 labs ? A1c pending 4. Upper abdominal pain, appears to be acute ? Lipase is normal, have requested a stool culture and H. Pylori test 5. Sepsis - positive blood culture Staphylococcus, vancomycin started. Time Spent With Patient Critical Care time: I spent a total of [] minutes of critical care time on this patient's care today; this time is exclusive of procedural time.
[2022-09-01] MEDS: VANCOMYCIN 1,250 MG/250 ML PIGGYBACK 166.667 MG IV (15:30)
[2022-09-01 17:25] VITALS: BP 130/73; PULSE 130; TEMP 36.3; O2SAT 95
[2022-09-01] MEDS: LORazepam 0.5 MG TABLET 1 MG PO (18:31)
--- NOTE | 2022-09-01 19:27 | PC.NURSE ---
patient denies chest pain or discomfort. alert and oriented. pleasant and conversational. reports having panic attacks for the last week or so. has a counselor and psychiatrist that he visits approx 1 x per month. PTSD from [place] at a young age. this can cause some stress in his life + reports last night i had a bad panic attack. he was given ativan 1mg and this was helpful. new order for ativan 1mg TID prn received from provider. bc are + and contact isolation initiated. tolerating IV's vanco and doxycycline. IS use reviewed and encouraged to clear his fine crackles at bases. tolerating RA. stress test completed, EF 65%. tele is NSR. recent hip repair by dr reynolds at the begin of this month. + CSM and moving about the room independantly. report to NOC shift. anticipate d/c home tomorrow.
[2022-09-01 20:20] VITALS: BP 132/73; PULSE 76; RESP 18; TEMP 37.1; O2SAT 97
[2022-09-01] MEDS: PRAZOSIN 1 MG CAPSULE 2 MG PO (21:23)
[2022-09-01] MEDS: MELATONIN 3 MG TABLET 6 MG PO (21:23)
[2022-09-01] MEDS: SODIUM CHLORIDE 0.9% FLUSH 10 ML IV (21:24)
[2022-09-01] MEDS: QUETIAPINE 25 MG TABLET 50 MG PO (21:24)
[2022-09-01 23:30] VITALS: BP 133/76; PULSE 97; RESP 18; TEMP 35.9; O2SAT 98
[2022-09-02] VITALS (7 sets, daily range): BP systolic 91–139; BP diastolic 52–79; PULSE 68–79; RESP 12–22; TEMP 36–36.6; O2SAT 93–98
[2022-09-02] MEDS: VANCOMYCIN 1,250 MG/250 ML PIGGYBACK 166.667 MG IV (02:59)
[2022-09-02] MEDS: SODIUM CHLORIDE 0.9% FLUSH 10 ML IV ×4 (02:59→20:11)
--- NOTE | 2022-09-02 03:22 | PC.NURSE ---
Patient is alert and oriented. Breath sounds CTA with RA sat of 97%. HRR w/telemetry reading of SR. Denies nausea. BT present and is passing flatus. Denies dysuria, frequency or urgency with urination. Up independently in room and uses no AD. Incision to left hip intact with scabbed spots noted; recent SHAQUILLE. Denies pain. Is on contact isolation as has gm + cocci on blood culture gram stain. Fall risk score is moderate but patient is steady on feet and denies any dizziness or lightheadedness so bed alarm is not in use.
[2022-09-02 04:48] LABS: Add Manual Diff / Slide Review NO; Basophils Absolute Auto 0 /uL (0-100); Basophils Percent Auto 0.7 % (0-2); Eosinophils Absolute Auto 200 /uL (0-450); Eosinophils Percent Auto 4.8 % (2-4); Hematocrit 29.8 % (41-53); Hemoglobin 9.9 g/dL (13.5-17.5); Lymphocytes Absolute Auto 1700 /uL (1100-4500); Lymphocytes Percent Auto 36.6 % (25-40); Mean Corpuscular HGB Conc 33.2 % (30-36); Mean Corpuscular Hemoglobin 29.3 PG (26-34); Mean Corpuscular Volume 88.3 fL (80-100); Monocytes Absolute Auto 300 /uL (0-900); Neutrophils Absolute Auto 2300 /uL (1500-7000); Neutrophils Percent Auto 50.9 % (50-75); Platelet Count 259 X10^3/uL (150-400); Red Blood Cell Count 3.38 X10^6/uL (4.5-5.9); Red Cell Distribution Width 15.2 % (11.6-14.8); White Blood Cell Count 4.6 X10^3/uL (4.5-11.0)
[2022-09-02 04:58] LABS: HEMOLYSIS < 15 (0-50); Potassium 3.7 mmol/L (3.4-5.1)
[2022-09-02 04:59] LABS: Alanine Aminotransferase 15 IU/L (<50); Albumin 3.5 g/dL (3.5-5.0); Albumin Globulin Ratio 1.1 (1.0-2.8); Alkaline Phosphatase 112 U/L (38-126); Aspartate Aminotransferase 20 IU/L (17-59); BUN Creatinine Ratio 10.2 (6-22); Bilirubin Total 0.3 mg/dL (0.2-1.3); Blood Urea Nitrogen 10 mg/dL (9-20); Calcium 8.3 mg/dL (8.4-10.2); Carbon Dioxide 23 mmol/L (22-32); Chloride 105 mmol/L (98-107); Estimated Glomerular Filt Rate > 60 mL/min (>60); Globulin 3.1 g/dL (1.7-4.1); Glucose 87 mg/dL (80-110); Sodium 136 mmol/L (137-145); Total Protein 6.6 g/dL (6.3-8.2)
[2022-09-02] MEDS: DOXYCYCLINE 100 MG in SODIUM CHLORIDE 0.9% 100 ML IV ×2 (05:01→17:56)
[2022-09-02 05:12] LABS: Procalcitonin 0.05 ng/mL (<0.5)
[2022-09-02] MEDS: ASPIRIN EC 81 MG TABLET PO (10:29)
[2022-09-02] MEDS: PRAZOSIN 1 MG CAPSULE PO (10:29)
[2022-09-02] MEDS: ARIPiprazole 10 MG TABLET PO (10:29)
[2022-09-02] MEDS: HEPARIN 5,000 UNIT/ML VIAL 5000 UNIT SUBCUT ×2 (10:29→20:10)
[2022-09-02] MEDS: FLUoxetine 20 MG CAPSULE 40 MG PO (10:29)
[2022-09-02 15:20] LABS: Estimated Glomerular Filt Rate > 60 mL/min (>60)
[2022-09-02] MEDS: LORazepam 0.5 MG TABLET 1 MG PO (15:27)
[2022-09-02] MEDS: VANCOMYCIN 1,250 MG/250 ML PIGGYBACK 167 MG IV (15:27)
[2022-09-02] MEDS: ACETAMINOPHEN 325 MG TABLET 650 MG PO (15:27)
[2022-09-02 15:34] LABS: Vancomycin Trough 10.7 ug/mL (10-20)
--- NOTE | 2022-09-02 17:42 | PM.PN.1 ---
Subjective Subjective Date Patient Seen: 09/02/22 Interval history: Gordon Ren is a 71-year-old male with multiple orthopedic surgeries, PTSD/bipolar, and surgery last week to replace his left hip presented complaint of feeling crummy, gradual onset and worsening chest and upper abdominal pain and shortness of breath. He has a presumed staph bacteremia, though etiology not entirely clear. TTE showed no evidence of endocarditis. Repeat blood cultures drawn today. He reports his symptoms have largely resolved and is finally starting to feel improved. He was initially admitted for presumptive chest pain evaluation, with abnormal stress testing done yesterday. Exam Vital Signs (past 8 hours): - 09/02/22 11:00 09/02/22 13:19 Temperature 98 F 96.8 F L Pulse Rate 71 75 Respiratory Rate 12 20 Blood Pressure 91/52 L 114/65 Pulse Oximetry 98 93 Oxygen Flow Rate 0 0 Oxygen Delivery Method Room Air Oxygen Flow Rate 0 Narrative Exam Narrative: Gen: Alert, oriented, overweight male, pale and appears comfortable HEENT: normocephalic, atraumatic, conjunctiva clear, sclera non-icteric, oral mucosa pink and moist Neck: supple, full ROM, no JVD, trachea is midline Resp: Lungs CTA, non-labored breathing CV: RRR, no murmur or rubs Abd: soft, diffusely tender, normoactive BTs Skin: no lesions or rashes, dry and intact Neuro: Alert and oriented X 4 w/no focal deficits. Speech clear and coherent. Extremities: moves all 4 extremities, is ambulatory, negative Lacie?s sign Psyche: normal mood and affect. Objective Labs 09/02/22 04:16 09/02/22 14:49 Labs: Laboratory Results - last 24 hr 08/31/22 09/02/22 09/02/22 03:25 04:16 04:16 WBC 4.6 RBC 3.38 L Hgb 9.9 L Hct 29.8 L MCV 88.3 MCH 29.3 MCHC 33.2 RDW 15.2 H Plt Count 259 Neut % (Auto) 50.9 Lymph % (Auto) 36.6 [place] % (Auto) 7.0 Eos % (Auto) 4.8 H Baso % (Auto) 0.7 Neut # (Auto) 2300 Lymph # (Auto) 1700 [place] # (Auto) 300 Eos # (Auto) 200 Baso # (Auto) 0 Sodium 136 L Potassium 3.7 Chloride 105 Carbon Dioxide 23 BUN 10 Creatinine 0.98 Estimated GFR > 60 BUN/Creatinine Ratio 10.2 Glucose 87 Calcium 8.3 L Total Bilirubin 0.3 AST 20 ALT 15 Alkaline Phosphatase 112 Total Protein 6.6 Albumin 3.5 Globulin 3.1 Albumin/Globulin Ratio 1.1 Procalcitonin 0.05 Vancomycin Trough A. baumannii (PCR) Not detected Jazmine albicans (PCR) Not detected C. glabrata (PCR) Not detected C. krusei (PCR) Not detected C. parapsilosis (PCR) Not detected C. tropicalis (PCR) Not detected Enterobacteriac sp PCR Not detected E. cloacae complex PCR Not detected Enterococcus sp PCR Not detected E. coli (PCR) Not detected H. influenzae (PCR) Not detected Klebsiella oxytoca PCR Not detected Klebsiella pneumoniae Not detected List. monocytogenes PCR Not detected N. meningitidis (PCR) Not detected Proteus species (PCR) Not detected Serratia marcescens PCR Not detected Staphylococcus sp PCR Detected H Staph aureus (PCR) Not detected mecA-Methicil Res Gene Detected H Streptococcus sp PCR Not detected Group A Strep (PCR) Not detected Strep agalactiae (PCR) Not detected Strep pneumoniae (PCR) Not detected P. aeruginosa (PCR) Not detected 09/02/22 09/02/22 14:49 14:49 WBC RBC Hgb Hct MCV MCH MCHC RDW Plt Count Neut % (Auto) Lymph % (Auto) Angelina % (Auto) Eos % (Auto) Baso % (Auto) Neut # (Auto) Lymph # (Auto) [place] # (Auto) Eos # (Auto) Baso # (Auto) Sodium Potassium Chloride Carbon Dioxide BUN Creatinine 1.02 Estimated GFR > 60 BUN/Creatinine Ratio Glucose Calcium Total Bilirubin AST ALT Alkaline Phosphatase Total Protein Albumin Globulin Albumin/Globulin Ratio Procalcitonin Vancomycin Trough 10.7 A. baumannii (PCR) Jazmine albicans (PCR) C. glabrata (PCR) C. krusei (PCR) C. parapsilosis (PCR) C. tropicalis (PCR) Enterobacteriac sp PCR E. cloacae complex PCR Enterococcus sp PCR E. coli (PCR) H. influenzae (PCR) Klebsiella oxytoca PCR Klebsiella pneumoniae List. monocytogenes PCR N. meningitidis (PCR) Proteus species (PCR) Serratia marcescens PCR Staphylococcus sp PCR Staph aureus (PCR) mecA-Methicil Res Gene Streptococcus sp PCR Group A Strep (PCR) Strep agalactiae (PCR) Strep pneumoniae (PCR) P. aeruginosa (PCR) PFSH Medical History Anxiety BCC (basal cell carcinoma) (2020) BPH (benign prostatic hyperplasia) Brain tumor Depression GERD (gastroesophageal reflux disease) Hearing impaired DIONI on CPAP Osteoarthritis Post traumatic stress disorder (PTSD) Prostate cancer Surgical History H/O brain surgery H/O prostate biopsy H/O shoulder surgery History of bilateral carpal tunnel release History of lumbar fusion History of surgery History of total right hip replacement (02/10/22) Hx of brain surgery (2011) Hx of elbow surgery (2004) Hx of foot surgery Hx of foot surgery Hx of prostatectomy (~12/25/21) Family History Mother Pancreatic cancer Father No pertinent past medical history Social History household members: spouse Smoking Status: Former smoker alcohol intake: former Assessment & Plan Assessment & Plan narrative: 1. Chest pain due to probable cardiac ischemia - Echo is normal or than mild ascending aorta enlargement - Pharmacological stress test - abnormal. Defer to outpatient with close cardiology follow up given bacteremia. May need consideration for transfer for [facility] depending on repeat blood cultures. - Start ASA 81 mg and statin therapy. 2. Staph bacteremia - - source is not entirely clear but cultures positive in 4/4 bottles. - continues on doxy and vancomycin, pending cultures. - further workup depending on sensitivities, patient appears improved, no obvious source at this time. TTE without obvious vegetation. 3. HLD - continue statin 4. Upper abdominal pain, appears to be acute - Lipase is normal, have requested a stool culture and H. Pylori test Code: Full Dispo: plan for discharge home, timing unclear based on staph bacteremia. Time Spent With Patient Critical Care time: I spent a total of [] minutes of critical care time on this patient's care today; this time is exclusive of procedural time.
[2022-09-02] MEDS: MELATONIN 3 MG TABLET 6 MG PO (20:10)
[2022-09-02] MEDS: PRAZOSIN 1 MG CAPSULE 2 MG PO (20:11)
[2022-09-02] MEDS: QUETIAPINE 25 MG TABLET 50 MG PO (20:12)
[2022-09-02] MEDS: SENNOSIDES 8.6 MG TABLET 17.2 MG PO (21:00)
--- NOTE | 2022-09-03 00:56 | PC.NURSE ---
Patient is alert and oriented. Breath sounds CTA with RA sat of 96%; denies SOB or cough. HRR w/telemetry reading of SR. Denies nausea. BT hypoactive; did have BM on 08/31 but states he feels constipated so Rick CAMPOS informed, and order received/med given for Senna. Is voiding per toilet and denies dysuria. Is independent with mobility; denies any weakness or unsteadiness and does not use AD. Denies pain. Remains on contact isolation as blood culture with gm + cocci and awaiting final culture results. Fall risk score is moderate.
[2022-09-03] MEDS: LORazepam 0.5 MG TABLET 1 MG PO (01:46)
[2022-09-03] MEDS: VANCOMYCIN 1,250 MG/250 ML PIGGYBACK 250 MG IV (03:32)
[2022-09-03] MEDS: SODIUM CHLORIDE 0.9% FLUSH 10 ML IV ×2 (03:33→09:22)
[2022-09-03 04:00] VITALS: BP 138/72; PULSE 76; RESP 19; TEMP 36.1; O2SAT 98
[2022-09-03] MEDS: DOXYCYCLINE 100 MG in SODIUM CHLORIDE 0.9% 100 ML IV (05:35)
[2022-09-03 08:00] VITALS: BP 140/85; PULSE 77; RESP 17; TEMP 36.2; O2SAT 95
[2022-09-03] MEDS: PRAZOSIN 1 MG CAPSULE PO (09:22)
[2022-09-03] MEDS: HEPARIN 5,000 UNIT/ML VIAL 5000 UNIT SUBCUT (09:22)
[2022-09-03] MEDS: FLUoxetine 20 MG CAPSULE 40 MG PO (09:22)
[2022-09-03] MEDS: ARIPiprazole 10 MG TABLET PO (09:22)
[2022-09-03] MEDS: ASPIRIN EC 81 MG TABLET PO (09:22)
[2022-09-03 12:00] VITALS: BP 125/78; PULSE 93; RESP 17; TEMP 36.3; O2SAT 96
--- NOTE | 2022-09-03 13:27 | PM.DS.1 ---
History of Present Illness History of Present Illness Date Patient Seen: 09/03/22 Time Patient Seen: 13:27 Chief complaint: Chest and abdominal pain, rule out cardiac cause Narrative: Per admitting provider, Gordon Ren is a 71-year-old male with multiple orthopedic surgeries, PTSD/bipolar, and surgery last week to replace his left hip presented complaint of feeling crummy, gradual onset and worsening chest and upper abdominal pain and shortness of breath today. Been increasingly short of breath, feels lightheaded feel like he might pass out.? Denies fevers but states he is always hot to the point his sleeps separately.? He does endorse nausea without vomiting.? No radiation to his neck, back or shoulder.? Pain does not radiate down towards his legs.? He continues to have postoperative left hip pain. Patient has not had any diarrhea or constipation.? He is had some soft stools today but no black or bloody stools.? No dysurea, but recently had his prostate removed due to prostate cancer.? He states that his left leg has felt a little bit more swollen today.?Patient does not have any history of hypertension, dyslipidemia, cholesterol, no prior MIs or strokes.? No chronic kidney disease.? Patient states he is had approximately 40 lb intentional weight loss over the past few months. He has persistent upper and lower extremity peripheral neuropathy for which he takes gabapentin. He had left hip surgery a month ago by Dr. Marli Trevizo.? Denies tobacco, no alcohol, no illicit.? No known drug allergies.?CT angio 02/16/2022 reported annualoaortic ectasia.?Today's chest xray suggests mild pneumonia superior to the diaphragm. Chest abdomen and pelvis CTA reported negative for PE or aortic dissection. Patient is afebrile, blood pressure 127/76 heart rate 88 respiratory rate 25 oxygen saturation of 96% on room air he weighs 108 kg with a BMI of 33.2. He is mildly anemic with a hemoglobin and hematocrit of 12.5 and 37.3 white count is within normal limits but he does have a mild left shift creatinine is 1.57 with an EGFR 47 which is not his normal baseline glucose is 120 lactate 2.6 alk-phos is 160 troponin x2 are both negative proBNP is within normal limits lipase is within normal limits and procalcitonin was negative COVID-19 PCR is negative. Discharge Providers Provider Date of admission: 08/31/22 12:30 Discharge Date: 09/03/22 Primary care physician: BETH Crockett Consults: 08/31/22 23:54 Consult to [facility] [place] - Dormitory Supervisor Routine Comment: needs psyhe eval, not sure his sxs controlled Discharge provider: Romero Waterman DO Summary Hospital Course Discharge Diagnosis: 1. Chest pain due to probable cardiac ischemia 2. Staph epidermidis bacteremia ? 3. HLD 4. Upper abdominal pain, resolved Hospital Course: This is a 71 year old male who was admitted initially with chest pain. He had abnormal nuclear stress testing after initial stress testing, but further evaluation is being deferred at this time given positive blood cultures . 3/4 blood cultures on admission were positive for staph epidermidis. Patient did have improvement in his symptoms with antibiotics after admission, so discussed case with infectious disease whom recommended at least a week total of antibiotics and given presumed rapid clearance and unclear certainty for infection (but still significant probability), he was discharged home to complete antibiotic course with levofloxacin as an outpatient (10 additional days). He had been on doxycycline and vancomycin per previous providers after positive blood cultures were noted. Given possibility of bacteremia, case was discussed with cardiology as well whom recommended outpatient referral for additional evaluation of his abnormal stress testing given improvement of symptoms with antibiotics and that ACS had been essentially ruled out. He was discharged on aspirin and statin therapy for presumed coronary artery disease. Time Spent with Patient Time spent: Greater than 30 minutes Exam Vital Signs (past 8 hours): - 09/03/22 08:00 09/03/22 12:00 Temperature 97.1 F L 97.4 F L Pulse Rate 77 93 H Respiratory Rate 17 17 Blood Pressure 140/85 125/78 Pulse Oximetry 95 96 Oxygen Flow Rate 0 0 Oxygen Delivery Method Room Air Oxygen Flow Rate 0 Narrative Exam Narrative: Gen: Alert, oriented, overweight male, pale and appears comfortable HEENT: normocephalic, atraumatic, conjunctiva clear, sclera non-icteric, oral mucosa pink and moist Neck: supple, full ROM, no JVD, trachea is midline Resp: Lungs CTA, non-labored breathing CV: RRR, no murmur or rubs Abd: soft, diffusely tender, normoactive BTs Skin: no lesions or rashes, dry and intact Neuro: Alert and oriented X 4 w/no focal deficits. Speech clear and coherent. Extremities: moves all 4 extremities, is ambulatory, negative Lacie?s sign Psyche: normal mood and affect. Objective Labs 09/02/22 04:16 09/02/22 14:49 Labs: Laboratory Results - last 24 hr 09/02/22 09/02/22 14:49 14:49 Creatinine 1.02 Estimated GFR > 60 Vancomycin Trough 10.7 PFSH Medical History Anxiety BCC (basal cell carcinoma) (2020) BPH (benign prostatic hyperplasia) Brain tumor Depression GERD (gastroesophageal reflux disease) Hearing impaired DIONI on CPAP Osteoarthritis Post traumatic stress disorder (PTSD) Prostate cancer Surgical History H/O brain surgery H/O prostate biopsy H/O shoulder surgery History of bilateral carpal tunnel release History of lumbar fusion History of surgery History of total right hip replacement (02/10/22) Hx of brain surgery (2011) Hx of elbow surgery (2004) Hx of foot surgery Hx of foot surgery Hx of prostatectomy (~12/25/21) Family History Mother Pancreatic cancer Father No pertinent past medical history Social History household members: spouse Smoking Status: Former smoker alcohol intake: former Discharge Plan Discharge Plan Patient Disposition: Home Provider Discharge Comment: You were admitted to the hospital with chest discomfort. You had an abnormal stress test and additional evaluation is needed which is to include referral from your PCP for a airport maintenance laborer. You were also found to have a possible bacteria in your blood stream, though it may represent a contaminant. After speaking with infectious disease specialist and a airport maintenance laborer you can go home on a 10 day course of antibiotics for the bacteria. Discharge orders & Medications Prescriptions: New aspirin 81 mg Tablet,Delayed Release (Dr/Ec) 81 mg PO DAILY 30 Days Qty: 30 0RF atorvastatin 40 mg tablet 40 mg PO BEDTIME 30 Days Qty: 30 0RF levofloxacin 750 mg tablet 750 mg PO DAILY 10 Days Qty: 10 0RF Continued gabapentin [Neurontin] 300 MG capsule 300 mg PO SEEINSTR Qty: 0 Rx Instructions: 600mg qam, 300mg qnoon, 600mg bedtime omeprazole 20 MG capsule,delayed release(DR/EC) 20 mg PO QDAY Qty: 0 naproxen sodium 220 mg Tablet 440 mg PO BID PRN (Reason: Pain) acetaminophen 325 mg tablet 650 mg PO Q6HR PRN (Reason: Pain) ibuprofen 400 mg tablet 400 mg PO Q6HR PRN (Reason: Pain) fluoxetine 40 mg Capsule 40 mg PO DAILY aripiprazole 5 mg Tablet 10 mg PO DAILY Rx Instructions: depression cholecalciferol (vitamin D3) [Vitamin D3] 25 mcg (1,000 unit) Tablet 25 mcg PO DAILY Follow up/Referrals: Meggan Garcia ARNP [Primary Care Provider] - Diet/Activity/Treatments Diet: Diet as Tolerated Activity: As tolerated Visit Report/Discharge Packet Instructions: DI for Urinary Tract Infection (UTI), DI for Sepsis -- Adult, Atorvastatin, Levofloxacin Stand Alone Forms: Patient Portal/API, Stroke Signs & Symptoms Discharge Data Primary Care Provider: Meggan Garcia
[2022-09-03 14:25] LABS: H. Pylori Antigen Stool Negative (Negative)
== END 2022-09-03 15:05 | disposition home or self-care (01) | DRG 195 ==
LOC: ED 23:22 → AC 08-31 03:20
PROVIDERS: Neuromusculoskeletal Medicine, Sports Medicine; Admitting Provider Nurse Practitioner Family; Emergency Provider Emergency Medicine; PCP Nurse Practitioner; Referring Provider Emergency Medicine; Visit Provider Nurse Practitioner Family
DX: J18.9 Pneumonia, unspecified organism (principal); E78.5 Hyperlipidemia, unspecified; R10.10 Upper abdominal pain, unspecified; I25.9 Chronic ischemic heart disease, unspecified; B95.7 Other staphylococcus as the cause of diseases classified elsewhere; Z87.891 Personal history of nicotine dependence; Z20.822 Contact with and (suspected) exposure to COVID-19
CPT/HCPCS: 36415; 71045; 71275; 74174; 78452; 80053; 80061; 80202; 81015; 82550; 82565; 83036; 83605; 83690; 83735; 83880; 84145; 84484; 85025; 85610; 85730; 87040; 87045; 87077; 87147; 87150; 87186; 87338; 87635; 87899; 93005; 93017; 93306; 96365; 96375; 99284; C9803; G0378; A9502; J1170; J1644; J2270; J2405; J2785; J3010; Q9967

== ENCOUNTER → 2022-09-24 14:43 | Outpatient (CLI) | payer OTHER, SELFPAY ==
[2022-08-31 04:51] VITALS: BMI 32.5
--- NOTE | 2022-09-24 14:48 | DI.MRI.S_ITS ---
PROCEDURE: MR HEAD/BRAIN WO/W CON INDICATIONS: DISORDER OF THE BRAIN, UNSPECIFIED TECHNIQUE: Noncontrast axial T1 spin echo, axial T2 fast spin echo, sagittal and axial FLAIR, coronal T2 fast spin echo, axial gradient echo, axial diffusion and ADC through the brain. After the administration of contrast, axial and coronal and sagittal T1 spin echo with fat saturation through the brain. COMPARISON: None. FINDINGS: Image quality: Excellent. CSF spaces: Basal cisterns are patent. No extra-axial fluid collections. Ventricles are normal in size and shape. Brain: No midline shift. No acute intracranial bleeds or masses. Low gradient echo signal intensity material deep to the left parietal craniotomy, consistent with chronic hemorrhagic products. No evidence of acute intracranial hemorrhage. No abnormal intracranial enhancement. There is cerebral volume loss for age. There is periventricular white matter chronic small vessel ischemic change. The brainstem appears normal. Diffusion-weighted images demonstrate no acute ischemic insults. No chronic ischemic insults. Normal intravascular flow voids are present. Skull and face: Me. Calvarial marrow is otherwise normal in signal. Orbits appear normal. Sinuses: Small amount of right maxillary sinus fluid. Mastoids clear. IMPRESSION: 1. Postsurgical sequelae. 2. Mild volume loss and small vessel ischemic disease. 3. No acute process. No recent infarct. Dictated by: Jeferson Schneider M.D. on 09/24/2022 at 16:22 Approved by: Jeferson Schneider M.D. on 09/24/2022 at 16:24
== END ==
PROVIDERS: PCP Nurse Practitioner; Referring Provider Neurological Surgery; Visit Provider Neurological Surgery
DX: G93.9 Disorder of brain, unspecified (principal); Z98.890 Other specified postprocedural states
CPT/HCPCS: 70553; A9579

== ENCOUNTER 2022-10-28 10:47 | Emergency (ER) | payer OTHER, SELFPAY ==
[2022-08-31 04:51] VITALS: BMI 32.5
[2022-10-28 11:00] VITALS: BP 111/61; PULSE 93; RESP 18; TEMP 36.7; O2SAT 97; BMI 31.1
--- NOTE | 2022-10-28 17:04 | PC.NURSE ---
Pt states he's been falling more often, lately. States he's fallen 6x in past 2wks. He c/o R-calf and Left-thigh pain.
--- NOTE | 2022-10-28 17:29 | DI.US.S_ITS ---
PROCEDURE: US PERIPH VENOUS LOW EXTREM BI INDICATIONS: PAIN. RECENT SURGERY. TECHNIQUE: Real-time imaging, as well as color and pulse Doppler interrogation, were performed of the deep veins of both legs from the inguinal ligament to the popliteal fossa. COMPARISON: [facility], CR, XR TIBIA FIBULA RT 2V, 10/28/2022, 18:08. FINDINGS: Right: The common femoral, femoral and popliteal veins are normally compressible, and free of intraluminal thrombus. Color and pulse Doppler demonstrate normal phasic intravascular flow. There is normal augmentation response to distal compression maneuver. Left: The common femoral, femoral and popliteal veins are normally compressible, and free of intraluminal thrombus. Color and pulse Doppler demonstrate normal phasic intravascular flow. There is normal augmentation response to distal compression maneuver. IMPRESSION: Negative for deep venous thrombosis. Dictated by: French King M.D. on 10/28/2022 at 18:13 Approved by: French King M.D. on 10/28/2022 at 18:14
--- NOTE | 2022-10-28 17:38 | ED_ITS ---
HPI - Extremity Problem <Jalil Mixon PA-C - Last Filed: 10/28/22 20:47> General Chief complaint: Extremity Problem,Nontraumatic Stated complaint: extreme leg pain LT leg T-21/RT t-2 Time Seen by Provider: 10/28/22 15:50 Source: patient Mode of arrival: Wheelchair History of Present Illness HPI Narrative: 72-year-old male with past medical history BPH, prostate cancer, PTSD presents to the ED with 3 weeks of leg pain. Patient states that his symptoms started 3 weeks ago with pain on the front left thigh. For the last 3 days patient has also been experiencing pain in the right calf. Patient states that it is painful to bear weight and walk. Patient states that he came off of levofloxacin 2-3 weeks ago for a urinary tract infection. Patient called his doctor this morning who sent him to the ED to rule out a DVT. Patient denies fever, chills, chest pain, shortness of breath, nausea, vomiting, abdominal pain, dysuria, lightheadedness, dizziness, syncope. Related Data Home Medications Medication Instructions Recorded Confirmed gabapentin 300 mg capsule 300 mg PO SEEINSTR ##0 06/10/17 08/31/22 (Neurontin) omeprazole 20 mg capsule,delayed 20 mg PO QDAY ##0 06/10/17 08/31/22 release aripiprazole 5 mg tablet 10 mg PO DAILY 04/25/21 08/31/22 cholecalciferol (vitamin D3) 25 25 mcg PO DAILY 04/25/21 08/31/22 mcg (1,000 unit) tablet (Vitamin D3) fluoxetine 40 mg capsule 40 mg PO DAILY 04/25/21 08/31/22 acetaminophen 325 mg tablet 650 mg PO Q6HR PRN Pain 08/04/22 08/31/22 ibuprofen 400 mg tablet 400 mg PO Q6HR PRN Pain 08/04/22 08/31/22 naproxen sodium 220 mg tablet 440 mg PO BID PRN Pain 08/04/22 08/31/22 Allergies Allergy/AdvReac Type Severity Reaction Status Date / Time levofloxacin Allergy Cramping Verified 10/28/22 11:00 of the Muscles Review of Systems <Jalil Mixon PA-C - Last Filed: 10/28/22 20:47> Review of Systems ROS Unobtainable: All systems reviewed & are unremarkable except as noted in HPI and below Constitutional Constitutional: Denies chills, Denies fatigue, Denies fever(s), Denies frequent falls, Denies lethargy and Denies weakness Eyes Eyes: Denies change in vision, Denies eye discharge, Denies irritation and Denies loss of vision ENT Ears, Nose, Mouth, and Throat: Denies change in voice, Denies dizziness, Denies neck pain, Denies sore throat and Denies throat swelling Cardiovascular Cardiovascular: Denies chest pain, Denies irregular heart rhythm, Denies lightheadedness, Denies palpitations, Denies dyspnea, Denies dyspnea on exertion and Denies orthopnea Respiratory Respiratory: Denies cough, Denies dyspnea, Denies dyspnea on exertion and Denies wheezing Gastrointestinal Gastrointestinal: Denies abdominal pain, Denies change in bowel habits, Denies diarrhea, Denies nausea and Denies vomiting Genitourinary Genitourinary: Denies hematuria, Denies flank pain, Denies urinary incontinence and Denies urinary urgency Musculoskeletal Musculoskeletal: Denies back pain, Denies muscle weakness, Denies neck pain, Denies numbness and Denies tingling Comments: Bilateral leg pain Integumentary/Breasts Skin/Breast: Denies pruritus, Denies erythema, Denies rash and Denies wounds Neurologic Neurologic: Denies behavioral changes, Denies confusion, Denies dizziness, Denies frequent falls, Denies loss of vision, Denies numbness, Denies tingling and Denies weakness Psychiatric Psychiatric: Denies anxiety, Denies behavioral changes, Denies confusion, Denies depression, Denies homicidal ideation and Denies suicidal ideation Endocrine Endocrine: Denies fatigue, Denies flushing and Denies palpitations Hematologic/Lymphatic Hematologic/Lymphatic: Denies easy bruising Allergic/Immunologic Allergic/Immunologic: Denies urticaria, Denies throat swelling and Denies wheezing Patient History <Jalil Mixon PA-C - Last Filed: 10/28/22 20:47> Medical History Anxiety BCC (basal cell carcinoma) (2020) BPH (benign prostatic hyperplasia) Brain tumor Depression GERD (gastroesophageal reflux disease) Hearing impaired DIONI on CPAP Osteoarthritis Post traumatic stress disorder (PTSD) Prostate cancer Surgical History H/O brain surgery H/O prostate biopsy H/O shoulder surgery History of bilateral carpal tunnel release History of lumbar fusion History of surgery History of total right hip replacement (02/10/22) Hx of brain surgery (2011) Hx of elbow surgery (2004) Hx of foot surgery Hx of foot surgery Hx of prostatectomy (~12/25/21) Family History Mother Pancreatic cancer Father No pertinent past medical history Social History household members: spouse Smoking Status: Former smoker alcohol intake: former Smoking Status: Former smoker alcohol intake frequency: holidays/special occasions only Substance Use Type: marijuana Exam <Jalil Mixon PA-C - Last Filed: 10/28/22 20:47> Narrative Exam Narrative: Const General:?cooperative, healthy appearing and comfortable HENMT Head:?normal to inspection Ears:?hearing grossly normal bilaterally Nose:?external nose normal Face and sinus:?normal facial exam and sinuses nontender Mouth:?oral mucosae normal Throat:?posterior oropharynx normal Eyes General:?appearance normal, both eyes and all related structures Neck Neck:?normal visual inspection and no lymphadenopathy noted Resp Effort & Inspection:?normal respiratory effort Auscultation:?clear to auscultation bilaterally Cardio Rate:?regular rate Rhythm:?regular rhythm Musculoskeletal No swelling, deformity of bilateral lower extremities noted on exam. There is tenderness to palpation of the right calf. No tenderness to palpation of left upper leg. Neuro General:?patient alert, patient awake and patient oriented x3 Initial Vital Signs Initial Vital Signs: Vital Signs Temperature 98.1 F 10/28/22 11:00 Pulse Rate 93 H 10/28/22 11:00 Respiratory Rate 18 10/28/22 11:00 Blood Pressure 111/61 10/28/22 11:00 Pulse Oximetry 97 10/28/22 11:00 Oxygen Delivery Method Room Air 10/28/22 11:00 <Jose Carlos Deleon MD - Last Filed: 11/10/22 12:13> Initial Vital Signs Initial Vital Signs: Vital Signs Temperature 98.1 F 10/28/22 11:00 Pulse Rate 93 H 10/28/22 11:00 Respiratory Rate 18 10/28/22 11:00 Blood Pressure 111/61 10/28/22 11:00 Pulse Oximetry 97 10/28/22 11:00 Oxygen Delivery Method Room Air 10/28/22 11:00 Course <Jalil Mixon PA-C - Last Filed: 10/28/22 20:47> Orders Ordered: ED Orders 10/28/22 17:29 US periph venous low extrem bi Stat 10/28/22 18:06 XR tibia fibula RT 2V Stat Vital Signs Vital signs: Vital Signs - 8 hr 10/28/22 18:17 10/28/22 20:06 Pulse Rate 85 87 Respiratory Rate 20 Blood Pressure 115/65 140/72 Pulse Oximetry 97 99 Oxygen Delivery Method Room Air Room Air <Jose Carlos Deleon MD - Last Filed: 11/10/22 12:13> Orders Ordered: ED Orders 10/28/22 17:29 US periph venous low extrem bi Stat 10/28/22 18:06 XR tibia fibula RT 2V Stat Vital Signs Vital signs: Vital Signs - 8 hr 10/28/22 18:17 10/28/22 20:06 Pulse Rate 85 87 Respiratory Rate 20 Blood Pressure 115/65 140/72 Pulse Oximetry 97 99 Oxygen Delivery Method Room Air Room Air MDM - Extremity (Nontraumatic) <Jalil Mixon PA-C - Last Filed: 10/28/22 20:47> MDM Narrative Medical decision making narrative: 72-year-old male with past medical history BPH, prostate cancer, PTSD presents to the ED with 3 weeks of leg pain. Concern for DVT versus tendinopathy versus fracture/dislocation other musculoskeletal sprain/strain versus other. Will obtain ultrasound DVT, x-ray. Will reassess. Ultrasound was negative for DVTs. X-rays negative for acute fracture/dislocation. Patient's symptoms likely due to a tendinopathy, likely stemming from levofloxacin use. Recommend supportive care with ibuprofen, heat, lidocaine patches, rest. Discussed fall precautions. Patient agrees to follow- up with his PCP for further evaluation. ED return precautions were discussed with patient. Patient verbalized understanding. Medical records reviewed: Yes Discharge Plan Departure Patient Disposition: Home Clinical Impression: Leg pain Instructions: Tendinopathy Activity Restrictions/Additional Instructions: You were evaluated in the ED today for leg pain. Your x-rays did not show any fractures or dislocation. Your ultrasound did not show any DVTs. Your leg pain is likely due to tendinopathy, possibly triggered by levofloxacin. Please follow-up with your PCP as soon as possible for further evaluation. You may take ibuprofen, Tylenol, apply heat packs. You are at an increased risk for falls until you are able to walk without pain and steadily. Please exercise caution. Return to the ED if your symptoms worsen, you have chest pain or shortness of breath. Prescriptions: No Action gabapentin [Neurontin] 300 MG capsule 300 mg PO SEEINSTR Qty: 0 Rx Instructions: 600mg qam, 300mg qnoon, 600mg bedtime omeprazole 20 MG capsule,delayed release(DR/EC) 20 mg PO QDAY Qty: 0 naproxen sodium 220 mg Tablet 440 mg PO BID PRN (Reason: Pain) acetaminophen 325 mg tablet 650 mg PO Q6HR PRN (Reason: Pain) ibuprofen 400 mg tablet 400 mg PO Q6HR PRN (Reason: Pain) fluoxetine 40 mg Capsule 40 mg PO DAILY aripiprazole 5 mg Tablet 10 mg PO DAILY Rx Instructions: depression cholecalciferol (vitamin D3) [Vitamin D3] 25 mcg (1,000 unit) Tablet 25 mcg PO DAILY Referrals: Meggan Garcia ARNP [Primary Care Provider] - Stand Alone Forms: Patient Portal/API <Jose Carlos Deleon MD - Last Filed: 11/10/22 12:13> Cosign ED Attending Cosoleksandrature Attestation: I was immediately available in the department for consultation. This documentation has been reviewed and I agree with assessment and plan. Supervised by Jose Carlos Deleon MD
--- NOTE | 2022-10-28 18:06 | DI.RAD.S_ITS ---
PROCEDURE: XR TIBIA FUBULA RT 2V INDICATIONS: Calf pain TECHNIQUE: 2 views of the tibia and fibula were acquired. COMPARISON: None. FINDINGS: Bones: No acute fractures or dislocations. Prior fibula fracture. No suspicious bony lesions. Hardware in the foot. Enthesophytes. Soft tissues: No suspicious soft tissue calcifications or masses. No radiopaque foreign body. IMPRESSION: No acute osseous abnormality. Dictated by: Misha Anna M.D. on 10/28/2022 at 19:25 Approved by: Misha Anna M.D. on 10/28/2022 at 19:26
[2022-10-28 18:17] VITALS: BP 115/65; PULSE 85; RESP 20; O2SAT 97
[2022-10-28 20:06] VITALS: BP 140/72; PULSE 87; O2SAT 99
== END 2022-10-28 20:07 | disposition home or self-care (01) ==
PROVIDERS: Emergency Provider Student in an Organized Health Care Education/Training Program; PCP Nurse Practitioner
DX: M79.604 Pain in right leg (principal)
CPT/HCPCS: 73590; 93970; 99281; 99283

== ENCOUNTER 2022-11-15 20:36 | Emergency (ER) | payer OTHER, SELFPAY ==
[2022-08-31 04:51] VITALS: BMI 32.5
[2022-11-15] VITALS (16 sets, daily range): BP systolic 112–141; BP diastolic 55–67; PULSE 76–106; RESP 9–24; O2SAT 91–99; BMI 31.8
--- NOTE | 2022-11-15 20:37 | DI.RAD.S_ITS ---
PROCEDURE: XR HIP W PEL IF DONE LT 2V INDICATIONS: fall with severe L hip pain, shortening TECHNIQUE: AP pelvis with lateral view of the left hip. COMPARISON: [facility], CR, XR FEMUR LT MIN 2V, 11/15/2022, 20:58. [facility], CR, XR HIP W PEL IF DONE LT 2V, 08/13/2022, 13:48. FINDINGS: Bones: Bilateral hip prostheses are demonstrated without associated dislocation. The bony pelvis appears intact. There is a spiral fracture of the left femoral shaft with associated anterior and proximal displacement. Soft tissues: The visualized bowel gas pattern is normal. No suspicious soft tissue calcifications. IMPRESSION: 1. Spiral fracture of the proximal left femoral shaft with associated anterior and proximal displacement. 2. Bilateral hip prostheses without associated dislocation. Dictated by: Thomas Dyer M.D. on 11/15/2022 at 22:00 Approved by: Thomas Dyer M.D. on 11/15/2022 at 22:02
--- NOTE | 2022-11-15 20:40 | ED_ITS ---
HPI - General Adult General Chief complaint: Extremity Injury, Lower Stated complaint: GLF, pain L thigh area Time Seen by Provider: 11/15/22 20:37 History of Present Illness HPI narrative: 72-year-old male former smoker with multiple prior orthopedic surgeries including a left total hip most recently earlier this year at our facility, PTSD, bipolar presents by EMS for evaluation a ground level fall and severe left hip and thigh pain. He states he had been in his normal state of health in got off the couch and felt a bit lightheaded briefly which caused him to fall onto his left hip. He now has severe pain and is unable to weightbear. He denies any head neck or back injury. He has no chest pain or shortness of breath. He has had no nausea, vomiting or diarrhea. He denies dysuria, frequency or urgency. He has no numbness, tingling or weakness of his leg and denies any k nee or ankle pain. EMS placed an IV and he was given fentanyl EN route. Related Data Home Medications Medication Instructions Recorded Confirmed gabapentin 300 mg capsule 300 mg PO SEEINSTR ##0 06/10/17 08/31/22 (Neurontin) omeprazole 20 mg capsule,delayed 20 mg PO QDAY ##0 06/10/17 08/31/22 release aripiprazole 5 mg tablet 10 mg PO DAILY 04/25/21 08/31/22 cholecalciferol (vitamin D3) 25 25 mcg PO DAILY 04/25/21 08/31/22 mcg (1,000 unit) tablet (Vitamin D3) fluoxetine 40 mg capsule 40 mg PO DAILY 04/25/21 08/31/22 acetaminophen 325 mg tablet 650 mg PO Q6HR PRN Pain 08/04/22 08/31/22 ibuprofen 400 mg tablet 400 mg PO Q6HR PRN Pain 08/04/22 08/31/22 naproxen sodium 220 mg tablet 440 mg PO BID PRN Pain 08/04/22 08/31/22 Allergies Allergy/AdvReac Type Severity Reaction Status Date / Time levofloxacin Allergy Cramping Verified 11/15/22 20:41 of the Muscles Review of Systems Review of Systems Narrative: GENERAL: Denies chills, fatigue, malaise, fever, sweats. HEENT: Denies sinus pain, ear pain, sore throat, difficulty swallowing, dizziness. RESPIRATORY: Denies dyspnea, cough, wheezing, hemoptysis, sputum. CARDIOVASCULAR: Denies chest pain, palpitations, orthopnea, edema, GASTROINTESTINAL: Denies nausea, vomiting, abdominal pain, diarrhea, cons tipation, melena. : Denies dysuria, frequency, incontinence, hematuria, urinary retention. MUSCULOSKELETAL: See HPI SKIN: Denies rash, skin lesions, or other NEUROLOGIC: Denies weakness, headache, numbness, change in speech, confusion, seizures, incoordination. PSYCHIATRIC: No concerning psychosocial issues. 12 point review of systems is negative except for those stated above Patient History Medical History Anxiety BCC (basal cell carcinoma) (2020) BPH (benign prostatic hyperplasia) Brain tumor Depression GERD (gastroesophageal reflux disease) Hearing impaired DIONI on CPAP Osteoarthritis Post traumatic stress disorder (PTSD) Prostate cancer Surgical History H/O brain surgery H/O prostate biopsy H/O shoulder surgery History of bilateral carpal tunnel release History of lumbar fusion History of surgery History of total right hip replacement (02/10/22) Hx of brain surgery (2011) Hx of elbow surgery (2004) Hx of foot surgery Hx of foot surgery Hx of prostatectomy (~12/25/21) Family History Mother Pancreatic cancer Father No pertinent past medical history Social History household members: spouse Smoking Status: Former smoker alcohol intake: former Smoking Status: Former smoker alcohol intake frequency: holidays/special occasions only Substance Use Type: marijuana Exam Narrative Exam Narrative: GENERAL: [72] year old patient appears stated age. Well-developed patient, in pain, holding his left thigh. GCS 15 HEAD: Atraumatic. Normocephalic. EYES: Pupils equal round and reactive. Extraocular motions intact. No scleral icterus. No injection or drainage. ENT: Nose without bleeding, purulent drainage. Throat without erythema, tonsillar hypertrophy or exudate. Airway patent. NECK: Trachea midline. Non tender CARDIOVASCULAR: Regular rate and rhythm without murmurs, gallops, or rubs. RESPIRATORY: Clear to auscultation. Breath sounds equal bilaterally. No wheezes, rales, or rhonchi. GASTROINTESTINAL: Abdomen soft, non-tender, nondistended. EXTREMITIES: Patient with tenderness to palpation of his left hip and thigh, there is no obvious deformity, shortening or rotation. Compartments are soft, distal CMS intact BACK: Nontender without deformity or crepitance. No flank tenderness. NEURO: AOx3. SKIN: No rash or erythema of visible areas Initial Vital Signs Initial Vital Signs: Vital Signs Pulse Rate 98 H 11/15/22 20:40 Respiratory Rate 16 11/15/22 20:40 Blood Pressure 114/58 L 11/15/22 20:40 Pulse Oximetry 91 11/15/22 20:40 Oxygen Delivery Method Nasal Cannula 11/15/22 20:40 Oxygen Flow Rate 2 11/15/22 20:40 Course Orders Ordered: ED Orders 11/15/22 20:37 XR hip w pel if done LT 2V Stat 11/15/22 20:45 Complete Blood Count AUTO DIFF Stat Lactate (Lactic Acid) Stat Prothrombin Time INR Stat 11/15/22 21:03 XR femur LT min 2V Stat 11/15/22 21:15 COVID19 -Nasal RAPID Stat 11/15/22 21:18 Comprehensive Metabolic Panel Stat Magnesium Stat Troponin & CK Cardiac Panel Stat 11/15/22 21:19 EKG-12 Lead Stat Hydromorphone HCl (Hydromorphone 1 Mg Inj) 1 mg IV Q2HR PRN PRN Reason: Pain, Severe (7-10) Last Admin: 11/15/22 22:34 Dose: 1 mg Documented By: Admin: 11/15/22 21:25 Dose: 1 mg Documented By: NATALIE Discontinued Medications Hydromorphone HCl (Hydromorphone 1 Mg Inj) 1 mg IV NOW ONE Stop: 11/15/22 22:55 Last Admin: 11/15/22 23:30 Dose: 1 mg Documented By: NATALIE Sodium Chloride (Normal Saline 0.9%) 1,000 mls @ 1,000 mls/hr IV BOLUS ONE Stop: 11/15/22 21:37 Last Infusion: 11/15/22 21:27 Dose: 0 mls/hr Documented By: Admin: 11/15/22 20:50 Dose: 1,000 mls/hr Documented By: NATALIE Consultations Consultation #1: discussed with local ortho (Amee). We have discussed the clinical course, she has reviewed imaging and recommends discussion with [facility] given the complexity of periprosthetic fractures. Consultation #2: call to [facility]. Images / face sheet sent [phone] - call back from [facility] Ortho (Dr. William) happy to accept patient in transfer. Vital Signs Vital signs: Vital Signs - 8 hr 11/15/22 20:40 11/15/22 20:43 11/15/22 20:55 Pulse Rate 98 H 102 H 106 H Respiratory Rate 16 16 Blood Pressure 114/58 L 114/58 L Pulse Oximetry 91 97 Oxygen Delivery Method Nasal Cannula Nasal Cannula Nasal Cannula Oxygen Flow Rate 2 2 4 11/15/22 21:00 11/15/22 21:18 11/15/22 21:18 Pulse Rate 94 H 91 H Respiratory Rate 24 17 Blood Pressure 121/67 Pulse Oximetry 97 96 Oxygen Delivery Method Nasal Cannula Oxygen Flow Rate 4 11/15/22 21:30 11/15/22 21:30 11/15/22 21:45 Pulse Rate 85 Respiratory Rate 16 Blood Pressure 120/61 112/58 L Pulse Oximetry 93 Oxygen Delivery Method Oxygen Flow Rate 11/15/22 21:45 11/15/22 22:00 11/15/22 22:00 Pulse Rate 86 76 Respiratory Rate 12 12 Blood Pressure 121/59 L Pulse Oximetry 98 95 Oxygen Delivery Method Oxygen Flow Rate 11/15/22 22:15 11/15/22 22:15 11/15/22 22:30 Pulse Rate 77 Respiratory Rate 13 Blood Pressure 123/60 130/65 Pulse Oximetry 97 Oxygen Delivery Method Oxygen Flow Rate 11/15/22 22:30 11/15/22 22:45 11/15/22 22:45 Pulse Rate 77 83 Respiratory Rate 15 12 Blood Pressure 135/64 Pulse Oximetry 96 94 Oxygen Delivery Method Oxygen Flow Rate 11/15/22 23:00 11/15/22 23:00 11/15/22 23:15 Pulse Rate 86 Respiratory Rate 11 L Blood Pressure 130/61 141/55 H Pulse Oximetry 98 Oxygen Delivery Method Oxygen Flow Rate 11/15/22 23:15 11/15/22 23:30 11/15/22 23:31 Pulse Rate 85 100 H 103 H Respiratory Rate 9 L 17 19 Blood Pressure Pulse Oximetry 97 99 99 Oxygen Delivery Method Oxygen Flow Rate 11/15/22 23:31 Pulse Rate Respiratory Rate Blood Pressure 112/58 L Pulse Oximetry Oxygen Delivery Method Oxygen Flow Rate Medical Decision Making Lab Data 11/15/22 20:45 11/15/22 21:18 Labs: Lab Results 11/15/22 11/15/22 11/15/22 Range/Units 20:45 20:45 20:45 WBC 7.2 (4.5-11.0) X10^3/uL RBC 3.92 L (4.5-5.9) X10^6/uL Hgb 11.2 L (13.5-17.5) g/dL Hct 33.6 L (41-53) % MCV 85.7 (80-100) fL MCH 28.5 (26-34) PG MCHC 33.3 (30-36) % RDW 15.9 H (11.6-14.8) % Plt Count 218 (150-400) X10^3/uL Neut % (Auto) 75.5 H (50-75) % Lymph % (Auto) 18.7 L (25-40) % [place] % (Auto) 4.4 (3-14) % Eos % (Auto) 1.0 L (2-4) % Baso % (Auto) 0.4 (0-2) % Neut # (Auto) 5400 (7169-7592) /uL Lymph # (Auto) 1300 (6350-1114) /uL [place] # (Auto) 300 (0-900) /uL Eos # (Auto) 100 (0-450) /uL Baso # (Auto) 0 (0-100) /uL PT 12.7 (10.1-12.7) SECONDS INR 1.1 (0.9-1.3) Sodium (137-145) mmol/L Potassium (3.4-5.1) mmol/L Chloride (98-107) mmol/L Carbon Dioxide (22-32) mmol/L BUN (9-20) mg/dL Creatinine (0.66-1.25) mg/dL Estimated GFR (>60) mL/min BUN/Creatinine Ratio (6-22) Glucose (80-110) mg/dL Lactate 1.9 (0.7-2.1) mmol/L Calcium (8.4-10.2) mg/dL Magnesium (1.6-2.3) mg/dL Total Bilirubin (0.2-1.3) mg/dL AST (17-59) IU/L ALT (<50) IU/L Alkaline Phosphatase (38-126) U/L Total Creatine Kinase (55-170) U/L CK-MB (CK-2) CK-MB (CK-2) Rel Index Troponin I (0.01-0.034) ng/mL Total Protein (6.3-8.2) g/dL Albumin (3.5-5.0) g/dL Globulin (1.7-4.1) g/dL Albumin/Globulin Ratio (1.0-2.8) SARS-CoV-2 (PCR) (Negative) 11/15/22 11/15/22 11/15/22 Range/Units 21:15 21:18 21:18 WBC (4.5-11.0) X10^3/uL RBC (4.5-5.9) X10^6/uL Hgb (13.5-17.5) g/dL Hct (41-53) % MCV (80-100) fL MCH (26-34) PG MCHC (30-36) % RDW (11.6-14.8) % Plt Count (150-400) X10^3/uL Neut % (Auto) (50-75) % Lymph % (Auto) (25-40) % [place] % (Auto) (3-14) % Eos % (Auto) (2-4) % Baso % (Auto) (0-2) % Neut # (Auto) (0375-5315) /uL Lymph # (Auto) (1321-6845) /uL [place] # (Auto) (0-900) /uL Eos # (Auto) (0-450) /uL Baso # (Auto) (0-100) /uL PT (10.1-12.7) SECONDS INR (0.9-1.3) Sodium 138 (137-145) mmol/L Potassium 4.2 (3.4-5.1) mmol/L Chloride 106 (98-107) mmol/L Carbon Dioxide 24 (22-32) mmol/L BUN 19 (9-20) mg/dL Creatinine 1.35 H (0.66-1.25) mg/dL Estimated GFR 55 L (>60) mL/min BUN/Creatinine Ratio 14.1 (6-22) Glucose 117 H (80-110) mg/dL Lactate (0.7-2.1) mmol/L Calcium 8.3 L (8.4-10.2) mg/dL Magnesium 1.9 (1.6-2.3) mg/dL Total Bilirubin 0.3 (0.2-1.3) mg/dL AST 28 (17-59) IU/L ALT 29 (<50) IU/L Alkaline Phosphatase 146 H (38-126) U/L Total Creatine Kinase 57 (55-170) U/L CK-MB (CK-2) TNP CK-MB (CK-2) Rel Index TNP Troponin I < 0.012 (0.01-0.034) ng/mL Total Protein 7.2 (6.3-8.2) g/dL Albumin 3.8 (3.5-5.0) g/dL Globulin 3.4 (1.7-4.1) g/dL Albumin/Globulin Ratio 1.1 (1.0-2.8) SARS-CoV-2 (PCR) Negative (Negative) MDM Narrative Medical decision making narrative: 72-year-old male with mechanical ground level fall resulting in left periprosthetic femur fracture which is closed, isolated and neurovascularly intact. Patient is not anticoagulated and is hemodynamically stable. Pain is much improved after placement of traction splint. Compartments remained soft. Patient requires transfer to [facility] due to the complex nature of this fracture. Patient understands and agrees with the diagnosis and plan Critical Care Time Critical Care Time Critical Care Time: Yes Total Critical Care Time: 35 Attestation: The high probability of a clinically significant, sudden or life threatening deterioration of the [MSK] system(s) required my full and direct attention, intervention and personal management. The aggregate critical care time was [35] minutes. This time is in addition to time spent performing reported procedures but includes the following: [x] Data Review and interpretation [x] Patient assessment and monitoring of vital signs [x] Documentation [x] Medication orders and management Discharge Plan Departure Patient Disposition: [facility] Clinical Impression: Closed left femoral fracture Prescriptions: No Action gabapentin [Neurontin] 300 MG capsule 300 mg PO SEEINSTR Qty: 0 Rx Instructions: 600mg qam, 300mg qnoon, 600mg bedtime omeprazole 20 MG capsule,delayed release(DR/EC) 20 mg PO QDAY Qty: 0 naproxen sodium 220 mg Tablet 440 mg PO BID PRN (Reason: Pain) acetaminophen 325 mg tablet 650 mg PO Q6HR PRN (Reason: Pain) ibuprofen 400 mg tablet 400 mg PO Q6HR PRN (Reason: Pain) fluoxetine 40 mg Capsule 40 mg PO DAILY aripiprazole 5 mg Tablet 10 mg PO DAILY Rx Instructions: depression cholecalciferol (vitamin D3) [Vitamin D3] 25 mcg (1,000 unit) Tablet 25 mcg PO DAILY Referrals: Meggan Garcia ARNP [Primary Care Provider] -
[2022-11-15] MEDS: SODIUM CHLORIDE 0.9% 1,000 ML 1000 ML IV (20:50)
[2022-11-15 20:59] LABS: Add Manual Diff / Slide Review NO; Basophils Absolute Auto 0 /uL (0-100); Basophils Percent Auto 0.4 % (0-2); Eosinophils Absolute Auto 100 /uL (0-450); Hematocrit 33.6 % (41-53); Hemoglobin 11.2 g/dL (13.5-17.5); Lymphocytes Absolute Auto 1300 /uL (1100-4500); Lymphocytes Percent Auto 18.7 % (25-40); Mean Corpuscular HGB Conc 33.3 % (30-36); Mean Corpuscular Hemoglobin 28.5 PG (26-34); Mean Corpuscular Volume 85.7 fL (80-100); Monocytes Absolute Auto 300 /uL (0-900); Monocytes Percent Auto 4.4 % (3-14); Neutrophils Absolute Auto 5400 /uL (1500-7000); Neutrophils Percent Auto 75.5 % (50-75); Platelet Count 218 X10^3/uL (150-400); Red Blood Cell Count 3.92 X10^6/uL (4.5-5.9); Red Cell Distribution Width 15.9 % (11.6-14.8); White Blood Cell Count 7.2 X10^3/uL (4.5-11.0)
--- NOTE | 2022-11-15 21:03 | DI.RAD.S_ITS ---
PROCEDURE: XR FEMUR LT MIN 2V INDICATIONS: pain, obvious fx on hip films TECHNIQUE: 6 views of the femur were acquired. COMPARISON: [facility], CR, XR HIP W PEL IF DONE LT 2V, 11/15/2022, 20:51. FINDINGS: Bones: There is a spiral fracture of the left femoral shaft with anterior displacement by approximately 1 shaft width and proximal displacement by approximately 14 cm. A left hip prosthesis is present without associated dislocation. Soft tissues: No suspicious soft tissue calcifications or masses. IMPRESSION: 1. Fracture of the left femoral shaft with associated anterior and proximal displacement. Dictated by: Thomas Dyer M.D. on 11/15/2022 at 22:02 Approved by: Thomas Dyer M.D. on 11/15/2022 at 22:03
[2022-11-15 21:08] LABS: Lactate (Lactic Acid) 1.9 mmol/L (0.7-2.1)
[2022-11-15] MEDS: HYDROMORPHONE 1 MG INJ IV ×3 (21:25→23:30)
[2022-11-15 21:29] LABS: INR 1.1 (0.9-1.3); Prothrombin Time 12.7 SECONDS (10.1-12.7)
[2022-11-15 21:35] LABS: COVID19 -Nasal RAPID Negative (Negative)
[2022-11-15 22:33] LABS: Alanine Aminotransferase 29 IU/L (<50); Albumin 3.8 g/dL (3.5-5.0); Albumin Globulin Ratio 1.1 (1.0-2.8); Alkaline Phosphatase 146 U/L (38-126); Aspartate Aminotransferase 28 IU/L (17-59); BUN Creatinine Ratio 14.1 (6-22); Bilirubin Total 0.3 mg/dL (0.2-1.3); Blood Urea Nitrogen 19 mg/dL (9-20); Calcium 8.3 mg/dL (8.4-10.2); Carbon Dioxide 24 mmol/L (22-32); Chloride 106 mmol/L (98-107); Creatine Kinase 57 U/L (55-170); Estimated Glomerular Filt Rate 55 mL/min (>60); Globulin 3.4 g/dL (1.7-4.1); Glucose 117 mg/dL (80-110); HEMOLYSIS < 15 (0-50); Magnesium 1.9 mg/dL (1.6-2.3); Potassium 4.2 mmol/L (3.4-5.1); Sodium 138 mmol/L (137-145); Total Protein 7.2 g/dL (6.3-8.2)
[2022-11-15 22:44] LABS: Troponin I < 0.012 ng/mL (0.01-0.034)
[2022-11-16] VITALS (21 sets, daily range): BP systolic 96–137; BP diastolic 52–72; PULSE 74–89; RESP 10–17; O2SAT 96–100
[2022-11-16] MEDS: HYDROMORPHONE 1 MG INJ IV (04:50)
== END 2022-11-16 04:54 | disposition short-term general hospital (02) ==
PROVIDERS: Emergency Provider Emergency Medicine; PCP Nurse Practitioner
DX: S72.92XA Unspecified fracture of left femur, initial encounter for closed fracture (principal); R07.9 Chest pain, unspecified; W18.30XA Fall on same level, unspecified, initial encounter; Z20.822 Contact with and (suspected) exposure to COVID-19
CPT/HCPCS: 36415; 73502; 73552; 80053; 82550; 83605; 83735; 84484; 85025; 85610; 87635; 93005; 96361; 96374; 96376; 99284; 99285; C9803; J1170